=== PATIENT | female | born 1950 | race Caucasian/White ===

== ENCOUNTER 2021-03-29 11:31 | Outpatient (REF) | payer MEDICARE, MEDICAID, SELFPAY ==
--- NOTE | ~2021-03-29 | US_ITS ---
EXAMINATION: US THYROID CLINICAL INFORMATION: Nontoxic single thyroid nodule COMPARISON: None TECHNIQUE: Linear transducer chakraobrty-scale and color Doppler examination with attention to the region of the thyroid. FINDINGS: SIZE: Measurements of the thyroid lobes and nodules are given in sagittal, anteroposterior and transverse dimensions respectively. Right Thyroid Lobe: 4.5 x 1.4 x 1.3 cm, volume 4.5 mL. Parenchyma: The gland echotexture is homogeneous. Thyroid vascularity is normal. Left Thyroid Lobe: 3.8 x 1.2 x 1.3 cm, volume 3.1 mL. Parenchyma: The gland echotexture is homogeneous. Thyroid vascularity is normal. Isthmus: 0.3 cm in maximum AP dimension. Estimated total number of nodules greater than or equal to 1 cm: None. Rn Neonatal nodules are described as follows: 1. Location Left lower pole. Size: 0.3 x 0.2 x 0.2 cm, volume 0.006 mL. Nodule characteristics: Composition: Solid/almost completely solid (2). Echogenicity: Hypoechoic (2). Shape: Not taller than wide (0). Margins: Ill-defined (0). Echogenic Foci: None (0). ACR TI-RADS total points: 4 ACR TI-RADS category: 4 NODES: A small left neck lymph node present measuring 1.5 x 0.5 x 1.0 cm. US/US thyroid IMPRESSION: There is a single tiny left thyroid nodule present which is category 4 and needs no further follow-up. ACR TI-RADS RECOMMENDATION REFERENCE: Ultrasound-guided fine-needle aspiration, followup ultrasound, no further follow up. * TR1 (0 point) and TR 2 (2 points): No FNA or follow up * TR3 (3 points): FNA if more than or equal to 2.5 cm in maximum dimension, followup ultrasound in 1, 3 and 5 years if 1.5 to 2.4 cm in maximum dimension. * TR4 (4-6 points): FNA if more than or equal to 1.5 cm in maximum dimension, followup ultrasound in 1, 2, 3 and 5 years if 1 to 1.4 cm in maximum dimension. * TR5 (more than or equal to 7 points): FNA if more than or equal to 1 cm in maximum dimension, followup ultrasound every year for 5 years if 0.5 to 0.9 cm in maximum dimension. * TR3, TR4 or TR5 nodules that are below the size threshold for follow up receive no follow up.
== END 2021-03-29 11:32 | disposition home or self-care (01) ==
LOC: HO.US 11:31
PROVIDERS: PCP Internal Medicine; Visit Provider Internal Medicine
DX: E04.1 Nontoxic single thyroid nodule (principal)
CPT/HCPCS: 76536

== ENCOUNTER 2021-05-30 09:39 | Outpatient (REF) | payer MEDICARE, MEDICAID, SELFPAY ==
--- NOTE | ~2021-05-30 | MM_ITS ---
EXAMINATION: BONE DENSITOMETRY CLINICAL INDICATION: Menopause. COMPARISON: None (current study represents initial baseline exam). TECHNIQUE: Using a Stars Express DXA System (software version: 13.1) manufactured by [employer], dual-energy x-ray absorptiometry was performed of the lumbar spine and left hip. The images are of good technical quality. Summary results are attached. FINDINGS: AP SPINE L1-L2 (excluding L3 and L4): The data of L1-L4 has been changed to exclude the L3 and L4 vertebral bodies because degenerative changes at these levels may cause overestimation of the lumbar spine density. BMD 1.209 g/cm2, Z-score 1.5, T-score 0.4, normal. LEFT FEMUR, NECK: BMD 1.136 g/cm2, Z-score 2.2, T-score 0.7, normal. LEFT FEMUR, TOTAL: BMD 1.154 g/cm2, Z-score 2.4, T-score 1.2, normal. IDENTIFIED RISK FACTORS: Early menopause, low calcium intake, secondary osteoporosis. HISTORY OF FRACTURE: None listed. MEDICATIONS: Vitamin D. MM/XR DEXA axial skeleton IMPRESSION: 1. DIAGNOSIS: Normal bone density based on the lowest T-score value of 0.4 in the lumbar spine applying World Health Organization criteria. 2. 10-YEAR FRACTURE RISK PREDICTION, FRAX: According to the guidelines, FRAX calculation should only be performed on patients in the osteopenia bone density category. Therefore, FRAX was not performed on this patient. 3. Treatment Recommendations: NOF guidelines recommend consideration for treatment in postmenopausal women and men age 50 and older presenting with the following: -A hip or vertebral (clinical or morphometric) fracture. -T-score less than or equal to -2.5 at the femoral neck or spine after appropriate evaluation to exclude secondary causes. -Low bone mass at the hip or spine and a 10-year fracture probability by FRAX of greater than or equal to 3% for hip fracture or greater than or equal to 20% for major osteoporotic fracture based on the [place] adapted WHO algorithm. 4. Other Recommendations: All treatment decisions require clinical judgment and consideration of individual patient factors, including patient preferences, comorbidities, previous drug use, risk factors not captured in the FRAX model (e.g. frailty, falls, vitamin D deficiency, increased bone turnover, interval significant decline in bone density) and possible under or overestimation of fracture risk by FRAX. FUTURE SCAN RECOMMENDATION: People with diagnosed cases of osteoporosis or at high risk for fracture should have regular bone mineral density tests. For patients eligible for Medicare, routine testing is allowed once every 2 years. The testing frequency can be increased to one year for patients who have rapidly progressing disease, those who are receiving or discontinuing medical therapy to restore bone mass, or have additional risk factors.
== END 2021-05-30 09:40 | disposition home or self-care (01) ==
LOC: HO.MAMMO 09:39
PROVIDERS: PCP Internal Medicine; Visit Provider Internal Medicine
DX: Z13.820 Encounter for screening for osteoporosis (principal); Z78.0 Asymptomatic menopausal state
CPT/HCPCS: 77080

== ENCOUNTER 2021-06-08 12:43 | Outpatient (REF) | payer MEDICARE, MEDICAID, SELFPAY ==
--- NOTE | ~2021-06-08 | US_ITS ---
EXAMINATION: US VENOUS ULTRASOUND WITH DOPPLER LOWER EXTREMITY, LEFT CLINICAL INFORMATION: Left leg pain and swelling. COMPARISON: None TECHNIQUE: Ultrasound of the deep veins is performed from the hip to the calf with compression sonography and color and pulse Doppler assessment. Spectral analysis with color-flow imaging is performed. FINDINGS: There is normal venous compression and respiratory variation and augmented flow. The visualized common femoral vein, superficial femoral vein, profunda femoral vein, popliteal vein, and the trifurcation region shows no evidence of deep venous thrombosis. There is no significant popliteal fossa cyst. If the patient's symptoms persist, followup ultrasound in 5 days 7 days might be of value to exclude proximal propagation from a non-visualized calf vein. US/US venous duplex LE LT IMPRESSION: No DVT demonstrated in the left lower extremity.
== END 2021-06-08 12:44 | disposition home or self-care (01) ==
LOC: HO.HMGCX 12:43
PROVIDERS: Visit Provider Internal Medicine
DX: R60.0 Localized edema (principal); M79.89 Other specified soft tissue disorders
CPT/HCPCS: 93971

== ENCOUNTER 2021-09-13 08:58 | Outpatient (REF) | payer MEDICARE, MEDICAID, SELFPAY ==
--- NOTE | 2021-09-13 | EMG_ITS ---
Right median and ulnar motor and sensory studies were performed. Right radial sensory studies were performed and paraspinal muscles were tested with a needle. IMPRESSION: 1. Edhk-ax-lqyirfla right median neuropathy across carpal tunnel. 2. Mild right ulnar neuropathy across cubital tunnel. MD GINA Powell/SANTYL / [id number]
== END 2021-09-13 08:59 | disposition home or self-care (01) ==
LOC: HO.NEURO 08:58
PROVIDERS: PCP Internal Medicine; Visit Provider Internal Medicine
DX: G56.01 Carpal tunnel syndrome, right upper limb (principal)
CPT/HCPCS: 95886; 95909

== ENCOUNTER 2023-01-17 09:48 | Outpatient (REF) | payer MEDICARE, MEDICAID, SELFPAY ==
[2023-01-17 14:48] LABS: Iron 42 mcg/dL (30-160); Percent Iron Saturation 14 % (15-50); Total Iron Binding Capacity 307 mcg/dL (228-428); Unsaturated Iron Binding 265 ug/dL
[2023-01-17 15:22] LABS: Folate 12.9 ng/mL (> or = 4.0); Vitamin B12 423 pg/mL (200-900)
== END 2023-01-17 09:49 | disposition home or self-care (01) ==
LOC: HO.CHCLDS 09:48
PROVIDERS: Visit Provider Internal Medicine
DX: E11.42 Type 2 diabetes mellitus with diabetic polyneuropathy (principal)
CPT/HCPCS: 36415; 82607; 82746; 83540

== ENCOUNTER 2024-02-17 09:49 | Outpatient (REF) | payer MEDICARE, MEDICAID, SELFPAY ==
[2024-02-17 15:32] LABS: Estimated Average Glucose 301 mg/dL; Hemoglobin A1C 390.3554 umol/L; Hemoglobin A1c % 12.1 % (<6.0); Total Hemoglobin (HGBA1C) 3602.0559 umol/L
[2024-02-17 15:34] LABS: Alkaline Phosphatase 103 U/L (39-117); Anion Gap 11 (12-20); Aspartate Amino Transferase 35 U/L (5-31); Bilirubin Total 0.4 mg/dL (0.0-1.0); Blood Urea Nitrogen 22 mg/dL (9-16); Calcium 10.2 mg/dL (8.4-10.2); Carbon Dioxide 26 mmol/L (22-29); Chloride 107 mmol/L (96-108); Cholesterol 138 mg/dL (<200); Estimated Glomerular Filt Rate 49; Glucose Random 194 mg/dL (60-115); HDL Cholesterol 37 mg/dL (>40); LDL Cholesterol Calculated 84 mg/dL (<100); Potassium 4.2 mmol/L (3.3-5.1); Sodium 140 mmol/L (135-145); Total Protein 7.3 g/dL (6.5-8.0); Triglycerides 87 mg/dL (<150)
[2024-02-17 15:51] LABS: TSH reflex Free T4 2.75 uIU/mL (0.32-4.0)
[2024-02-17 16:21] LABS: Alanine Aminotransferase 29 U/L (0-31)
== END 2024-02-17 09:50 | disposition home or self-care (01) ==
LOC: HO.CHCLDS 09:49
PROVIDERS: Visit Provider Internal Medicine
DX: E11.51 Type 2 diabetes mellitus with diabetic peripheral angiopathy without gangrene (principal); Z79.4 Long term (current) use of insulin
CPT/HCPCS: 36415; 80053; 80061; 83036; 84443

== ENCOUNTER 2024-03-16 15:58 | Outpatient (REF) | payer MEDICARE, MEDICAID, SELFPAY ==
--- OUTSIDE RECORDS SUMMARY | 2024-03-16 16:34 | XMS_ITS | Encounter Summary ---
Author Organization [facility] Address [address] [place] [address] Care Team Providers Care Environmental Change Analyst Name Role Phone Dominique Swift MD Primary Care Provider Uli Moreno MD Primary Care Provider Un available Ramon Marcos MD Primary Care Prov ider Unavailable Alia Gagnon MD Unavailable [phone] [place] Unavailable Reason for Visit * Reason Onset Date Comments REFERRAL 05/17/2015 BE- DR DIETZ Encounter Details Date Type Department Care Team Description 05/17/2015 Telephone Chiropractic - [address] [id number] Raul Dietz D.C. REFERRAL (CHIRO- DR DIETZ) Social History Tobacco Use Types Packs/Day Years Used Date Smoking Tobacco: Never Smokeless Tobacco: Never Alcohol Use Standard Drinks/Week Comments No 0 (1 standard drink = 0.6 oz pur e alcohol) Sex Assigned at Date Recorded Not on file Job Start Date Occupation Industry Not on file Not on file Not on file documented as of this encounter Miscellaneous Notes * Telephone Encounter - Sandra Lazo - 05/17/2015 4:35 PM EDT NO RESPONSE TO LETTER SENT REGARDING REFERRAL TO CHIROPRACTIC. FYI TO REFERRING PROVIDER. documented in this encounter Plan of Treatment Not on file documented as of this encounter Visit Diagnoses Not on filedocumented in this encounter Care Teams Environmental Change Analyst Relationship Specialty Start Date End Date Dominique Swift MD PCP - General Internal Medicine 03/17/15 07/12/15 Uli Rueda MD PCP - General Internal Medicine 07/13/15 Ramon Marcos MD PCP - General Internal Medicine 06/16/20 Alia Gagnon MD Specialist Cardiology 07/06/20 Ridge Oakley PA Specialist Cardiology 07/06/20 documented as of this encounter
--- OUTSIDE RECORDS SUMMARY | 2024-03-16 16:34 | XMS_ITS | Encounter Summary ---
Author Organization [employer] [facility] Address [address] [facility] [address] [place] [address] Care Team Providers Care Chaser Helper Name Role Phone Steffany Augustin MD Primary Care Provider [phone] Reason for Visit * Reason Comments Med Refill Encounter Details Date Type Department Care Team ([facility] st Contact Info) Description 03/11/[address] [facility] MED & PEDS [address] [place], [place] [phone] Aidee Arrieta MD [address] [place], [place] [phone] Social History Tobacco Use Types Packs/Day Years Used Date Smoking Tobacco: Never Smokeless Tobacco: Never Depression Answer Date Recorded Patient Health Questionnaire-9 Score 2 05/17/2022 Housing Stability Answer Date Recorded What is your housing situation today? Not on shameka e 05/19/[address] you li ve. Do you have problems with any of the following? None of the above 05/19/2023 Food Insecurity Answer Date Recorded Within the past 12 months, y ou worried that your food would run out before you got money to buy more: Never True 12/10/2022 Within the past 12 months,th e food you bought just didn't last and you didn't have enough money to get more: Never True Transportation Answer Date Recorded In the past 12 months, has l ack of transportation kept you from medical appts, meetings, work or from getting things needed for daily living? No 12/10/2022 Utilities Answer Date Recorded In the past 12 months, has t he electric, gas, oil or water company threatened to shut off services in your home? No 12/10/2022 Depression Answer Date Recorded Patient Health Questionnaire-2 Score 2 05/17/2022 Comments Unknown Sex and Gender Information Value Date Recorded Sex Assigned at Female 12/17/2021 10:36 AM EDT Legal Sex Female 10:36 AM EDT Gender Identity Female 12/17/2021 10:36 AM EDT Sexual Orientation Straight 12/17/2021 10 :36 AM EDT documented as of this encounter Plan of Treatment Not on file documented as of this encounter Visit Diagnoses Not on filedocumented in this encounter Additional Health Concerns Assessment Noted Time PHQ-9 Depression Total Score: 2 05/18/19 23 9:10 AM EDT documented as of this encounter Care Teams Chaser Helper Relationship Specialty Start Date End Date Steffany Augustin MD [address] [place] [id number] PCP - General Internal Medicine 12/03/23 documented as of this encounter
--- OUTSIDE RECORDS SUMMARY | 2024-03-16 16:34 | XMS_ITS | Encounter Summary ---
Author Organization [employer] Address [address] [facility] [address] [place] [address] Care Team Providers Care Dermatology Nurse Name Role Phone Ramon Marcos MD Primary Care Prov ider Steffany Augustin MD Primary Care Provider [phone] Encounter Details Date Type Department Care Team (Late st Contact Info) Description 01/07/2023 Abstract [facility] MEDICINE [address] [place] [address] Niki Orozco Social History Tobacco Use Types Packs/Day Years Used Date Smoking Tobacco: Never Smokeless Tobacco: Never Depression Answer Date Recorded Patient Health Questionnaire-9 Score 2 05/17/2022 Housing Stability Answer Date Recorded What is your housing situation today? I have tomás martínez 12/10/[address] you li ve. Do you have problems with any of the following? None of the above 12/10/2022 Food Insecurity Answer Date Recorded Within the [...] on file documented as of this encounter Procedures Procedure Name Priority Date/Time Associated Diagnosis Comments COLONOSCOPY Routine 12/09/2017 documented in this encounter Results * Hm Colonoscopy (12/09/2017) Colonoscopy Normal Normal Narrative Niki Orozco - 12/09/2017 Repeat in 5 years us Historical Provider HEALTH MAINTENANCE Final Result documented in this encounter Visit Diagnoses Not on filedocumented in this encounter Additional Health Concerns Assessment Noted Time PHQ-9 Depression Total Score: 2 05/18/19 23 9:10 AM EDT documented as of this encounter Care Teams Dermatology Nurse Relationship Specialty Start Date End Date LugoRamon Hawley MD [address] [place] [address] PCP - General Internal Medicine 12/22/18 12/02/23 Steffany Augustin MD [address] [place] [address] PCP - General Internal Medicine 12/03/23 documented as of this encounter
--- OUTSIDE RECORDS SUMMARY | 2024-03-16 16:34 | XMS_ITS | Encounter Summary ---
Author Organization [facility] Address [address] [place] [address] Care Team Providers Care Parts Manager Name Role Phone Uli Rueda MD Primary Care Provider Un available Ramon Marcos MD Primary Care Prov ider Unavailable Alia Gagnon MD Unavailable [phone] [place] Unavailable Encounter Details Date Type Department Care Team Description 06/18/2016 Orders Only Adult Medicine [address] [address] Uli Rueda MD Social History Tobacco Use Types Packs/Day Years Used Date Smoking Tobacco: Never Smokeless Tobacco: Never Alcohol Use Standard Drinks/Week Comments No 0 (1 standard drink = 0.6 oz pur e alcohol) Sex Assigned at Date Recorded Not on file Job Start Date Occupation Industry Not on file Not on file Not on file documented as of this encounter Plan of Treatment Not on file documented as of this encounter Visit Diagnoses Not on filedocumented in this encounter Care Teams Parts Manager Relationship Specialty Start Date End Date Uli Rueda MD PCP - General Internal Medicine 07/13/15 Ramon Marcos MD PCP - General Internal Medicine 06/16/20 Alia Gagnon MD Specialist Cardiology 07/06/20 Ridge Oakley PA Specialist Cardiology 07/06/20 documented as of this encounter
--- OUTSIDE RECORDS SUMMARY | 2024-03-16 16:34 | XMS_ITS | Encounter Summary ---
Author Organization [employer] Address [address] [facility] [address] [place] [address] Care Team Providers Care Bulk Delivery Driver Name Role Phone Ramon Marcos MD Primary Care Prov ider Steffany Augustin MD Primary Care Provider [phone] Reason for Visit * Reason Onset Date Comments pre-op 01/28/2023 Encounter Details Date Type Department Care Team ([facility] st Contact Info) Description 01/28/2023 Telephone [facility] MED & PEDS [address] [place], [place] [phone] Ramon Marcos MD [address] [place] [address] pre-op Social History Tobacco Use Types Packs/Day Years Used Date Smoking Tobacco: Never Smokeless Tobacco: Never Depression Answer Date Recorded Patient Health Questionnaire-9 Score 2 05/17/2022 Housing Stability Answer Date Recorded What is your housing situation today? I have tomás tanya 12/10/[address] you li [...] AM EDT documented as of this encounter Miscellaneous Notes * Telephone Encounter - Andria Quigley RN - 01/29/2023 11:28 AM EST Returned call to Geoff regarding message below. Pt is having L eye cataract surgery on 02/18/[address] Montoya. Pt will be under MAC anesthesia and no labs or EKG needed. Pt scheduled 02/07/23, Geoff mcwilliams pt. Prior notes requested to be faxed to office. * Telephone Encounter - Swati Jasso - 01/28/2023 1:38 PM EST Date of Surgery: 02/18/23 Surgical procedure being done: cataract surgery of the left eye Type of anesthesia: MAC Lab needed: no EKG: no Surgeon's name: Dr. Salinas Montoya Facility name: [facility], [address] [place] [address] Dr Davison [address] Surgeon's office number: [phone] ext [facility] Surgeon's office fax number: [phone] Contact name (person you spoke with): geoff documented in this encounter Plan of Treatment Not on file documented as of this encounter Visit Diagnoses Not on filedocumented in this encounter Additional Health Concerns Assessment Noted Time PHQ-9 Depression Total Score: 2 05/18/19 23 9:10 AM EDT documented as of this encounter Care Teams Bulk Delivery Driver Relationship Specialty Start Date End Date Ramon Marcos MD [address] [place] [address] PCP - General Internal Medicine 12/22/18 12/02/23 Steffany Augustin MD [address] [place] [address] PCP - General Internal Medicine 12/03/23 documented as of this encounter
--- OUTSIDE RECORDS SUMMARY | 2024-03-16 16:34 | XMS_ITS | Encounter Summary ---
Author Organization [facility] Address [address] [place] [address] Care Team Providers Care Order Entry Administrator Name Role Phone Jose A, Pedro Luis VALADEZ Primary Care Provider Dominique Mathis MD Primary Care Provider Uli Moreno MD Primary Care Provider Un available Steffany Augustin MD Primary Care Pr ovider Unavailable Ramon Marcos MD Primary Care Prov ider Unavailable Alia Gagnon MD Unavailable [phone] [place] Unavailable Reason for Visit * Reason Onset Date Comments Provider Call Back 02/04/2014 [facility] Encounter Details Date Type Department Care Team Description 02/04/2014 Telephone Adult Medicine [address] [phone] Name, MD Pedro Luis Provider Call Back ([facility]) Social History Tobacco Use Types Packs/Day Years [...] encounter Miscellaneous Notes * Telephone Encounter - Theresa Ramsay - 02/07/2014 2:22 PM EST Patients daughter calling back on status of message. She also wants Dr Naranjo to know [facility] for irregular [facility]. Pt is still in the hospital. * Telephone Encounter - Katelyn Gusman - 02/04/2014 3:25 PM EST Caller requesting call back from provider: Name Is the caller the patient? NO If caller is not the patient, what is the callers name? Daphney Hyde Callers relationship to patient? daughter If person calling is not the patient themselves, is there a verbal release in FYI or permanent comments for this person: YES Reason for call back: asking for more electrical continuity tester hours thru [facility]. Patient needs knee replacement and isrequiring more help from her electrical continuity tester. appt scheduled for consult with [facility] 02-25-14. Caller offered to speak with the nurse for assistance: YES Response: Patient offered to speak with nurse for assistance and patient agreed. Message forwarded to nurse. documented in this encounter Plan of Treatment Not on file documented as of this encounter Visit Diagnoses Not on filedocumented in this encounter Care Teams Order Entry Administrator Relationship Specialty Start Date End Date Name, MD Pedro Luis PCP - General Internal Medicine 05/08/12 02/05/14 Dominique Swift MD PCP - General Internal Medicine 03/17/15 07/12/15 Uli Rueda MD PCP - General Internal Medicine 07/13/15 Steffany Augustin MD PCP - General 02/06/14 03/16/15 Ramon Marcos MD PCP - General Internal Medicine 06/16/20 Alia Gagnon MD Specialist Cardiology 07/06/20 Ridge Oakley PA Specialist Cardiology 07/06/20 documented as of this encounter
--- OUTSIDE RECORDS SUMMARY | 2024-03-16 16:34 | XMS_ITS | Encounter Summary ---
Author Organization [facility] Address [address] [place] [address] Care Team Providers Care Cafe Manager Name Role Phone Uli Rueda MD Primary Care Provider Un available Ramon Marcos MD Primary Care Prov ider Unavailable Alia Gagnon MD Unavailable [phone] [place] Unavailable Encounter Details Date Type Department Care Team Description 01/21/2019 Release of Information Medical Records [address] [place] [id number] Abstract, Provider Social History Tobacco Use Types Packs/Day Years [...] on filedocumented in this encounter Care Teams Cafe Manager Relationship Specialty Start Date End Date Uli Rueda MD PCP - General Internal Medicine 07/13/15 Ramon Marcos MD PCP - General Internal Medicine 06/16/20 Alia Gagnon MD Specialist Cardiology 07/06/20 Ridge Oakley PA Specialist Cardiology 07/06/20 documented as of this encounter
--- OUTSIDE RECORDS SUMMARY | 2024-03-16 16:34 | XMS_ITS | Encounter Summary ---
Author Organization [facility] Address [address] [place] [address] Care Team Providers Care Automotive Service Writer Name Role Phone Ramon Marcos MD Primary Care Prov ider Unavailable Alia Gagnon MD Unavailable [phone] [place] Unavailable Encounter Details Date Type Department Care Team Description 11/20/2020 SCAN Medical Records [address] [place] [id number] Abstract, Provider Social History Tobacco Use Types [...] Procedure Name Priority Date/Time Associated Diagnosis Comments OUTSIDE LAB Routine 11/20/2020 documented in this encounter Results * OUTSIDE LAB (11/20/2020) Provider Default LAB documented in this encounter Visit Diagnoses Not on filedocumented in this encounter Care Teams Automotive Service Writer Relationship Specialty Start Date End Date Ramon Marcos MD PCP - General Internal Medicine 06/16/20 Alia Gagnon MD Specialist Cardiology 07/06/20 Ridge Oakley PA Specialist Cardiology 07/06/20 documented as of this encounter
--- OUTSIDE RECORDS SUMMARY | 2024-03-16 16:34 | XMS_ITS | Encounter Summary ---
Author Organization [facility] Address [address] [place] [address] Care Team Providers Care Orthopedic Brace Maker Name Role Phone Uli Rueda MD Primary Care Provider Un available Ramon Marcos MD Primary Care Prov ider Unavailable Alia Gagnon MD Unavailable [phone] [place] Unavailable Reason for Visit * Reason Onset Date Comments REFERRAL 07/17/2018 Encounter Details Date Type Department Care Team Description 07/17/2018 Telephone Rheumatology - [address] [address] Raul Portillo MD REFERRAL Social History Tobacco Use Types Packs/Day Years [...] encounter Miscellaneous Notes * Telephone Encounter - Mani Blackburn - 07/17/2018 9:39 AM EDT Patient was referred Rheumatology re: Reason for referral: rheumatoid arthritis Dr Portillo is not accepting new patients at this time. Referring patient outside.----FYI documented in this encounter Plan of Treatment Not on file documented as of this encounter Visit Diagnoses Not on filedocumented in this encounter Care Teams Orthopedic Brace Maker Relationship Specialty Start Date End Date Uli Rueda MD PCP - General Internal Medicine 07/13/15 Ramon Marcos MD PCP - General Internal Medicine 06/16/20 Alia Gagnon MD Specialist Cardiology 07/06/20 Ridge Oakley PA Specialist Cardiology 07/06/20 documented as of this encounter
--- OUTSIDE RECORDS SUMMARY | 2024-03-16 16:34 | XMS_ITS | Encounter Summary ---
Author Organization [facility] Address [address] [place] [address] Care Team Providers Care Last Puller Name Role Phone Uli Rueda MD Primary Care Provider Un available Ramon Marcos MD Primary Care Prov ider Unavailable Alia Gagnon MD Unavailable [phone] [place] Unavailable Reason for Visit * Reason Onset Date Comments Anticoagulation 11/19/2017 Encounter Details Date Type Department Care Team Description 11/19/2017 Telephone Gastroenterology - [address] [address] Elie Thibodeaux MD Anticoagulation Social History Tobacco Use Types Packs/Day Years [...] encounter Miscellaneous Notes * Telephone Encounter - Bailee Isaacs - 11/19/2017 8:12 AM EDT Patient is scheduled for a Colonoscopy at [facility] on 12/09/17. Patient is on Xarelto. Per Dr Thibodeaux, Pt has uncomplicated A. Fib; No reason for Lovenox bridge. Patient should stop Xarelto 3 days before colonoscopy. Please see phone encounter from 10/23/17 documented in this encounter Plan of Treatment Not on file documented as of this encounter Visit Diagnoses Not on filedocumented in this encounter Care Teams Last Puller Relationship Specialty Start Date End Date Uli Rueda MD PCP - General Internal Medicine 07/13/15 Ramon Marcos MD PCP - General Internal Medicine 06/16/20 Alia Gagnon MD Specialist Cardiology 07/06/20 [place] PA Specialist Cardiology 07/06/20 documented as of this encounter
--- OUTSIDE RECORDS SUMMARY | 2024-03-16 16:34 | XMS_ITS | Encounter Summary ---
Author Organization [facility] Address [address] [place] [address] Care Team Providers Care Geospatial Analyst Name Role Phone Unavailable Primary Care Provider Unavailabl e Reason for Visit * Reason Onset Date Comments Hypertension 02/16/2024 Abnormal ECG 02/16/2024 Encounter Details Date Type Department Care Team (Late st Contact Info) Description 02/16/2024 Telephone [facility] - [address] [place] [id number] Alia Gagnon MD [address] [place] [address] Hypertension; Abnormal ECG Social History Tobacco Use Types Packs/Day Years Used Date Smoking Tobacco: Never Smokeless Tobacco: Never Alcohol Use Standard Drinks/Week Comments No 0 (1 standard drink = 0.6 oz pur e alcohol) Sex and Gender Information Value Date Recorded Sex Assigned at Not on file Gender Identity Not on file Sexual Orientation Not on file documented as of this encounter Progress Notes * Evelyn Jenkins RN - 02/16/2024 11:41 AM EST Spoke with dtr, reviewed SHAN recommendations ACCESS has called pt dtr with an appt * Deanne Brice NP - 02/16/2024 11:37 AM EST Reviewed her EKG which appeared to be atrial fibrillation when she does have a history of. Her EKG was almost a month ago. Will defer further management to primary care team of Dr. Malin and Azam to decide appropriate follow-up. * Mari Forbes - 02/16/2024 11:32 AM EST Appointment booked. Attempted to add PCP to car team and PCP did not show up. * Evelyn Jenkins RN - 02/16/2024 10:32 AM EST [facility] 2022 SG ACCESS : Can you update pt new PCP please ? Pt has new PCP Dr Steffany Augustin [facility]. Pt also needs follow up appt. [facility] 2022 SH pt DX: AFIB, DM HTN, HLD Thank you SH : Pt dtr Aretha asking for appt due to pt abnormal EKG on 01/22/24. Asking for EKG to be reviewed prior to appointment, EKG scanned into EPIC. Dtr stated pt was due for colonoscopy and they cancelled procedure based on EKG results. Aretha states pt BP has been high but does not have a BP LOG, I asked her to start one. Unable to check BP today as her machine does not have batteries. PCP ordered lab work for pt and she is getting it done tomorrow Med list updated with dtr. * Mari Forbes - 02/16/2024 9:42 AM EST Patient daughter Aretha inman, She states her blood pressure is out of control. She states patienthad a colonoscopy scheduled that she was unable to do due to her EKG not looking good. She was advised to reach out office. documented in this encounter Plan of Treatment Upcoming Encounters Date Type Department Care Team (Late st Contact Info) Description 06/02/2024 8:50 AM EDT Office Visit [facility] [address] [facility] [address] [place] [address] Alia Gagnon MD [address] [place] [address] documented as of this encounter Visit Diagnoses Not on filedocumented in this encounter Historical Medications * This list may reflect changes made after this encounter. Medication Sig Dispensed Refills Start Date End Date anastrozole (ARIMIDEX) 1 mg Take 1 tablet (1 mg total) by mouth 1 (one) time each day Swallow whole with a drink of water. atorvastatin (LIPITOR) 80 mg tablet Take 1 tablet (80 mg total) by mouth at bedtime. empagliflozin (Jardiance) 25 mg tablet Take 1 tablet (25 mg total) by mouth 1 (one) time each day in the morning. dilTIAZem CD (CARDIZEM CD) 300 mg 24 hr capsule Take 1 capsule (300 mg total) by mouth 1 (one) time each day. losartan (COZAAR) 100 mg tablet Take 1 tablet (100 mg total) by mouth 1 (one) time each day. rivaroxaban (XARELTO) 20 mg tablet Take 1 tablet (20 mg total) by mouth 1 (one) time each day with dinner. Take with food. added in this encounter
--- OUTSIDE RECORDS SUMMARY | 2024-03-16 16:34 | XMS_ITS | Encounter Summary ---
Author Organization [employer] Address [address] [facility] 7t [place] [address] Care Team Providers Care Sap Bw Developer Name Role Phone Steffany Augustin MD Primary Care Provider [phone] Encounter Details Date Type Department Care Team (Late st Contact Info) Description 03/02/2024 Orders Only [facility] MEDICINE [address] [place] [address] Provider, MD Darian Social History Tobacco Use Types Packs/Day Years [...] Procedure Name Priority Date/Time Associated Diagnosis Comments MAMMOGRAPHY Routine 02/24/2024 9:36 AM EST documented in this encounter Results * Hm Mammography (02/24/2024 9:36 AM EST) Anatomical Region Laterality Modality Other us Historical Provider HEALTH MAINTENANCE Final Result documented in this encounter Visit Diagnoses Not on filedocumented in this encounter Additional Health Concerns Assessment Noted Time PHQ-9 Depression Total Score: 2 05/18/19 23 9:10 AM EDT documented as of this encounter Care Teams Sap Bw Developer Relationship Specialty Start Date End Date Steffany Augustin MD [address] [place] [address] PCP - General Internal Medicine 12/03/23 documented as of this encounter
--- OUTSIDE RECORDS SUMMARY | 2024-03-16 16:34 | XMS_ITS | Encounter Summary ---
Author Organization [facility] Address [address] [place] [address] Care Team Providers Care Pressure Tank Operator Name Role Phone Uli Rueda MD Primary Care Provider Un available Ramon Marcos MD Primary Care Prov ider Unavailable Alia Gagnon MD Unavailable [phone] [place] Unavailable Encounter Details Date Type Department Care Team Description 02/07/2016 Threader Report Medical Records [address] [place] [address] Maldonado Resendez Social History Tobacco Use Types Packs/Day Years [...] on filedocumented in this encounter Care Teams Pressure Tank Operator Relationship Specialty Start Date End Date Uli Rueda MD PCP - General Internal Medicine 07/13/15 Ramon Marcos MD PCP - General Internal Medicine 06/16/20 Alia Gagnon MD Specialist Cardiology 07/06/20 [place] Oakley PA Specialist Cardiology 07/06/20 documented as of this encounter
--- OUTSIDE RECORDS SUMMARY | 2024-03-16 16:34 | XMS_ITS | Encounter Summary ---
Author Organization [employer] Address [address] [place] [address] Care Team Providers Care Logistics Technician Name Role Phone Steffany Augustin MD Primary Care Provider [phone] Reason for Referral * Consultation (Routine) - Authorized Specialty Diagnoses / Procedures Referred By Bean bragg Referred To Contact Pharmacy Diagnoses Type 2 diabetes mellitus with diabetic peripheral angiopathy without gangrene, with long-term current use of insulin (CMS/HCC) Steffany Augustin MD [address] [place] [address] Phone: tel: fax: Referral ID Status Reason Start Date Expiration Date Visits Requested Visits Authorized [id number] Authorized Consult and Treat 03/16/2024 03/16/2025 6 6 Encounter Details Date Type Department Care Team ([facility] st Contact Info) Description 03/16/2024 3:15 PM EST Office Visit [facility] [address] [place] [address] Steffany Augustin MD [address] [place] [phone] Iron deficiency anemia secondary to inadequate dietary iron intake (Primary Dx); Type 2 diabetes mellitus with diabetic peripheral angiopathy without gangrene, with long-term current use of insulin (CMS/HCC); Acute pain of left knee Social History Tobacco Use Types Packs/Day Years Used Date Smoking Tobacco: Never Smokeless Tobacco: Never Depression Answer Date Recorded Patient Health Questionnaire-9 Score 0 03/16/2024 Patient Health Questionnaire-9 Score 0 03/16/2024 Last PHQ-9: Questionnaire Data Not on file 0 03/16/2024 Housing Stability Answer Date Recorded What is your housing situation today? I have tomás martínez 03/16/[address] you li ve. Do you have problems with any of the following? None of the above 03/16/2024 Food Insecurity Answer Date Recorded Within the [...] Answer Date Recorded Patient Health Questionnaire-2 Score 0 03/16/2024 Internet Access Answer Date Recorded Internet Access Q1 Yes 03/16/2024 Internet Access Q2 Not on file 03/16/2024 Comments Unknown Sex and Gender Information Value Date Recorded Sex Assigned at Female 12/17/2021 10:36 AM EDT Legal Sex Female 10:36 AM EDT Gender Identity Female 12/17/2021 10:36 AM EDT Sexual Orientation Straight 12/17/2021 10 :36 AM EDT documented as of this encounter Last Filed Vital Signs Vital Sign Reading Time Taken Comments Blood Pressure 126/84 03/16/2024 3:25 PM EST Pulse 60 03/16/2024 3:25 PM EST Temperature 36.4 ??C (97.6 ??F) 03/16/2024 3:25 PM ES T Respiratory Rate 20 03/16/2024 3:25 PM EST Oxygen Saturation 98% 03/16/2024 3:25 PM EST Inhaled Oxygen Concentration - - Weight 89.3 kg (196 lb 12.8 oz) 03/16/2024 3:25 PM EST Height 161 cm (5' 3.39 ) 03/16/2024 3:25 PM EST Body Mass Index 34.44 03/16/2024 3:25 PM EST documented in this encounter Plan of Treatment Scheduled Orders Name Type Priority Associated Diagnoses Orde r Schedule CBC auto differential Lab Routine Iron deficiency anemia secondary to inadequate dietary iron intake Expected: 03/16/2024 (Approximate), Expires: 03/16/2025 XR Knee 1-2 Views Left Imaging Routine Acute pain of left knee Expected: 03/16/2024, Expires: 03/16/2025 Scheduled Referrals Name Type Priority Associated Diagnoses Orde r Schedule Referral to Pharmacy CD Outpatient Referral Routine Type 2 diabetes mellitus with diabetic peripheral angiopathy without gangrene, with long-term current use of insulin ([facility]) Ordered: 03/16/2024 documented as of this encounter Procedures Procedure Name Priority Date/Time Associated Diagnosis Comments POCT GLYCATED HEMOGLOBIN, TOTAL Routine 03/16/2024 3:38 PM EST Type 2 diabetes mellitus with diabetic peripheral angiopathy without gangrene, with long-term current use of insulin ([facility]) POCT GLUCOSE Routine 03/16/2024 3:38 PM EST Type 2 diabetes mellitus with diabetic peripheral angiopathy without gangrene, with long-term current use of insulin ([facility]) documented in this encounter Results * (ABNORMAL) POCT HGB A1C (03/16/2024 3:38 PM EST) Hemoglobin A1C 11.5(A) 4.0 - 6.0 % QC Media Lot # [id number] Lot# Expiration Date [id number] Blood 03/16/2024 3:38 PM EST Steffany Augustin MD POINT OF CARE TEST ENTER/ED IT ORDERABLES Final Result * POCT Glucose (03/16/2024 3:38 PM EST) Glucose Blood, POC 165 60 - 200 mg/dL QC Media Lot # [id number] Lot# Expiration Date [id number] Blood Capillary blood specimen / Unknown 03/16/2024 3:38 PM EST Steffany Augustin MD POINT OF CARE TEST ENTER/ED IT ORDERABLES Final Result documented in this encounter Visit Diagnoses Diagnosis Iron deficiency anemia secondary to inadequate dietary iron intake- Primary Type 2 diabetes mellitus with diabetic peripheral angiopathy without gangrene, with long-term current use of insulin ([facility]) Acute pain of left knee documented in this encounter Additional Health Concerns Assessment Noted Time PHQ-9 Depression Total Score: 0 03/16/19 25 3:27 PM EST documented as of this encounter Care Teams Logistics Technician Relationship Specialty Start Date End Date Steffany Augustin MD [address] [place] [address] PCP - General Internal Medicine 12/03/23 documented as of this encounter
--- OUTSIDE RECORDS SUMMARY | 2024-03-16 16:34 | XMS_ITS | Encounter Summary ---
Author Organization [facility] Address [address] [place] [address] Care Team Providers Care Gravel Weigher Name Role Phone Name, Pedro Luis VALADEZ Primary Care Provider UnavailDominique Rangel MD Primary Care Provider Uli Moreno MD Primary Care Provider Un available Steffany Augustin MD Primary Care Pr ovider Unavailable Ramon Marcos MD Primary Care Prov ider Unavailable Alia Gagnon MD Unavailable [phone] [place] Unavailable Encounter Details Date Type Department Care Team Description 06/16/2012 Release of Information Medical Records [address] [place] [id number] Abstract, Provider Social History Tobacco Use Types [...] on filedocumented in this encounter Care Teams Gravel Weigher Relationship Specialty Start Date End Date Name, [...]
--- OUTSIDE RECORDS SUMMARY | 2024-03-16 16:34 | XMS_ITS | Encounter Summary ---
Author Organization [facility] Address [address] [place] [address] Care Team Providers Care Display Artist Name Role Phone Uli Rueda MD Primary Care Provider Un available Ramon Marcos MD Primary Care Prov ider Unavailable Alia Gagnon MD Unavailable [phone] [place] Unavailable Encounter Details Date Type Department Care Team Description 03/06/2016 [facility] Medical Records [address] [place] [address] Social History Tobacco Use Types Packs/Day Years [...] on filedocumented in this encounter Care Teams Display Artist Relationship Specialty Start Date End Date Uli Rueda MD PCP - General Internal Medicine 07/13/15 Ramon Marcos MD PCP - General Internal Medicine 06/16/20 Alia Gagnon MD Specialist Cardiology 07/06/20 [place] PA Specialist Cardiology 07/06/20 documented as of this encounter
--- OUTSIDE RECORDS SUMMARY | 2024-03-16 16:34 | XMS_ITS | Encounter Summary ---
Author Organization [facility] Address [address] [place] [address] Care Team Providers Care Layboy Operator Name Role Phone Uli Rueda MD Primary Care Provider Un available Ramon Marcos MD Primary Care Prov ider Unavailable Alia Gagnon MD Unavailable [phone] [place] Unavailable Encounter Details Date Type Department Care Team Description 04/09/2019 SCAN Medical Records [address] [place] [address] Abstract, Provider Social History Tobacco Use Types [...] Name Priority Date/Time Associated Diagnosis Comments OUTSIDE VASCULAR STUDY Routine 04/09/2019 documented in this encounter Results * OUTSIDE VASCULAR STUDY (04/09/2019) Provider Default CARDIOLOGY documented in this encounter Visit Diagnoses Not on filedocumented in this encounter Care Teams Layboy Operator Relationship Specialty Start Date End Date Uli Rueda MD PCP - General Internal Medicine 07/13/15 Ramon Marcos MD PCP - General Internal Medicine 06/16/20 Alia Gagnon MD Specialist Cardiology 07/06/20 [place] PA Specialist Cardiology 07/06/20 documented as of this encounter
--- OUTSIDE RECORDS SUMMARY | 2024-03-16 16:34 | XMS_ITS | Encounter Summary ---
Author Organization [facility] Address [address] [place] [address] Care Team Providers Care Beater Room Supervisor Name Role Phone Uli Rueda MD Primary Care Provider Un available Ramon Marcos MD Primary Care Prov ider Unavailable Alia Gagnon MD Unavailable [phone] [place] Unavailable Encounter Details Date Type Department Care Team Description 02/02/2018 Web Methods Developer Report Medical Records [address] [place] [id number] Rodrigo Berry DO Social History Tobacco Use Types Packs/Day Years [...] on filedocumented in this encounter Care Teams Beater Room Supervisor Relationship Specialty Start Date End Date Uli Rueda MD PCP - General Internal Medicine 07/13/15 Ramon Marcos MD PCP - General Internal Medicine 06/16/20 Alia Gagnon MD Specialist Cardiology 07/06/20 [place] PA Specialist Cardiology 07/06/20 documented as of this encounter
--- OUTSIDE RECORDS SUMMARY | 2024-03-16 16:34 | XMS_ITS | Encounter Summary ---
Author Organization [employer] Address [address] [facility] 7[address] [place] [address] Care Team Providers Care School Director Name Role Phone Steffany Augustin MD Primary Care Provider [phone] Encounter Details Date Type Department Care Team (Late st Contact Info) Description 01/08/2024 Orders Only [facility] [address] [place] [address] Provider, MD Darian Social History Tobacco Use [...] as of this encounter Miscellaneous Notes * Result Encounter Note - Steffany Augustin MD - 01/08/2024 2:05 PM EST Please update the EHR. Recent eye exam documented in this encounter Plan of Treatment Not on file documented as of this encounter Procedures Procedure Name Priority Date/Time Associated Diagnosis Comments DIABETES EYE EXAM Routine 10/29/2023 2:05 PM EDT documented in this encounter Results * Diabetes Eye Exam (10/29/2023 2:05 PM EDT) us Historical Provider HEALTH MAINTENANCE Final Result documented in this encounter Visit Diagnoses Not on filedocumented in this encounter Additional Health Concerns Assessment Noted Time PHQ-9 Depression Total Score: 2 05/18/19 23 9:10 AM EDT documented as of this encounter Care Teams School Director Relationship Specialty Start Date End Date Steffany Augustin MD [address] [place] [id number] PCP - General Internal Medicine 12/03/23 documented as of this encounter
--- OUTSIDE RECORDS SUMMARY | 2024-03-16 16:34 | XMS_ITS | Encounter Summary ---
Author Organization [employer] Address [address] [facility] 7[address] [place] [address] Care Team Providers Care Emergency Medical Technician/Driver Name Role Phone Steffany Augustin MD Primary Care Provider [phone] Reason for Visit * Reason Comments Med Refill Encounter Details Date Type Department Care Team ([facility] st Contact Info) Description 03/09/2024 Refill [facility] MED[facility]INE [address] [place] [address] Ramon Marcos MD [address] [place], [place] [id number] Social History Tobacco Use Types Packs/Day Years [...] documented as of this encounter Care Teams Emergency Medical Technician/Driver Relationship Specialty Start Date End Date Steffany Augustin MD [address] [place] [address] PCP - General Internal Medicine 12/03/23 documented as of this encounter
--- OUTSIDE RECORDS SUMMARY | 2024-03-16 16:34 | XMS_ITS | Clinical Summary ---
Author Organization [employer] Address [address] [place] [address] Care Team Providers Care Engineering Vice President Name Role Phone Steffayn Augustin MD Primary Care Provider [phone] Allergies Active Allergy Reactions Criticality Noted Date Comments Lisinopril Cough 07/20/2013 Medications * This document contains information received from the source organization and may not represent a complete record from that organization. empagliflozin (Jardiance) 25 MG Take 1 tablet by mouth in the morning. 021 Active Diclofenac Sodium 1 % gel APPLY TO AFFECTED AREA TWICE A DAY FOR 7 DAYS 023 Active Aspirin Adult Low Strength 81 MG EC tabletIndications :Primary hypertension TAKE ONE TABLET EVERY MORNING 90 tablet 3 024 Active Oral Medication Containers (Pill Organizer 7-Day Large) misc 1 Units in the morning. 1 each 024 Active TRUEplus Lancets 33G miscIndications:T ype 2 diabetes mellitus without complications ([facility]) TEST BLOOD SUGAR THREE TIMES DAILY 100 each 11 024 Active FREESTYLE LITE test stripIndications: Type 2 diabetes mellitus without complications ([facility]) TEST BLOOD SUGAR THREE TIMES DAILY 100 strip 11 024 Active loratadine (Claritin) 10 MG tablet TAKE ONE TABLET DAILY AT NOON 90 tablet 3 024 Active semaglutide (Rybelsus) 7 MG tabletIndications :Type 2 diabetes mellitus with diabetic peripheral angiopathy without gangrene, with long-term current use of insulin ([facility]) TAKE ONE TABLET EVERY MORNING BEFORE BREAKFAST 90 tablet 1 024 Active losartan (Cozaar) 100 MG tabletIndications :Primary hypertension Take 1 tablet (100 mg) by mouth in the morning. 90 tablet 3 024 2024 Active atorvastatin (Lipitor) 80 MG tabletIndications :Mixed hyperlipidemia Take 1 tablet (80 mg) by mouth in the morning. 60 tablet 1 Active dilTIAZem CD (Cardizem CD) 300 MG 24 hr capsuleIndication s:Primary hypertension,Long standing persistent atrial fibrillation (CMS/HCC) Take 1 capsule (300 mg) by mouth in the morning. 90 capsule 1 Active glipiZIDE (Glucotrol) 5 MG tabletIndications :Type 2 diabetes mellitus with diabetic peripheral angiopathy without gangrene, with long-term current use of insulin (CMS/HCC) Take 1 tablet (5 mg) by mouth before breakfast and before evening meal. 60 tablet 3 Active cholecalciferol (Vitamin D-3) 25 MCG tabletIndications :Vitamin D deficiency Take 1 tablet (25 mcg) by mouth Once per day. 90 tablet 3 Active gabapentin (Neurontin) 300 MG capsuleIndication s:Diabetic polyneuropathy associated with type 2 diabetes mellitus (CMS/HCC) Take 1 capsule (300 mg) by mouth 3 times daily. 90 capsule 11 024 2024 Active Toujeo SoloStar 300 UNIT/ML injection INJECT 20 SUBCUTANEOUSLY EVERY MORNING 4.5 mL 3 Active TechLite Plus Pen [place] 32G X 4 MM misc USE ONE DAILY 100 each 3 Active dicyclomine (Bentyl) 20 MG tablet TAKE ONE TABLET in the morning, at noon, in the evening, and at bedtime BEFORE MEALS 120 tablet 1 Active pramipexole (Mirapex) 0.125 MG tablet TAKE ONE TABLET EVERY EVENING 30 tablet 1 Active Ferrous Sulfate (iron) 325 (65 Fe) MG tablet TAKE ONE TABLET EVERY MORNING WITH BREAKFAST 90 tablet 1 Active omeprazole (PriLOSEC) [address] capsule TAKE ONE CAPSULE EVERY MORNING BEFORE BREAKFAST 90 capsule 1 Active Xarelto 20 MG tablet TAKE ONE TABLET EVERY EVENING WITH FOOD 30 tablet Active Diclofenac Sodium 1 % gelIndications:[place] pain of left knee To apply to the affected area 3 times a day 100 g 025 Active omeprazole (PriLOSEC) [address] capsule TAKE ONE CAPSULE EVERY MORNING BEFORE BREAKFAST 90 capsule 1 024 2024 Discontinued Xarelto 20 MG tablet TAKE 1 TABLET EVERY EVENING WITH FOOD 30 tablet 024 2024 Discontinued Active Problems Problem Noted Date Diagnosed Date Chronic right shoulder pain 09/01/2023 Assessment & Plan (09/01/2023 8:07 AM EDT): No trauma, no dislocation, will order a chest xray to evaluate OA severity Iron deficiency anemia secon wilian to inadequate dietary iron intake 09/01/2023 Assessment & Plan (09/01/2023 8:07 AM EDT): No rectal/vaginal bleeding, will start on oral iron replacement, Other irritable bowel syndrome 03/26/2023 Assessment & Plan (03/26/2023 8:42 AM EST): Will prescribe bentyl, avoid spicy/garlic/onions, follow up as needed Preop examination 02/14/2023 Assessment & Plan (02/14/2023 1:28 PM EST): Patient was seen for pre-operative evaluation. Patient reports no symptoms of CP at rest or with exertion, dyspnea at rest or with exertion, PND, LE edema, claudication, or palpitations. Patient does have IDDM, atrial fibrillation. She is on Xarelto and ASA, given stroke, I don't see she is on anti-coag. In terms of her DM, if she is to be NPO, hold morning meds and reduce PM insulin nigh dose to 1/2 to avoid hypoglycemia. Stroke happen more then 2 months ago. Minimal bleeding risk for surgery According to the RCRI, this number of risk factors stratifies the patient to Class III, which carries a 10.1% risk of major CV complications. In this case, she will undergo low risk procedure and may proceed with intended procedure. Severe obesity (BMI 35.0-39.9) with comorbidity 02/14/2023 02/14/2023 Upper dentures 02/14/2023 Diabetic polyneuropathy asso ciated with type 2 diabetes mellitus 12/16/2022 Assessment & Plan (07/22/2023 6:41 PM EDT): Will increase gabapentin to 300mg, continue tight glucose control Assessment & Plan (12/16/2022 2:26 PM EDT): Patient describe a shooting pain, mostly at night, will start on gabapentin, side effects/risk were discussed, Restless leg 12/16/2022 Assessment & Plan (11/20/2023 2:32 PM EDT): Not improving with pramipexole, will refer to neurology for evaluation Assessment & Plan (03/26/2023 8:41 AM EST): Will start on pramiprexole, follow up in 6 week to evaluate progression Assessment & Plan (12/16/2022 2:27 PM EDT): Will order iron levels and vitamin b12 to evaluate nutritional causes Screening for colon cancer 07/30/2022 Assessment & Plan (07/30/2022 10:13 AM EDT): Will refer to GI Anxiety 07/30/2022 Assessment & Plan (09/19/2022 5:39 PM EDT): Followed by therapist, symptoms have stabilized, no change in treatment for now Assessment & Plan (08/12/2022 10:06 AM EDT): Assessment: ?? Patient with mild symptoms of anxiety which include feeling anxious, worrying about things and sometimes unable to stop worrying, becoming restless, and afraid something bad may happen. Patient also reports episodes of sadness/depressed mood which she is able to cope with the majority of the time. ?? Patient declined referral for OP therapy at this time. She utilizes coping skills and has a strong support system. She was recommended to connect with her PCP, if a referral is needed in the future. ?? At this time Demi Plata meets criteria for Visit Diagnoses: Problem List Items Addressed This Visit ? Other ?? Anxiety ?? Patient ready to address current needs Patient declined OP therapy referral at this time as symptoms manageable ?? Strengths include utilization of coping skills ?? PLAN: 1. Follow up with [facility]: Not recommended for follow-up 2. Patient goal is to reach out if OP therapy referral is needed 3. Behavioral Recommendations a. Patient was recommended to connect with her PCP, if a referral is needed in the future. Assessment & Plan (07/30/2022 10:14 AM EDT): Will refer to therapist, no suicidal/homicidal ideas, will follow up in 1 month. Type 2 diabetes mellitus wit h diabetic peripheral angiopathy without gangrene, with long-term current use of insulin 01/18/2022 Assessment & Plan (09/01/2023 8:06 AM EDT): Patient has tolerated gabapentin, no changes will be made, reinforced better glucose control, will monitor Assessment & Plan (07/22/2023 6:42 PM EDT): Not at target, she is being followed by endocrinology Eye exam done' Assessment & Plan (09/19/2022 5:38 PM EDT): Followed by endocrinology, anlin on long actin insulin, jardiance and rybelsus Eye exam done Assessment & Plan (07/30/2022 10:11 AM EDT): Not at target, will increase insulin glargine to 20 units and rybelsus to 7mg, reinforced importance of low carb/no sugar diet. Will follow up in 1 month Assessment & Plan (05/17/2022 9:38 AM EDT): Ranges from 77-189 with average in the 140's-150's will order new labs for guidance of therapy, she has been tolerating rybelsus, will consider increasing dose to 7mg after labs reviewed, will follow up in 3 months Eye exam scheduled for august Assessment & Plan (01/18/2022 10:26 AM EST): Patient on metformin, empagliflozin and lantus 10 units at night, will order new labs for guidance of therapy, she has not started rybelsus yet, new medbox due for next week Primary hypertension 01/18/2022 Assessment & Plan (11/20/2023 2:32 PM EDT): Not at target, will increase losartan to 100mg, keep low sodium diet and exercise as tolerated, bp target <130/80 follow up in 1 month Assessment & Plan (07/22/2023 6:41 PM EDT): Controlled, no changes will be made, reinforced low sodium diet. Assessment & Plan (07/30/2022 10:12 AM EDT): Controlled, but her heart rate is elevated, will increase cardizem to 300mg, told to follow up with drier helper, no reported episode of shortness of breath/chest pain Assessment & Plan (05/17/2022 9:38 AM EDT): Controlled, no changes will be made, no chest pain reported, reinforced low sodium diet and exercise as tolerated Assessment & Plan (01/18/2022 10:27 AM EST): At target, today was 121/75, no changes will be made, follow up with cardiology Gastroesophageal reflux disease without esophagi tis 01/18/2022 Mixed hyperlipidemia 01/18/2022 Assessment & Plan (07/22/2023 6:43 PM EDT): On atorvastatin 80mg, new labs ordered for guidance Assessment & Plan (07/30/2022 10:12 AM EDT): Labs ordered for guidance of therapy, will follow results Assessment & Plan (01/18/2022 10:27 AM EST): On statin therapy, no changes will be made Vitamin D deficiency 01/18/2022 Seasonal allergic rhinitis 01/18/2022 Chronic bilateral low back pain with bilateral s ciatica 01/18/2022 Assessment & Plan (05/17/2022 9:40 AM EDT): 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 Patient undergoing ortho evaluation, will order #15 tramadol for severe pain, risk were discussed. Assessment & Plan (01/18/2022 10:29 AM EST): Patient refers pain is chronic, has bilateral sciatic pain, has been worseing, no saddle anesthesia, no urine/bowel incontinence/retention, will order a lumbar MRI Spondylosis of lumbosacral r egion without myelopathy or radiculopathy 05/09/2015 02/14/2023 Atrial fibrillation 03/17/2014 02/14/2023 Overview (02/14/2023): Last Assessment & Plan: The patient auscultates is being in atrial fibrillation today with a controlled rate. Apparently with stressors at home she can feel palpitations at times. She remains anticoagulated without unusual bleeding on Xarelto. She is also on diltiazem for rate control. I am going to update her echocardiogram to be sure that her rate is not reducing her ejection fraction. She does report feeling some racing beats at times. Sleep apnea 09/01/2013 02/14/2023 Glaucoma 12/21/2008 02/14/2023 Overview (02/14/2023): Dr. Allison Resolved Problems Problem Noted Date Diagnosed Date Resolved Date Longstanding persistent atrial fibrillation 01/18/2022 02/14/2023 Encounters Date Type Department Care Team Description 03/16/2024 3:15 PM EST Office Visit [facility] [address] [place] [address] Steffany Augustin MD Iron deficiency anemia secondary to inadequate dietary iron intake (Primary Dx); Type 2 diabetes mellitus with diabetic peripheral angiopathy without gangrene, with long-term current use of insulin ([facility]); Acute pain of left knee 03/16/2024 Travel 03/11/2024 Refill [facility] [address] [place] [address] Aidee Arrieta MD 03/09/2024 Refill [facility] [address] [place] [address] Ramon Marcos MD 03/02/2024 Orders Only [facility] [address] [place] [address] ProviderDarian MD 02/11/2024 Refill [facility] [address] [place] [address] Ramon Marcos MD 01/29/2024 Refill [facility] [address] [place] [address] Steffany Augustin MD 01/09/2024 Refill [facility] [address] [place] [address] Ramon Marcos MD 01/08/2024 Orders Only [facility] [address] [place] [address] ProviderDarian MD 01/02/2024 Orders Only [facility] [address] [place] [address] Steffany Augustin MD 01/01/2024 Refill [facility] [address] [place] [address] Ramon Marcos MD 12/18/2023 Refill [facility] [address] [place] [address] Ramon Marcos MD 12/15/2023 Refill [facility] [address] [place] [address] Ramon Marcos MD from Last 3 Months Immunizations Name Administration Dates Next Due Influenza High-dose Quadriva lent Preservative Free 10/26/2021,01/31/2021,12/08/2019 Influenza injectable quadriv alent IIV4 with preservative 12/22/2018 Influenza injectable quadriv alent preservative free 02/14/2023 Influenza, High Dose Seasona l, Preservative Free 12/10/2023 Influenza, IIV3, injectable 12/11/2015, 5,11/06/2012 Pneumococcal Conjugate PCV 13 12/11/2015 Pneumococcal Polysaccharide PPSV23 07/16/2018 Tdap 03/31/2013 Zoster, Recombinant 04/15/2019,01/28/2019 Family History Medical History Relation Name Comments Diabetes Father Hypertension Father No Known Problems Mother Cancer Sister Relation Name Status Comments Father Mother Sister Social History Tobacco Use Types Packs/Day Years Used Date Smoking Tobacco: Never Smokeless Tobacco: Never Tobacco Cessation:Counseling Given: Not Answered Depression Answer Date Recorded Patient Health Questionnaire-9 [...] Orientation Straight 12/17/2021 10 :36 AM EDT Last Filed Vital Signs Vital Sign Reading [...] Mass Index 34.44 03/16/2024 3:25 PM EST Plan of Treatment Health Maintenance Due Date Last Done Comments CT Colonography 1948 FIT DNA/Cologuard 1948 FIT 1948 FOBT 1950 Sigmoidoscopy 1950 Diabetes: Urine Protein Screening 04/23/2022 04/23/2021, 05/05/2020 Colonoscopy 12/09/2022 12/09/2017 Colorectal Cancer Screening 12/09/2022 DTaP/Tdap/Td Vaccines (2 - Td or Tdap) 03/31/2023 03/31/2013 RSV Patients and Patients Aged 60 years or older (1 - 1-dose 75+ series) 06/22/2023 Diabetes: Hemoglobin A1C 06/14/202403/16/2 025, 02/17/2024, 12/10/2023, Additional history exists Diabetes: Foot Exam 07/21/2024 07/22/2023, 07/22/2023, 07/22/2023, Additional history exists Tobacco Screening 07/21/2024 07/22/2023 COVID-19 Vaccine ( season) 2024 02/15/2021, 05/15/2020 Postponed from 10/19/2023 (Patient Refused) Lipid Panel 02/16/2025 02/17/2024, 07/18, 04/23/2021, Additional history exists Mammogram 02/23/2025 02/24/2024, 07/18, 02/14/2023, Additional history exists Alcohol/Substance Use Screening 03/16/2025 03/16/2024 Depression Screening 03/16/2025 03/16/2024, 03/16/19 25 SDOH Screening 03/16/2025 03/16/2024 Eye Exam 10/28/2025 10/29/2023 Pneumococcal Vaccine: 65+ Years Completed 07/16/2018, 12/11/2015 Zoster Vaccines Completed 04/15/2019, 01/28/2019 Hepatitis C Screening Completed 07/30/2022, 022 Influenza Vaccine Completed 12/10/2023, , 10/26/2021, Additional history exists HIB Vaccines Aged Out No longer eligi ble based on patient's age to complete this topic HPV Vaccines Aged Out No longer eligi ble based on patient's age to complete this topic Hepatitis A Vaccines Aged Out No long er eligible based on patient's age to complete this topic Hepatitis B Vaccines Aged Out No long er eligible based on patient's age to complete this topic IPV Vaccines Aged Out No longer eligi ble based on patient's age to complete this topic Meningococcal Vaccine Aged Out No kan mohan eligible based on patient's age to complete this topic RSV under 20 months Aged Out No longe r eligible based on patient's age to complete this topic Rotavirus Vaccines Aged Out No longer eligible based on patient's age to complete this topic Procedures Procedure Name Priority Date/Time Associated Diagnosis Comments POCT GLYCATED HEMOGLOBIN, TOTAL Routine 03/16/2024 3:38 PM EST Type 2 diabetes mellitus with diabetic peripheral angiopathy without gangrene, with long-term current use of insulin ([facility]) POCT GLUCOSE Routine 03/16/2024 3:38 PM EST Type 2 diabetes mellitus with diabetic peripheral angiopathy without gangrene, with long-term current use of insulin ([facility]) HM MAMMOGRAPHY Routine 02/24/2024 9:36 AM EST HEMOGLOBIN A1C Routine 02/17/2024 9:50 AM EST Type 2 diabetes mellitus with diabetic peripheral angiopathy without gangrene, with long-term current use of insulin (CMS/HCC) TSH W/REFLEX TO FT4 Routine 02/17/2024 9 :50 AM EST Type 2 diabetes mellitus with diabetic peripheral angiopathy without gangrene, with long-term current use of insulin (CMS/HCC) LIPID PANEL, STANDARD Routine 02/17/2024 9:50 AM EST Type 2 diabetes mellitus with diabetic peripheral angiopathy without gangrene, with long-term current use of insulin (CMS/HCC) COMPREHENSIVE METABOLIC PANEL Routine 02/17/2024 9:50 AM EST Type 2 diabetes mellitus with diabetic peripheral angiopathy without gangrene, with long-term current use of insulin (CMS/HCC) DIABETES EYE EXAM Routine 10/29/2023 2:05 PM EDT HEPATITIS C AB W/REFL TO HCV RNA, QN, PCR Routine 07/30/2022 9:48 AM EDT Type 2 diabetes mellitus with diabetic peripheral angiopathy without gangrene, with long-term current use of insulin (CMS/HCC) ALBUMIN, RANDOM URINE W/CREATININE Routine 04/23/2021 8:43 AM EST COLONOSCOPY Routine 12/09/2017 from Last 3 Months or Most Recently Relevant to Health Maintenance Results * (ABNORMAL) POCT HGB A1C (03/16/2024 3:38 PM EST) Hemoglobin A1C 11.5(A) 4.0 - 6.0 % QC Media Lot # [id number] Lot# Expiration Date [id number] Blood 03/16/2024 3:38 PM EST us Steffany Augustin MD POINT OF CARE TEST ENTER/ED IT ORDERABLES Final Result * POCT Glucose (03/16/2024 3:38 PM EST) Glucose Blood, POC 165 60 - 200 mg/dL QC Media Lot # [id number] Lot# Expiration Date 48 Blood Capillary blood specimen / Unknown 03/16/2024 3:38 PM EST us Steffany Augustin MD POINT OF CARE TEST ENTER/ED IT ORDERABLES Final Result * Hm Mammography (02/24/2024 9:36 AM EST) Anatomical Region Laterality Modality Other us Historical Provider HEALTH MAINTENANCE Final Result * TSH W/Reflex to FT4 (02/17/2024 9:50 AM EST) TSH reflex Free T4 2.75 0.32 - 4.0 uIU/mL [facility] Blood Venous blood specimen / Unknown 02/17/2024 9:50 AM EST 02/17/2024 2:57 PM EST us Ramon Aguillon MD LAB BLOOD ORDERABL ES Final Result Performing Organization Address City/State/[facility] Co de Phone Number [facility] [address] [place] [phone] * (ABNORMAL) Hemoglobin A1c (02/17/2024 9:50 AM EST) Hemoglobin A1c 12.1(H) <6.0 % [facility] Comment:Hemoglobin A1C Refer ence Range Adults: 4.8 - 6.0 % Non diabetic: < 6.0 % Goal: < 7.0 %Additional Action Suggested: > 8.0 %Note: Hemoglobin A1c results are invalid for patients with abnormal amounts of HbF. Blood transfusions may impact the HbA1c concentration in the patient sample. Estimated Average Glucose 301 mg/dL [facility] Comment:eAG = Estimated ave rage glucose which is %A1C expressed asaverage glucose, using the formula of the Q8U-BauhweaYauxtin Glucose study (ADAG), Diabetes Care, Vol.31,#8,Sep. 2007 Blood Venous blood specimen / Unknown 02/17/2024 9:50 AM EST 02/17/2024 2:57 PM EST Ramon Aguillon MD LAB BLOOD ORDERABL ES Final Result Performing Organization Address [facility] Co de Phone Number [facility] [address] [place] [phone] * (ABNORMAL) Lipid Panel, Standard (02/17/2024 9:50 AM EST) Triglycerides 87 <150 mg/dL [facility] Comment:Desirable Triglyceri de: less than 150 mg/dLBorderline High Triglyceride 150-199 mg/dLHigh Triglyceride: 200-499 mg/dLVery High Triglyceride: greater than or equal to 5OO mg/dL Cholesterol 138 <200 mg/dL [facility] Comment:Desirable Cholestero l: less than 200 mg/dLBorderline High Cholesterol: 200-239 mg/dLHigh Cholesterol: greater than 239 mg/dL LDL Cholesterol Calculated 84 <100 mg/dL [facility] Comment:Desirable LDL: less than 100 mg/dLNear Optimal/Above Optimal LDL: 110- 129 mg/dLBorderline High LDL: 130-159 mg/dLHigh LDL: 160-189 mg/dLVery High LDL: greater than or equal to 190 mg/dL HDL Cholesterol 37(L) >40 mg/dL [facility] Comment:Desirable HDL: great er than 40 mg/dL Note: This HDL assay may give artificially low results in patients with liver disease. Blood Venous blood specimen / Unknown 02/17/2024 9:50 AM EST 02/17/2024 2:57 PM EST Ramon Aguillon MD LAB BLOOD ORDERABL ES Final Result Performing Organization Address [facility] Co de Phone Number [facility] [address] [place] [phone] * (ABNORMAL) Comprehensive Metabolic Panel (02/17/2024 9:50 AM EST) Sodium 140 135 - 145 mmol/L [facility] Potassium 4.2 3.3 - 5.1 mmol/L [facility] Chloride 107 96 - 108 mmol/L [facility] Carbon Dioxide 26 22 - 29 mmol/L [facility] Anion Gap 11(L) 12 - 20 [facility] Urea Nitrogen (BUN) 22(H) 9 - 16 mg/dL [facility] Creatinine, Serum 1.08 0.5 - 1.4 mg/dL [facility] Estimated Glomerular Filt Rate 49 [facility] Comment:Chronic Kidney Disea se: Estimated GFR < 60 mL/min/1.50s2Hbxbnq Kidney Disease: Estimated GFR < 15 mL/min/1.73m2 Glucose 194(H) 60 - 115 mg/dL [facility] Calcium 10.2 8.4 - 10.2 mg/dL [facility] Bilirubin, Total 0.4 0.0 - 1.0 mg/dL [facility] Aspartate Amino Transferase 35(H) 5 - 31 U/L [facility] Alanine Aminotransferase 29 0 - 31 U/L [facility] Total Protein 7.3 6.5 - 8.0 g/dL [facility] Albumin Level 4.0 3.5 - 5.0 g/dL [facility] Alkaline Phosphatase 103 39 - 117 U/L [facility] Blood Venous blood specimen / Unknown 02/17/2024 9:50 AM EST 02/17/2024 2:57 PM EST us Ramon Aguillon MD LAB BLOOD ORDERABL ES Final Result [facility] [address] [place] [phone] * Diabetes Eye Exam (10/29/2023 2:05 PM EDT) Darian Provider HEALTH MAINTENANCE Final Result * Hepatitis C Antibody with Reflex to HCV, RNA, Quantitative, Real-Time PCR (07/30/2022 9:48 AM EDT) Hepatitis C Antibody NON-REACT TITI NON-REACT TITI [employer] Index 0.17 <1.00 [employer] Comment: HCV antibody was non-reactive. There is no laboratory evidence of HCV infection. In most cases, no further action is required. However, if recent HCV exposure is suspected, a test for HCV RNA (test code 08557) is suggested. For additional information please refer to http://education.[employer]/faq/LZR20u7 (This link is being provided for informational/ educational purposes only.) Blood Venous blood specimen / Unknown 07/30/2022 9:48 AM EDT 07/30/2022 9:48 AM EDT Narrative [facility] [place] - 07/31/2022 5:32 AM EDT FASTING:YES FASTING: YES Ramon Aguillon MD LAB BLOOD ORDERABL ES Final Result [facility] [address], [place] [phone] [employer] [address] [place] [address] * ALBUMIN, RANDOM URINE W/CREATININE (04/23/2021 8:43 AM EST) Pathologist [facility] Microalbumin Urine 1.5 See Note: mg/dL [facility] Comment: Reference Range: ?? Reference Range Not established Microalb/Creat Ratio 13 <30 mcg/mg creat [facility] Comment: ?? The ADA defines abnormalities in albumin excretion as follows: ?? Albuminuria Category ?Result (mcg/mg creatinine) ?? Normal to Mildly increased ?? <30 Moderately increased ? 30-299 ?? Severely increased ? > OR = 300 ?? The ADA recommends that at least two of three specimens collected within a 3-6 month period be abnormal before considering a patient to be within a diagnostic category. Creatinine, Urine 116 20 - 275 mg/dL [facility] 04/23/2021 8:43 AM EST Ramon Aguillon MD LAB URINE ORDERABL ES Final Result [facility] [address] * Colonoscopy (12/09/2017) Colonoscopy Normal Normal Narrative Niki Orozco - 12/09/2017 Repeat in 5 years Historical Provider HEALTH MAINTENANCE Final Result from Last 3 Months or Most Recently Relevant to Health Maintenance Insurance [facility] Care Teams Engineering Vice President Relationship Specialty Start Date End Date Steffany Augustin MD [address] [place] [id number] PCP - General Internal Medicine 12/03/23
--- OUTSIDE RECORDS SUMMARY | 2024-03-16 16:34 | XMS_ITS | Encounter Summary ---
Author Organization [facility] Address [address] [place] [address] Care Team Providers Care Thread Dresser Name Role Phone Uli Rueda MD Primary Care Provider Un available Ramon Marcos MD Primary Care Prov ider Unavailable Alia Gagnon MD Unavailable [phone] [place] Unavailable Reason for Visit * Reason Comments E-prescribe Rx Request Encounter Details Date Type Department Care Team Description 11/28/2017 Refill Adult Medicine [address] [address] Uli Rueda MD E-prescribe Rx Request Social History Tobacco Use Types Packs/Day Years [...] encounter Miscellaneous Notes * Telephone Encounter - Alexandra Moya M.A. - 12/02/2017 8:09 AM EDT Rx sent 11/20 with refills * Telephone Encounter - Monica Jomar - 11/28/2017 2:44 PM EDT Patient would like script to be: E-PRESCRIBED/FAXED TO PHARMACY WHEN WAS THE PATIENT'S LAST APPOINTMENT IN ADULT MEDICINE? 10/31/17 WHEN WAS THE LAST TIME THE PATIENT SAW THEIR PCP? 09/02/17 Does patient have an upcoming appointment? Yes 03/11/18 (THE MEDICATION REQUESTED IS ON THE MED LIST ABOVE) All of the medications requested were on the CURRENT MEDS list Did you check the Pharmacy information above?: YES Patient wants: 30 -day supply Is this a mail order prescription request ? NO If the refill is from a FAXED refill request what is the RX # listed on the fax? N/A Patients current insurance carrier is: Payor: [place] / Plan: [place] / Product Type: MEDICARE [id number] documented in this encounter Plan of Treatment Not on file documented as of this encounter Visit Diagnoses Not on filedocumented in this encounter Care Teams Thread Dresser Relationship Specialty Start Date End Date Uli Rueda MD PCP - General Internal Medicine 07/13/15 Ramon Marcos MD PCP - General Internal Medicine 06/16/20 Alia Gagnon MD Specialist Cardiology 07/06/20 Ridge Oakley PA Specialist Cardiology 07/06/20 documented as of this encounter
--- OUTSIDE RECORDS SUMMARY | 2024-03-16 16:34 | XMS_ITS | Encounter Summary ---
Author Organization [facility] Address [address] [place] [address] Care Team Providers Care Supervisor Last Model Department Name Role Phone Uli Rueda MD Primary Care Provider Un available Ramon Marcos MD Primary Care Prov ider Unavailable Alia Gagnon MD Unavailable [phone] [place] Unavailable Encounter Details Date Type Department Care Team Description 12/22/2019 [facility] Medical Records [address] [place] [address] Param Tucker MD Social History Tobacco Use Types Packs/Day [...] Associated Diagnosis Comments OUTSIDE VASCULAR STUDY Routine 12/22/2019 documented in this encounter Results * OUTSIDE VASCULAR STUDY (12/22/2019) Provider Default CARDIOLOGY documented in this encounter Visit Diagnoses Not on filedocumented in this encounter Care Teams Supervisor Last Model Department Relationship Specialty Start Date End Date Uli Rueda MD PCP - General Internal Medicine 07/13/15 Ramon Marcos MD PCP - General Internal Medicine 06/16/20 Alia Gagnon MD Specialist Cardiology 07/06/20 Ridge Oakley PA Specialist Cardiology 07/06/20 documented as of this encounter
--- OUTSIDE RECORDS SUMMARY | 2024-03-16 16:34 | XMS_ITS | Encounter Summary ---
Author Organization [employer] Address [address] [facility] [address], [place] [address] Care Team Providers Care Geological E Logger Name Role Phone Ramon Marcos MD Primary Care Prov ider Steffany Augustin MD Primary Care Provider [phone] Reason for Visit * Reason Onset Date Comments Pa form 02/28/2022 Encounter Details Date Type Department Care Team ([facility] st Contact Info) Description 02/28/2022 Telephone [facility] MED & PEDS [address] [place], [place] [phone] Ramon Marcos MD [address] [place] [address] Pa form Social History Tobacco Use Types Packs/Day Years Used Date Smoking Tobacco: Never Smokeless Tobacco: Never Comments Unknown Sex and Gender Information Value Date Recorded Sex Assigned at Female 12/17/2021 10:36 AM EDT Legal Sex Female 10:36 AM EDT Gender Identity Female 12/17/2021 10:36 AM EDT Sexual Orientation Straight 12/17/2021 10 :36 AM EDT documented as of this encounter Miscellaneous Notes * Telephone Encounter - Lauren Bautista LPN - 03/07/2022 9:14 AM EST Please read message below and advise regarding PA if agreed please provide DX * Telephone Encounter - Nelly Sergey - 02/28/2022 2:49 PM EST Tc from pt stated need a Pa form to be done for Lidocaine patches. PCP DR. Lugo documented in this encounter Plan of Treatment Not on file documented as of this encounter Visit Diagnoses Not on filedocumented in this encounter Care Teams Geological E Logger Relationship Specialty Start Date End Date Ramon Marcos MD [address] [place] [address] PCP - General Internal Medicine 12/22/18 12/02/23 Steffany Augustin MD [address] [place] [address] PCP - General Internal Medicine 12/03/23 documented as of this encounter
--- OUTSIDE RECORDS SUMMARY | 2024-03-16 16:34 | XMS_ITS | Encounter Summary ---
Author Organization [facility] Address [address] [place] [address] Care Team Providers Care Juice Weigher Name Role Phone Uli Rueda MD Primary Care Provider Un available Ramon Marcos MD Primary Care Prov ider Unavailable Alia Gagnon MD Unavailable [phone] [place] Unavailable Encounter Details Date Type Department Care Team Description 04/24/2020 Hospital Medical Records [address] [place] [phone] Social History Tobacco Use Types Packs/Day Years [...] Date/Time Associated Diagnosis Comments OUTSIDE LAB Routine 04/26/2020 OUTSIDE EKG Routine 04/25/2020 OUTSIDE PLAIN FILM Routine 04/25/2020 documented in this encounter Results * OUTSIDE LAB (04/26/2020) Provider Abstract LAB * OUTSIDE PLAIN FILM (04/25/2020) Provider Abstract RADIOLOGY * OUTSIDE EKG (04/25/2020) Provider Abstract CARDIOLOGY documented in this encounter Visit Diagnoses Not on filedocumented in this encounter Care Teams Juice Weigher Relationship Specialty Start Date End Date Uli Rueda MD PCP - General Internal Medicine 07/13/15 Ramon Marcos MD PCP - General Internal Medicine 06/16/20 Alia Gagnon MD Specialist Cardiology 07/06/20 Ridge Oakley PA Specialist Cardiology 07/06/20 documented as of this encounter
--- OUTSIDE RECORDS SUMMARY | 2024-03-16 16:34 | XMS_ITS | Encounter Summary ---
Author Organization [employer] Address [address] [facility] [address] [place] [address] Care Team Providers Care Frame Welder Cargo Utility Trailers Name Role Phone Ramon Marcos MD Primary Care Prov ider Steffany Augustin MD Primary Care Provider [phone] Encounter Details Date Type Department Care Team (Late st Contact Info) Description 02/28/2022 Orders Only [facility] MED & PEDS [address] [place], [place] [phone] Yeimi Madrid LPN Social History Tobacco Use Types Packs/Day Years [...] on filedocumented in this encounter Care Teams Frame Welder Cargo Utility Trailers Relationship Specialty Start Date End Date Ramon Marcos MD [address] [place] [address] PCP - General Internal Medicine 12/22/18 12/02/23 Steffany Augustin MD [address] [place] [address] PCP - General Internal Medicine 12/03/23 documented as of this encounter
--- OUTSIDE RECORDS SUMMARY | 2024-03-16 16:34 | XMS_ITS | Encounter Summary ---
Author Organization [employer] Address [address] [facility] [address] [place] [address] Care Team Providers Care Wind Turbine Technician Name Role Phone Ramon Marcos MD Primary Care Prov ider Steffany Augustin MD Primary Care Provider [phone] Reason for Visit * Reason Onset Date Comments Pre-op 02/07/2023 Encounter Details Date Type Department Care Team ([facility] st Contact Info) Description 02/07/2023 Telephone [facility] MED & PEDS [address] [place], [place] [phone] Ramon Marcos MD [address] [place], [place] [phone] Pre-op Social History Tobacco Use Types Packs/Day Years [...] Telephone Encounter - Andria Quigley RN - 02/11/2023 12:42 PM EST What is needed for preop is listed in t/c encounter from 01/29/23 * Telephone Encounter - Jory Welsh RN - 02/11/2023 12:27 PM EST TC placed to patient regarding message below to reschedule pre-op for L cataract surgery on 02/18/23.Reached patient's daughter. Rescheduled appointment for 02/15/24 @ 10:45am with Dr. Phillips. Daughter has no paperwork for pre-op and doesn't know what is required. Will reach out to Dr. Montoya's office in [place] to confirm details for pre-op. TC placed to [phone] Montoya's office. Extension 3 and then choice 1. No answer. LM with Dr. Montoya's surgical team to call us back at [facility] about a patient's pre-op appointment for cataract surgery. Routing back to [facility] nurses to try again. Tc from pt requesting to r/s Pre op appt for 02/07/2023 @ 2:00 pm .. Please contact pt @ [phone] * Telephone Encounter - Vahe Vasquez - 02/07/2023 12:22 PM EST Tc from pt requesting to r/s Pre op appt for 02/07/2023 @ 2:00 pm .. Please contact pt @ [phone] documented in this encounter Plan of Treatment Not on file documented as of this encounter Visit Diagnoses Not on filedocumented in this encounter Additional Health Concerns Assessment Noted Time PHQ-9 Depression Total Score: 2 05/18/19 23 9:10 AM EDT documented as of this encounter Care Teams Wind Turbine Technician Relationship Specialty Start Date End Date Ramon Marcos MD [address] [place] [address] PCP - General Internal Medicine 12/22/18 12/02/23 Steffany Augustin MD [address] [place] [address] PCP - General Internal Medicine 12/03/23 documented as of this encounter
--- OUTSIDE RECORDS SUMMARY | 2024-03-16 16:34 | XMS_ITS | Encounter Summary ---
Author Organization [facility] Address [address] [place] [address] Care Team Providers Care Farm Helper Name Role Phone Ramon Marcos MD Primary Care Prov ider Unavailable Alia Gagnon MD Unavailable [phone] Ridge [place] Unavailable Encounter Details Date Type Department Care Team Description 06/19/2020 [facility] Medical Records [address] [place] [address] Social History Tobacco Use Types Packs/Day Years [...] on filedocumented in this encounter Care Teams Farm Helper Relationship Specialty Start Date End Date Ramon Marcos MD PCP - General Internal Medicine 06/16/20 Alia Gagnon MD Specialist Cardiology 07/06/20 Ridge Oakley PA Specialist Cardiology 07/06/20 documented as of this encounter
--- OUTSIDE RECORDS SUMMARY | 2024-03-16 16:34 | XMS_ITS | Encounter Summary ---
Author Organization [facility] Address [address] [place] [address] Care Team Providers Care Business Resiliency Manager Name Role Phone Uli Rueda MD Primary Care Provider Un available Ramon Marcos MD Primary Care Prov ider Unavailable Alia Gagnon MD Unavailable [phone] [place] Unavailable Encounter Details Date Type Department Care Team Description 03/29/2019 [facility] Medical Records [address] [place] [address] Nora Alford MD Social History Tobacco Use Types Packs/Day [...] on filedocumented in this encounter Care Teams Business Resiliency Manager Relationship Specialty Start Date End Date Uli Rueda MD PCP - General Internal Medicine 07/13/15 Ramon Marcos MD PCP - General Internal Medicine 06/16/20 Alia Gagnon MD Specialist Cardiology 07/06/20 Ridge Oakley PA Specialist Cardiology 07/06/20 documented as of this encounter
--- OUTSIDE RECORDS SUMMARY | 2024-03-16 16:34 | XMS_ITS | Encounter Summary ---
Author Organization [facility] Address [address] [place] [address] Care Team Providers Care Surface To Air Weapons Officer Name Role Phone Name, Pedro Luis VALADEZ Primary Care Provider UnavailDominique Rangel MD Primary Care Provider Uli Moreno MD Primary Care Provider Un available Steffany Augustin MD Primary Care Pr ovider Unavailable Ramon Marcos MD Primary Care Prov ider Unavailable Alia Gagnon MD Unavailable [phone] [place] Unavailable Encounter Details Date Type Department Care Team Description 06/17/2012 [facility] Medical Records [address] [place] [address] Abstract, Provider Social History Tobacco Use Types [...] on filedocumented in this encounter Care Teams Surface To Air Weapons Officer Relationship Specialty Start Date End Date Name, [...]
--- OUTSIDE RECORDS SUMMARY | 2024-03-16 16:34 | XMS_ITS | Encounter Summary ---
Author Organization [facility] Address [address] [place] [address] Care Team Providers Care Drywall Hanger Framer Name Role Phone Uli Rueda MD Primary Care Provider Un available Ramon Marcos MD Primary Care Prov ider Unavailable Alia Gagnon MD Unavailable [phone] Ridge O[place]key Unavailable Encounter Details Date Type Department Care Team Description 03/28/2019 [facility] Medical Records [address] [place] [address] Social History Tobacco Use Types Packs/Day Years [...] on filedocumented in this encounter Care Teams Drywall Hanger Framer Relationship Specialty Start Date End Date Uli Rueda MD PCP - General Internal Medicine 07/13/15 Ramon Marcos MD PCP - General Internal Medicine 06/16/20 Alia Gagnon MD Specialist Cardiology 07/06/20 Ridge Oakley PA Specialist Cardiology 07/06/20 documented as of this encounter
--- OUTSIDE RECORDS SUMMARY | 2024-03-16 16:34 | XMS_ITS | Clinical Summary ---
Author Organization [facility] it Address [address] [place] [address] Care Team Providers Care Director Construction Services Name Role Phone Unavailable Primary Care Provider Unavailabl e Allergies Active Allergy Reactions Criticality Noted Date Comments Ibuprofen GI intolerance 11/07/2014 Lisinopril Cough 07/20/2013 Medications Medication Sig Dispensed Refills Start Date End Date Status rivaroxaban (XARELTO) 20 mg tablet Take 1 tablet (20 mg total) by mouth 1 (one) time each day with dinner. Take with food. Active losartan (COZAAR) 100 mg tablet Take 1 tablet (100 mg total) by mouth 1 (one) time each day. Active dilTIAZem CD (CARDIZEM CD) 300 mg 24 hr capsule Take 1 capsule (300 mg total) by mouth 1 (one) time each day. Active empagliflozin (Jardiance) 25 mg tablet Take 1 tablet (25 mg total) by mouth 1 (one) time each day in the morning. Active atorvastatin (LIPITOR) 80 mg tablet Take 1 tablet (80 mg total) by mouth at bedtime. Active anastrozole (ARIMIDEX) 1 mg Take 1 tablet (1 mg total) by mouth 1 (one) time each day Swallow whole with a drink of water. Active FREESTYLE LANCETS MISC Use once a day Active blood sugar diagnostic (FreeStyle Lite Strips) test strip Use to test blood sugar 2 times daily Active acetaminophen (TYLENOL) 500 mg tablet Take 1 Tab by mouth 2 times daily. Active albuterol HFA (Ventolin HFA) 90 mcg/actuation inhaler INHALE 2 PUFFS INTO THE LUNGS EVERY 6 HOURS NEEDED FOR COUGH OR WHEEZING. Active amoxicillin (AMOXIL) 500 mg capsule Take 500 mg by mouth as needed. Prior to dental Active aspirin 81 mg EC tablet Take 81 mg by mouth daily. Active calcium carbonate-vit D3-min 600 mg-10 mcg (400 unit) tablet Take 1 Tab by mouth 2 times daily. Active cholecalciferol (VITAMIN D-3) 25 mcg (1,000 unit) tablet Take 25 mcg by mouth daily. Active cyclobenzaprine (FLEXERIL) 5 mg tablet Take 5 mg by mouth 3 times daily as needed. Active insulin glargine (Lantus Solostar U-100 Insulin) 100 unit/mL (3 mL) injection pen INJECT 15 UNITS SUBCUTANEOUS INJECTION DAILY AT BEDTIME Active loratadine (CLARITIN) 10 mg tablet Take 1 Tab by mouth daily. Active metFORMIN (GLUCOPHAGE) 500 mg tablet Take 1 Tab by mouth 2 times daily (with meals). Active nitroglycerin (NITROSTAT) 0.[address] 1 tablet under the tongue every 5 minutes as needed for Chest pain (If you need to take a 3rd tablet, call 911.). Active omeprazole (PriLOSEC) [address] capsule Take 20 mg by mouth daily. Active Active Problems Problem Noted Date Diagnosed Date Spondylosis of lumbosacral r egion without myelopathy or radiculopathy 05/09/2015 Atrial fibrillation 03/17/2014 Overview (02/17/2024): Last Assessment & Plan: The patient auscultates [...] racing beats at times. 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 She is on atorvastatin 80. I have suggested that I cannot continue prescribing this safely for her unless we can follow her lipids and outcomes. Fortunately her liver enzymes were normal and just checked in July. They agreed to go to the lab this week. Recommend lifestyle modifications. Glaucoma 12/21/2008 Overview (02/17/2024): Dr. Allison Hypertension 12/21/2008 Overview (02/17/2024): Last Assessment & Plan: Blood pressure appears exceptionally well controlled. Despite 100/70 she is not complaining of unusual dizziness. She reportedly follows a low-sodium diet. Chronic low back pain prohibits regular exercise but she is urged to try to walk even if it is only minutes at a time. Would suggest home monitoring as well. Continue drug therapies. Encounters Date Type Department Care Team Description 02/16/2024 Telephone [facility] - [address] [place] [address] Alia Gagnon MD Hypertension; Abnormal ECG from Last 3 Months Immunizations Name Administration Dates Next Due Influenza trivalent, with pr eservative (Fluzone; Afluria) 6mo and older 12/11/2015,10/30/2014,11/06/2012 Pneumococcal conjugate 13 va lent (Prevnar 13, PCV13) 2mo and older 12/11/2015 Pneumococcal polysaccharide 23 valent (Pneumovax 23) 2yo and older 07/16/2018 Tdap Tetanus diptheria acell ular pertussis (Boostrix; Adacel) 7yo and older 03/31/2013 Surgical History Surgery Date Site/Laterality Comments TUBAL LIGATION PROCEDURE: HISTORICAL TUBAL LIGATION; COMMENT: Probably; unclear WRIST SURGERY PROCEDURE: HISTORICAL WRIST SURGERY; COMMENT: ? ganglion on left TOTAL KNEE ARTHROPLASTY 07/23/2016 Right PROCEDURE: HISTORICAL TOTAL KNEE REPLACE COLONOSCOPY W/ BIOPSIES 12/09/[address] [facility] PROCEDURE: WI COLONOSCOPY W/BIOPSY SINGLE/MULTIPLE; COMMENT: 4 small adenomas, hemorrhoids and tics; repeat in 3 years Medical History Medical History Date Comments Hypertension 12/21/2008 DX:Hypertension Hyperlipidemia 12/21/2008 DX:Hyperlipidemi a Glaucoma 12/21/2008 DX:Glaucoma; COM MENT: Dr. Allison Vitamin B12 deficiency 08/11/2009 DX:Vitami n B12 deficiency DM type 2 causing neurologic al disease, not at goal ([facility]/HCC) 12/21/2008 DX:DM type 2 causing ne urological disease, not at goal ([facility]) Depression 12/21/2008 DX:Depression Neuropathy 12/15/2012 DX:Neuropathy; C OMMENT: Taken from note of Dr. Skinner on 09/11/2012 Atrial fibrillation (CMS/HCC) 03/17/2014 DX :Atrial fibrillation (HCC) Family history of cardiovasc ular disease DX:Family history of cardiov ascular disease Family History Medical History Relation Name Comments Arthritis Daughter Arthritis Father Arthritis Son Relation Name Status Comments Brother Alive prostate cancer Daughter Father (Age 78) pneumonia, cva Mother (Age 83) Sister 1 (Age 50's) cancer ? type Sister 2 (Age 40) dm, htn Son Social History Tobacco Use Types Packs/Day Years Used Date Smoking Tobacco: Never Smokeless Tobacco: Never Alcohol Use Standard Drinks/Week Comments No 0 (1 standard drink = 0.6 oz pur e alcohol) Sex and Gender Information Value Date Recorded Sex Assigned at Not on file Gender Identity Not on file Sexual Orientation Not on file Obstetrics History Last Filed Vital Signs Vital Sign Reading Time Taken Comments Blood Pressure 130/82 02/07/2023 11:58 AM EST R Arm Pulse 107 10/04/2022 9:47 AM EDT Temperature - - Respiratory Rate - - Oxygen Saturation - - Inhaled Oxygen Concentration - - Weight 88 kg (194 lb) 02/07/2023 11:58 AM EST Height 157.5 cm (5' 2 ) 02/07/2023 11:58 AM EST Body Mass Index 35.48 02/07/2023 11:58 AM EST Plan of Treatment Upcoming Encounters Date Type Department Care Team (Late st Contact Info) Description 06/02/2024 8:50 AM EDT Office Visit [facility] [address] [facility] [address] [place] [address] Alia Gagnon MD [address] [place] [address] Health Maintenance Due Date Last Done Comments COVID-19 Vaccine (#1) 1955 Diabetes: Annual Foot Exam 1958 Diabetes: Annual Retina Eye Exam 1958 Diabetes: Annual GFR (Glomerular Filtration Rate) 07/17/2019 07/16/2018 Colorectal Cancer Screening: Colonoscopy 01/26/2022 Falls Risk Assessment 01/26/2022 Osteoporosis Screening (Bone Density Screening) 01/26/2022 Social Influencers of Health Screening 01/26/2022 Hypertension/CHF/CAD Annual BMP Blood Test 01/27/2022 07/16/2018 Diabetes: Annual Urine Albumin-Creatinine Ratio (uACR) 02/01/2022 07/16/2018 DTaP,Tdap,and Td Vaccines (2 - Td or Tdap) 03/31/2023 03/31/2013 Depression Screening 05/18/2023 05/17/2022 RSV Immunization Patients 60+ Years Old (1 - 1-dose 75+ series) 06/22/2023 Diabetes: Blood Sugar Control Test (HGBA1C) 06/09/2024 12/10/2023, 10/27/2018 Cholesterol Screening (Lipid Panel) 07/31/2027 07/30/2022, 07/16/2018 Pneumococcal Vaccine: 65+ Years Completed 07/16/2018, 12/11/2015 Zoster Vaccines Completed 04/15/2019, 01/28/2019 Hepatitis C Screening Completed 07/30/2022, 014 Influenza Vaccine Completed 12/10/2023, , 10/26/2021, Additional [...] on patient's age to complete this topic MMR Vaccines Aged Out No longer eligi ble based on patient's age to complete this topic Meningococcal ACWY Vaccine Aged Out N o longer eligible based on patient's age to complete this topic RSV Immunization Patients Under 20 months Aged Out No longer eligible based on patient's age to complete this topic Varicella Vaccines Aged Out No longer eligible based on patient's age to complete this topic Procedures Procedure Name Priority Date/Time Associated Diagnosis Comments HEMOGLOBIN A1C Routine 10/27/2018 HM URINE ALBUMIN CREATININE RATIO Routine 07/16/2018 ANNUAL BMP BLOOD TEST Routine 07/16/2018 LIPID PANEL Routine 07/16/2018 HEPATITIS C SCREENING Routine 03/23/2013 from Last 3 Months or Most Recently Relevant to Health Maintenance Results * (ABNORMAL) Hemoglobin A1c (10/27/2018) [facility] Hemoglobin A1C 8.5(A) 6.5 % Blood Venous blood specimen / Unknown Historical Provider LAB BLOOD ORDERAB LES * Urine Albumin Creatinine Ratio (07/16/2018) [facility] Urine Albumin Creatinine Ratio abstracted Historical Provider MD WATSON MAINSEKOU E * Annual BMP Blood Test (07/16/2018) [facility] Annual BMP Blood Test abstracted Historical Provider MD WATSON MAINSEKOU E * (ABNORMAL) Lipid panel (07/16/2018) [facility] LDL/HDL Ratio 4 0 - 4 Triglycerides 122 0 - 150 mg/dL Cholesterol 176 0 - 200 mg/dL HDL 44 40 mg/dL LDL Cholesterol 108(A) 0 - 100 mg/dL Blood Venous blood specimen / Unknown Historical Provider LAB BLOOD ORDERAB LES * Hepatitis C Screening (03/23/2013) [facility] Hepatitis C Screening abstracted Historical Provider MD WATSON MAINSEKOU E from Last 3 Months or Most Recently Relevant to Health Maintenance Advance Directives Documents on File Type Date Recorded Patient Matcher Expl anation Health Care Decision (hx) 02/15/2014 AD REDDY DIRECTIVE Health Care Decision (hx) 02/15/2014 AD REDDY DIRECTIVE Health Care Decision (hx) 02/15/2014 AD REDDY DIRECTIVE Health Care Decision (hx) 02/15/2014 AD REDDY DIRECTIVE Health Care Decision (hx) 02/15/2014 AD REDDY DIRECTIVE Health Care Decision (hx) 02/15/2014 AD REDDY DIRECTIVE Health Care Decision (hx) 02/15/2014 AD REDDY DIRECTIVE Health Care Decision (hx) 02/15/2014 AD REDDY DIRECTIVE Health Care Decision (hx) 02/06/2014 AD REDDY DIRECTIVE Health Care Decision (hx) 02/06/2014 AD REDDY DIRECTIVE Health Care Decision (hx) 02/06/2014 AD REDDY DIRECTIVE Health Care Decision (hx) 02/06/2014 AD REDDY DIRECTIVE Health Care Decision (hx) 02/06/2014 AD REDDY DIRECTIVE Health Care Decision (hx) 02/06/2014 AD REDDY DIRECTIVE Health Care Decision (hx) 02/06/2014 AD REDDY DIRECTIVE Health Care Decision (hx) 02/06/2014 AD REDDY DIRECTIVE
--- OUTSIDE RECORDS SUMMARY | 2024-03-16 16:34 | XMS_ITS | Encounter Summary ---
Author Organization [employer] Address [address] [facility] [address] [place] [address] Care Team Providers Care Bi Analyst Name Role Phone Steffany Augustin MD Primary Care Provider [phone] Encounter Details Date Type Department Care Team (Latest Contact Info) Description 03/16/2024 Travel Social History Tobacco Use Types Packs/Day Years Used Date Smoking Tobacco: Never Smokeless Tobacco: Never Depression Answer Date Recorded Patient Health Questionnaire-9 Score 0 03/16/2024 Patient Health Questionnaire-9 Score 0 03/16/2024 Last PHQ-9: Questionnaire Data Not on file 0 03/16/2024 Housing Stability Answer Date Recorded What is your housing situation today? I have tomásmanas martínez 03/16/[address] you [...] documented as of this encounter Care Teams Bi Analyst Relationship Specialty Start Date End Date Steffany Augustin MD [address] [place] [address] PCP - General Internal Medicine 12/03/23 documented as of this encounter
--- OUTSIDE RECORDS SUMMARY | 2024-03-16 16:34 | XMS_ITS | Encounter Summary ---
Author Organization [facility] Address [address] [place] [address] Care Team Providers Care Leasing Specialist Name Role Phone Uli Rueda MD Primary Care Provider Un available Ramon Marcos MD Primary Care Prov ider Unavailable Alia Gagnon MD Unavailable [phone] [place] Unavailable Encounter Details Date Type Department Care Team Description 02/18/2018 Flooring Machine Feeder Report Medical Records [address] [place] [address] Niki Montejo Social History Tobacco Use Types Packs/Day Years [...] on filedocumented in this encounter Care Teams Leasing Specialist Relationship Specialty Start Date End Date Uli Rueda MD PCP - General Internal Medicine 07/13/15 Ramon Marcos MD PCP - General Internal Medicine 06/16/20 Alia Gagnon MD Specialist Cardiology 07/06/20 [place] PA Specialist Cardiology 07/06/20 documented as of this encounter
--- OUTSIDE RECORDS SUMMARY | 2024-03-16 16:34 | XMS_ITS | Encounter Summary ---
Author Organization [facility] Address [address] [place] [address] Care Team Providers Care Bench Repair Technician Name Role Phone Dominique Swift MD Primary Care Provider Uli Moreno MD Primary Care Provider Un available Steffany Augustin MD Primary Care Pr ovider Unavailable Ramon Marcos MD Primary Care Prov ider Unavailable Alia Gagnon MD Unavailable [phone] [place] Unavailable Encounter Details Date Type Department Care Team Description 03/02/2014 [place] [facility] [address] [id number] Name, MD Pedro Luis Social History Tobacco Use Types Packs/Day Years [...] on filedocumented in this encounter Care Teams Bench Repair Technician Relationship Specialty Start Date End Date Dominique [...]
--- OUTSIDE RECORDS SUMMARY | 2024-03-16 16:34 | XMS_ITS | Encounter Summary ---
Author Organization [facility] Address [address] [place] [address] Care Team Providers Care Sales Planning Coordinator Name Role Phone Uli Rueda MD Primary Care Provider Un available Ramon Marcos MD Primary Care Prov ider Unavailable Alia Gagnon MD Unavailable [phone] [place] Unavailable Encounter Details Date Type Department Care Team Description 11/03/2018 Travel Agency Manager Report Medical Records [address] [place] [address] Quinn Lam MD Social History Tobacco Use Types Packs/Day [...] on filedocumented in this encounter Care Teams Sales Planning Coordinator Relationship Specialty Start Date End Date Uli Rueda MD PCP - General Internal Medicine 07/13/15 Ramon Marcos MD PCP - General Internal Medicine 06/16/20 Alia Gagnon MD Specialist Cardiology 07/06/20 [place] PA Specialist Cardiology 07/06/20 documented as of this encounter
--- OUTSIDE RECORDS SUMMARY | 2024-03-16 16:34 | XMS_ITS | Encounter Summary ---
Author Organization [employer] Address [address] [address] Care Team Providers Care Motor Coach Driver Name Role Phone Ramon Marcos MD Primary Care Prov ider Steffany Augustin MD Primary Care Provider [phone] Reason for Visit * Reason Comments Med Refill Encounter Details Date Type Department Care Team ([facility] st Contact Info) Description 11/17/2022 Refill [facility] [address] [place] [address] Ramon Marcos MD [address] [place] [address] Social History Tobacco Use Types Packs/Day Years Used Date Smoking Tobacco: Never Smokeless Tobacco: Never Depression Answer Date Recorded Patient Health Questionnaire-9 Score 2 05/17/2022 Depression Answer Date Recorded Patient Health Questionnaire-2 [...] documented as of this encounter Care Teams Motor Coach Driver Relationship Specialty Start Date End Date Ramon Marcos MD [address] [place] [address] PCP - General Internal Medicine 12/22/18 12/02/23 Steffany Augustin MD [address] [place] [address] PCP - General Internal Medicine 12/03/23 documented as of this encounter
--- OUTSIDE RECORDS SUMMARY | 2024-03-16 16:34 | XMS_ITS | Encounter Summary ---
Author Organization [facility] Address [address] [place] [address] Care Team Providers Care Big Data Platform Architect Name Role Phone Uli Rueda MD Primary Care Provider Un available Ramon Marcos MD Primary Care Prov ider Unavailable Alia Gagnon MD Unavailable [phone] [place] Unavailable Encounter Details Date Type Department Care Team Description 01/21/2018 [facility] Medical Records [address] [place] [address] Abstract, Provider Social History Tobacco Use Types [...] on filedocumented in this encounter Care Teams Big Data Platform Architect Relationship Specialty Start Date End Date Uli Rueda MD PCP - General Internal Medicine 07/13/15 Ramon Marcos MD PCP - General Internal Medicine 06/16/20 Alia Gagnon MD Specialist Cardiology 07/06/20 [place] PA Specialist Cardiology 07/06/20 documented as of this encounter
--- OUTSIDE RECORDS SUMMARY | 2024-03-16 16:34 | XMS_ITS | Encounter Summary ---
Author Organization [employer] Address [address] [facility] [address] [place] [address] Care Team Providers Care Implementation Coordinator Name Role Phone Ramon Marcos MD Primary Care Prov ider Steffany Augustin MD Primary Care Provider [phone] Encounter Details Date Type Department Care Team (Late st Contact Info) Description 02/22/2022 Orders Only [facility] MEDICINE [address] [place], [place] [phone] Ramon Marcos MD [address] [place] [address] Chronic bilateral low back pain with bilateral sciatica (Primary Dx) Social History Tobacco Use Types Packs/Day Years [...] documented as of this encounter Visit Diagnoses Diagnosis Chronic bilateral low back pain with bilateral sciatica- Primary documented in this encounter Care Teams Implementation Coordinator Relationship Specialty Start Date End Date Ramon Marcos MD [address] [place] [address] PCP - General Internal Medicine 12/22/18 12/02/23 Steffany Augustin MD [address] [place] [address] PCP - General Internal Medicine 12/03/23 documented as of this encounter
--- OUTSIDE RECORDS SUMMARY | 2024-03-16 16:35 | XMS_ITS | Clinical Summary ---
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 30 Tab 11 07/15/2017 Active acetaminophen (TYLENOL) 500 MG tablet Take 1 Tab by mouth 2 times daily. 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 60 Cap 0 09/04/2018 Active loratadine (CLARITIN) 10 MG tablet Take 1 Tab by mouth daily. 30 Tab 3 10/27/2018 Active Calcium Carbonate-Vitamin D3 600-400 MG-UNIT Tab Take 1 Tab by mouth 2 times daily. 60 Tab 5 10/27/2018 Active metformin (GLUCOPHAGE) 500 MG tablet Take 1 Tab by mouth 2 times daily (with meals). 60 Tab 2 10/27/2018 Active VENTOLIN HFA 108 (90 Base) MCG/ACT Aero Soln INHALE 2 PUFFS INTO THE LUNGS EVERY 6 HOURS NEEDED FOR COUGH OR WHEEZING. 1 Inhaler 0 11/24/2018 Active omeprazole (PRILOSEC) 20 MG capsule Take 20 mg by mouth daily. 0 05/23/2020 Active losartan (COZAAR) 50 MG tablet Take 50 mg by mouth daily. 0 05/23/2020 Active amoxicillin (AMOXIL) 500 MG capsule Take 500 mg by mouth as needed. Prior to dental 0 03/13/2020 Active Insulin Glargine (Lantus SoloStar) 100 UNIT/ML Solution Pen-injector INJECT 15 UNITS SUBCUTANEOUS INJECTION DAILY AT BEDTIME 0 04/26/2020 Active cyclobenzaprine (FLEXERIL) 5 MG tablet Take 5 mg by mouth 3 times daily as needed. 0 05/04/2020 Active diltiazem (CARDIZEM CD) 180 MG 24 hr capsule Take 180 mg by mouth daily. 0 05/23/2020 Active Jardiance 25 MG Tab Take 25 mg by mouth daily. 0 05/04/2020 Active Cholecalciferol (Vitamin D3) 25 MCG Tab Take 25 mcg by mouth daily. 0 05/23/2020 Active atorvastatin (LIPITOR) 80 MG tablet Take 80 mg by mouth daily. 0 05/23/2020 Active Aspirin Low Dose 81 MG EC tablet Take 81 mg by mouth daily. 0 05/04/2020 Active nitroGLYCERIN (NITROSTAT) 0.4 MG SL tabletIndications:C hest pain, unspecified type Place 1 tablet under the tongue every 5 minutes as needed for Chest pain (If you need to take a 3rd tablet, call 911.). 30 tablet 0 12/22/2020 Active Active Problems Patient Care Coordination No te Formatting of this note is d ifferent from the original. Checking Your Blood Sugars Please check your blood sugars every day. Please check your sugars at the following times of day: before breakfast and before bedtime Your Blood Sugar Goals Pre Meal: 90-130 2 hours after meals: 110-160 Bedtime: 110-150 Use the Results ?? Bring your glucometer to every appointment ?? Write your fingerstick blood sugars down on a log sheet or record book. Bring them to your appointment ?? Look for patterns in the numbers. The results help you and your provider make decisions about your diabetes treatment plan. Your Results and your Goals Your Result / Date of Completion Your Goal / How Often to Assess Component Value Date HGBA1C 9.9 09/20/2015 Less than 7% --- 2-4 times per year BP Readings from Last 1 Encounters: 12/11/15 118/68 Less than 140/90 --- once per year Component Value Date MALBCR 37.5 09/20/2015 Less than 30 --- once per year Component Value Date LDL 152 09/20/2015 Less than 100 --- once per year Wt Readings from Last 1 Encounters: 12/11/15 201 lb 1.6 oz (91.218 kg) Your goal weight by next visit: 195lb --- reassess 2-4 times a year Health Maintenance Due Topic Date Due ? ? Depression Screen 1960 ? ? Diabetes: Annual Care Plan 1966 ? ? Adult Immunization: Zostavax For Patients Over 60 2008 ? ? Pneumococcal Vaccine (#1 of 2 - Dose 1 = PCV13, Dose 2 = PPSV23) 2013 ? ? Diabetes: Annual Foot Exam 12/17/2013 ? ? Mammogram 06/29/2015 ? ? Bone Density Screening 09/04/2015 ? ? Influenza (#1 of 1) 10/19/2015 Your Action Plan Start/adjust diabetic medications as directed. Check blood glucose as directed and write down all results. Review blood pressure medications Check feet for sores every day Continue to work on weight loss with a goal of losing 2-4 pounds per month Contact me if you experience any barriers to care such as inability to purchase your medication, difficulty getting to your appointments or difficulty understanding your care plan Please get your pneumonia shot Please get your yearly flu shot When to Call your Healthcare Provider If your blood sugar falls below 70 and you do not know why or you become unconscious If you are sick and unable to take liquids because or nausea or vomiting If you have a fever over 101 If your blood sugar is 300 or higher on greater than 3 separate occasions during the same week If you are just unsure what to do Educational Resources [place] [employer] (www.diabetes.org) Centers for Disease Control and Prevention (www.cdc.gov/diabetes) This care plan was created in collaboration with Demi Plata on 12/11/2015 Problem Noted Date 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 Sleep apnea 09/01/2013 Allergic rhinitis 03/31/2013 OA (osteoarthritis) of knee 03/31/2013 Neuropathy 12/15/2012 Overview: Taken from note of Dr. Skinner on 09/11/2012 Hypertension 12/21/2008 Last Assessment & Plan: Blood pressure appears exceptionally well controlled. Despite 100/70 she is not complaining of unusual dizziness. She reportedly follows a low-sodium diet. Chronic low back pain prohibits regular exercise but she is urged to try to walk even if it is only minutes at a time. Would suggest home monitoring as well. Continue drug therapies. Hyperlipidemia 12/21/2008 Last Assessment & Plan: The patient has [...] the lab this week. Recommend lifestyle modifications. 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 Allison Resolved Problems Problem Noted Date Resolved Date Vitamin B12 deficiency 08/11/2009 8 Immunizations Name Administration Dates Next Due Influenza (> 6 Months) 12/11/2015,10/30/2014, Pneumoccoccal(Adult) Polysaccharide PPSV23 07/16 Pneumococcal Conjugate PCV-13 12/11/2015 Tdap 03/31/2013 Family History Medical History Relation Name Comments [...] file Not on file Not on file Last Filed Vital Signs Vital Sign Reading Time Taken Comments Blood Pressure 130/82 02/07/2023 11:58 AM EST Pulse 107 10/04/2022 9:47 AM EDT Temperature 36.8 ??C (98.2 ??F) 10/27/2018 8:54 AM ED T Respiratory Rate 14 07/16/2018 9:36 AM EDT Oxygen Saturation 97% 10/04/2022 9:47 AM EDT Inhaled Oxygen Concentration - - Weight 88 kg (194 lb) 02/07/2023 11:58 AM EST Height 157.5 cm (5' 2 ) 02/07/2023 11:58 AM EST Body Mass Index 35.48 02/07/2023 11:58 AM EST Plan of Treatment Health Maintenance Due Date Last Done Comments Covid-19 Vaccine (#1) 1950 DEPRESSION SCREEN 1960 SHINGLES VACCINE (1 of 2) 1998 DIABETES: ANNUAL EYE EXAM 03/20/20172016 (External Completion), 11/29/2015 (External Completion), 05/27/2013, Additional history exists FALL RISK ASSESSMENT 09/24/2017 09/24/2016, 09/20/19 16 BONE DENSITY SCREENING 09/03/2018 09/03/2013 DIABETES: BLOOD SUGAR CONTRO L TEST (HGBA1C) 01/26/2019 10/27/2018, 07/16/2018, 07/26/2017, Additional history exists DIABETES/HEART DISEASE: PARDEEP AL CHOLESTEROL (LDL) 07/17/2019 07/16/2018, 09/24/2016, 09/20/2015, Additional history exists DIABETES: ANNUAL FOOT EXAM 07/17/201907/16, 06/03/2017 (Completed), 06/03/2017, Additional history exists DIABETES: ANNUAL URINE PROTE IN TEST (MICROALBUMIN) 07/17/2019 07/16/2018, 09/24/2016, 09/20/2015, Additional history exists MAMMOGRAM 09/12/2019 09/11/2018, 0607/2017, 06/28/2014, Additional history exists COLON CANCER SCREENING 12/09/2020 8, 09/16/2012 (External Completion) DTAP/TDAP/TD (2 - Td or Tdap) 03/31/2023 03/31/2013 INFLUENZA (#1) 2023 12/11/2015, 10/18, 11/06/2012 BMI CHECK/ADVISE 02/18/2024 10/27/2018, , 07/15/2017, Additional history exists DEPRESSION SCREENING/FOLLOWUP 02/18/2024 12/21/2008 HEPATITIS C SCREENING Completed 03/23/2013 PNEUMOCOCCAL VACCINE Completed 07/16/2018, 12/11/19 16 Insurance Payer Benefit Plan / Group Subscriber ID Effective Dates Phone Address Type [facility] FFS PT/WHP/$0/6/ F/HMO [id number] 2008-Pre sent [facility] [address] [address] [place] [address] MEDICAID [id number] [place] CH/PT/MEDICA RE/$0 [id number] 2015-Pre sent [address] [place] [address] MEDICARE [id number] [facility] $0 [id number] V/REF REQ. [id number] 2015-Pre sent [facility] ATTN CLAIMS [address] [place] [address] MEDICAID [id number] [place] [facility] [place] [id number] 2023-Pr esent [address] [place] [address] MEDICARE [id number] [facility] [id number] 2022-Pre sent [facility] ATTN CLAIMS [address] [place] [address] MEDICAID [id number] ICE Care Teams Camp Cook Relationship Specialty Start Date End Date Ramon Marcos MD PCP - General Internal Medicine 06/16/20 Alia Gagnon MD Specialist Cardiology 07/06/20 [place] PA Specialist Cardiology 07/06/20
[2024-03-16 17:58] LABS: Eosinophils Percent Auto 1.3 % (0-4); Hemoglobin 13.2 g/dl (12.0-16.0); Mean Corpuscular Volume 83.5 fL (80.0-98.0); PLT CLUMP 1; Red Cell Distribution Width 13.2 % (11.0-16.0); SCAN SMEAR FLAG 1
[2024-03-16 17:59] LABS: Basophils Percent Auto 0.5 % (0-2); Eosinophils Absolute Auto 0.1 X10*3/uL (0.0-0.4); Hematocrit 40.6 % (37.0-47.0); Imm Gran Abs Auto 0.03 X10*3/uL (0.00-0.03); Imm Gran Pct Auto 0.4 % (0.0-0.4); Lymphocytes Absolute Auto 2.4 X10*3/uL (1.2-4.9); Lymphocytes Percent Auto 30.8 % (20-40); Mean Corpuscular HGB Conc 32.5 g/dl (31.0-35.0); Mean Corpuscular Hemoglobin 27.2 pg (27.0-33.0); Mean Platelet Volume 10.5 fL (9.4-12.3); Monocytes Absolute Auto 0.5 X10*3/uL (0.1-1.2); Neutrophils Absolute Auto 4.7 x10*3/uL (2.0-8.3); Red Blood Count 4.86 X10*6/uL (4.20-5.50)
[2024-03-16 18:10] LABS: MANUAL DIFF FLAG NO; Platelet Count 224 X10*3/uL (160-400); White Blood Count 7.6 X10*3/uL (4.8-10.8)
== END 2024-03-16 15:59 | disposition home or self-care (01) ==
LOC: HO.CHCLDS 15:58
PROVIDERS: Visit Provider Internal Medicine
DX: D50.8 Other iron deficiency anemias (principal)
CPT/HCPCS: 36415; 85025

== ENCOUNTER 2024-04-29 15:32 | Outpatient (REF) | payer OTHER, SELFPAY ==
[2024-04-29 18:06] LABS: C Reactive Protein 1.65 mg/dL (< or = 0.50)
[2024-04-29 18:51] LABS: Erythrocyte Sedimentation Rate 19 MM/HR (0-20)
--- OUTSIDE RECORDS SUMMARY | 2024-04-29 19:06 | XMS_ITS | Encounter Summary ---
Author Organization [employer] Address [address] [facility] 7t [place] [address] Care Team Providers Care Meeting Facilitator Name Role Phone Ramon Marcos MD Primary Care Prov ider Steffany Augustin MD Primary Care Provider Demi Menendez PharmD Unavailable [phone] Encounter Details Date Type Department Care Team (Late Contact Info) Description 02/22/2022 Orders Only [facility] MEDICINE [address] [place] [address] Ramon Marcos MD [address] [place], [place] [phone] Chronic bilateral low back pain with bilateral [...] as of this encounter Plan of Treatment Upcoming Encounters Date Type Department Care Team (Late st Contact Info) Description 05/12/2024 9:30 AM EDT Medication Management [facility] MED & PEDS [address] [place], [place] [phone] Demi Menendez, PharmD [address] [place] [address] 06/22/2024 11:30 AM EDT Office Visit [facility] MED & PEDS [address] [place] [address] Steffany Augustin MD [address] [place] [address] documented as of this encounter Visit Diagnoses Diagnosis Chronic bilateral low back pain with bilateral sciatica- Primary documented in this encounter Care Teams Meeting Facilitator Relationship Specialty Start Date End Date Ramon Marcos MD [address] [place] [address] PCP - General Internal Medicine 12/22/18 12/02/23 Steffany Augustin MD [address] [place] [address] PCP - General Internal Medicine 12/03/23 Demi Menendez, Padma [address] [place] [address] Pharmacist Internal Medicine 04/16/24 documented as of this encounter
--- OUTSIDE RECORDS SUMMARY | 2024-04-29 19:06 | XMS_ITS | Encounter Summary ---
Author Organization [employer] Address [address] [facility] 7t [place] [address] Care Team Providers Care Email Manager Name Role Phone Steffany Augustin MD Primary Care Provider [phone] Reason for Visit * Reason Comments Med Refill Encounter Details Date Type Department Care Team ([facility] st Contact Info) Description 04/14/2024 Refill [facility] CH[facility] MED & PEDS [address] [place], [place] [phone] Steffany Augustin MD [address] [place], [place] [phone] Social History Tobacco Use Types Packs/Day Years [...] Description 05/12/2024 9:30 AM EDT Medication Management [facility] MED & PEDS [address] [place] [address] Demi Menendez, PharmD [address] [place] [address] 06/22/2024 11:30 AM EDT Office Visit [facility] MED & PEDS [address] [place] [address] Steffany Augustin MD [address] [place] [address] documented as of this encounter Visit Diagnoses Not on filedocumented in this encounter Additional Health Concerns Assessment Noted Time PHQ-9 Depression Total Score: 0 03/16/19 25 3:27 PM EST documented as of this encounter Care Teams Email Manager Relationship Specialty Start Date End Date Steffany Augustin MD [address] [place] [address] PCP - General Internal Medicine 12/03/23 documented as of this encounter
--- OUTSIDE RECORDS SUMMARY | 2024-04-29 19:06 | XMS_ITS | Encounter Summary ---
Author Organization [employer] Address [address] [facility] 7t [place] [address] Care Team Providers Care Linseed Oil Boiler Name Role Phone Steffany Augustin MD Primary Care Provider [phone] Demi Menendez PharmD Unavailable [phone] Reason for Visit * Reason Onset Date Comments Prior Authorization 04/19/2024 Encounter Details Date Type Department Care Team (Late st Contact Info) Description 04/19/2024 Telephone [facility] MED & PEDS [address] [place], [place] [phone] Demi Menendez, PharmD [address] [place] [address] Prior Authorization Social History Tobacco Use Types Packs/Day Years [...] encounter Miscellaneous Notes * Telephone Encounter - Demi Menendez PharmD - 04/19/2024 11:39 AM EST PA for CGM in process by [facility] Pharmacist documented in this encounter Plan of Treatment Upcoming Encounters Date Type Department Care Team (Late st Contact Info) Description 05/12/2024 9:30 AM EDT Medication Management [facility] MED & PEDS [address] [place] [address] Demi Menendez PharmD [address] [place] [address] 06/22/2024 11:30 AM EDT Office Visit [facility] MED & PEDS [address] [place] [address] Steffany Augustin MD [address] [place] [address] documented as of this encounter Visit Diagnoses Not on filedocumented in this encounter Additional Health Concerns Assessment Noted Time PHQ-9 Depression Total Score: 0 03/16/19 25 3:27 PM EST documented as of this encounter Care Teams Linseed Oil Boiler Relationship Specialty Start Date End Date Steffany Augustin MD [address] [place] [address] PCP - General Internal Medicine 12/03/23 Demi Menendez PharmD [address] [place] [address] Pharmacist Internal Medicine 04/16/24 documented as of this encounter
--- OUTSIDE RECORDS SUMMARY | 2024-04-29 19:06 | XMS_ITS | Encounter Summary ---
Author Organization [employer] [facility] Address [address] [place] [address] 7t [place] [address] Care Team Providers Care Underwriting Director Name Role Phone Ramon Marcos MD Primary Care Prov ider Steffany uAgustin MD Primary Care Provider Demi Menendez PharmD Unavailable [phone] Encounter Details Date Type Department Care Team (Late st Contact Info) Description 02/28/2022 Orders Only [facility] MED & PEDS [address] [place] [address] Yeimi Madrid LPN Social History Tobacco Use [...] Description 05/12/2024 9:30 AM EDT Medication Management [facility] MED & PEDS [address] [place] [address] Demi Menendez, PharmD [address] [place], [place] [phone] 06/22/2024 11:30 AM EDT Office Visit [facility] MED & PEDS [address] [place] [address] Steffany Augustin MD [address] [place], [place] [phone] documented as of this encounter Visit Diagnoses Not on filedocumented in this encounter Care Teams Underwriting Director Relationship Specialty Start Date End Date Ramon Marcos MD [address] [place] [address] PCP - General Internal Medicine 12/22/18 12/02/23 Steffany Augustin MD [address] [place] [address] PCP - General Internal Medicine 12/03/23 Demi Menendez PharmD [address] [place] [address] Pharmacist Internal Medicine 04/16/24 documented as of this encounter
--- OUTSIDE RECORDS SUMMARY | 2024-04-29 19:06 | XMS_ITS | Encounter Summary ---
Author Organization [employer] Address [address] [facility] 7t [place] [address] Care Team Providers Care Manager Balance Name Role Phone Ramon Marcos MD Primary Care Prov ider Steffany Augustin MD Primary Care Provider [phone] Demi Menendez PharmD Unavailable [phone] Reason for Visit * Reason Onset Date Comments pre-op 01/28/2023 Encounter Details Date Type Department Care Team ([facility] st Contact Info) Description 01/28/2023 Telephone [facility] MED & PEDS [address] [place], [place] [phone] Ramon Marcos MD [address] [place], [place] [phone] pre-op Social History Tobacco Use Types Packs/Day [...] Montoya Facility name: [facility], [address] [place] [address] Dr Davison [address] Surgeon's office number: [phone] ext [phone] Surgeon's office fax number: [phone] Contact name (person you spoke with): geoff documented in this encounter Plan of Treatment Upcoming Encounters Date Type Department Care Team (Late st Contact Info) Description 05/12/2024 9:30 AM EDT Medication Management [facility] MED & PEDS [address] [place], [place] [phone] Demi Menendez PharmD [address] [place] [address] 06/22/2024 11:30 AM EDT Office Visit [facility] CHC MED & PEDS [address] [place] [address] Steffany Augustin MD [address] [place] [address] documented as of this encounter Visit Diagnoses Not on filedocumented in this encounter Additional Health Concerns Assessment Noted Time PHQ-9 Depression Total Score: 2 05/18/19 23 9:10 AM EDT documented as of this encounter Care Teams Manager Balance Relationship Specialty Start Date End Date Ramon Marcos MD [address] [place] [address] PCP - General Internal Medicine 12/22/18 12/02/23 Steffany Augustin MD [address] [place] [address] PCP - General Internal Medicine 12/03/23 Demi Menendez PharmD [address] [place] [address] Pharmacist Internal Medicine 04/16/24 documented as of this encounter
--- OUTSIDE RECORDS SUMMARY | 2024-04-29 19:06 | XMS_ITS | Encounter Summary ---
Author Organization [employer] Address [address] [facility] 7t [place] [address] Care Team Providers Care Progress Clerk Name Role Phone Ramon Marcos MD Primary Care Prov ider Steffany Augustin MD Primary Care Provider [phone] Demi Menendez PharmD Unavailable [phone] Reason for Visit * Reason Comments Med Refill Encounter Details Date Type Department Care Team (Late st Contact Info) Description 11/17/2022 Refill [facility] CH[facility] MED & PEDS [address] [place], [place] [phone] Ramon Marcos MD [address] [place], [place] [phone] Social History Tobacco Use Types Packs/Day Years [...] Description 05/12/2024 9:30 AM EDT Medication Management [facility] CH[facility] MED & PEDS [address] [place], [place] [phone] Demi Menendez, PharmD [address] [place], [place] [phone] 06/22/2024 11:30 AM EDT Office Visit [facility] CH[facility] MED & PEDS [address] [place] [address] Steffany Augustin MD [address] [place] [address] documented as of this encounter Visit Diagnoses Not on filedocumented in this encounter Additional Health Concerns Assessment Noted Time PHQ-9 Depression Total Score: 2 05/18/19 23 9:10 AM EDT documented as of this encounter Care Teams Progress Clerk Relationship Specialty Start Date End Date Ramon Marcos MD [address] [place] [address] PCP - General Internal Medicine 12/22/18 12/02/23 Steffany Augustin MD [address] [place] [address] PCP - General Internal Medicine 12/03/23 Demi Menendez PharmD [address] [place] [address] Pharmacist Internal Medicine 04/16/24 documented as of this encounter
--- OUTSIDE RECORDS SUMMARY | 2024-04-29 19:06 | XMS_ITS | Encounter Summary ---
Author Organization [employer] Address [address] [facility] 7t [place] [address] Care Team Providers Care Data Systems Analyst Name Role Phone Ramon Marcos MD Primary Care Prov ider Steffany Augustin MD Primary Care Provider [phone] Demi Menendez PharmD Unavailable [phone] Reason for Visit * Reason Onset Date Comments Pa form 02/28/2022 Encounter Details Date Type Department Care Team ([facility] st Contact Info) Description 02/28/2022 Telephone [facility] CHC MED & PEDS [address] [place], [place] [phone] Ramon Marcos MD [address] [place], [place] [phone] Pa form Social History Tobacco Use Types [...] provide DX * Telephone Encounter - Nelly Rincon - 02/28/2022 2:49 PM EST Tc from pt stated need a Pa form to be done for Lidocaine patches. PCP DR. Lugo documented in this encounter Plan of Treatment Upcoming Encounters Date Type Department Care Team (Late st Contact Info) Description 05/12/2024 9:30 AM EDT Medication Management [facility] MED & PEDS [address] [place] [address] Demi Menendez PharmD [address] [place] [address] 06/22/2024 11:30 AM EDT Office Visit [facility] MED & PEDS [address] [place] [address] Steffany Augustin MD [address] [place] [address] documented as of this encounter Visit Diagnoses Not on filedocumented in this encounter Care Teams Data Systems Analyst Relationship Specialty Start Date End Date Ramon Marcos MD [address] [place] [address] PCP - General Internal Medicine 12/22/18 12/02/23 Steffany Augustin MD [address] [place] [address] PCP - General Internal Medicine 12/03/23 Demi Menendez PharmD [address] [place] [address] Pharmacist Internal Medicine 04/16/24 documented as of this encounter
--- OUTSIDE RECORDS SUMMARY | 2024-04-29 19:06 | XMS_ITS | Encounter Summary ---
Author Organization [employer] Address [address] [facility] 7t [place] [address] Care Team Providers Care Accountant Controller Name Role Phone Steffany Augustin MD Primary Care Provider [phone] Demi Menendez PharmD Unavailable [phone] Encounter Details Date Type Department Care Team (Late st Contact Info) Description 01/08/2024 Orders Only [facility] CHC MED & PEDS [address] [place] [address] Provider, MD Darian Social History Tobacco Use [...] Description 05/12/2024 9:30 AM EDT Medication Management [facility] MED & PEDS [address] [place] [address] Demi Menendez, PharmD [address] [place], [place] [phone] 06/22/2024 11:30 AM EDT Office Visit [facility] MED & PEDS [address] [place] [address] Steffany Augustin MD [address] [place] [address] documented as of this encounter Procedures Procedure [...] documented as of this encounter Care Teams Accountant Controller Relationship Specialty Start Date End Date Steffany Augustin MD [address] [place] [address] PCP - General Internal Medicine 12/03/23 Demi Menendez, Padma [address] [place] [address] Pharmacist Internal Medicine 04/16/24 documented as of this encounter
--- OUTSIDE RECORDS SUMMARY | 2024-04-29 19:06 | XMS_ITS | Clinical Summary ---
Author Organization [facility] it Address [address] [place] [address] Care Team Providers Care Help Desk Administrator Name Role Phone Unavailable Primary Care Provider Unavailabl e Allergies Active Allergy Reactions Criticality Noted Date Comments Ibuprofen GI intolerance 11/07/2014 Lisinopril Cough 07/20/2013 Medications rivaroxaban (XARELTO) 20 mg tablet Take 1 [...] FREESTYLE LANCETS MISC Use once a day Ac tive blood sugar diagnostic (FreeStyle Lite Strips) test [...] Type Department Care Team Description 02/16/2024 Telephone [facility] - [address] [place] [address] Alia Gagnon MD Hypertension; Abnormal [...] TOTAL KNEE REPLACE COLONOSCOPY W/ BIOPSIES 12/09/17 [facility] PROCEDURE: AL COLONOSCOPY W/BIOPSY SINGLE/MULTIPLE; COMMENT: 4 small adenomas, hemorrhoids and tics; repeat in 3 years Medical History Medical History Date Comments Hypertension 12/21/2008 DX:Hypertension Hyperlipidemia 12/21/2008 DX:Hyperlipidemi a Glaucoma 12/21/2008 DX:Glaucoma; COM MENT: Dr. 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 12/21/2008 DX:DM type 2 causing ne urological disease, not at goal (HCC) Depression 12/21/2008 DX:Depression Neuropathy 12/15/2012 DX:Neuropathy; C [...] drink = 0.6 oz pur e alcohol) Comments Unknown Sex and Gender Information Value Date Recorded Sex Assigned at Not on file Legal Sex Female 2:14 AM EST Gender Identity Not on file Sexual Orientation [...] Description 06/02/2024 8:50 AM EDT Office Visit [facility] [address] [facility] [address] [place] [id number] Alia Gagnon MD [address] [place] [address] Health Maintenance Due Date Last Done Comments [...] (Lipid Panel) 07/31/2027 07/30/2022, 07/16/2018 Pneumococcal Vaccine: 50+ Years Completed 07/16/2018, 12/11/2015 Zoster Vaccines Completed [...] patient's age to complete this topic Meningococcal B Vacine Aged Out No lo nger eligible based on patient's age to complete this topic RSV Immunization Patients Under 20 months Aged Out No longer eligible based on patient's age to complete this topic Varicella Vaccines Aged Out No longer eligible based on patient's age to complete this topic Procedures Procedure Name Priority Date/Time Associated Diagnosis Comments HEMOGLOBIN A1C Routine 10/27/2018 URINE ALBUMIN CREATININE RATIO Routine 07/16/2018 ANNUAL BMP BLOOD TEST Routine 07/16/2018 LIPID PANEL Routine 07/16/2018 HEPATITIS C SCREENING Routine 03/23/2013 from Last 3 Months or Most Recently Relevant to Health Maintenance Results * (ABNORMAL) Hemoglobin A1c (10/27/2018) Pathologist [facility] Hemoglobin A1C 8.5(A) <=6.5 % Blood Venous blood specimen / Unknown Result [facility] Provider LAB BLOOD ORDERABLES Viola l Result * Urine Albumin Creatinine Ratio (07/16/2018) Pathologist [facility] Urine Albumin Creatinine Ratio abstracted Result [facility] Provider HEALTH MAINTENANCE Final Result * Annual BMP Blood Test (07/16/2018) Pathologist [facility] Annual BMP Blood Test abstracted Result [facility] Provider HEALTH MAINTENANCE Final Result * (ABNORMAL) Lipid panel (07/16/2018) [facility] LDL/HDL Ratio 4 0 - 4 Triglycerides 122 0 - 150 mg/dL Cholesterol 176 0 - 200 mg/dL HDL 44 >=40 mg/dL LDL Cholesterol 108(A) 0 - 100 mg/dL Blood Venous blood specimen / Unknown Result [facility] Provider LAB BLOOD ORDERABLES Viola l Result * Hepatitis C Screening (03/23/2013) Pathologist [facility] Hepatitis C Screening abstracted Result [facility] Provider HEALTH MAINTENANCE Final Result from Last 3 Months or Most Recently Relevant to Health Maintenance Insurance [facility] Member Subscriber Plan / Payer (Ef fective 2024-Present) Name:Demi Plata Relation to Subscriber:Self Name:Demi Plata Payer ID:[id number] Group ID:[id number] Type:Not on file Address: [address] [facility] [place] [id number] Advance Directives Documents on File Type Date Recorded Patient Billing Collections Specialist Expl anation Health Care Decision (hx) 02/15/2014 [...]
--- OUTSIDE RECORDS SUMMARY | 2024-04-29 19:06 | XMS_ITS | Encounter Summary ---
Author Organization [employer] Address [address] [place] [address] Care Team Providers Care Quill Buncher And Sorter Name Role Phone Steffany Augustin MD Primary Care Provider [phone] Demi Menendez PharmD Unavailable [phone] Encounter Details Date Type Department Care Team (Latest Contact Info) Description 04/29/2024 Travel Social History Tobacco Use Types Packs/Day [...] Description 05/12/2024 9:30 AM EDT Medication Management [facility] [address] [place] [address] Demi Menendez PharmD [address] [place] [address] 06/22/2024 11:30 AM EDT Office Visit [facility] [address] [place] [address] Steffany Augustin MD [address] [place] [address] documented as of this encounter Visit Diagnoses Not on filedocumented in this encounter Additional Health Concerns Assessment Noted Time PHQ-9 Depression Total Score: 0 03/16/19 25 3:27 PM EST documented as of this encounter Care Teams Quill Buncher And Sorter Relationship Specialty Start Date End Date Steffany Augustin MD [address] [place] [address] PCP - General Internal Medicine 12/03/23 Demi Menendez, PharmD [address] [place] [address] Pharmacist Internal Medicine 04/16/24 documented as of this encounter
--- OUTSIDE RECORDS SUMMARY | 2024-04-29 19:06 | XMS_ITS | Encounter Summary ---
Author Organization [employer] Address [address] [facility] [address] [place] [address] Care Team Providers Care Replenishment Merchandising Associate Name Role Phone Steffany Augustin MD Primary Care Provider [phone] Demi Menendez PharmD Unavailable [phone] Reason for Visit * Reason Comments Med Refill Encounter Details Date Type Department Care Team ([facility] st Contact Info) Description 04/23/2024 Refill [facility] [address] [place], [place] [phone] Ramon Marcos MD [address] [place] [address] Primary hypertension Social History Tobacco Use Types Packs/Day Years [...] 05/12/2024 9:30 AM EDT Medication Management [facility] [address] [place] [address] Demi Menendez PharmD [address] [place] [address] 06/22/2024 11:30 AM EDT Office Visit [facility] [address] [place] [address] Steffany Augustin MD [address] [place] [address] documented as of this encounter Visit Diagnoses Diagnosis Primary hypertension Unspecified essential hypertension documented in this encounter Additional Health Concerns Assessment Noted Time PHQ-9 Depression Total Score: 0 03/16/19 25 3:27 PM EST documented as of this encounter Care Teams Replenishment Merchandising Associate Relationship Specialty Start Date End Date Steffany Augustin MD [address] [place] [address] PCP - General Internal Medicine 12/03/23 Demi Menendez PharmD [address] [place] [address] Pharmacist Internal Medicine 04/16/24 documented as of this encounter
--- OUTSIDE RECORDS SUMMARY | 2024-04-29 19:06 | XMS_ITS | Encounter Summary ---
Author Organization [employer] Address [address] [place] [address] Care Team Providers Care Provider Relations Advocate Name Role Phone Ramon Marcos MD Primary Care Prov ider Steffany Augustin MD Primary Care Provider [phone] Demi Menendez PharmD Unavailable [phone] Encounter Details Date Type Department Care Team (Late st Contact Info) Description 01/07/2023 Abstract [facility] [address] [place] [address] Niki Orozco Social History Tobacco Use Types [...] Description 05/12/2024 9:30 AM EDT Medication Management [facility] [address] [place], [place] [phone] Demi Menendez, PharmD [address] [place], [place] [phone] 06/22/2024 11:30 AM EDT Office Visit [facility] [address] [place], [place] [phone] Steffany Augustin MD [address] [place], [place] [phone] documented as of this encounter Procedures Procedure Name Priority Date/Time Associated Diagnosis Comments COLONOSCOPY Routine 12/09/2017 documented in this encounter Results * Colonoscopy (12/09/2017) Colonoscopy Normal Normal Narrative Niki Orozco - 12/09/2017 Repeat in 5 years Historical Provider HEALTH MAINTENANCE Final Result documented in this encounter Visit Diagnoses Not on filedocumented in this encounter Additional Health Concerns Assessment Noted Time PHQ-9 Depression Total Score: 2 05/18/19 23 9:10 AM EDT documented as of this encounter Care Teams Provider Relations Advocate Relationship Specialty Start Date End Date Ramon Marcos MD [address] [place] [address] PCP - General Internal Medicine 12/22/18 12/02/23 Steffany Augustin MD [address] [place] [address] PCP - General Internal Medicine 12/03/23 Demi Menendez, Padma [address] [facility] [place] [address] Pharmacist Internal Medicine 04/16/24 documented as of this encounter
--- OUTSIDE RECORDS SUMMARY | 2024-04-29 19:06 | XMS_ITS | Clinical Summary ---
Author Organization [employer] Address [address] [place] [address] Care Team Providers Care [employer]icon[employer] Lab Technician Name Role Phone Steffany Augustin MD Primary Care Provider [phone] Demi Menendez PharmD Unavailable [phone] Allergies Active Allergy Reactions Criticality Noted Date Comments Ibuprofen GI intolerance 11/07/2014 Lisinopril Cough 07/20/2013 Medications * This document contains information received from the source organization and may not represent a complete record from that organization. TRUEplus Lancets 33G miscIndications: Type 2 diabetes mellitus without complications (CMS/HCC) TEST BLOOD SUGAR THREE TIMES DAILY 100 each 11 Active FREESTYLE LITE test stripIndications :Type 2 diabetes mellitus without complications (CMS/HCC) TEST BLOOD SUGAR THREE TIMES DAILY 100 strip 11 024 Active loratadine (Claritin) 10 MG tablet TAKE ONE TABLET DAILY AT NOON 90 tablet 3 Active losartan (Cozaar) 100 MG tabletIndication s:Primary hypertension Take 1 tablet (100 mg) by mouth in the morning. 90 tablet 3 024 2024 Active atorvastatin (Lipitor) 80 MG tabletIndication s:Mixed hyperlipidemia Take 1 tablet (80 mg) by mouth in the morning. 60 tablet 1 024 Active dilTIAZem CD (Cardizem CD) 300 MG 24 hr capsuleIndicatio ns:Primary hypertension,Sukhwinder gstanding persistent atrial fibrillation (CMS/HCC) Take 1 capsule (300 mg) by mouth in the morning. 90 capsule 1 024 Active glipiZIDE (Glucotrol) 5 MG tabletIndication s:Type 2 diabetes mellitus with diabetic peripheral angiopathy without gangrene, with long-term current use of insulin ([facility]/HCC) Take 1 tablet (5 mg) by mouth before breakfast and before evening meal. 60 tablet 3 Active gabapentin (Neurontin) 300 MG capsuleIndicatio ns:Diabetic polyneuropathy associated with type 2 diabetes mellitus (CMS/HCC) Take 1 capsule (300 mg) by mouth 3 times daily. 90 capsule 11 024 2024 Active Toujeo SoloStar 300 UNIT/ML injection INJECT 20 SUBCUTANEOUSLY EVERY MORNING 4.5 mL 3 Active TechLite Plus Pen [place] 32G X 4 MM misc USE ONE DAILY 100 each 3 Active Diclofenac Sodium 1 % gelIndications:A cute pain of left knee To apply to the affected area 3 times a day 100 g Active anastrozole (Arimidex) 1 MG chemo tablet Take 1 mg by mouth Once per day. Active dicyclomine (Bentyl) 20 MG tablet TAKE ONE TABLET in the morning, at noon, in the evening, and at bedtime BEFORE MEALS 120 tablet 1 Active Xarelto 20 MG tablet TAKE ONE TABLET EVERY EVENING WITH FOOD 30 tablet Active Continuous Glucose Sensor (FreeStyle Ryne 3 Plus Sensor) miscIndications: Type 2 diabetes mellitus with diabetic peripheral angiopathy without gangrene, with long-term current use of insulin ([facility]) 1 each every 15 days. 2 each Active glucose blood (FreeStyle Precision Gareth Test) test stripIndications :Type 2 diabetes mellitus with diabetic peripheral angiopathy without gangrene, with long-term current use of insulin ([facility]) Test blood sugar up to 3 times daily as directed 100 each 11 Active ferrous sulfate (Fe Tabs) 325 (65 Fe) MG EC tabletIndication s:Iron deficiency anemia secondary to inadequate dietary iron intake Take 1 tablet (325 mg) by mouth every other day. Do not crush, chew, or split. 15 tablet 11 025 2025 Active Aspirin Adult Low Strength 81 MG EC tabletIndication s:Primary hypertension TAKE ONE TABLET EVERY MORNING 90 tablet 3 025 Active lidocaine-priloc la (Emla) 2.5-2.5 % creamIndications :Neck pain Apply topically 1 (one) time for 1 dose. 30 g 1 025 2024 Active empagliflozin (Jardiance) 25 MG Take 1 tablet by mouth in the morning. 021 2024 Discontinued(M ed list cleanup (will not trigger notification to Pharmacy)) Diclofenac Sodium 1 % gel APPLY TO AFFECTED AREA TWICE A DAY FOR 7 DAYS 023 2024 Discontinued(M ed list cleanup (will not trigger notification to Pharmacy)) Aspirin Adult Low Strength 81 MG EC tabletIndication s:Primary hypertension TAKE ONE TABLET EVERY MORNING 90 tablet 3 024 2024 Discontinued Oral Medication Containers (Pill Organizer 7-Day Large) misc 1 Units in the morning. 1 each 024 2024 Discontinued(M ed list cleanup (will not trigger notification to Pharmacy)) semaglutide (Rybelsus) 7 MG tabletIndication s:Type 2 diabetes mellitus with diabetic peripheral angiopathy without gangrene, with long-term current use of insulin ([facility]) TAKE ONE TABLET EVERY MORNING BEFORE BREAKFAST 90 tablet 1 024 2024 Discontinued(M ed list cleanup (will not trigger notification to Pharmacy)) cholecalciferol (Vitamin D-3) 25 MCG tabletIndication s:Vitamin D deficiency Take 1 tablet (25 mcg) by mouth Once per day. 90 tablet 3 024 2024 Discontinued(A lternate therapy) dicyclomine (Bentyl) 20 MG tablet TAKE ONE TABLET in the morning, at noon, in the evening, and at bedtime BEFORE MEALS 120 tablet 1 024 2024 Discontinued pramipexole (Mirapex) 0.125 MG tablet TAKE ONE TABLET EVERY EVENING 30 tablet 1 024 2024 Discontinued Ferrous Sulfate (iron) 325 (65 Fe) MG tablet TAKE ONE TABLET EVERY MORNING WITH BREAKFAST 90 tablet 1 024 2024 Discontinued(D ose adjustment) omeprazole (PriLOSEC) [address] capsule TAKE ONE CAPSULE EVERY MORNING BEFORE BREAKFAST 90 capsule 1 025 2024 Discontinued(O ther) Xarelto 20 MG tablet TAKE ONE TABLET EVERY EVENING WITH FOOD 30 tablet 025 2024 Discontinued Calcium + Vitamin D3 600-10 MG-MCG tablet TAKE ONE TABLET IN THE MORNING AND EVENING 2024 Discontinued(T herapy completed) metFORMIN (Glucophage) 1000 MG tablet Take 1 tablet by mouth. 024 2024 Discontinued(S kristan effects) pramipexole (Mirapex) 0.125 MG tablet TAKE ONE TABLET EVERY EVENING 30 tablet 1 025 2024 Discontinued(O ther) Continuous Glucose Glue Drier Operator (SociallStyle Ryne 3 [place]) deviceIndication s:Type 2 diabetes mellitus with diabetic peripheral angiopathy without gangrene, with long-term current use of insulin ([facility]) 1 each 1 (one) time for 1 dose. 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 PLAN: 1. Follow up with [facility]: Not recommended for follow-up 2. Patient goal [...] (09/19/2022 5:38 PM EDT): Followed by endocrinology, patietn on long actin insulin, jardiance and rybelsus [...] to 300mg, told to follow up with clinical research specialist, no reported episode of shortness of breath/chest [...] Will order script for shower chair and filler picker stick, due to her back pain has [...] Encounters Date Type Department Care Team Description 04/29/2024 2:30 PM EDT Office Visit [facility] [address] [place] [address] Steffany Augustin MD Neck pain (Primary Dx); Acute pain of left knee; Type 2 diabetes mellitus with diabetic peripheral angiopathy without gangrene, with long-term current use of insulin ([facility]); Shoulder blade pain; Bloating 04/29/2024 Travel 04/23/2024 Refill [facility] [address] [place] [address] Ramon Marcos MD Primary hypertension 04/19/2024 Telephone [facility] [address] [place] [address] Demi Menendez, PharmD Prior Authorization 04/16/2024 Orders Only [facility] [address] [place] [phone] Steffany Augustin MD Iron deficiency anemia secondary to inadequate dietary iron intake (Primary Dx) 04/16/2024 Travel 04/14/2024 Refill [facility] [address] [place] [address] Steffany Augustin MD 04/05/2024 Refill [facility] [address] [place] [address] Steffany uAgustin MD 04/01/2024 Telephone [facility] [address] [place] [phone] Steffany Augustin MD Appointment Request 03/16/2024 3:15 PM EST Office Visit [facility] [address] [place] [address] Steffany Augustin MD Iron deficiency anemia secondary to inadequate dietary iron intake (Primary Dx); Type 2 diabetes mellitus with diabetic peripheral angiopathy without gangrene, with long-term current use of insulin ([facility]); Acute pain of left knee 03/16/2024 Travel 03/11/2024 Refill [facility] [address] [place] [address] iAdee Arrieta MD 03/09/2024 Refill [facility] [address] [place] [address] Ramon Marcos MD 03/02/2024 Orders Only [facility] [address] [place] [address] ProviderDarian MD 02/11/2024 Refill [facility] [address] [place] [address] Ramon Marcos MD from Last 3 Months [...] Sign Reading Time Taken Comments Blood Pressure 113/70 04/29/2024 2:36 PM EDT Pulse 76 04/29/2024 2:36 PM EDT Temperature 36.8 ??C (98.2 ??F) 04/29/2024 2:36 PM ED T Respiratory Rate 20 04/29/2024 2:36 PM EDT Oxygen Saturation 97% 04/29/2024 2:36 PM EDT Inhaled Oxygen Concentration - - Weight 87.5 kg (193 lb) 04/29/2024 2:36 PM EDT Height 161 cm (5' 3.39 ) 04/29/2024 2:36 PM EDT Body Mass Index 33.77 04/29/2024 2:36 PM EDT Plan of Treatment Upcoming Encounters Date Type Department Care Team (Late st Contact Info) Description 05/12/2024 9:30 AM EDT Medication Management [facility] [address] [place] [address] Demi Menendez, PharmD [address] [place] [address] 06/22/2024 11:30 AM EDT Office Visit [facility] [address] [place] [address] Steffany Augustin MD [address] [place] [address] Health Maintenance Due Date Last Done Comments CT Colonography 1948 FIT DNA/Cologuard 1948 FIT 1948 FOBT 1950 Sigmoidoscopy 1948 Diabetes: Urine Protein Screening 04/23/2022 04/23/2021, 05/05/2020 Colonoscopy 12/09/2022 12/09/2017 Colorectal Cancer Screening 12/09/2022 DTaP/Tdap/Td Vaccines (2 - Td or Tdap) 03/31/2023 03/31/2013 RSV Patients and Patients Aged 60 years or older (1 - 1-dose 75+ series) 06/22/2023 Diabetes: Hemoglobin A1C 06/14/202403/16/ 025, 02/17/2024, 12/10/2023, Additional history exists Diabetes: [...] 03/16/2024 Eye Exam 10/28/2025 10/29/2023 Pneumococcal Vaccine: 50+ Years Completed 07/16/2018, 12/11/2015 [...] this topic Meningococcal Vaccine Aged Out No sukhwinder mohan eligible based on patient's age to complete this topic RSV under 20 months Aged Out No longe r eligible based on patient's age to complete this topic Rotavirus Vaccines Aged Out No longer eligible based on patient's age to complete this topic Procedures Procedure Name Priority Date/Time Associated Diagnosis Comments RHEUMATOID FACTOR Routine 04/29/2024 3:3 4 PM EDT Neck pain Shoulder blade pain C-REACTIVE PROTEIN Routine 04/29/2024 3: 34 PM EDT Neck pain Shoulder blade pain SED RATE BY MODIFIED WESTERGREN Routine 04/29/2024 3:34 PM EDT Neck pain Shoulder blade pain POCT GLUCOSE Routine 04/16/2024 11:51 AM EST Type 2 diabetes mellitus with diabetic peripheral angiopathy without gangrene, with long-term current use of insulin ([facility]) CBC WITH AUTO DIFFERENTIAL Routine 03/16/2024 4:03 PM EST Iron deficiency anemia secondary to inadequate dietary iron intake POCT GLYCATED HEMOGLOBIN, TOTAL Routine 03/16/2024 3:38 PM EST Type 2 diabetes mellitus with diabetic peripheral angiopathy without gangrene, with long-term current use of insulin (CMS/HCC) POCT GLUCOSE Routine 03/16/2024 3:38 PM EST Type 2 diabetes mellitus with diabetic peripheral angiopathy without gangrene, with long-term current use of insulin (CMS/HCC) MAMMOGRAPHY Routine 02/24/2024 9:36 AM EST HEMOGLOBIN [...] Recently Relevant to Health Maintenance Results * Sed Rate by Modified Westergren (04/29/2024 3:34 PM EDT) Erythrocyte Sedimentation Rate 19 0 - 20 MM/HR [facility] Comment:Patients with polycy themia and many hemoglobin abnormalitiesmay have depressed sed rates whereas patients with anemiamay have elevated sed rates. Blood Venous blood specimen / Unknown 04/29/2024 3:34 PM EDT 04/29/2024 5:37 PM EDT us Steffany Augustin MD LAB BLOOD ORDERABLES Final Result Performing Organization Address [facility]/ZIP Co de Phone Number [facility] [address] [place] [phone] * (ABNORMAL) Rheumatoid Factor (04/29/2024 3:34 PM EDT) Rheumatoid Factor 195.0(H) <15.0 IU/mL [facility] Blood Venous blood specimen / Unknown 04/29/2024 3:34 PM EDT 04/29/2024 5:37 PM EDT us Steffany Augustin MD LAB BLOOD ORDERABLES Final Result Performing Organization Address [facility] Co de Phone Number [facility] [address] [place] [phone] * (ABNORMAL) C-reactive Protein (04/29/2024 3:34 PM EDT) C Reactive Protein 1.65(H) < or = 0.50 mg/dL [facility] Blood Venous blood specimen / Unknown 04/29/2024 3:34 PM EDT 04/29/2024 5:37 PM EDT us Steffany Augustin MD LAB BLOOD ORDERABLES Final Result Performing Organization Address [facility]/ZIP Co de Phone Number [facility] [address] [place] [phone] * (ABNORMAL) POCT glucose manually resulted (04/16/2024 11:51 AM EST) Only the most recent of2 resultswithin the time period is included. [facility] Glucose Blood, POC 222(A) 60 - 200 mg/dL QC Media Lot # [id number] Lot# Expiration Date Blood Capillary blood specimen / Unknown 04/16/2024 11:51 AM EST Steffany Augustin MD POINT OF CARE TEST ENTER/ED IT ORDERABLES Final Result * CBC auto differential (03/16/2024 4:03 PM EST) [facility] White Blood Count 7.6 4.8 - 10.8 X10*3/uL [facility] Red Blood Count 4.86 4.20 - 5.50 X10*6/uL [facility] Hemoglobin 13.2 12.0 - 16.0 g/dl [facility] Hematocrit 40.6 37.0 - 47.0 % [facility] Mean Corpuscular Volume 83.5 80.0 - 98.0 fL [facility] Mean Corpuscular Hemoglobin 27.2 27.0 - 33.0 pg [facility] Mean Corpuscular HGB Conc 32.5 31.0 - 35.0 g/dl [facility] Red Cell Distribution Width 13.2 11.0 - 16.0 % [facility] Platelet Count 224 160 - 400 X10*3/uL [facility] Mean Platelet Volume 10.5 9.4 - 12.3 fL [facility] Neutrophils Percent Auto 61.0 45 - 73 % [facility] Imm Gran Pct Auto 0.4 0.0 - 0.4 % [facility] Lymphocytes Percent Auto 30.8 20 - 40 % [facility] Monocytes Percent Auto 6.0 2 - 11 % [facility] Eosinophils Percent Auto 1.3 0 - 4 % [facility] Basophils Percent Auto 0.5 0 - 2 % [facility] NRBC Pct Auto 0.0 0.0 - 0.2 /100WBC [facility] Neutrophils Absolute Auto 4.7 2.0 - 8.3 x10*3/uL [facility] Imm Gran Abs Auto 0.03 0.00 - 0.03 X10*3/uL [facility] Lymphocytes Absolute Auto 2.4 1.2 - 4.9 X10*3/uL [facility] Monocytes Absolute Auto 0.5 0.1 - 1.2 X10*3/uL [facility] Eosinophils Absolute Auto 0.1 0.0 - 0.4 X10*3/uL [facility] Basophils Absolute Auto 0.0 0.0 - 0.2 X10*3/uL [facility] NRBC Abs Auto 0.000 0.0 - 0.012 X10*3/uL [facility] Blood Venous blood specimen / Unknown 03/16/2024 4:03 PM EST 03/16/2024 5:46 PM EST us Steffany Augustin MD LAB BLOOD ORDERABLES Edited Result - Final [facility] [address] [place] [phone] * (ABNORMAL) POCT HGB A1C (03/16/2024 3:38 PM EST) Hemoglobin A1C 11.5(A) 4.0 - 6.0 % QC Media Lot # [id number] Lot# Expiration Date [id number] Blood 03/16/2024 3:38 PM EST us Steffany Augustin MD POINT OF CARE TEST ENTER/ED IT ORDERABLES Final Result * Hm Mammography (02/24/2024 9:36 AM EST) Anatomical Region Laterality Modality Other us Historical Provider HEALTH MAINTENANCE Final Result * TSH W/Reflex to FT4 (02/17/2024 9:50 AM EST) TSH reflex Free T4 2.75 0.32 - 4.0 uIU/mL [facility] Blood Venous blood specimen / Unknown 02/17/2024 9:50 AM EST 02/17/2024 2:57 PM EST Ramon Aguillon MD LAB BLOOD ORDERABL ES Final Result Performing Organization Address [facility] Co de Phone Number [facility] [address] [place] [phone] * (ABNORMAL) Hemoglobin A1c (02/17/2024 9:50 AM EST) Hemoglobin A1c 12.1(H) <6.0 % [facility] Comment:Hemoglobin A1C Refer ence Range Adults: 4.8 - 6.0 % Non diabetic: < 6.0 % Goal: < 7.0 %Additional Action Suggested: > 8.0 %Note: Hemoglobin A1c results are invalid for patients with abnormal amounts of HbF. Blood transfusions may impact the HbA1c concentration in the patient sample. Estimated Average Glucose 301 mg/dL [facility] Comment:eAG = Estimated ave rage glucose which is %A1C expressed asaverage glucose, using the formula of the G0B-RferwpbAmythix Glucose study (ADAG), Diabetes Care, Vol.31,#8,Sep. 2007 Blood Venous blood specimen / Unknown 02/17/2024 9:50 AM EST 02/17/2024 2:57 PM EST us Ramon Aguillon MD LAB BLOOD ORDERABL ES Final Result Performing Organization Address [facility]/ZIP Co de Phone Number [facility] [address] [place] [address] [phone] * (ABNORMAL) Lipid Panel, Standard (02/17/2024 9:50 AM EST) Triglycerides 87 <150 mg/dL [facility] Comment:Desirable Triglyceri de: less than 150 mg/dLBorderline High Triglyceride 150-199 mg/dLHigh Triglyceride: 200-499 mg/dLVery High Triglyceride: greater than or equal to 5OO mg/dL Cholesterol 138 <200 mg/dL [facility] Comment:Desirable Cholestero l: less than 200 mg/dLBorderline High Cholesterol: 200-239 mg/dLHigh Cholesterol: greater than 239 mg/dL LDL Cholesterol Calculated 84 <100 mg/dL [facility] Comment:Desirable LDL: less than 100 mg/dLNear Optimal/Above Optimal LDL: 110- 129 mg/dLBorderline High LDL: 130-159 mg/dLHigh LDL: 160-189 mg/dLVery High LDL: greater than or equal to 190 mg/dL HDL Cholesterol 37(L) >40 mg/dL [facility] Comment:Desirable HDL: great er than 40 mg/dL Note: This HDL assay may give artificially low results in patients with liver disease. Blood Venous blood specimen / Unknown 02/17/2024 9:50 AM EST 02/17/2024 2:57 PM EST us Ramon Aguillon MD LAB BLOOD ORDERABL ES Final Result [facility] [address] [place] [address] [phone] * (ABNORMAL) Comprehensive Metabolic Panel (02/17/2024 9:50 AM EST) Sodium 140 135 - 145 mmol/L [facility] Potassium 4.2 3.3 - 5.1 mmol/L [facility] Chloride 107 96 - 108 mmol/L [facility] Carbon Dioxide 26 22 - 29 mmol/L [facility] Anion Gap 11(L) 12 - 20 [facility] Urea Nitrogen (BUN) 22(H) 9 - 16 mg/dL [facility] Creatinine, Serum 1.08 0.5 - 1.4 mg/dL [facility] Estimated Glomerular Filt Rate 49 [facility] Comment:Chronic Kidney Disea se: Estimated GFR < 60 mL/min/[id number] Kidney Disease: Estimated GFR < 15 mL/min/1.73m2 Glucose 194(H) 60 - 115 mg/dL [facility] Calcium 10.2 8.4 - 10.2 mg/dL [facility] Bilirubin, Total 0.4 0.0 - 1.0 mg/dL [facility] Aspartate Amino Transferase 35(H) 5 - 31 U/L [facility] Alanine Aminotransferase 29 0 - 31 U/L [facility] Total Protein 7.3 6.5 - 8.0 g/dL [facility] Albumin Level 4.0 3.5 - 5.0 g/dL [facility] Alkaline Phosphatase 103 39 - 117 U/L [facility] Blood Venous blood specimen / Unknown 02/17/2024 9:50 AM EST 02/17/2024 2:57 PM EST Ramon Aguillon MD LAB BLOOD ORDERABL ES Final Result [facility] [address] [place] [phone] * Diabetes Eye Exam (10/29/2023 2:05 PM EDT) Darian Provider HEALTH MAINTENANCE Final Result * Hepatitis C Antibody with Reflex to HCV, RNA, Quantitative, Real-Time PCR (07/30/2022 9:48 AM EDT) Hepatitis C Antibody NON-REACT TITI NON-REACT TITI [facility] [employer] [place] [facility] Index 0.17 <1.00 [facility] [employer] [place] [facility] Comment: HCV antibody was non-reactive. There is no laboratory evidence of HCV infection. In most cases, no further action is required. However, if recent HCV exposure is suspected, a test for HCV RNA (test code 07323) is suggested. For additional information please refer to http://education.Verafin/faq/MTC90v2 (This link is being provided for informational/ educational purposes only.) Blood Venous blood specimen / Unknown 07/30/2022 9:48 AM EDT 07/30/2022 9:48 AM EDT Narrative [facility] - 07/31/2022 5:32 AM EDT FASTING:YES FASTING: YES Ramon Aguillon MD LAB BLOOD ORDERABL ES Final Result Performing Organization Address [facility] Co de Phone Number [facility] [address] [facility], [facility], [place] [address] [facility] [employer] [facility] [address] [place] [phone] * ALBUMIN, RANDOM URINE W/CREATININE (04/23/2021 8:43 AM EST) Microalbumin Urine 1.5 See Note: mg/dL [facility] [...] MD LAB URINE ORDERABL ES Final Result Performing Organization Address [facility] de Phone Number [facility] [address] * Hm Colonoscopy (12/09/2017) Colonoscopy Normal Normal Narrative Niki Orozco - 12/09/2017 Repeat in 5 years Darian Gan MD HEALTH MAINTENANCE Final Result from Last 3 Months or Most Recently Relevant to Health Maintenance [place] [address] [address] - [employer] Care Teams [employer] Lab Technician Relationship Specialty Start Date End Date Steffany Augustin MD [address] [place] [phone] PCP - General Internal Medicine 12/03/23 Demi Menendez, Padma [address] [place] [phone] Pharmacist Internal Medicine 04/16/24
--- OUTSIDE RECORDS SUMMARY | 2024-04-29 19:06 | XMS_ITS | Encounter Summary ---
Author Organization [employer] Address [address] [place] [address] Care Team Providers Care Slitter Helper Name Role Phone Steffany Augustin MD Primary Care Provider [phone] Demi Menendez PharmD Unavailable [phone] Encounter Details Date Type Department Care Team (Late st Contact Info) Description 03/02/2024 Orders Only [facility] MED[facility] [address] [place] [address] ProviderDarian MD Social History Tobacco Use Types Packs/Day [...] Description 05/12/2024 9:30 AM EDT Medication Management [facility] [address] [place] [address] Demi Menendez PharmD [address] [place] [address] 06/22/2024 11:30 AM EDT Office Visit [facility] [address] [place] [address] Steffany Augustin MD [address] [place] [address] documented as of this encounter Procedures Procedure Name Priority Date/Time Associated Diagnosis Comments HM MAMMOGRAPHY Routine 02/24/2024 9:36 AM EST documented in this encounter Results * Hm Mammography (02/24/2024 9:36 AM EST) Anatomical Region Laterality Modality Other Historical Provider HEALTH MAINTENANCE Final Result documented in this encounter Visit Diagnoses Not on filedocumented in this encounter Additional Health Concerns Assessment Noted Time PHQ-9 Depression Total Score: 2 05/18/19 23 9:10 AM EDT documented as of this encounter Care Teams Slitter Helper Relationship Specialty Start Date End Date Steffany Augustin MD [address] [place] [address] PCP - General Internal Medicine 12/03/23 Demi Menendez PharmD [address] [place] [address] Pharmacist Internal Medicine 04/16/24 documented as of this encounter
--- OUTSIDE RECORDS SUMMARY | 2024-04-29 19:06 | XMS_ITS | Encounter Summary ---
Author Organization [employer] Address [address] [facility] 7 [place] [address] Care Team Providers Care Plater Helper Name Role Phone Steffany Augustin MD Primary Care Provider [phone] Demi Menendez PharmD Unavailable [phone] Reason for Visit * Reason Comments Neck Pain callus of toe Bloated Encounter Details Date Type Department Care Team ([facility] st Contact Info) Description 04/29/2024 2:30 PM EDT Office Visit [facility] [address], [place] [phone] Steffany Augustin MD [address] [place] [address] Neck pain (Primary Dx); Acute pain of left knee; Type 2 diabetes mellitus with diabetic peripheral angiopathy without gangrene, with long-term current use of insulin ([facility]); Shoulder blade pain; Bloating Social History Tobacco Use Types Packs/Day Years Used Date Smoking Tobacco: Never Smokeless Tobacco: Never Depression Answer Date Recorded Patient Health Questionnaire-9 Score 0 03/16/2024 Patient Health Questionnaire-9 Score 0 03/16/2024 Last PHQ-9: Questionnaire Data Not on file 0 03/16/2024 Housing Stability Answer Date Recorded What is your housing situation today? I have tomás tanya 03/16/[address] you li [...] Mass Index 33.77 04/29/2024 2:36 PM EDT documented in this encounter Progress Notes * Steffany Augustin MD - 04/29/2024 2:30 PM EDT Subjective Patient ID: Demi Plata is a 73 y.o. female who presents for Neck Pain, callus of toe, and Bloated. Neck Pain Several years history of neck pain associated with stiffness of the trapezius muscles bilaterally. She feels that she has been getting worse in the last 2 to 3 months. Has had physical therapy in [facility] which has made her worse. Patient came with daughter who reports that she tries to have her mother do some stretching exercises. History of callus of the left third toe for several months. Patient Active Problem List Diagnosis Type 2 diabetes mellitus with diabetic peripheral angiopathy without gangrene, with long-term current use of insulin (CMS/HCC) Primary hypertension Gastroesophageal reflux disease without esophagitis Mixed hyperlipidemia Vitamin D deficiency Seasonal allergic rhinitis Chronic bilateral low back pain with bilateral sciatica Screening for colon cancer Anxiety Diabetic polyneuropathy associated with type 2 diabetes mellitus (CMS/HCC) Restless leg Preop examination Atrial fibrillation (CMS/HCC) Glaucoma Severe obesity (BMI 35.0-39.9) with comorbidity (CMS/HCC) Sleep apnea Spondylosis of lumbosacral region without myelopathy or radiculopathy Upper dentures Other irritable bowel syndrome Chronic right shoulder pain Iron deficiency anemia secondary to inadequate dietary iron intake Malignant neoplasm of upper-outer quadrant of left breast in female, estrogen receptor positive (CMS/HCC) Current Outpatient Medications on File Prior to Visit Medication Sig Dispense Refill anastrozole (Arimidex) 1 MG chemo tablet Take 1 mg by mouth Once per day. Aspirin Adult Low Strength 81 MG EC tablet TAKE ONE TABLET EVERY MORNING 90 tablet 3 atorvastatin (Lipitor) 80 MG tablet Take 1 tablet (80 mg) by mouth in the morning. 60 tablet 1 Continuous Glucose Sensor (FreeStyle Ryne 3 Plus Sensor) misc 1 each every 15 days. 2 each 11 Diclofenac Sodium 1 % gel To apply to the affected area 3 times a day 100 g 0 dicyclomine (Bentyl) 20 MG tablet TAKE ONE TABLET in the morning, at noon, in the evening, and at bedtime BEFORE MEALS 120 tablet 1 dilTIAZem CD (Cardizem CD) 300 MG 24 hr capsule Take 1 capsule (300 mg) by mouth in the morning. 90capsule 1 ferrous sulfate (Fe Tabs) 325 (65 Fe) MG EC tablet Take 1 tablet (325 mg) by mouth every other day.Do not crush, chew, or split. 15 tablet 11 FREESTYLE LITE test strip TEST BLOOD SUGAR THREE TIMES DAILY 100 strip 11 gabapentin (Neurontin) 300 MG capsule Take 1 capsule (300 mg) by mouth 3 times daily. 90 capsule 11 glipiZIDE (Glucotrol) 5 MG tablet Take 1 tablet (5 mg) by mouth before breakfast and before eveningmeal. 60 tablet 3 glucose blood (FreeStyle Precision Gareth Test) test strip Test blood sugar up to 3 times daily as directed 100 each 11 loratadine (Claritin) 10 MG tablet TAKE ONE TABLET DAILY AT NOON 90 tablet 3 losartan (Cozaar) 100 MG tablet Take 1 tablet (100 mg) by mouth in the morning. 90 tablet 3 TechLite Plus [place] 32G X 4 MM misc USE ONE DAILY 100 each 3 Toujeo SoloStar 300 UNIT/ML injection INJECT 20 SUBCUTANEOUSLY EVERY MORNING 4.5 mL 3 TRUEplus Lancets 33G misc TEST BLOOD SUGAR THREE TIMES DAILY 100 each 11 Xarelto 20 MG tablet TAKE ONE TABLET EVERY EVENING WITH FOOD 30 tablet 0 [DISCONTINUED] Aspirin Adult Low Strength 81 MG EC tablet TAKE ONE TABLET EVERY MORNING 90 tablet 3 No current facility-administered medications on file prior to visit. Allergies Allergen Reactions Ibuprofen GI intolerance Lisinopril Cough Review of Systems Constitutional: Negative for appetite change, chills and diaphoresis. Respiratory: Negative for cough, shortness of breath and stridor. Cardiovascular: Negative for leg swelling. Gastrointestinal: Negative for blood in stool and constipation. Musculoskeletal: Positive for neck pain. Skin: Callus of foot Objective BP 113/70 (BP Location: Right arm, Patient Position: Sitting, BP Cuff Size: Large adult) Pulse 76 Temp 98.2 ??F (36.8 ??C) (Oral) Resp 20 Ht 5' 3.39 (1.61 m) Wt 193 lb (87.5 kg) SpO2 97% BMI 33.77 kg/m?? Physical Exam Constitutional: General: She is not in acute distress. Appearance: Normal appearance. She is not ill-appearing, toxic-appearing or diaphoretic. Cardiovascular: Rate and Rhythm: Normal rate. Pulmonary: Effort: Pulmonary effort is normal. Skin: Comments: Callus of the left third toe Neurological: Mental Status: She is alert. Assessment/Plan Diagnoses and all orders for this visit: Neck pain Comments: As above. Orders: - lidocaine-prilocaine (Emla) 2.5-2.5 % cream; Apply topically 1 (one) time for 1 dose. - XR Cervical Spine 2-3 Views; Future - Sed Rate by Modified Westergren; Future - C-reactive Protein; Future - Rheumatoid Factor; Future - DAPHNEY Screen,IFA, with Reflex to Titer and Pattern; Future Acute pain of left knee Comments: Lidocaine prilocaine recommended Patient is not interested in taking an oral medication given her history of gastric upset Type 2 diabetes mellitus with diabetic peripheral angiopathy without gangrene, with long-term current use of insulin ([facility]) Comments: No change in medication made today. Orders: - POCT Glucose Shoulder blade pain Comments: X-ray of the neck. Patient will be contacted with results Continue with the stretching exercises. Orders: - Sed Rate by Modified Westergren; Future - C-reactive Protein; Future - Rheumatoid Factor; Future - DAPHNEY Screen,IFA, with Reflex to Titer and Pattern; Future Bloating Comments: A low FODMAP diet is recommended for now We will follow-up as scheduled to reevaluate documented in this encounter Miscellaneous Notes * Patient Education Note - Steffany Augustin MD - 04/29/2024 7:04 PM EDT Images from the original note were not included. Patient Education Table of Contents Low-FODMAP Eating Plan To view videos and all your education online visit, [email or web address] or scan this QR code with your smartphone. Access to this content will in one year. Low-FODMAP Eating Plan FODMAP stands for fermentable oligosaccharides, disaccharides, monosaccharides, and polyols. These are sugars that are hard for some people to digest. A low- FODMAP eating plan may help some people who have irritable bowel syndrome (IBS) and certain other bowel (intestinal) diseases to manage their symptoms. This meal plan can be complicated to follow. Work with a diet and pet nutrition specialist (dietitian) to make a low-FODMAP eating plan that is right for you. A dietitian can help make sure that you get enough nutrition from this diet. What are tips for following this plan? Reading food labels Check labels for hidden FODMAPs such as: ? High-fructose syrup. ? Honey. ? Agave. ? Natural fruit flavors. ? Onion or garlic powder. Choose low-FODMAP foods that contain 3?4 grams of fiber per serving. Check food labels for serving sizes. Eat only one serving at a time to make sure FODMAP levels staylow. Shopping Shop with a list of foods that are recommended on this diet and make a meal plan. Meal planning Follow a low-FODMAP eating plan for up to 6 weeks, or as told by your health care provider or dietitian. To follow the eating plan: 1. Eliminate high-FODMAP foods from your diet completely. Choose only low-FODMAP foods to eat. You will do this for 2-6 weeks. Gradually reintroduce high-FODMAP foods into your diet one at a time. Most people should wait a fewdays before introducing the next new high-FODMAP food into their meal plan. Your dietitian can recommend how quickly you may reintroduce foods. Keep a daily record of what and how much you eat and drink. Make note of any symptoms that you haveafter eating. Review your daily record with a dietitian regularly to identify which foods you can eat and which foods you should avoid. General tips Drink enough fluid each day to keep your urine pale yellow. Avoid processed foods. These often have added sugar and may be high in FODMAPs. Avoid most dairy products, whole grains, and sweeteners. Work with a dietitian to make sure you get enough fiber in your diet. Avoid high FODMAP foods at meals to manage symptoms. Recommended foods Fruits Bananas, oranges, tangerines, marli, limes, blueberries, raspberries, strawberries, grapes, cantaloupe, honeydew melon, kiwi, papaya, passion fruit, and pineapple. Limited amounts of dried cranberries, banana chips, and shredded coconut. Vegetables Eggplant, zucchini, cucumber, peppers, green beans, kiser sprouts, lettuce, arugula, kale, Jordanian chard, spinach, maryjo greens, bok katarina, summer squash, potato, and tomato. Limited amounts of corn, carrot, and sweet potato. Green parts of scallions. Grains Gluten-free grains, such as rice, oats, buckwheat, quinoa, corn, polenta, and millet. Gluten-free pasta, bread, or cereal. Rice noodles. [place] tortillas. Meats and other proteins Unseasoned beef, pork, poultry, or fish. Eggs. Palomo. Tofu (firm) and tempeh. Limited amounts of nuts and seeds, such as almonds, walnuts, brazil nuts, pecans, peanuts, nut butters, pumpkin seeds, rober seeds, and sunflower seeds. Dairy Lactose-free milk, yogurt, and kefir. Lactose-free cottage cheese and ice cream. Non-dairy milks, such as almond, coconut, hemp, and rice milk. Non-dairy yogurt. Limited amounts of goat cheese, brie,mozzarella, parmesan, moroccan, and other hard cheeses. Fats and oils Butter-free spreads. Vegetable oils, such as olive, canola, and sunflower oil. Seasoning and other foods Artificial sweeteners with names that do not end in ol, such as aspartame, saccharine, and stevia. Maple syrup, white table sugar, raw sugar, brown sugar, and molasses. Mayonnaise, soy sauce, and tamari. Fresh basil, coriander, parsley, flavio, and thyme. Beverages Water and mineral water. Sugar-sweetened soft drinks. Small amounts of orange juice or cranberry juice. Black and green tea. Most dry sandra. Coffee. The items listed above may not be a complete list of foods and beverages you can eat. Contact a dietitian for more information. Foods to avoid Fruits Fresh, dried, and juiced forms of apple, pear, watermelon, peach, plum, cherries, apricots, blackberries, boysenberries, figs, nectarines, and pavel. Avocado. Vegetables Chicory root, artichoke, asparagus, cabbage, snow peas, [place] sprouts, broccoli, sugar snap peas, mushrooms, celery, and cauliflower. Onions, garlic, leeks, and the white part of scallions. Grains Wheat, including kamut, durum, and semolina. Barley and bulgur. Couscous. Wheat- based cereals. Wheat noodles, bread, crackers, and pastries. Meats and other proteins Fried or fatty meat. Sausage. Cashews and pistachios. Soybeans, baked beans, black beans, chickpeas, kidney beans, ruma beans, navy beans, lentils, black- eyed peas, and split peas. Dairy Milk, yogurt, ice cream, and soft cheese. Cream and sour cream. Milk-based sauces. Custard. Buttermilk. Soy milk. Seasoning and other foods Any sugar-free gum or candy. Foods that contain artificial sweeteners such as sorbitol, mannitol, isomalt, or xylitol. Foods that contain honey, high-fructose corn syrup, or agave. Bouillon, vegetable stock, beef stock, and chicken stock. Garlic and onion powder. Condiments made with onion, such ashummus, chutney, pickles, relish, salad dressing, and salsa. Tomato paste. Beverages Chicory-based drinks. Coffee substitutes. Chamomile tea. Fennel tea. Sweet or fortified sandra such as port or liberty. Diet soft drinks made with isomalt, mannitol, maltitol, sorbitol, or xylitol. Apple, pear, and pavel juice. Juices with high-fructose corn syrup. The items listed above may not be a complete list of foods and beverages you should avoid. Contact a dietitian for more information. Summary FODMAP stands for fermentable oligosaccharides, disaccharides, monosaccharides, and polyols. These are sugars that are hard for some people to digest. A low-FODMAP eating plan is a short-term diet that helps to ease symptoms of certain bowel diseases. The eating plan usually lasts up to 6 weeks. After that, high-FODMAP foods are reintroduced gradually and one at a time. This can help you find out which foods may be causing symptoms. A low-FODMAP eating plan can be complicated. It is best to work with a dietitian who has experiencewith this type of plan. This information is not intended to replace advice given to you by your health care provider. Make sure you discuss any questions you have with your health care provider. Document Released: 2017-09-30 Document Updated: 2024-01-18 Document Reviewed: 2024-01-18 Elsevier Patient Education ? 2024 [employer] * Patient Education Note - Steffany Augustin MD - 04/29/2024 7:01 PM EDT Images from the original note were not included. Patient Education Table of Contents Low-FODMAP Eating Plan To view videos and all your education online visit, [email or web address] or scan this QR code with your smartphone. Access to this content will in one year. Low-FODMAP Eating Plan FODMAP stands for fermentable oligosaccharides, disaccharides, monosaccharides, and polyols. These are sugars that are hard for some people to digest. A low- FODMAP eating plan may help some people who have irritable bowel syndrome (IBS) and certain other bowel (intestinal) diseases to manage their symptoms. This meal plan can be complicated to follow. Work with a diet and pet nutrition specialist (dietitian) to make a low-FODMAP eating plan that is right for you. A dietitian can help make sure that you get enough nutrition from this diet. What are tips for following this plan? Reading food labels Check labels for hidden FODMAPs such as: ? High-fructose syrup. ? Honey. ? Agave. ? Natural fruit flavors. ? Onion or garlic powder. Choose low-FODMAP foods that contain 3?4 grams of fiber per serving. Check food labels for serving sizes. Eat only one serving at a time to make sure FODMAP levels staylow. Shopping Shop with a list of foods that are recommended on this diet and make a meal plan. Meal planning Follow a low-FODMAP eating plan for up to 6 weeks, or as told by your health care provider or dietitian. To follow the eating plan: 1. Eliminate high-FODMAP foods from your diet completely. Choose only low-FODMAP foods to eat. You will do this for 2-6 weeks. Gradually reintroduce high-FODMAP foods into your diet one at a time. Most people should wait a fewdays before introducing the next new high-FODMAP food into their meal plan. Your dietitian can recommend how quickly you may reintroduce foods. Keep a daily record of what and how much you eat and drink. Make note of any symptoms that you haveafter eating. Review your daily record with a dietitian regularly to identify which foods you can eat and which foods you should avoid. General tips Drink enough fluid each day to keep your urine pale yellow. Avoid processed foods. These often have added sugar and may be high in FODMAPs. Avoid most dairy products, whole grains, and sweeteners. Work with a dietitian to make sure you get enough fiber in your diet. Avoid high FODMAP foods at meals to manage symptoms. Recommended foods Fruits Bananas, oranges, tangerines, marli, limes, blueberries, raspberries, strawberries, grapes, cantaloupe, honeydew melon, kiwi, papaya, passion fruit, and pineapple. Limited amounts of dried cranberries, banana chips, and shredded coconut. Vegetables Eggplant, zucchini, cucumber, peppers, green beans, kiser sprouts, lettuce, arugula, kale, Jordanian chard, spinach, maryjo greens, bok katarina, summer squash, potato, and tomato. Limited amounts of corn, carrot, and sweet potato. Green parts of scallions. Grains Gluten-free grains, such as rice, oats, buckwheat, quinoa, corn, polenta, and millet. Gluten-free pasta, bread, or cereal. Rice noodles. [place] tortillas. Meats and other proteins Unseasoned beef, pork, poultry, or fish. Eggs. Palomo. Tofu (firm) and tempeh. Limited amounts of nuts and seeds, such as almonds, walnuts, brazil nuts, pecans, peanuts, nut butters, pumpkin seeds, rober seeds, and sunflower seeds. Dairy Lactose-free milk, yogurt, and kefir. Lactose-free cottage cheese and ice cream. Non-dairy milks, such as almond, coconut, hemp, and rice milk. Non-dairy yogurt. Limited amounts of goat cheese, brie,mozzarella, parmesan, moroccan, and other hard cheeses. Fats and oils Butter-free spreads. Vegetable oils, such as olive, canola, and sunflower oil. Seasoning and other foods Artificial sweeteners with names that do not end in ol, such as aspartame, saccharine, and stevia. Maple syrup, white table sugar, raw sugar, brown sugar, and molasses. Mayonnaise, soy sauce, and tamari. Fresh basil, coriander, parsley, flavio, and thyme. Beverages Water and mineral water. Sugar-sweetened soft drinks. Small amounts of orange juice or cranberry juice. Black and green tea. Most dry sandra. Coffee. The items listed above may not be a complete list of foods and beverages you can eat. Contact a dietitian for more information. Foods to avoid Fruits Fresh, dried, and juiced forms of apple, pear, watermelon, peach, plum, cherries, apricots, blackberries, boysenberries, figs, nectarines, and pavel. Avocado. Vegetables Chicory root, artichoke, asparagus, cabbage, snow peas, [place] sprouts, broccoli, sugar snap peas, mushrooms, celery, and cauliflower. Onions, garlic, leeks, and the white part of scallions. Grains Wheat, including kamut, durum, and semolina. Barley and bulgur. Couscous. Wheat- based cereals. Wheat noodles, bread, crackers, and pastries. Meats and other proteins Fried or fatty meat. Sausage. Cashews and pistachios. Soybeans, baked beans, black beans, chickpeas, kidney beans, ruma beans, navy beans, lentils, black- eyed peas, and split peas. Dairy Milk, yogurt, ice cream, and soft cheese. Cream and sour cream. Milk-based sauces. Custard. Buttermilk. Soy milk. Seasoning and other foods Any sugar-free gum or candy. Foods that contain artificial sweeteners such as sorbitol, mannitol, isomalt, or xylitol. Foods that contain honey, high-fructose corn syrup, or agave. Bouillon, vegetable stock, beef stock, and chicken stock. Garlic and onion powder. Condiments made with onion, such ashummus, chutney, pickles, relish, salad dressing, and salsa. Tomato paste. Beverages Chicory-based drinks. Coffee substitutes. Chamomile tea. Fennel tea. Sweet or fortified sandra such as port or liberty. Diet soft drinks made with isomalt, mannitol, maltitol, sorbitol, or xylitol. Apple, pear, and pavel juice. Juices with high-fructose corn syrup. The items listed above may not be a complete list of foods and beverages you should avoid. Contact a dietitian for more information. Summary FODMAP stands for fermentable oligosaccharides, disaccharides, monosaccharides, and polyols. These are sugars that are hard for some people to digest. A low-FODMAP eating plan is a short-term diet that helps to ease symptoms of certain bowel diseases. The eating plan usually lasts up to 6 weeks. After that, high-FODMAP foods are reintroduced gradually and one at a time. This can help you find out which foods may be causing symptoms. A low-FODMAP eating plan can be complicated. It is best to work with a dietitian who has experiencewith this type of plan. This information is not intended to replace advice given to you by your health care provider. Make sure you discuss any questions you have with your health care provider. Document Released: 2017-09-30 Document Updated: 2024-01-18 Document Reviewed: 2024-01-18 [employer] Patient Education ? 2024 [employer] documented in this encounter Plan of Treatment Upcoming Encounters Date Type Department Care Team ([facility] st Contact Info) Description 05/12/2024 9:30 AM EDT Medication Management [facility] [address] [place] [address] Demi Menendez, JesseD [address] [place] [address] 06/22/2024 11:30 AM EDT Office Visit [facility] [address] [place] [address] Steffany Augustin MD [address] [place] [address] Scheduled Orders Name Type Priority Associated Diagnoses Orde r Schedule POCT Glucose Point of Care Testing Routine Type 2 diabetes mellitus with diabetic peripheral angiopathy without gangrene, with long-term current use of insulin ([facility]) Ordered: 04/29/2024 XR Cervical Spine 2-3 Views Imaging Routine Neck pain Expected: 04/29/2024, Expires: 04/29/2025 DAPHNEY Screen,IFA, with Reflex to Titer and Pattern Lab Routine Neck pain Shoulder blade pain Expected: 04/29/2024 (Approximate), Expires: 04/29/2025 documented as of this encounter Procedures Procedure Name Priority Date/Time Associated Diagnosis Comments SED RATE BY MODIFIED WESTERGREN Routine 04/29/2024 3:34 PM EDT Neck pain Shoulder blade pain RHEUMATOID FACTOR Routine 04/29/2024 3:3 4 PM EDT Neck pain Shoulder blade pain C-REACTIVE PROTEIN Routine 04/29/2024 3: 34 PM EDT Neck pain Shoulder blade pain documented in this encounter Results * (ABNORMAL) Rheumatoid Factor (04/29/2024 3:34 PM EDT) Rheumatoid Factor 195.0(H) <15.0 IU/mL [facility] Blood Venous blood specimen / Unknown 04/29/2024 3:34 PM EDT 04/29/2024 5:37 PM EDT us Steffany Augustin MD LAB BLOOD ORDERABLES Final Result [facility] [address] [place] [address] [phone] * (ABNORMAL) C-reactive Protein (04/29/2024 3:34 PM EDT) C Reactive Protein 1.65(H) < or = 0.50 mg/dL [facility] Blood Venous blood specimen / Unknown 04/29/2024 3:34 PM EDT 04/29/2024 5:37 PM EDT us Steffany Augustin MD LAB BLOOD ORDERABLES Final Result Performing Organization Address [facility]/ZIP Co de Phone Number [facility] [address] [place] [address] [phone] * Sed Rate by Modified Westergren (04/29/2024 3:34 PM EDT) Erythrocyte Sedimentation Rate 19 0 - 20 MM/HR [facility] Comment:Patients with polycy themia and many hemoglobin abnormalitiesmay have depressed sed rates whereas patients with anemiamay have elevated sed rates. Blood Venous blood specimen / Unknown 04/29/2024 3:34 PM EDT 04/29/2024 5:37 PM EDT Steffany Augustin MD LAB BLOOD ORDERABLES Final Result Performing Organization Address [facility] Co de Phone Number [facility] [address] [place] [address] [phone] documented in this encounter Visit Diagnoses Diagnosis Neck pain- Primary Cervicalgia Acute pain of left knee Type 2 diabetes mellitus with diabetic peripheral angiopathy without gangrene, with long-term current use of insulin ([facility]) Shoulder blade pain Pain in joint, shoulder region Bloating Flatulence, eructation, and gas pain documented in this encounter Additional Health Concerns Assessment Noted Time PHQ-9 Depression Total Score: 0 03/16/19 25 3:27 PM EST documented as of this encounter Care Teams Plater Helper Relationship Specialty Start Date End Date Steffany Augustin MD [address] [place] [address] PCP - General Internal Medicine 12/03/23 Demi Menendez PharmD [address] [place] [address] Pharmacist Internal Medicine 04/16/24 documented as of this encounter
--- OUTSIDE RECORDS SUMMARY | 2024-04-29 19:06 | XMS_ITS | Encounter Summary ---
Author Organization [employer] Address [address] [facility] 7t [place] [address] Care Team Providers Care Rehabilitation Liaison Name Role Phone Ramon Marcos MD Primary Care Prov ider Steffany Augustin MD Primary Care Provider [phone] Demi Menendez PharmD Unavailable [phone] Reason for Visit * Reason Onset Date Comments Pre-op 02/07/2023 Encounter Details Date Type Department Care Team ([facility] st Contact Info) Description 02/07/2023 Telephone [facility] MED & PEDS [address] [place], [place] [phone] Ramon Marcos MD [address] [place], [place] [phone] Pre-op Social History Tobacco Use Types Packs/Day [...] reach out to Dr. Montoya's office in [place] to confirm details for pre-op. TC placed to [phone] Montoya's office. Extension 3 and then choice 1. No answer. LM with Dr. Montoya's surgical team to call us back at [facility] about a patient's pre-op appointment for cataract surgery. Routing back to [facility] nurses to try again. Tc from pt requesting to r/s Pre op appt for 02/07/2023 @ 2:00 pm .. Please contact pt @ [phone] * Telephone Encounter - Vahe Vasquez - 02/07/2023 12:22 PM EST Tc from pt requesting to r/s Pre op appt for 02/07/2023 @ 2:00 pm .. Please contact pt @ [phone] documented in this encounter Plan of Treatment Upcoming Encounters Date Type Department Care Team (Late st Contact Info) Description 05/12/2024 9:30 AM EDT Medication Management [facility] MED & PEDS [address] [place] [address] Demi Menendez PharmD [address] [place] [address] 06/22/2024 11:30 AM EDT Office Visit [facility] MED & PEDS [address] [place] [address] Steffany Augustin MD [address] [place] [address] documented as of this encounter Visit Diagnoses Not on filedocumented in this encounter Additional Health Concerns Assessment Noted Time PHQ-9 Depression Total Score: 2 05/18/19 23 9:10 AM EDT documented as of this encounter Care Teams Rehabilitation Liaison Relationship Specialty Start Date End Date Ramon Marcos MD [address] [place] [address] PCP - General Internal Medicine 12/22/18 12/02/23 Steffany Augustin MD [address] [place] [address] PCP - General Internal Medicine 12/03/23 Demi Menendez PharmD [address] [place] [address] Pharmacist Internal Medicine 04/16/24 documented as of this encounter
--- OUTSIDE RECORDS SUMMARY | 2024-04-29 19:06 | XMS_ITS | Encounter Summary ---
Author Organization [employer] Address 75 [facility] 7t [place] [address] Care Team Providers Care Parking Station Attendant Name Role Phone Steffany Augustin MD Primary Care Provider [phone] Reason for Visit * Reason Comments Med Refill Encounter Details Date Type Department Care Team ([facility] st Contact Info) Description 04/05/2024 Refill [facility] MED & PEDS [address] [place], [place] [phone] Steffany Augustin MD [address] [place], [place] [phone] Social History Tobacco Use Types Packs/Day Years [...] 9:30 AM EDT Medication Management [facility] MED & PEDS [address] [place] [address] Demi Menendez, PharmD [address] [place] [address] 06/22/2024 11:30 AM EDT Office Visit [facility] MED & PEDS [address] [place] [address] Steffany Augustin MD [address] [place] [address] documented as of this encounter Visit Diagnoses Not on filedocumented in this encounter Additional Health Concerns Assessment Noted Time PHQ-9 Depression Total Score: 0 03/16/19 25 3:27 PM EST documented as of this encounter Care Teams Parking Station Attendant Relationship Specialty Start Date End Date Steffany Augustin MD [address] [place] [address] PCP - General Internal Medicine 12/03/23 documented as of this encounter
--- OUTSIDE RECORDS SUMMARY | 2024-04-29 19:06 | XMS_ITS | Encounter Summary ---
Author Organization [employer] Address [address] [facility] 7t [place] [address] Care Team Providers Care Stave Cutter Name Role Phone Steffany Augustin MD Primary Care Provider [phone] Reason for Visit * Reason Onset Date Comments Appointment Request 04/01/2024 Encounter Details Date Type Department Care Team (Late st Contact Info) Description 04/01/2024 Telephone [facility] MEDICINE [address] [place] [address] Steffany Augustin MD [address] [place] [address] Appointment Request Social History Tobacco Use Types Packs/Day [...] Telephone Encounter - Demi Menendez PharmD - 04/01/2024 11:55 AM EST Spoke with Rosa, re-scheduled CDTM for 04/16 * Telephone Encounter - Gal Joshi - 04/01/2024 8:02 AM EST Tc from pt daughter requesting to r/s Apt from 04/01/24 Contact Pt daughter at [phone] documented in this encounter Plan of Treatment Upcoming Encounters Date Type Department Care Team ([facility] st Contact Info) Description 05/12/2024 9:30 AM EDT Medication Management [facility] MED & PEDS [address] [place] [address] Demi Menendez, Padma [address] [place] [address] 06/22/2024 11:30 AM EDT Office Visit [facility] MED & PEDS [address] [place] [address] Steffany Augustin MD [address] [place] [address] documented as of this encounter Visit Diagnoses Not on filedocumented in this encounter Additional Health Concerns Assessment Noted Time PHQ-9 Depression Total Score: 0 03/16/19 25 3:27 PM EST documented as of this encounter Care Teams Stave Cutter Relationship Specialty Start Date End Date Steffany Augustin MD [address] [place] [address] PCP - General Internal Medicine 12/03/23 documented as of this encounter
--- OUTSIDE RECORDS SUMMARY | 2024-04-29 19:07 | XMS_ITS | Encounter Summary ---
Author Organization [employer] Address [address] [facility] 7t [place] [address] Care Team Providers Care Parimutuel Cashier Name Role Phone Steffany Augustin MD Primary Care Provider [phone] Demi Menendez PharmD Unavailable [phone] Encounter Details Date Type Department Care Team (Late st Contact Info) Description 04/16/2024 Orders Only [facility] MEDICINE [address] [place] [address] Steffany Augustin MD [address] [place], [place] [phone] Iron deficiency anemia secondary to inadequate dietary iron intake (Primary Dx) Social History Tobacco Use Types [...] Description 05/12/2024 9:30 AM EDT Medication Management [facility] MED & PEDS [address] [place] [address] Demi Menendez PharmD [address] [place] [address] 06/22/2024 11:30 AM EDT Office Visit [facility] MED & PEDS [address] [place] [address] Steffany Augustin MD [address] [place] [address] documented as of this encounter Visit Diagnoses Diagnosis Iron deficiency anemia secondary to inadequate dietary iron intake- Primary documented in this encounter Additional Health Concerns Assessment Noted Time PHQ-9 Depression Total Score: 0 03/16/19 25 3:27 PM EST documented as of this encounter Care Teams Parimutuel Cashier Relationship Specialty Start Date End Date Steffany Augustin MD [address] [place] [address] PCP - General Internal Medicine 12/03/23 Demi Menendez PharmD [address] [place] [address] Pharmacist Internal Medicine 2/28/25 documented as of this encounter
--- OUTSIDE RECORDS SUMMARY | 2024-04-29 19:07 | XMS_ITS | Encounter Summary ---
Author Organization [employer] Address [address] [facility] [address] [place] [address] Care Team Providers Care Orthotic/Prosthetic Practitioner Name Role Phone Steffany Augustin MD Primary Care Provider [phone] Demi Menendez PharmD Unavailable [phone] Encounter Details Date Type Department Care Team (Latest Contact Info) Description 04/16/2024 Travel Social History Tobacco Use Types Packs/Day [...] 9:30 AM EDT Medication Management [facility] MED & PEDS [address] [place] [address] Demi Menendez PharmD [address] [place] [address] 06/22/2024 11:30 AM EDT Office Visit [facility] MED & PEDS [address] [place] [address] Steffany Augustin MD [address] [place] [address] documented as of this encounter Visit Diagnoses Not on filedocumented in this encounter Additional Health Concerns Assessment Noted Time PHQ-9 Depression Total Score: 0 03/16/19 25 3:27 PM EST documented as of this encounter Care Teams Orthotic/Prosthetic Practitioner Relationship Specialty Start Date End Date Steffany Augustin MD [address] [place] [address] PCP - General Internal Medicine 12/03/23 Demi Menendez, PharmD [address] [place] [address] Pharmacist Internal Medicine 04/16/24 documented as of this encounter
[2024-05-05 09:38] LABS: Anti Nuclear Antibody Screen NEGATIVE (NEGATIVE)
== END 2024-04-29 15:33 | disposition home or self-care (01) ==
LOC: HO.CHCLDS 15:32
PROVIDERS: Visit Provider Internal Medicine
DX: M54.2 Cervicalgia (principal); M89.8X1 Other specified disorders of bone, shoulder
CPT/HCPCS: 36415; 85652; 86038; 86140; 86431

== ENCOUNTER 2024-06-09 09:43 | Outpatient (REF) | payer OTHER, SELFPAY ==
--- OUTSIDE RECORDS SUMMARY | 2024-06-09 10:58 | XMS_ITS | Clinical Summary ---
Author Organization [address] [place] [address] Address [address] [place] [address] Phone Care Team Providers Care Librarian Special Library Name Role Phone Steffany Augustin MD Primary Care Provider [phone] Allergies Active Allergy Reactions Criticality Noted Date [...] mouth 1 (one) time each day. Active atorvastatin (LIPITOR) 80 mg tablet Take [...] HOURS NEEDED FOR COUGH OR WHEEZING. Active aspirin 81 mg EC tablet Take 81 mg by mouth daily. Active calcium carbonate-vit D3-min 600 mg-10 mcg (400 unit) tablet Take 1 Tab by mouth 2 times daily. Active cholecalcifero l (VITAMIN D-3) 25 mcg (1,000 unit) tablet Take 25 mcg by mouth daily. Active cyclobenzaprin e (FLEXERIL) 5 mg tablet Take 5 mg by mouth 3 times daily as needed. Active insulin glargine (Lantus Solostar U-100 Insulin) 100 unit/mL (3 mL) injection pen INJECT 15 UNITS SUBCUTANEOUS INJECTION DAILY AT BEDTIME Active metFORMIN (GLUCOPHAGE) 500 mg tablet Take 1 Tab by mouth 2 times daily (with meals). Active nitroglycerin (NITROSTAT) 0.[address] 1 tablet under the tongue every 5 minutes as needed for Chest pain (If you need to take a 3rd tablet, call 911.). Active spironolactone (ALDACTONE) 25 mg tablet Take 1 tablet (25 mg total) by mouth 1 (one) time each day. 30 each 1 06/05/19 25 026 Active empagliflozin (Jardiance) 25 mg tablet Take 1 tablet (25 mg total) by mouth 1 (one) time each day in the morning. 025 Discontinued amoxicillin (AMOXIL) 500 mg capsule Take 500 mg by mouth as needed. Prior to dental 025 Discontinued loratadine (CLARITIN) 10 mg tablet Take 1 Tab by mouth daily. 025 Discontinued omeprazole (PriLOSEC) [address] capsule Take 20 mg by mouth daily. 025 Discontinued Active Problems Problem Noted Date Diagnosed Date Spondylosis of lumbosacral r egion without myelopathy or radiculopathy 05/09/2015 Atrial fibrillation (CMS/HCC V24, CMS/HCC V28) 0 03/17/2014 Overview (02/17/2024): Last Assessment & Plan: [...] report feeling some racing beats at times. Assessment & Plan (06/04/2024 9:27 AM EDT): Denies any abnormal bleeding on the Xarelto. Is rate controlled on the diltiazem. Does have occasional palpitations however this has been chronic has not gotten worse. Would like to update echocardiogram. Should remain anticoagulated due to elevated chads 2 VASc score for gender, age, hypertension, diabetes. 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 Recommend lifestyle modifications. Assessment & Plan (06/04/2024 9:27 AM EDT): Patient is currently utilizing high dose of atorvastatin. Would like to check lipid panel. Glaucoma 12/21/2008 Overview (02/17/2024): Dr. Allison Hypertension [...] home monitoring as well. Continue drug therapies. Assessment & Plan (06/04/2024 9:27 AM EDT): I will be adding in spironolactone 25 mg p.o. daily. Would like patient to check blood pressure measurements at home. Orders: Basic metabolic panel; Future Encounters Date Type Department Care Team Description 06/04/2024 8:40 AM EDT Office Visit [facility] [address] [place] [address] Azam Enriquez NP Atrial fibrillation, unspecified type ([facility] V24, CMS/[facility] V28) (Primary Dx); Hypertension, unspecified type; Hyperlipidemia, unspecified hyperlipidemia type; Lower extremity edema from Last 3 Months Immunizations Name Administration [...] TOTAL KNEE REPLACE COLONOSCOPY W/ BIOPSIES 12/09/17 Padmini PROCEDURE: AL COLONOSCOPY W/BIOPSY SINGLE/MULTIPLE; COMMENT: 4 small adenomas, hemorrhoids and tics; repeat in 3 years Medical History Medical History Date Comments Hypertension 12/21/2008 DX:Hypertension Hyperlipidemia 12/21/2008 DX:Hyperlipidemi a Glaucoma 12/21/2008 DX:Glaucoma; COM MENT: Dr. 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 Skinner on 09/11/2012 Atrial fibrillation ([facility]/HCC V24, CMS/HCC V28) 03/17/2014 DX:Atrial fibrillation (HCC) Family history of cardiovasc ular [...] Sign Reading Time Taken Comments Blood Pressure 160/80 06/04/2024 8:47 AM EDT Pulse 85 06/04/2024 8:47 AM EDT Temperature - - Respiratory Rate - - Oxygen Saturation 98% 06/04/2024 8:47 AM EDT Inhaled Oxygen Concentration - - Weight 89.4 kg (197 lb) 06/04/2024 8:47 AM EDT Height 157.5 cm (5' 2 ) 06/04/2024 8:47 AM EDT Body Mass Index 36.03 06/04/2024 8:47 AM EDT Plan of Treatment Upcoming Encounters Date Type Department Care Team (Late st Contact Info) Description 08/30/2024 8:00 AM EDT Ancillary Procedure [facility] [address] [place] [address] Health Maintenance Due Date Last Done Comments Diabetes: Annual Foot Exam 1960 Diabetes: Annual [...] - Td or Tdap) 03/31/2023 03/31/2013 RSV Immunization Adult Patients (1 - 1-dose 75+ series) 06/22/2023 COVID-19 Vaccine (3 - season) 2023 02/15/2021, 05/15/2020 Diabetes: Blood Sugar Control Test (HGBA1C) 09/13/2024 03/16/2024, 12/10/2023, 10/27/2018 Depression Screening 03/16/2025 03/16/2024 Cholesterol Screening (Lipid Panel) 02/16/2029 02/17/2024, 07/30/2022, 07/16/2018 Pneumococcal Vaccine: 50+ Years Completed [...] age to complete this topic Meningococcal B Vaccine Aged Out No l onger eligible based on patient's age to complete this topic RSV Immunization Patients Under 20 months Aged Out No longer eligible based on patient's age to complete this topic Varicella Vaccines Aged Out No longer eligible based on patient's age to complete this topic Procedures Procedure Name Priority Date/Time Associated Diagnosis Comments ECG 12-LEAD Routine 06/04/2024 9:05 AM EDT Atrial fibrillation, unspecified type ([facility] V24, [facility] V28) HEMOGLOBIN A1C Routine 10/27/2018 URINE ALBUMIN CREATININE RATIO Routine 07/16/2018 ANNUAL BMP BLOOD TEST Routine 07/16/2018 LIPID PANEL Routine 07/16/2018 HEPATITIS C SCREENING Routine 03/23/2013 from Last 3 Months or Most Recently Relevant to Health Maintenance Results * ECG 12 lead (06/04/2024 9:05 AM EDT) 06/04/2024 9:01 AM EDT Result [facility] Azam Enriquez NP ECG ORDERABLES Final Result GEMUSE * (ABNORMAL) Hemoglobin A1c (10/27/2018) Pathologist [facility] Hemoglobin A1C 8.5(A) <=6.5 % Blood Venous blood specimen / Unknown Result [facility] Historical Provider LAB BLOOD ORDERABLES Viola l Result * Urine Albumin Creatinine Ratio (07/16/2018) Pathologist [facility] Urine Albumin Creatinine Ratio abstracted Historical Provider HEALTH MAINTENANCE Final Result * Annual BMP Blood Test (07/16/2018) Pathologist [facility] Annual BMP Blood Test abstracted Historical Provider HEALTH MAINTENANCE Final Result * (ABNORMAL) Lipid panel (07/16/2018) Pathologist [facility] LDL/HDL Ratio 4 0 - 4 Triglycerides 122 0 - 150 mg/dL Cholesterol 176 0 - 200 mg/dL HDL 44 >=40 mg/dL LDL Cholesterol 108(A) 0 - 100 mg/dL Blood Venous blood specimen / Unknown us Historical Provider LAB BLOOD ORDERABLES Viola l Result * Hepatitis C Screening (03/23/2013) Hepatitis C Screening abstracted Historical Provider HEALTH MAINTENANCE Final Result from Last 3 Months or Most Recently Relevant to Health Maintenance Insurance [facility] Member Subscriber Plan / Payer (Ef fective 2024-Present) Name:Demi Plata Relation to Subscriber:Self Name:Demi Plata Payer ID:[id number] Group ID:[id number] Type:Not on file Address: [place] [address] [place] [phone] Advance Directives Documents on File Type Date Recorded Patient Board Hammer Operator Expl anation Health Care Decision (hx) 02/15/2014 [...] Care Decision (hx) 02/06/2014 AD REDDY DIRECTIVE Care Teams Librarian Special Library Relationship Specialty Start Date End Date Steffany Augustin MD [address] [place] [address] PCP - General Internal Medicine 06/02/24
--- OUTSIDE RECORDS SUMMARY | 2024-06-09 10:58 | XMS_ITS | Encounter Summary ---
Author Organization [employer] Address [address] [place] [address] [address] [place] [address] Care Team Providers Care Roller Presser Operator Name Role Phone Ramon Marcos MD Primary Care Prov ider Steffany Augustin MD Primary Care Provider [phone] Demi Menendez PharmD Unavailable [phone] Reason for Visit * Reason Comments Med Refill Encounter Details Date Type Department Care Team (Late Contact Info) Description 11/17/2022 Refill [facility] PEDS [address] [place], [place] [phone] Ramon Marcos MD [address] [place], [place] [phone] Social History Tobacco Use Types Packs/Day Years [...] Care Team (Late st Contact Info) Description 06/22/2024 11:30 AM EDT Office Visit [facility]S [address] [place], [place] [phone] Steffany Augustin MD [address] [place], [place] [phone] 07/19/2024 9:00 AM EDT Medication Management [facility] [address] [place] [address] Demi Menendez PharmD [address] [place] [address] documented as of this encounter Visit Diagnoses Not on filedocumented in this encounter Additional Health Concerns Assessment Noted Time PHQ-9 Depression Total Score: 2 05/18/19 23 9:10 AM EDT documented as of this encounter Care Teams Roller Presser Operator Relationship Specialty Start Date End Date Ramon Marcos MD [address] [place] [address] PCP - General Internal Medicine 12/22/18 12/02/23 Steffany Augustin MD [address] [place] [address] PCP - General Internal Medicine 12/03/23 Demi Menendez PharmD [address] [place] [address] Pharmacist Internal Medicine 04/16/24 documented as of this encounter
--- OUTSIDE RECORDS SUMMARY | 2024-06-09 10:58 | XMS_ITS | Clinical Summary ---
Author Organization [employer] Address 75 [facility] 7t [place] [address] Care Team Providers Care Service Establishment Attendant Name Role Phone Steffany Augustin MD Primary Care Provider [phone] Demi Menendez PharmD Unavailable [phone] Allergies Active Allergy Reactions Criticality Noted Date [...] the morning. 90 capsule 1 024 Active gabapentin (Neurontin) 300 MG capsuleIndicatio ns:Diabetic polyneuropathy associated with type 2 diabetes mellitus (CMS/HCC) Take 1 capsule (300 mg) by mouth 3 times daily. 90 capsule 11 024 2024 Active Toaissatou SoloStar 300 UNIT/ML injection INJECT 20 SUBCUTANEOUSLY EVERY MORNING 4.5 mL 3 Active TechLite Plus Pen [place] 32G X 4 MM misc USE ONE DAILY 100 each 3 Active anastrozole (Arimidex) 1 MG chemo tablet Take 1 mg by mouth Once per day. Active dicyclomine (Bentyl) 20 MG tablet TAKE ONE TABLET in the morning, at noon, in the evening, and at bedtime BEFORE MEALS 120 tablet 1 Active Continuous Glucose Sensor (FreeStyle Ryne 3 Plus Sensor) miscIndications: Type 2 diabetes mellitus with diabetic peripheral angiopathy without gangrene, with long-term current use of insulin ([facility]) 1 each every 15 days. 2 each Active glucose blood (FreeStyle Precision Gareth Test) test stripIndications :Type 2 diabetes mellitus with diabetic peripheral angiopathy without gangrene, with long-term current use of insulin ([facility]) Test blood sugar up to 3 times daily as directed 100 each 11 Active ferrous sulfate (Fe Tabs) 325 (65 Fe) MG EC tabletIndication s:Iron deficiency anemia secondary to inadequate dietary iron intake Take 1 tablet (325 mg) by mouth every other day. Do not crush, chew, or split. 15 tablet 11 2025 Active Aspirin Adult Low Strength 81 MG EC tabletIndication s:Primary hypertension TAKE ONE TABLET EVERY MORNING 90 tablet 3 Active Diclofenac Sodium (GoodSense Arthritis Pain) 1 % gelIndications:A cute pain of left knee APPLY 2 GRAM'S TO AFFECTED AREA(s) THREE TIMES DAILY NEEDED 100 g Active Xarelto 20 MG tablet TAKE ONE TABLET EVERY EVENING WITH FOOD 30 tablet Active spironolactone (Aldactone) 25 MG tablet Take 25 mg by mouth Once per day. 2025 Active Calcium Carb-Cholecalcif becka 500-10 MG-MCG chewable tablet CHEW ONE TABLET IN THE MORNING AND EVENING 025 Active Tirzepatide (Mounjaro) 5 MG/0.5ML solution auto-injector Inject 5 mg under the skin 1 (one) time per week. 2 mL 2 025 Active glipiZIDE (Glucotrol) 5 MG tabletIndication s:Type 2 diabetes mellitus with diabetic peripheral angiopathy without gangrene, with long-term current use of insulin ([facility]) Take 1 tablet (5 mg) by mouth before breakfast and before evening meal. 60 tablet 3 024 2024 Discontinued(M ed list cleanup (will not trigger notification to Pharmacy)) Diclofenac Sodium 1 % gelIndications:A cute pain of left knee To apply to the affected area 3 times a day 100 g 025 2024 Discontinued Xarelto 20 MG tablet TAKE ONE TABLET EVERY EVENING WITH FOOD 30 tablet 025 2024 Discontinued Tirzepatide (Mounjaro) 2.5 MG/0.5ML solution auto-injector Inject 2.5 mg under the skin 1 (one) time per week. 2 mL 025 2024 Discontinued(D ose adjustment) Active Problems Problem Noted Date Diagnosed Date [...] skills ?? PLAN: 1. Follow up with [facility]: Not recommended for follow-up 2. 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, due to her back pain has [...] Encounters Date Type Department Care Team Description 06/09/2024 Travel 06/08/2024 Refill [facility] [address] [place] [address] Steffany Augustin MD Mixed hyperlipidemia; Type 2 diabetes mellitus with diabetic peripheral angiopathy without gangrene, with long-term current use of insulin (CMS/HCC) 05/13/2024 Refill [facility] [address] [place] [address] Steffany Augustin MD Acute pain of left knee 05/12/2024 Travel 04/30/2024 Telephone [facility] [address] [place], [place] [phone] Steffany Augustin MD Results 04/30/2024 Population Health Risk Score [facility] ([facility]) Department [address] [place] [phone] Provider, Population Health Generic 04/29/2024 2:30 PM EDT Office Visit [facility] [address] [place] [address] Steffany Augustin MD Neck pain (Primary Dx); Acute pain of left knee; Type 2 diabetes mellitus with diabetic peripheral angiopathy without gangrene, with long-term current use of insulin (CMS/HCC); Shoulder blade pain; Bloating 04/29/2024 Travel 04/23/2024 Refill [facility] [address] [place] [address] Ramon Marcos MD Primary hypertension 04/19/2024 Telephone [facility] [address] [place] [address] Demi Menendez, JesseD Prior Authorization 04/16/2024 Orders Only [facility] [address] [place] [phone] Steffany Augustin MD Iron deficiency anemia secondary to inadequate dietary iron intake (Primary Dx); Chronic pain of multiple joints 04/16/2024 Travel 04/14/2024 Refill [facility] [address] [place] [address] Steffany Augustin MD 04/05/2024 Refill [facility] [address] [place] [address] Steffany Augustin MD 04/01/2024 Telephone [facility] [address] [place] [phone] Steffany Augustin MD Appointment Request 03/16/2024 3:15 PM EST Office Visit [facility] [address] [place] [address] Steffany Augustin MD Iron deficiency anemia secondary to inadequate dietary iron intake (Primary Dx); Type 2 diabetes mellitus with diabetic peripheral angiopathy without gangrene, with long-term current use of insulin ([facility]); Acute pain of left knee 03/16/2024 Travel 03/11/2024 Refill [facility] [address] [place] [address] Aidee Arrieta MD from Last 3 Months Immunizations Name [...] Description 06/22/2024 11:30 AM EDT Office Visit [facility] [address] [place] [address] Steffany Augustin MD [address] [place] [address] 07/19/2024 9:00 AM EDT Medication Management [facility] [address] [place] [address] Demi Menendez, PharmD [address] [place] [address] Health Maintenance Due Date Last Done Comments CT Colonography 1948 FIT DNA/Cologuard 1948 FIT 1948 FOBT 1948 Sigmoidoscopy 1948 Diabetes: Urine Protein Screening 04/23/2022 04/23/2021, 05/05/2020 Colonoscopy 12/09/2022 12/09/2017 Colorectal Cancer Screening 12/09/2022 DTaP/Tdap/Td Vaccines (2 - Td or Tdap) 03/31/2023 03/31/2013 RSV Patients and Patients Aged 60 years or older (1 - 1-dose 75+ series) 06/22/2023 Diabetes: Foot Exam 07/21/2024 07/22/2023, 07/22/2023, 07/22/2023, Additional history exists Tobacco Screening 07/21/2024 07/22/2023 Diabetes: Hemoglobin A1C 09/08/2024 025, 03/16/2024, 02/17/2024, Additional history exists COVID-19 Vaccine ( season) 2024 02/15/2021, 05/15/2020 [...] Diagnosis Comments POCT GLYCATED HEMOGLOBIN, TOTAL Routine 06/09/2024 9:20 AM EDT Type 2 diabetes mellitus with diabetic peripheral angiopathy without gangrene, with long-term current use of insulin ([facility]) XR CERVICAL SPINE 2-3 VIEWS Routine 05/12/2024 Neck pain ARABELLA SCREEN, IFA, W/REFL TITER AND PATTERN Routine 04/29/2024 3:34 PM EDT Neck pain [...] with long-term current use of insulin (CMS/HCC) CBC WITH AUTO DIFFERENTIAL Routine 03/16/2024 4:03 [...] (CMS/HCC) MAMMOGRAPHY Routine 02/24/2024 9:36 AM EST LIPID PANEL, STANDARD Routine 02/17/2024 9:50 AM EST Type 2 diabetes mellitus with diabetic peripheral angiopathy without gangrene, with long-term current use of insulin (CMS/HCC) DIABETES EYE EXAM Routine 10/29/2023 2:05 PM EDT HEPATITIS C AB W/REFL TO HCV RNA, QN, PCR Routine 07/30/2022 9:48 AM EDT Type 2 diabetes mellitus with diabetic peripheral angiopathy without gangrene, with long-term current use of insulin ([facility]) ALBUMIN, RANDOM URINE W/CREATININE Routine 04/23/2021 8:43 AM EST HM COLONOSCOPY Routine 12/09/2017 from Last 3 Months or Most Recently Relevant to Health Maintenance Results * (ABNORMAL) POCT A1C (06/09/2024 9:20 AM EDT) Only the most recent of2 resultswithin the time period is included. Hemoglobin A1C 9.8(A) 4.0 - 6.0 % QC Media Lot # [id number] Lot# Expiration Date Blood 06/09/2024 9:20 AM EDT us Steffany Augustin MD POINT OF CARE TEST ENTER/ED IT ORDERABLES Final Result * XR Cervical Spine 2-3 Views (05/12/2024) Anatomical Region Laterality Modality Spine, C-spine Radiographic Daniela ging us Steffany Augustin MD IMG XR PROCEDURES Final Res ult * Sed Rate by Modified Mohini (04/29/2024 3:34 PM EDT) Erythrocyte Sedimentation Rate 19 0 - 20 MM/HR [facility] Comment:Patients with polycy themia and many hemoglobin abnormalitiesmay have depressed sed rates whereas patients with anemiamay have elevated sed rates. Blood Venous blood specimen / Unknown 04/29/2024 3:34 PM EDT 04/29/2024 5:37 PM EDT us Steffany Augustin MD LAB BLOOD ORDERABLES Final Result [facility] [address] [place] [phone] * (ABNORMAL) Rheumatoid Factor (04/29/2024 3:34 PM EDT) Rheumatoid Factor 195.0(H) <15.0 IU/mL [facility] Blood Venous blood specimen / Unknown 04/29/2024 3:34 PM EDT 04/29/2024 5:37 PM EDT Steffany Augustin MD LAB BLOOD ORDERABLES Final Result Performing Organization Address [facility]/ZIP Co de Phone Number [facility] [address] [place] [phone] * (ABNORMAL) C-reactive Protein (04/29/2024 3:34 PM EDT) Pathologist [facility] C Reactive Protein 1.65(H) < or = 0.50 mg/dL [facility] Blood Venous blood specimen / Unknown 04/29/2024 3:34 PM EDT 04/29/2024 5:37 PM EDT us Steffany Augustin MD LAB BLOOD ORDERABLES Final Result Performing Organization Address [facility] Co de Phone Number [facility] [address] [place] [phone] * ARABELLA Screen,IFA, with Reflex to Titer and Pattern (04/29/2024 3:34 PM EDT) Pathologist [facility] Anti Nuclear Antibody Screen NEGATIVE NEGATIVE [facility] Comment:ARABELLA IFA is a first l ine screen for detecting thepresence of up to approximately 150 autoantibodies invarious autoimmune diseases. A negative ARABELLA IFA resultsuggests an ARABELLA-associated autoimmune disease is notpresent at this time, but is not definitive. If thereis high clinical suspicion for Sjogren's syndrome,testing for anti-SS-A/Ro antibody should be considered.Anti-Bethany-1 antibody should be considered for clinicallysuspected inflammatory myopathies.AC-0: NegativeInternational Consensus on ARABELLA Patterns(https://doi.org/10.1515/gqkv-1942-2156)For additional information, please refer tohttp://education.[employer].com/faq/RND106(This link is being provided for informational/educational purposes only.)THIS TEST WAS PERFORMED AT:[employer] [place] [phone] OLIVEIRA MD ARABELLA Titer TNP [facility] ARABELLA Pattern [facility] ARABELLA TITER 2 (REF LAB) [facility] ARABELLA Pattern 2 [facility] ARABELLA TITER 3 [facility] ARABELLA PATTERN 3 [facility] Blood Venous blood specimen / Unknown 04/29/2024 3:34 PM EDT 04/29/2024 5:37 PM EDT Steffany Augustin MD LAB BLOOD ORDERABLES Final Result [facility] [address] [place] [phone] * (ABNORMAL) POCT glucose manually resulted (04/16/2024 11:51 AM EST) Only the most recent of2 resultswithin the time period is included. Glucose Blood, POC 222(A) 60 - 200 mg/dL QC Media Lot # [id number] Lot# Expiration Date Blood Capillary blood specimen / Unknown 04/16/2024 11:51 AM EST us Steffany Augustin MD POINT OF CARE TEST ENTER/ED IT ORDERABLES Final Result * CBC auto differential (03/16/2024 4:03 PM EST) White Blood Count 7.6 4.8 - 10.8 X10*3/uL [facility] Red Blood Count 4.86 4.20 - 5.50 X10*6/uL [facility] Hemoglobin 13.2 12.0 - 16.0 g/dl [facility] Hematocrit 40.6 37.0 - 47.0 % [facility] Mean Corpuscular Volume 83.5 80.0 - 98.0 fL [facility] Mean Corpuscular Hemoglobin 27.2 27.0 - 33.0 pg [facility] Mean Corpuscular HGB Conc 32.5 31.0 - 35.0 g/dl [facility] Red Cell Distribution Width 13.2 11.0 - 16.0 % [facility] Platelet Count 224 160 - 400 X10*3/uL [facility] Mean Platelet Volume 10.5 9.4 - 12.3 fL [facility] Neutrophils Percent Auto 61.0 45 - 73 % [facility] Imm Gran Pct Auto 0.4 0.0 - 0.4 % [facility] Lymphocytes Percent Auto 30.8 20 - 40 % [facility] Monocytes Percent Auto 6.0 2 - 11 % [facility] Eosinophils Percent Auto 1.3 0 - 4 % [facility] Basophils Percent Auto 0.5 0 - 2 % [facility] NRBC Pct Auto 0.0 0.0 - 0.2 /100WBC [facility] Neutrophils Absolute Auto 4.7 2.0 - 8.3 x10*3/uL [facility] Imm Gran Abs Auto 0.03 0.00 - 0.03 X10*3/uL [facility] Lymphocytes Absolute Auto 2.4 1.2 - 4.9 X10*3/uL [facility] Monocytes Absolute Auto 0.5 0.1 - 1.2 X10*3/uL [facility] Eosinophils Absolute Auto 0.1 0.0 - 0.4 X10*3/uL [facility] Basophils Absolute Auto 0.0 0.0 - 0.2 X10*3/uL [facility] NRBC Abs Auto 0.000 0.0 - 0.012 X10*3/uL [facility] Blood Venous blood specimen / Unknown 03/16/2024 4:03 PM EST 03/16/2024 5:46 PM EST Steffany Augustin MD LAB BLOOD ORDERABLES Edited Result - Final [facility] [address] [place] [phone] [phone] * Mammography (02/24/2024 9:36 AM EST) Anatomical Region Laterality Modality Other Historical Provider HEALTH MAINTENANCE Final Result * (ABNORMAL) Lipid Panel, Standard (02/17/2024 9:50 AM EST) Triglycerides 87 <150 mg/dL [facility] Comment:Desirable Triglyceri de: less than 150 mg/dLBorderline High Triglyceride 150-199 mg/dLHigh Triglyceride: 200-499 mg/dLVery High Triglyceride: greater than or equal to 5OO mg/dL Cholesterol 138 <200 mg/dL [facility] Comment:Desirable Cholestero l: less than 200 mg/dLBorderline High Cholesterol: 200-239 mg/dLHigh Cholesterol: greater than 239 mg/dL LDL Cholesterol Calculated 84 <100 mg/dL [facility] Comment:Desirable LDL: less than 100 mg/dLNear Optimal/Above Optimal LDL: 110- 129 mg/dLBorderline High LDL: 130-159 mg/dLHigh LDL: 160-189 mg/dLVery High LDL: greater than or equal to 190 mg/dL HDL Cholesterol 37(L) >40 mg/dL [facility] Comment:Desirable HDL: great er than 40 mg/dL Note: This HDL assay may give artificially low results in patients with liver disease. Blood Venous blood specimen / Unknown 02/17/2024 9:50 AM EST 02/17/2024 2:57 PM EST Ramon Aguillon MD LAB BLOOD ORDERABL ES Final Result Performing Organization Address City/[facility]/ZIP Co de Phone Number [facility] [address] [place] [phone] * Diabetes Eye Exam (10/29/2023 2:05 PM EDT) Historical Provider HEALTH MAINTENANCE Final Result * Hepatitis C Antibody with Reflex to HCV, RNA, Quantitative, Real-Time PCR (07/30/2022 9:48 AM EDT) Pathologist [facility] Hepatitis C Antibody NON-REACT TITI NON-REACT TITI [place] [employer] Index 0.17 <1.00 [place] [employer] Comment: HCV antibody was non-reactive. There is no laboratory evidence of HCV infection. In most cases, no further action is required. However, if recent HCV exposure is suspected, a test for HCV RNA (test code 17015) is suggested. For additional information please refer to http://education.[employer]/faq/WMN20o8 (This link is being provided for informational/ educational purposes only.) Blood Venous blood specimen / Unknown 07/30/2022 9:48 AM EDT 07/30/2022 9:48 AM EDT Narrative [facility] - 07/31/2022 5:32 AM EDT FASTING:YES FASTING: YES Ramon Aguillon MD LAB BLOOD ORDERABL ES Final Result [facility] [address], [place] [address] [place] [employer] [address] [place] [phone] * ALBUMIN, RANDOM URINE W/CREATININE (04/23/2021 8:43 AM EST) [facility] Microalbumin Urine 1.5 See Note: mg/dL [facility] Comment: Reference Range: ?? Reference [...] Creatinine, Urine 116 20 - 275 mg/dL [facility] 04/23/2021 8:43 AM EST Ramon Aguillon MD LAB URINE ORDERABL ES Final Result [facility] [address] * Colonoscopy (12/09/2017) Colonoscopy Normal Normal Narrative Niki Orozco - 12/09/2017 Repeat in 5 years Historical Provider HEALTH MAINTENANCE Final Result from Last 3 Months or Most Recently Relevant to Health Maintenance Insurance [facility] LONGTERM OPTIONS (O D-SNP) [facility] STANDARD Care Teams Service Establishment Attendant Relationship Specialty Start Date End Date Steffany Augustin MD [address] [place] [phone] PCP - General Internal Medicine 12/03/23 Demi Menendez, PharmD [address] [place] [phone] Pharmacist Internal Medicine 04/16/24
--- OUTSIDE RECORDS SUMMARY | 2024-06-09 10:58 | XMS_ITS | Encounter Summary ---
Author Organization [employer] Address 75 [facility] 7t [place] [address] Care Team Providers Care Dry End Tester Name Role Phone Ramon Marcos MD Primary Care Prov ider Steffany Augustin MD Primary Care Provider [phone] Demi Menendez PharmD Unavailable [phone] Reason for Visit * Reason Onset Date Comments pre-op 01/28/2023 Encounter Details Date Type Department Care Team ([facility] st Contact Info) Description 01/28/2023 Telephone [facility] [address] [place], [place] [phone] Ramon Marcos MD [address] [place], [place] [phone] pre-op Social History Tobacco Use Types Packs/Day [...] Montoya Facility name: [facility], [address] [place] [address] Dr Davison [address] Surgeon's office number: [phone] Surgeon's office fax number: [phone] Contact name (person you spoke with): geoff documented in this encounter Plan of Treatment Upcoming Encounters Date Type Department Care Team ([facility] st Contact Info) Description 06/22/2024 11:30 AM EDT Office Visit [facility] [address] [place], [place] [phone] Steffany Augustin MD [address] [place], [place] [phone] 07/19/2024 9:00 AM EDT Medication Management [facility] [address] [place] [address] Demi Menendez PharmD [address] [place] [address] documented as of this encounter Visit Diagnoses Not on filedocumented in this encounter Additional Health Concerns Assessment Noted Time PHQ-9 Depression Total Score: 2 05/18/19 23 9:10 AM EDT documented as of this encounter Care Teams Dry End Tester Relationship Specialty Start Date End Date Ramon Marcos MD [address] [place] [address] PCP - General Internal Medicine 12/22/18 12/02/23 Steffany Augustin MD [address] [place] [address] PCP - General Internal Medicine 12/03/23 Demi Menendez PharmD [address] [place] [address] Pharmacist Internal Medicine 04/16/24 documented as of this encounter
--- OUTSIDE RECORDS SUMMARY | 2024-06-09 10:58 | XMS_ITS | Encounter Summary ---
Author Organization [employer] Address [address] [facility] [address] [place] [address] Care Team Providers Care Metal Trimmer Name Role Phone Ramon Marcos MD Primary Care Prov ider Steffany Augustin MD Primary Care Provider [phone]- [phone] Demi Menendez PharmD Unavailable [phone] Encounter Details Date Type Department Care Team (Late st Contact Info) Description 01/07/2023 Abstract [facility] [address] [place] [address] Niki Orozco Social History Tobacco Use Types [...] Description 06/22/2024 11:30 AM EDT Office Visit [facility] [address] [place], [place] [phone] Steffany Augustin MD [address] [place], [place] [phone] 07/19/2024 9:00 AM EDT Medication Management [facility] [address] [place], [place] [phone] Demi Menendez, PharmD [address] [place], [place] [phone] documented as of this encounter Procedures Procedure [...] documented as of this encounter Care Teams Metal Trimmer Relationship Specialty Start Date End Date Ramon Marcos MD [address] [place] [address] PCP - General Internal Medicine 12/22/18 12/02/23 Steffany Augustin MD [address] [place] [address] PCP - General Internal Medicine 12/03/23 Demi Menendez, Padma 230 [facility] [place] [address] Pharmacist Internal Medicine 04/16/24 documented as of this encounter
--- OUTSIDE RECORDS SUMMARY | 2024-06-09 10:58 | XMS_ITS | Encounter Summary ---
Author Organization [employer] Address [address] [facility] 7t [place] [address] Care Team Providers Care Purchase Price Analyst Name Role Phone Ramon Marcos MD Primary Care Prov ider Steffany Augustin MD Primary Care Provider [phone] Demi Menendez PharmD Unavailable [phone] Encounter Details Date Type Department Care Team (Late st Contact Info) Description 02/28/2022 Orders Only [facility] [address] [place] [address] Yeimi Madrid LPN Social History Tobacco Use [...] 11:30 AM EDT Office Visit [facility] [address] [place] [address] Steffany Augustin MD [address] [place] [address] 07/19/2024 9:00 AM EDT Medication Management [facility] [address] [place] [address] Demi Menendez, PharmD [address] [place] [address] documented as of this encounter Visit Diagnoses Not on filedocumented in this encounter Care Teams Purchase Price Analyst Relationship Specialty Start Date End Date Ramon Marcos MD [address] [place] [address] PCP - General Internal Medicine 12/22/18 12/02/23 Steffany Augustin MD [address] [place] [address] PCP - General Internal Medicine 12/03/23 Demi Menendez PharmD [address] [place] [phone] Pharmacist Internal Medicine 04/16/24 documented as of this encounter
--- OUTSIDE RECORDS SUMMARY | 2024-06-09 10:58 | XMS_ITS | Encounter Summary ---
Author Organization [employer] Address [address] [facility] 7[address] [place] [address] Care Team Providers Care Scratcher Tender Name Role Phone Ramon Marcos MD Primary Care Prov ider Steffany Augustin MD Primary Care Provider [phone] Demi Menendez PharmD Unavailable [phone] Reason for Visit * Reason Onset Date Comments Pa form 02/28/2022 Encounter Details Date Type Department Care Team ([facility] st Contact Info) Description 02/28/2022 Telephone [facility] [address] [place], [place] [phone] Ramon Marcos MD [address] [place], [place] [phone] Pa form Social History Tobacco Use Types [...] Description 06/22/2024 11:30 AM EDT Office Visit [facility] MED [facility] PEDS 505 [place] [address] Steffany Augustin MD 505 [place] [address] 07/19/2024 9:00 AM EDT Medication Management [facility] MED & PEDS [address] [place] [address] Demi Menendez PharmDarrin [address] [place] [address] documented as of this encounter Visit Diagnoses Not on filedocumented in this encounter Care Teams Scratcher Tender Relationship Specialty Start Date End Date Ramon Marcos MD [address] [place] [address] PCP - General Internal Medicine 12/22/18 12/02/23 Steffany Augustin MD [address] [place] [address] PCP - General Internal Medicine 12/03/23 Demi Menendez PharmD [address] [place] [address] Pharmacist Internal Medicine 04/16/24 documented as of this encounter
--- OUTSIDE RECORDS SUMMARY | 2024-06-09 10:58 | XMS_ITS | Encounter Summary ---
Author Organization [employer] Address [address] [facility] 7t [place] [address] Care Team Providers Care Forex Trader Name Role Phone Ramon Marcos MD Primary Care Prov ider Steffany Augustin MD Primary Care Provider [phone] Demi Menendez PharmD Unavailable [phone] Reason for Visit * Reason Onset Date Comments Pre-op 02/07/2023 Encounter Details Date Type Department Care Team ([facility] st Contact Info) Description 02/07/2023 Telephone [facility] MED [facility] PEDS 505 [place], [place] [phone] Ramon Marcos MD 505 [place], [place] [phone] Pre-op Social History Tobacco Use Types Packs/Day [...] reach out to Dr. Montoya's office in [place] to confirm details for pre-op. TC placed to [phone] Montoya's office. Extension 3 and then choice 1. No answer. LM with Dr. Montoya's surgical team to call us back at [facility] about a patient's pre-op appointment for cataract surgery. Routing back to [facility] nurses to try again. Tc from pt requesting to r/s Pre op appt for 02/07/2023 @ 2:00 pm .. Please contact pt @ [phone] * Telephone Encounter - Vahe Vasquez - 02/07/2023 12:22 PM EST Tc from pt requesting to r/s Pre op appt for 02/07/2023 @ 2:00 pm .. Please contact pt @ [phone] documented in this encounter Plan of Treatment Upcoming Encounters Date Type Department Care Team (Late st Contact Info) Description 06/22/2024 11:30 AM EDT Office Visit [facility] & PEDS 505 [place] [address] Steffany Augustin MD [address] [place] [address] 07/19/2024 9:00 AM EDT Medication Management [facility] PED[facility] 505 [place] [address] Demi Menendez PharmD 230 [place] [address] documented as of this encounter Visit Diagnoses Not on filedocumented in this encounter Additional Health Concerns Assessment Noted Time PHQ-9 Depression Total Score: 2 05/18/19 23 9:10 AM EDT documented as of this encounter Care Teams Forex Trader Relationship Specialty Start Date End Date Ramon Marcos MD [address] [place] [address] PCP - General Internal Medicine 12/22/18 12/02/23 Steffany Augustin MD [address] [place] [address] PCP - General Internal Medicine 12/03/23 Demi Menendez PharmD 230 [place] [address] Pharmacist Internal Medicine 04/16/24 documented as of this encounter
--- OUTSIDE RECORDS SUMMARY | 2024-06-09 10:58 | XMS_ITS | Encounter Summary ---
Author Organization [employer] Address [address] [facility] 7t [place] [address] Care Team Providers Care Control Systems Developer Name Role Phone Steffany Augustin MD Primary Care Provider [phone] Demi Menendez PharmD Unavailable [phone] Encounter Details Date Type Department Care Team (Late st Contact Info) Description 01/08/2024 Orders Only [facility]EDS [address] [place] [address] Provider, MD Darian Social History Tobacco Use [...] 06/22/2024 11:30 AM EDT Office Visit [facility] MED & PEDS 505 [place] [address] Steffany Augustin MD 505 [place] [address] 07/19/2024 9:00 AM EDT Medication Management [facility] [address] [place] [address] Demi Menendez, PharmD 230 [place], [place] [phone] documented as of this encounter Procedures Procedure [...] documented as of this encounter Care Teams Control Systems Developer Relationship Specialty Start Date End Date Steffany Augustin MD 505 [place] [address] PCP - General Internal Medicine 12/03/23 Demi Menendez, Padma [address] [place] [address] Pharmacist Internal Medicine 04/16/24 documented as of this encounter
--- OUTSIDE RECORDS SUMMARY | 2024-06-09 10:58 | XMS_ITS | Encounter Summary ---
Author Organization [employer] Address [address] [place] [address] 7t [place] [address] Care Team Providers Care Carriage Feeder Name Role Phone Ramon Marcos MD Primary Care Prov ider Steffany Augustin MD Primary Care Provider Demi Menendez PharmD Unavailable [phone] Encounter Details Date Type Department Care Team (Late Contact Info) Description 02/22/2022 Orders Only [facility] MEDICINE [address] [place], [place] [phone] Ramon Marcos MD 505 [place], [place] [phone] Chronic bilateral low back pain with bilateral [...] Encounters Date Type Department Care Team (Late Contact Info) Description 06/22/2024 11:30 AM EDT Office Visit [facility] MED & PEDS 505 [place], [place] [phone] Steffany Augustin MD 505 [place] [address] 07/19/2024 9:00 AM EDT Medication Management [facility] MED & PEDS 505 [place] [address] Demi Menendez PharmD 230 [place] [address] documented as of this encounter Visit Diagnoses Diagnosis Chronic bilateral low back pain with bilateral sciatica- Primary documented in this encounter Care Teams Carriage Feeder Relationship Specialty Start Date End Date Ramon Marcos MD 505 [place] [address] PCP - General Internal Medicine 12/22/18 12/02/23 Steffany Augustin MD [address] [place] [address] PCP - General Internal Medicine 12/03/23 Demi Menendez PharmD [address] [place] [address] Pharmacist Internal Medicine 04/16/24 documented as of this encounter
--- OUTSIDE RECORDS SUMMARY | 2024-06-09 10:59 | XMS_ITS | Encounter Summary ---
Author Organization [facility] Address [address] [place] [address] Care Team Providers Care Welding Tester Name Role Phone Steffany Augustin MD Primary Care Provider [phone] Reason for Referral * Imaging (Routine) - Pending Review Specialty Diagnoses / Procedures Referred By Bean bragg Referred To Contact Cardiology Diagnoses Atrial fibrillation, unspecified type (CMS/HCC V24, CMS/HCC V28) Procedures Transthoracic echocardiogram (TTE) complete with PRN contrast, bubble, strain, and 3D order panel MA TTE W 2D IMAGE COMPLETE W DOPPLER ECHO & COLOR FLOW DOPPLER ECHO MA ZULAY 2D COMPLETE W/CONTRAST OR W & WO CONTRAST WITH DOPPLER Azam Enriquez NP [address] [place] [address] Phone: tel: fax: [facility] Referral ID Status Reason Start Date Expiration Date V isits Requested Visits Authorized [id number] Pending Review 06/04/2024 06/04/2025 1 1 Reason for Visit * Reason Comments Follow-up Encounter Details Date Type Department Care Team (Late st Contact Info) Description 06/04/2024 8:40 AM EDT Office Visit [facility] [address] [facility] [address] [place] [id number] Azam Enriquez NP [address] [place], [place] [phone] Atrial fibrillation, unspecified type (CMS/HCC V24, CMS/HCC V28) (Primary Dx); Hypertension, unspecified type; Hyperlipidemia, unspecified hyperlipidemia type; Lower extremity edema Social History Tobacco Use Types Packs/Day Years [...] on file documented as of this encounter Last Filed [...] Mass Index 36.03 06/04/2024 8:47 AM EDT documented in this encounter Ordered Prescriptions Prescription Sig Dispense Quantity Refills Last Filled Start Date End Date spironolactone (ALDACTONE) 25 mg tablet Take 1 tablet (25 mg total) by mouth 1 (one) time each day. 30 each 1 06/04/2024 06/04/2025 documented in this encounter Progress Notes * Azam Enriquez NP - 06/04/2024 8:40 AM EDTAssociated Problem(s): Atrial fibrillation (CMS/HCC V24, CMS/HCC V28) Denies any abnormal bleeding on the Xarelto. [...] bubble, strain, and 3D order panel; Future * Azam Enriquez NP - 06/04/2024 8:40 AM EDTAssociated Problem(s): Hypertension I will be adding in spironolactone 25 mg p.o. daily. Would like patient to check blood pressure measurements at home. Orders: Basic metabolic panel; Future * Azam Enriquez NP - 06/04/2024 8:40 AM EDTAssociated Problem(s): Hyperlipidemia Patient is currently utilizing high dose of atorvastatin. Would like to check lipid panel. documented in this encounter Plan of Treatment Upcoming Encounters Date Type Department Care Team (Late st Contact Info) Description 08/30/2024 8:00 AM EDT Ancillary Procedure [facility] - [place] [place] [address] [place] [address] Scheduled Orders Name Type Priority Associated Diagnoses Order Schedule Transthoracic echocardiogram (TTE) complete with PRN contrast, bubble, strain, and 3D order panel Echocardiography Routine Atrial fibrillation, unspecified type (CMS/HCC V24, CMS/HCC V28) 1 Occurrences starting 06/04/2024 until 06/04/2025 Basic metabolic panel Lab Routine Hypertension, unspecified type 1 Occurrences starting 06/04/2024 until 06/04/2025 documented as of this encounter Procedures Procedure Name Priority Date/Time Associated Diagnosis Comments ECG 12-LEAD Routine 06/04/2024 9:05 AM EDT Atrial fibrillation, unspecified type (CMS/HCC V24, CMS/HCC V28) documented in this encounter Results * ECG 12 lead (06/04/2024 9:05 AM EDT) 06/04/2024 9:01 AM EDT Azam Enriquez UI UX WEB DEVELOPER ECG ORDERABLES Final Result GEMUSE documented in this encounter Visit Diagnoses Diagnosis Atrial fibrillation, unspecified type (CMS/[facility] V24, CMS/[facility] V28)- Primary Hypertension, unspecified type Hyperlipidemia, unspecified hyperlipidemia type Lower extremity edema Edema documented in this encounter Discontinued Medications Medication Sig Discontinue Reason Start Date End Da te amoxicillin (AMOXIL) 500 mg capsule Take 500 mg by mouth as needed. Prior to dental 06/04/2024 empagliflozin (Jardiance) 25 mg tablet Take 1 tablet (25 mg total) by mouth 1 (one) time each day in the morning. 06/04/2024 loratadine (CLARITIN) 10 mg tablet Take 1 Tab by mouth daily. 06/04/2024 omeprazole (PriLOSEC) [address] capsule Take 20 mg by mouth daily. 06/04/2024 documented as of this encounter Care Teams Welding Tester Relationship Specialty Start Date End Date Steffany Augustin MD [address] [place] [address] PCP - General Internal Medicine 06/02/24 documented as of this encounter
--- OUTSIDE RECORDS SUMMARY | 2024-06-09 10:59 | XMS_ITS | Encounter Summary ---
Author Organization [employer] Address [address] [facility] 7 [place] [address] Care Team Providers Care Classroom Assistant Name Role Phone Steffany Augustin MD Primary Care Provider [phone] Demi Menendez PharmD Unavailable [phone] Reason for Visit * Reason Comments Med Refill Encounter Details Date Type Department Care Team ([facility] st Contact Info) Description 06/08/[address] [facility] MED & PEDS [address] [place], [place] [phone] Steffany Augustin MD 505 [place] [address] Mixed hyperlipidemia; Type 2 diabetes mellitus with diabetic peripheral angiopathy without gangrene, with long-term current use of insulin ([facility]) Social History Tobacco Use Types Packs/Day Years [...] Description 06/22/2024 11:30 AM EDT Office Visit [facility] MED & PEDS [address] [place] [address] Steffany Augustin MD 505 [place] [address] 07/19/2024 9:00 AM EDT Medication Management [facility] MED & PEDS 505 [place] [address] Demi Menendez, PharmD [address] [place], [place] [phone] documented as of this encounter Visit Diagnoses Diagnosis Mixed hyperlipidemia Type 2 diabetes mellitus with diabetic peripheral angiopathy without gangrene, with long-term current use of insulin ([facility]) documented in this encounter Additional Health Concerns Assessment Noted Time PHQ-9 Depression Total Score: 0 03/16/19 25 3:27 PM EST documented as of this encounter Care Teams Classroom Assistant Relationship Specialty Start Date End Date Steffany Augustin MD 505 [place] [address] PCP - General Internal Medicine 12/03/23 Demi Menendez, Padma [address] [place] [address] Pharmacist Internal Medicine 04/16/24 documented as of this encounter
--- OUTSIDE RECORDS SUMMARY | 2024-06-09 10:59 | XMS_ITS | Encounter Summary ---
Author Organization [employer] Address [address] [facility] [address] 7t [place] [address] Care Team Providers Care Nursing Program Chair Name Role Phone Steffany Augustin MD Primary Care Provider [phone] Demi Menendez PharmD Unavailable [phone] Encounter Details Date Type Department Care Team (Latest Contact Info) Description 06/09/2024 Travel Social History Tobacco Use Types Packs/Day [...] Description 06/22/2024 11:30 AM EDT Office Visit [facility] MED & PEDS 505 [place] [address] Steffany Augustin MD 505 [place] [address] 07/19/2024 9:00 AM EDT Medication Management [facility] MED & PEDS 505 [place] [address] Demi Menendez, PharmD [address] [place] [address] documented as of this encounter Visit Diagnoses Not on filedocumented in this encounter Additional Health Concerns Assessment Noted Time PHQ-9 Depression Total Score: 0 03/16/19 25 3:27 PM EST documented as of this encounter Care Teams Nursing Program Chair Relationship Specialty Start Date End Date Steffany Augustin MD 505 [place] [address] PCP - General Internal Medicine 12/03/23 Demi Menendez, PharmD [address] [place] [address] Pharmacist Internal Medicine 04/16/24 documented as of this encounter
--- OUTSIDE RECORDS SUMMARY | 2024-06-09 10:59 | XMS_ITS | Encounter Summary ---
Author Organization [employer] Address [address] [address] Care Team Providers Care Development Mgr Name Role Phone Steffany Augustin MD Primary Care Provider [phone] Demi Menendez PharmD Unavailable [phone] Reason for Referral * Consultation (Routine) - Pending Review Specialty Diagnoses / Procedures Referred By Bean bragg Referred To Contact Rheumatology Diagnoses Chronic pain of multiple joints Steffany Augustin MD 505 [place] [address] Phone: tel: fax: [facility] [address] [place] [address] Phone: tel: fax: Referral ID Status Reason Start Date Expiration Date Visits Requested Visits Authorized [id number] Pending Review Specialty Services Required 04/30/2024 04/30/2025 1 1 Encounter Details Date Type Department Care Team (Late st Contact Info) Description 04/16/2024 Orders Only [facility] MEDICINE [address] [place] [address] Steffany Augustin MD 505 [place] [address] Iron deficiency anemia secondary to inadequate dietary iron intake (Primary Dx); Chronic pain of multiple joints Social History Tobacco Use Types Packs/Day Years [...] 06/22/2024 11:30 AM EDT Office Visit [facility] MED & PEDS 505 [place] [address] Steffany Augustin MD 505 [place] [address] 07/19/2024 9:00 AM EDT Medication Management [facility] MED & PEDS [address] [place] [address] Demi Menendez, PharmD 230 [place] [address] Scheduled Referrals Name Type Priority Associated Diagnoses Order Schedule Referral to Rheumatology Outpatient Referral Routine Chronic pain of multiple joints Expected: 04/30/2024 (Approximate), Expires: 04/30/2025 documented as of this encounter Visit Diagnoses Diagnosis Iron deficiency anemia secondary to inadequate dietary iron intake- Primary Chronic pain of multiple joints documented in this encounter Additional Health Concerns Assessment Noted Time PHQ-9 Depression Total Score: 0 03/16/19 25 3:27 PM EST documented as of this encounter Care Teams Development Mgr Relationship Specialty Start Date End Date Steffany Augustin MD [address] [place] [address] PCP - General Internal Medicine 12/03/23 Demi Menendez PharmD [address] [place] [address] Pharmacist Internal Medicine 04/16/24 documented as of this encounter
--- OUTSIDE RECORDS SUMMARY | 2024-06-09 10:59 | XMS_ITS | Encounter Summary ---
Author Organization [employer] Address [address] [facility] 7t [place] [address] Care Team Providers Care Sewing Machine Mechanic Name Role Phone Steffany Augustin MD Primary Care Provider [phone] Demi Menendez PharmD Unavailable Encounter Details Date Type Department Care Team (Late st Contact Info) Description 03/02/2024 Orders Only [facility] MEDICINE [address] [place] [address] ProviderDarian MD Social History Tobacco Use Types [...] 11:30 AM EDT Office Visit [facility] MED & PEDS [address] [place] [address] Steffany Augustin MD 505 [place] [address] 07/19/2024 9:00 AM EDT Medication Management [facility] MED & PEDS [address] [place] [address] Demi Menendez PharmD [address] [place] [address] documented as of this encounter Procedures Procedure [...] documented as of this encounter Care Teams Sewing Machine Mechanic Relationship Specialty Start Date End Date Steffany Augustin MD 505 [place] [address] PCP - General Internal Medicine 12/03/23 Demi Menendez PharmD [address] [place] [address] Pharmacist Internal Medicine 04/16/24 documented as of this encounter
[2024-06-09 14:23] LABS: Anion Gap 12 (12-20); Blood Urea Nitrogen 25 mg/dL (9-16); Calcium 10.3 mg/dL (8.4-10.2); Carbon Dioxide 24 mmol/L (22-29); Chloride 108 mmol/L (96-108); Estimated Glomerular Filt Rate 42; Glucose Random 156 mg/dL (60-115); Potassium 4.4 mmol/L (3.3-5.1); Sodium 140 mmol/L (135-145)
== END 2024-06-09 09:44 | disposition home or self-care (01) ==
LOC: HO.CHCLDS 09:43
PROVIDERS: Visit Provider Internal Medicine
DX: I10 Essential (primary) hypertension (principal)
CPT/HCPCS: 36415; 80048

== ENCOUNTER 2024-06-16 08:59 | Outpatient (REF) | payer OTHER, SELFPAY ==
--- OUTSIDE RECORDS SUMMARY | 2024-06-16 09:25 | XMS_ITS | Encounter Summary ---
Author Organization [facility] Address [address] [place] [address] Care Team Providers Care Pantograph Machine Operator Name Role Phone Uli Rueda MD Primary Care Provider Un available Ramon Marcos MD Primary Care Prov ider Unavailable Alia Gagnon MD Unavailable [phone] [place] Unavailable Encounter Details Date Type Department Care Team Description 04/24/2020 [facility] Medical Records [address] [place] [address] Social History Tobacco Use Types Packs/Day Years [...] on filedocumented in this encounter Care Teams Pantograph Machine Operator Relationship Specialty Start Date End Date Uli Rueda MD PCP - General Internal Medicine 07/13/15 Ramon Marcos MD PCP - General Internal Medicine 06/16/20 Alia Gagnon MD Specialist Cardiology 07/06/20 Ridge Oakley PA Specialist Cardiology 07/06/20 documented as of this encounter
--- OUTSIDE RECORDS SUMMARY | 2024-06-16 09:25 | XMS_ITS | Encounter Summary ---
Author Organization [employer] Address 75 [facility] 7t [place] [address] Care Team Providers Care Seo Specialist Name Role Phone Ramon Marcos MD Primary Care Prov ider Steffany Augustin MD Primary Care Provider [phone] Demi Menendez PharmD Unavailable [phone] Encounter Details Date Type Department Care Team (Late Contact Info) Description 02/22/2022 Orders Only [facility] MEDICINE 230 [place], [place] [phone] Ramon Marcos MD 505 [place], [place] [phone] Chronic bilateral low back pain with bilateral [...] Description 06/22/2024 11:30 AM EDT Office Visit [facility] MED & PEDS 505 [place], [place] [phone] Steffany Augustin MD 505 [place] [address] 07/19/2024 9:00 AM EDT Medication Management [facility] MED & PEDS [address] [place] [address] Demi Menendez PharmD 230 [place] [address] documented as of this encounter Visit Diagnoses Diagnosis Chronic bilateral low back pain with bilateral sciatica- Primary documented in this encounter Care Teams Seo Specialist Relationship Specialty Start Date End Date Ramon Marcos MD [address] [place] [address] PCP - General Internal Medicine 12/22/18 12/02/23 Steffany Augustin MD [address] [place] [address] PCP - General Internal Medicine 12/03/23 Demi Menendez PharmD 230 [place] [address] Pharmacist Internal Medicine 04/16/24 documented as of this encounter
--- OUTSIDE RECORDS SUMMARY | 2024-06-16 09:25 | XMS_ITS | Encounter Summary ---
Author Organization [facility] Address [address] [place] [address] Care Team Providers Care Mining Support Worker Name Role Phone Uli Rueda MD Primary Care Provider Un available Ramon Marcos MD Primary Care Prov ider Unavailable Alia Gagnon MD Unavailable [phone] [place] Unavailable Encounter Details Date Type Department Care Team Description 03/28/2019 [facility] Medical Records [address] [place] [address] Social History Tobacco Use Types Packs/Day Years [...] on filedocumented in this encounter Care Teams Mining Support Worker Relationship Specialty Start Date End Date Uli Rueda MD PCP - General Internal Medicine 07/13/15 Ramon Marcos MD PCP - General Internal Medicine 06/16/20 Alia Gagnon MD Specialist Cardiology 07/06/20 Ridge Oakley PA Specialist Cardiology 07/06/20 documented as of this encounter
--- OUTSIDE RECORDS SUMMARY | 2024-06-16 09:25 | XMS_ITS | Encounter Summary ---
Author Organization [employer] Address [address] [place] [address] 7t [place] [address] Care Team Providers Care Bow Maker Custom Name Role Phone Ramon Marcos MD Primary Care Prov ider Steffany Augustin MD Primary Care Provider [phone] Demi Menendez PharmD Unavailable [phone] Reason for Visit * Reason Comments Med Refill Encounter Details Date Type Department Care Team (Late Contact Info) Description 11/17/2022 Refill [facility] MED & PEDS [address] [place], [place] [phone] Ramon Marcos MD [address] [place], [place] [phone] Social History Tobacco Use Types Packs/Day Years [...] Description 06/22/2024 11:30 AM EDT Office Visit [facility] MED & PEDS [address] [place], [place] [phone] Steffany Augustin MD [address] [place], [place] [phone] 07/19/2024 9:00 AM EDT Medication Management [facility] MED & PEDS [address] [place] [address] Demi Menendez PharmD [address] [place] [address] documented as of this encounter Visit Diagnoses Not on filedocumented in this encounter Additional Health Concerns Assessment Noted Time PHQ-9 Depression Total Score: 2 05/18/19 23 9:10 AM EDT documented as of this encounter Care Teams Bow Maker Custom Relationship Specialty Start Date End Date Ramon Marcos MD [address] [place] [address] PCP - General Internal Medicine 12/22/18 12/02/23 Setffany Augustin MD [address] [place] [address] PCP - General Internal Medicine 12/03/23 Demi Menendez PharmD [address] [place] [address] Pharmacist Internal Medicine 04/16/24 documented as of this encounter
--- OUTSIDE RECORDS SUMMARY | 2024-06-16 09:25 | XMS_ITS | Encounter Summary ---
Author Organization [facility] Address [address] [place] [address] Care Team Providers Care Health Records Technology Teacher Name Role Phone Uli Rueda MD Primary Care Provider Un available Ramon Marcos MD Primary Care Prov ider Unavailable Alia Gagnon MD Unavailable [phone] Ridge Oakley Unavailable Encounter Details Date Type Department Care Team Description 03/23/2019 Harvester Operator Report Medical Records [address] [place] [id number] [place] [address] [place] [address] Social History Tobacco Use Types Packs/Day Years [...] on filedocumented in this encounter Care Teams Health Records Technology Teacher Relationship Specialty Start Date End Date Uli Rueda MD PCP - General Internal Medicine 07/13/15 Ramon Marcos MD PCP - General Internal Medicine 06/16/20 Alia Gagnon MD Specialist Cardiology 07/06/20 Ridge Oakley PA Specialist Cardiology 07/06/20 documented as of this encounter
--- OUTSIDE RECORDS SUMMARY | 2024-06-16 09:25 | XMS_ITS | Encounter Summary ---
Author Organization [facility] Address [address] [place] [address] Care Team Providers Care Correctional Case Records Supervisor Name Role Phone Uli Rueda MD Primary Care Provider Un available Ramon Marcos MD Primary Care Prov ider Unavailable Alia Gagnon MD Unavailable [phone] Ridge Oakley Unavailable Encounter Details Date Type Department Care Team Description 03/29/2019 [facility] Medical Records [address] [place] [address] Nora Alford MD Social History Tobacco Use [...] on filedocumented in this encounter Care Teams Correctional Case Records Supervisor Relationship Specialty Start Date End Date Uli Rueda MD PCP - General Internal Medicine 07/13/15 Ramon Marcos MD PCP - General Internal Medicine 06/16/20 Alia Gagnon MD Specialist Cardiology 07/06/20 Ridge Oakley PA Specialist Cardiology 07/06/20 documented as of this encounter
--- OUTSIDE RECORDS SUMMARY | 2024-06-16 09:25 | XMS_ITS | Encounter Summary ---
Author Organization [facility] Address [address] [place] [address] Care Team Providers Care Mophead Trimmer And Wrapper Name Role Phone Uli Rueda MD Primary Care Provider Un available Ramon Marcos MD Primary Care Prov ider Unavailable Alia Gagnon MD Unavailable [phone] Ridge Oakley Unavailable Encounter Details Date Type Department Care Team Description 03/29/2019 SCAN Medical Records [address] [place] [id number] Ti Szymanski MD Social History Tobacco Use Types Packs/Day [...] Name Priority Date/Time Associated Diagnosis Comments OUTSIDE NUCLEAR STRESS TEST Routine 03/29/2019 documented in this encounter Results * OUTSIDE NUCLEAR STRESS TEST (03/29/2019) Provider Default CARDIOLOGY documented in this encounter Visit Diagnoses Not on filedocumented in this encounter Care Teams Mophead Trimmer And Wrapper Relationship Specialty Start Date End Date Uli Rueda MD PCP - General Internal Medicine 07/13/15 Ramon Marcos MD PCP - General Internal Medicine 06/16/20 Alia Gagnon MD Specialist Cardiology 07/06/20 Ridge Oakley PA Specialist Cardiology 07/06/20 documented as of this encounter
--- OUTSIDE RECORDS SUMMARY | 2024-06-16 09:25 | XMS_ITS | Encounter Summary ---
Author Organization [employer] Address [address] [facility] 7t [place] [address] Care Team Providers Care Psychologist Industrial Organizational Name Role Phone Steffany Augustin MD Primary Care Provider [phone] Demi Menendez PharmD Unavailable [phone] Encounter Details Date Type Department Care Team (Late st Contact Info) Description 01/08/2024 Orders Only [facility]S [address] [place] [address] Provider, MD Darian Social History Tobacco Use [...] 11:30 AM EDT Office Visit [facility] MED & PEDS [address] [place] [address] Steffany Augustin MD [address] [place] [address] 07/19/2024 9:00 AM EDT Medication Management [facility] [address] [place] [address] Demi Menendez, PharmD [address] [place], [place] [phone] documented as of this encounter Procedures Procedure [...] documented as of this encounter Care Teams Psychologist Industrial Organizational Relationship Specialty Start Date End Date Steffany Augustin MD [address] [place] [address] PCP - General Internal Medicine 12/03/23 Demi Menendez, Padma [address] [place] [address] Pharmacist Internal Medicine 04/16/24 documented as of this encounter
--- OUTSIDE RECORDS SUMMARY | 2024-06-16 09:25 | XMS_ITS | Encounter Summary ---
Author Organization [employer] Address [address] [facility] 7t [place] [address] Care Team Providers Care Lead Pl Sql Developer Name Role Phone Ramon Marcos MD Primary Care Prov ider Steffany Augustin MD Primary Care Provider [phone] Demi Menendez PharmD Unavailable [phone] Encounter Details Date Type Department Care Team (Late st Contact Info) Description 02/28/2022 Orders Only [facility] MED & PEDS [address] [place] [address] Yeimi Madrid LPN Social History Tobacco Use [...] 11:30 AM EDT Office Visit [facility] MED & PEDS [address] [place] [address] Steffany Augustin MD [address] [place] [address] 07/19/2024 9:00 AM EDT Medication Management [facility] MED & PEDS [address] [place] [address] Demi Menendez, PharmD [address] [place] [address] documented as of this encounter Visit Diagnoses Not on filedocumented in this encounter Care Teams Lead Pl Sql Developer Relationship Specialty Start Date End Date Ramon Marcos MD [address] [place] [address] PCP - General Internal Medicine 12/22/18 12/02/23 Steffany Augsutin MD [address] [place] [address] PCP - General Internal Medicine 12/03/23 Demi Menendez PharmD [address] [place] [phone] Pharmacist Internal Medicine 04/16/24 documented as of this encounter
--- OUTSIDE RECORDS SUMMARY | 2024-06-16 09:25 | XMS_ITS | Encounter Summary ---
Author Organization [employer] Address [address] [facility] 7t [place] [address] Care Team Providers Care Senior Naval Parachutist Name Role Phone Ramon Marcos MD Primary Care Prov ider Steffany Augustin MD Primary Care Provider [phone] Demi Menendez PharmD Unavailable [phone] Reason for Visit * Reason Onset Date Comments Pa form 02/28/2022 Encounter Details Date Type Department Care Team ([facility] st Contact Info) Description 02/28/[address] [facility] MED & PEDS [address] [place], [place] [phone] Ramon Marcos MD [address] [place], [place] [phone] Pa form Social History Tobacco Use Types [...] Description 06/22/2024 11:30 AM EDT Office Visit [facility] MED & PEDS [address] [place] [address] Steffany Augustin MD [address] [place] [address] 07/19/2024 9:00 AM EDT Medication Management [facility] MED & PED[facility] [address] [place] [address] Demi Menendez PharmDarrin [address] [place] [address] documented as of this encounter Visit Diagnoses Not on filedocumented in this encounter Care Teams Senior Naval Parachutist Relationship Specialty Start Date End Date Ramon Marcos MD [address] [place] [address] PCP - General Internal Medicine 12/22/18 12/02/23 Steffany Augustin MD [address] [place] [address] PCP - General Internal Medicine 12/03/23 Demi Menendez PharmD [address] [place] [address] Pharmacist Internal Medicine 04/16/24 documented as of this encounter
--- OUTSIDE RECORDS SUMMARY | 2024-06-16 09:25 | XMS_ITS | Clinical Summary ---
Author Organization [employer] Address [address] [facility] 7t [place] [address] Care Team Providers Care Sawmill Manager Name Role Phone Steffany Augustin MD Primary Care Provider [phone] Demi Menendez PharmD Unavailable [phone] Allergies Active Allergy Reactions Criticality Noted Date [...] morning. 90 tablet 3 024 2024 Active dilTIAZem CD (Cardizem CD) 300 MG 24 hr capsuleIndicatio ns:Primary hypertension,Sukhwinder gstanding persistent atrial fibrillation (CMS/HCC) Take 1 capsule (300 mg) by mouth in the morning. 90 capsule 1 Active gabapentin (Neurontin) 300 MG capsuleIndicatio ns:Diabetic polyneuropathy associated with type 2 diabetes mellitus (CMS/HCC) Take 1 capsule (300 mg) by mouth 3 times daily. 90 capsule 11 024 2024 Active Toujeo SoloStar 300 UNIT/ML injection INJECT 20 SUBCUTANEOUSLY EVERY MORNING 4.5 mL 3 Active TechLite Plus Pen [place] 32G X 4 MM misc USE ONE DAILY 100 each 3 Active anastrozole (Arimidex) 1 MG chemo tablet Take 1 mg by mouth Once per day. Active Continuous Glucose Sensor (FreeStyle Ryne 3 Plus Sensor) miscIndications: Type 2 diabetes mellitus with diabetic peripheral angiopathy without gangrene, with long-term current use of insulin ([facility]) 1 each every 15 days. 2 each 11 Active glucose blood (FreeStyle Precision Gareth Test) test stripIndications :Type 2 diabetes mellitus with diabetic peripheral angiopathy without gangrene, with long-term current use of insulin ([facility]) Test blood sugar up to 3 times [...] THREE TIMES DAILY NEEDED 100 g Active atorvastatin (Lipitor) 80 MG tabletIndication s:Mixed hyperlipidemia TAKE ONE TABLET EVERY MORNING 60 tablet 1 Active dicyclomine (Bentyl) 20 MG tablet TAKE ONE TABLET in the morning, at noon, in the evening, and at bedtime BEFORE MEALS 120 tablet 1 Active spironolactone (Aldactone) 25 MG tablet Take 25 mg by mouth Once per day. 025 2025 Active Calcium Carb-Cholecalcif bekca 500-10 MG-MCG chewable tablet CHEW ONE TABLET IN THE MORNING AND EVENING Active Tirzepatide (Mounjaro) 5 MG/0.5ML solution auto-injector Inject 5 mg under the skin 1 (one) time per week. 2 mL 2 Active rivaroxaban (Xarelto) 20 MG tablet Take 1 tablet (20 mg) by mouth with evening meal. Take with food. 30 tablet Active atorvastatin (Lipitor) 80 MG tabletIndication s:Mixed hyperlipidemia Take 1 tablet (80 mg) by mouth in the morning. 60 tablet 1 024 2024 Discontinued dicyclomine (Bentyl) 20 MG tablet TAKE ONE TABLET in the morning, at noon, in the evening, and at bedtime BEFORE MEALS 120 tablet 1 025 2024 Discontinued Xarelto 20 MG tablet TAKE ONE TABLET EVERY EVENING WITH FOOD 30 tablet 025 2024 Discontinued(R eorder (will not trigger notification to Pharmacy)) Tirzepatide (Mounjaro) 2.5 MG/0.5ML solution auto-injector Inject 2.5 mg under the skin 1 (one) time per week. 2 mL 025 2024 Discontinued(D ose adjustment) glipiZIDE (Glucotrol) 5 MG tabletIndication s:Type 2 diabetes mellitus with diabetic peripheral angiopathy without gangrene, with long-term current use of insulin ([facility]) TAKE ONE TABLET BEFORE BREAKFAST AND BEFORE SUPPER 60 tablet 3 025 2024 Discontinued(M ed list cleanup (will not trigger notification to Pharmacy)) Active Problems Problem Noted Date Diagnosed Date Malignant neoplasm of upper- outer quadrant of left breast in female, estrogen receptor positive 03/31/2024 Chronic right shoulder pain 09/01/2023 Assessment & Plan (09/01/2023 8:07 AM EDT): No trauma, no dislocation, will order a chest xray to evaluate OA severity Iron deficiency anemia secon wilain to inadequate dietary iron intake 09/01/2023 Assessment [...] skills ?? PLAN: 1. Follow up with [facility]: Not recommended for follow-up 2. Patient goal [...] (09/19/2022 5:38 PM EDT): Followed by endocrinology, lashandamileguy on long actin insulin, jardiance and rybelsus [...] to 300mg, told to follow up with stab setter and driller, no reported episode of shortness of breath/chest [...] Will order script for shower chair and molded goods spot picker stick, due to her back pain [...] Encounters Date Type Department Care Team Description 06/15/[address] [facility] MED & PEDS [address] [place] [address] Steffany Augustin MD Results 06/15/[address] [facility] [address] [place], [place] Ravi Walker [phone] Kang MD 06/14/[address] [facility] [address] [place], [place] Ravi Walker [phone] Kang MD Hypercalcemia (Primary Dx) 06/11/[address] [facility] & P[facility]S 505 [facility] [place] Ravi Schroeder [phone] Curran MD 06/09/[address] [facility] 505 [facility] [place] Ravi Walker [phone] Kang MD 06/09/2024 Travel 06/08/[address] [facility] P[facility] [address] [place] [address] Steffany Augustin MD Mixed hyperlipidemia; Type 2 diabetes mellitus with diabetic peripheral angiopathy without gangrene, with long-term current use of insulin ([facility]/H[facility]) 05/13/[address] [facility] MED & PEDS [address] [place] [address] Steffany Augustin MD Acute pain of left knee 05/12/2024 Travel 04/30/[address] [facility] [address] [place] [phone] Steffany Augustin MD Results 04/30/2024 Population Health Risk Score [facility] () Department [address] [place] [phone] Provider, Population Health Generic 04/29/2024 2:30 PM EDT Office Visit [facility] P[facility] [address] [place] [address] Steffany Augustin MD Neck pain (Primary Dx); Acute pain of left knee; Type 2 diabetes mellitus with diabetic peripheral angiopathy without gangrene, with long-term current use of insulin ([facility]); Shoulder blade pain; Bloating 04/29/2024 Travel 04/23/[address] [facility] P[facility] [address] [place] [address] Ramon Marcos MD Primary hypertension 04/19/[address] [facility] [address] [place] [address] Demi Menendez, PharmD Prior Authorization 04/16/2024 Orders Only [facility] [address] [place] [address] Steffany Augustin MD Iron deficiency anemia secondary to inadequate dietary iron intake (Primary Dx); Chronic pain of multiple joints 04/16/2024 Travel 04/14/[address] [facility] P[facility] [address] [place] [address] Steffany Augustin MD 04/05/[address] [facility] [address] [place] [address] Steffany Augustin MD 04/01/[address] [facility] [address] [place] [phone] Steffany Augustin MD Appointment Request from Last 3 Months Immunizations Name Administration [...] AM EDT Office Visit [facility] [address] [place] [address] Steffany Augustin MD [address] [place] [address] 07/19/2024 9:00 AM EDT Medication Management [facility] [address] [place] [address] Demi Menendez, PharmD [address] [place] [address] Health Maintenance Due Date Last Done Comments [...] Procedure Name Priority Date/Time Associated Diagnosis Comments BASIC METABOLIC PANEL Routine 06/09/2024 9:44 AM EDT POCT GLYCATED HEMOGLOBIN, TOTAL Routine 06/09/2024 9:20 AM EDT Type 2 diabetes mellitus with diabetic peripheral angiopathy without gangrene, with long-term current use of insulin (CMS/HCC) XR CERVICAL SPINE 2-3 VIEWS Routine 05/12/2024 [...] gangrene, with long-term current use of insulin ([facility]) ALBUMIN, RANDOM URINE W/CREATININE Routine 04/23/2021 8:43 AM EST HM COLONOSCOPY Routine 12/09/2017 from Last 3 Months or Most Recently Relevant to Health Maintenance Results * (ABNORMAL) Basic Metabolic Panel (06/09/2024 9:44 AM EDT) Sodium 140 135 - 145 mmol/L [facility] Potassium 4.4 3.3 - 5.1 mmol/L [facility] Chloride 108 96 - 108 mmol/L [facility] Carbon Dioxide 24 22 - 29 mmol/L [facility] Anion Gap 12 12 - 20 [facility] Urea Nitrogen (BUN) 25(H) 9 - 16 mg/dL [facility] Creatinine, Serum 1.25 0.5 - 1.4 mg/dL [facility] Estimated Glomerular Filt Rate 42 [facility] Comment:Chronic Kidney Disea se: Estimated GFR < 60 mL/min/1.97n8Qbrajn Kidney Disease: Estimated GFR < 15 mL/min/1.73m2 Glucose 156(H) 60 - 115 mg/dL [facility] Calcium 10.3(H) 8.4 - 10.2 mg/dL [facility] 06/09/2024 9:44 AM EDT 06/09/2024 2:06 PM EDT us Steffany Augustin MD LAB BLOOD ORDERABLES Final Result [facility] [address] [place] [address] [phone] * (ABNORMAL) POCT A1C (06/09/2024 9:20 AM EDT) Hemoglobin A1C 9.8(A) 4.0 - 6.0 % QC Media Lot # [id number] Lot# Expiration Date ,733 Blood 06/09/2024 9:20 AM EDT Steffany Augustin MD POINT OF CARE TEST ENTER/ED IT ORDERABLES Final Result * XR Cervical Spine 2-3 Views (05/12/2024) Anatomical Region Laterality Modality Spine, C-spine Radiographic Daniela ging us Steffany Augustin MD IMG XR PROCEDURES Final Res ult * Sed Rate by Modified Mohini (04/29/2024 3:34 PM EDT) Pathologist [facility] Erythrocyte Sedimentation Rate 19 0 - 20 MM/HR [facility] Comment:Patients with polycy themia and many hemoglobin abnormalitiesmay have depressed sed rates whereas patients with anemiamay have elevated sed rates. Blood Venous blood specimen / Unknown 04/29/2024 3:34 PM EDT 04/29/2024 5:37 PM EDT Steffany Augustin MD LAB BLOOD ORDERABLES Final Result [facility] [address] [place] [phone] * (ABNORMAL) Rheumatoid Factor (04/29/2024 3:34 PM EDT) Pathologist [facility] Rheumatoid Factor 195.0(H) <15.0 IU/mL [facility] Blood Venous blood specimen / Unknown 04/29/2024 3:34 PM EDT 04/29/2024 5:37 PM EDT Steffany Augustin MD LAB BLOOD ORDERABLES Final Result Performing Organization Address [facility]/ZIP Co de Phone Number [facility] [address] [place] [phone] * (ABNORMAL) C-reactive Protein (04/29/2024 3:34 PM EDT) C Reactive Protein 1.65(H) < or = 0.50 mg/dL [facility] Blood Venous blood specimen / Unknown 04/29/2024 3:34 PM EDT 04/29/2024 5:37 PM EDT Steffany Augustin MD LAB BLOOD ORDERABLES Final Result [facility] [address] [place] [address] [phone] * ARABELLA Screen,IFA, with Reflex to Titer and Pattern (04/29/2024 3:34 PM EDT) Pathologist [facility] Anti Nuclear Antibody Screen NEGATIVE NEGATIVE [facility] Comment:ARABELLA IFA is a first [...] clinicallysuspected inflammatory myopathies.AC-0: NegativeInternational Consensus on ARABELLA Patterns(https://doi.org/10.1515/jnxu-9341-9445)For additional information, please refer tohttp://education.TrendPo/faq/MKT526(This link is being provided for informational/educational purposes only.)THIS TEST WAS PERFORMED AT:[facility] [place] [phone] OLIVEIRA MD ARABELLA Titer TNP [facility] ARABELLA Pattern TNP [facility] ARABELLA TITER 2 (REF LAB) TNP [facility] AR[facility]ELLA Pattern 2 [facility] T[facility] 3 [facility] PATTERN 3 [facility] Blood Venous blood specimen / Unknown 04/29/2024 3:34 PM EDT 04/29/2024 5:37 PM EDT us Steffany Augustin MD LAB BLOOD ORDERABLES Final Result [facility] [address] [place] [phone] [phone] * (ABNORMAL) POCT glucose manually resulted (04/16/2024 11:51 AM EST) Glucose Blood, POC 222(A) 60 - 200 [...] 9:50 AM EST) Triglycerides 87 <150 mg/dL [facility] Comment:Desirable Triglyceri de: less than 150 mg/dLBorderline High Triglyceride 150-199 mg/dLHigh Triglyceride: 200-499 mg/dLVery High Triglyceride: greater than or equal to 5OO mg/dL Cholesterol 138 <200 mg/dL [facility] Comment:Desirable Cholestero l: less than 200 mg/dLBorderline High Cholesterol: 200-239 mg/dLHigh Cholesterol: greater than 239 mg/dL LDL Cholesterol Calculated 84 <100 mg/dL [facility] Comment:Desirable LDL: less than 100 mg/dLNear Optimal/Above Optimal LDL: 110- 129 mg/dLBorderline High LDL: 130-159 mg/dLHigh LDL: 160-189 mg/dLVery High LDL: greater than or equal to 190 mg/dL HDL Cholesterol 37(L) >40 mg/dL [facility] Comment:Desirable HDL: great er than 40 mg/dL Note: This HDL assay may give artificially low results in patients with liver disease. Blood Venous blood specimen / Unknown 02/17/2024 9:50 AM EST 02/17/2024 2:57 PM EST Ramon Aguillon MD LAB BLOOD ORDERABL ES Final Result Performing Organization Address City/[facility]/ZIP Co de Phone Number [facility] [address] [place] [phone] * Diabetes Eye Exam (10/29/2023 2:05 PM EDT) Darian Provider HEALTH MAINTENANCE Final Result * Hepatitis C Antibody with Reflex to HCV, RNA, Quantitative, Real-Time PCR (07/30/2022 9:48 AM EDT) Hepatitis C Antibody NON-REACT TITI NON-REACT TITI [facility] Index 0.17 <1.00 [facility] Comment: HCV antibody was non-reactive. There is no laboratory evidence of HCV infection. In most cases, no further action is required. However, if recent HCV exposure is suspected, a test for HCV RNA (test code 24149) is suggested. For additional information please refer to http://education.[employer]/faq/JHE23q9 (This link is being provided for informational/ educational purposes only.) Blood Venous blood specimen / Unknown 07/30/2022 9:48 AM EDT 07/30/2022 9:48 AM EDT Narrative [facility] - 07/31/2022 5:32 AM EDT FASTING:YES FASTING: YES Ramon Aguillon MD LAB BLOOD ORDERABL ES Final Result Performing Organization Address City/[facility]/ZIP Co de Phone Number [facility] [address], [place] [address] [email or web address] [facility] [address] [place] [phone] * ALBUMIN, RANDOM URINE W/CREATININE (04/23/2021 8:43 [...] Creatinine, Urine 116 20 - 275 mg/dL [facility] 04/23/2021 8:43 AM EST Ramon Aguillon MD LAB URINE ORDERABL ES Final Result [facility] [address] * Colonoscopy (12/09/2017) Colonoscopy Normal Normal Narrative Niki Orozco - 12/09/2017 Repeat in 5 years Darian Provider HEALTH MAINTENANCE Final Result from Last 3 Months or Most Recently Relevant to Health Maintenance Insurance [facility] (HMO D-SNP) [facility] STANDARD [facility] OPTIONS (HMO D-SNP) Care Teams Sawmill Manager Relationship Specialty Start Date End Date Steffany Augustin MD [address] [place] [phone] PCP - General Internal Medicine 12/03/23 Demi Menendez PharmD [address] [place] [phone] Pharmacist Internal Medicine 04/16/24
--- OUTSIDE RECORDS SUMMARY | 2024-06-16 09:25 | XMS_ITS | Encounter Summary ---
Author Organization [facility] Address [address] [place] [address] Care Team Providers Care Talent Rep Name Role Phone Jose A, Pedro Luis VALADEZ Primary Care Provider Dominique Mathis MD Primary Care Provider Uli Moreno MD Primary Care Provider Un available Steffany Augustin MD Primary Care Pr ovider Unavailable Ramon Marcos MD Primary Care Prov ider Unavailable Alia Gagnon MD Unavailable [phone] [place] Unavailable Reason for Visit * Reason Onset Date Comments Provider Call Back 02/04/2014 [facility] Encounter Details Date Type Department Care Team Description 02/04/2014 Telephone Adult Medicine [address] [id number] Name, MD Pedro Luis Provider Call Back [...] to know that [facility] for irregular heartbeat. Pt is [...] Reason for call back: asking for more account collector hours thru [facility]. Patient needs knee replacement and isrequiring more help from her account collector. appt scheduled for consult with [facility] 02-25-14. Caller offered to speak with the nurse for assistance: YES Response: Patient offered to speak with nurse for assistance and patient agreed. Message forwarded to nurse. documented in this encounter Plan of Treatment Not on file documented as of this encounter Visit Diagnoses Not on filedocumented in this encounter Care Teams Talent Rep Relationship Specialty Start Date End Date Name, [...]
--- OUTSIDE RECORDS SUMMARY | 2024-06-16 09:25 | XMS_ITS | Encounter Summary ---
Author Organization [employer] Address [address] [place] [address] Care Team Providers Care Children'S Librarian Name Role Phone Ramon Marcos MD Primary Care Prov ider Steffany Augustin MD Primary Care Provider [phone] Demi Menendez PharmD Unavailable [phone] Encounter Details Date Type Department Care Team (Late st Contact Info) Description 01/07/[address] [facility] [address] [place] [address] Niki Orozco Social History Tobacco Use Types [...] Description 06/22/2024 11:30 AM EDT Office Visit [facility] & [facility]S [address] [place], [place] [phone] Steffany Augustin MD [address] [place], [place] [phone] 07/19/2024 9:00 AM EDT Medication Management [facility] [address] [place], [place] [phone] Demi Menendez, PharmD [address] [place], [place] [phone] documented as of this encounter Procedures Procedure [...] documented as of this encounter Care Teams Children'S Librarian Relationship Specialty Start Date End Date Ramon Marcos MD [address] [place] [address] PCP - General Internal Medicine 12/22/18 12/02/23 Steffany Augustin MD [address] [place] [address] PCP - General Internal Medicine 12/03/23 Demi Menendez, Padma [address] [place] [address] Pharmacist Internal Medicine 04/16/24 documented as of this encounter
--- OUTSIDE RECORDS SUMMARY | 2024-06-16 09:26 | XMS_ITS | Encounter Summary ---
Author Organization [facility] Address [address] [place] [address] Care Team Providers Care Paper Conservator Name Role Phone Name, Pedro Luis VALADEZ Primary Care Provider UnavailDominique Rangel MD Primary Care Provider Uli Moreno MD Primary Care Provider Un available Steffany Augustin MD Primary Care Pr ovider Unavailable Ramon Marcos MD Primary Care Prov ider Unavailable Alia Gagnon MD Unavailable [phone] [place] Unavailable Encounter Details Date Type Department Care Team Description 11/16/2012 Cookie Padder Report Medical Records [address] [place] [address] Adam Kunz MD Social History Tobacco Use Types Packs/Day [...] on filedocumented in this encounter Care Teams Paper Conservator Relationship Specialty Start Date End Date Name, [...]
--- OUTSIDE RECORDS SUMMARY | 2024-06-16 09:26 | XMS_ITS | Encounter Summary ---
Author Organization [facility] Address [address] [place] [address] Care Team Providers Care District Recruiter Name Role Phone Uli Rueda MD Primary Care Provider Un available Ramon Marcos MD Primary Care Prov ider Unavailable Alia Gagnon MD Unavailable [phone] [place] Unavailable Encounter Details Date Type Department Care Team Description 09/16/2018 Leacher Report Medical Records [address] [place] [address] Ridge Oakley PA [address] [place], [place] [phone] Social History Tobacco Use Types Packs/Day Years [...] on filedocumented in this encounter Care Teams District Recruiter Relationship Specialty Start Date End Date Uli Rueda MD PCP - General Internal Medicine 07/13/15 Ramon Marcos MD PCP - General Internal Medicine 06/16/20 Alia Gagnon MD Specialist Cardiology 07/06/20 [place] PA Specialist Cardiology 07/06/20 documented as of this encounter
--- OUTSIDE RECORDS SUMMARY | 2024-06-16 09:26 | XMS_ITS | Encounter Summary ---
Author Organization [employer] Address [address] [address] Care Team Providers Care Director Hr Communications Name Role Phone Steffany Augustin MD Primary Care Provider [phone] Demi Menendez PharmD Unavailable [phone] Reason for Referral * Consultation (Routine) - Pending Review Specialty Diagnoses / Procedures Referred By Bean bragg Referred To Contact Rheumatology Diagnoses Chronic pain of multiple joints Steffany Augustin MD [address] [place] [address] Phone: tel: fax: [facility] [address] [place] [address] Phone: tel: fax: Referral ID Status Reason Start Date Expiration Date Visits Requested Visits Authorized [id number] Pending Review Specialty Services Required 04/30/2024 04/30/2025 1 1 Encounter Details Date Type Department Care Team (Late st Contact Info) Description 04/16/2024 Orders Only [facility] MED[facility]INE [address] [place] [address] Steffany Augustin MD [address] [place] [address] Iron deficiency anemia secondary to inadequate dietary [...] Description 06/22/2024 11:30 AM EDT Office Visit [facility] MED [facility] [address] [place] [address] Steffany Augustin MD [address] [place] [address] 07/19/2024 9:00 AM EDT Medication Management [facility] [address] [place] [address] Demi Menendez, PharmD [address] [place] [address] Scheduled Referrals Name Type Priority Associated Diagnoses [...] documented as of this encounter Care Teams Director Hr Communications Relationship Specialty Start Date End Date Steffany Augustin MD [address] [place] [address] PCP - General Internal Medicine 12/03/23 Demi Menendez PharmD [address] [place] [address] Pharmacist Internal Medicine 04/16/24 documented as of this encounter
--- OUTSIDE RECORDS SUMMARY | 2024-06-16 09:26 | XMS_ITS | Encounter Summary ---
Author Organization [facility] Address [address] [place] [address] Care Team Providers Care Pre Sales Technical Consultant Name Role Phone Dominique Swift MD Primary Care Provider Uli Moreno MD Primary Care Provider Un available Steffany Augustin MD Primary Care Pr ovider Unavailable Ramon Marcos MD Primary Care Prov ider Unavailable Alia Gagnon MD Unavailable [phone] [place] Unavailable Encounter Details Date Type Department Care Team Description 03/02/2014 [facility] [address] [phone] Name, MD Pedro Luis Social History Tobacco [...] on filedocumented in this encounter Care Teams Pre Sales Technical Consultant Relationship Specialty Start Date End Date Dominique [...]
--- OUTSIDE RECORDS SUMMARY | 2024-06-16 09:26 | XMS_ITS | Encounter Summary ---
Author Organization [facility] Address [address] [place] [address] Care Team Providers Care Scales Inspector Name Role Phone Ramon Marcos MD Primary Care Prov ider Unavailable Alia Gagnon MD Unavailable [phone] [place]de Oak[place] Unavailable Encounter Details Date Type Department Care Team Description 09/12/2021 Telephonic Rn Report Medical Records [address] [place] [address] Clay Harris MD Social History Tobacco Use Types Packs/Day [...] on filedocumented in this encounter Care Teams Scales Inspector Relationship Specialty Start Date End Date Ramon Marcos MD PCP - General Internal Medicine 06/16/20 Alia Gagnon MD Specialist Cardiology 07/06/20 [place] PA Specialist Cardiology 07/06/20 documented as of this encounter
--- OUTSIDE RECORDS SUMMARY | 2024-06-16 09:26 | XMS_ITS | Encounter Summary ---
Author Organization [facility] Address [address] [place] [address] Care Team Providers Care General Practitioner Name Role Phone Uli Rueda MD Primary Care Provider Un available Ramon Marcos MD Primary Care Prov ider Unavailable Alia Gagnon MD Unavailable [phone] [place] Unavailable Encounter Details Date Type Department Care Team Description 05/03/2016 SCAN Medical Records [address] [place] [address] Camden Pizano MD Social History Tobacco Use Types Packs/Day [...] Name Priority Date/Time Associated Diagnosis Comments OUTSIDE ECHO Routine 05/03/2016 documented in this encounter Results * OUTSIDE ECHO (05/03/2016) Provider Default CARDIOLOGY documented in this encounter Visit Diagnoses Not on filedocumented in this encounter Care Teams General Practitioner Relationship Specialty Start Date End Date Uli Rueda MD PCP - General Internal Medicine 07/13/15 Ramon Marcos MD PCP - General Internal Medicine 06/16/20 Alia Gagnon MD Specialist Cardiology 07/06/20 Ridge [place] PA Specialist Cardiology 07/06/20 documented as of this encounter
--- OUTSIDE RECORDS SUMMARY | 2024-06-16 09:26 | XMS_ITS | Encounter Summary ---
Author Organization [facility] Address [address] [facility] 7 [place] [address] Care Team Providers Care Machine Plug Shaper Name Role Phone Steffany Augustin MD Primary Care Provider [phone] Demi Menendez PharmD Unavailable [phone] Reason for Visit * Reason Comments Med Refill Encounter Details Date Type Department Care Team ([facility] st Contact Info) Description 06/11/[address] [facility] & PEDS [address] [place], [place] [phone] Steffany Augustin MD [address] [place] [address] Social History Tobacco Use Types Packs/Day Years [...] Description 06/22/2024 11:30 AM EDT Office Visit [facility] MED & PEDS [address] [place] [address] Steffany Augustin MD [address] [place] [address] 07/19/2024 9:00 AM EDT Medication Management [facility] MED & PEDS [address] [place] [address] Demi Menendez PharmD [address] [place] [address] documented as of this encounter Visit Diagnoses Not on filedocumented in this encounter Additional Health Concerns Assessment Noted Time PHQ-9 Depression Total Score: 0 03/16/19 25 3:27 PM EST documented as of this encounter Care Teams Machine Plug Shaper Relationship Specialty Start Date End Date Steffany Augustin MD [address] [place] [address] PCP - General Internal Medicine 12/03/23 Demi Menendez PharmD [address] [place], [place] [phone] Pharmacist Internal Medicine 04/16/24 documented as of this encounter
--- OUTSIDE RECORDS SUMMARY | 2024-06-16 09:26 | XMS_ITS | Clinical Summary ---
Author Organization [facility] Address [address] [place] [address] Care Team Providers Care Customer Account Representative Name Role Phone Ramon Marcos MD Primary Care Prov ider Unavailable Alia Gagnon MD Unavailable [phone] [place] Unavailable Allergies Active Allergy Reactions Severity Noted Date Comments Ibuprofen Gastritis 11/07/2014 Lisinopril Cough 07/20/2013 Medications Medication Sig Dispensed Refills Start Date End Date Status [facility] MISCIndications:DM type 2 causing neurological disease, not [...] just unsure what to do Educational Resources [place] [employer] (www.diabetes.org) Centers for Disease Control [...] 09/20/2015, Additional history exists MAMMOGRAM 09/12/2019 09/11/2018, 06/07/2017, 06/28/2014, Additional history exists COLON CANCER SCREENING 12/09/2020 8, 09/16/2012 (External Completion) DTAP/TDAP/TD (2 - Td or Tdap) 03/31/2023 03/31/2013 BMI CHECK/ADVISE 02/18/2024 10/27/2018, , 07/15/2017, Additional history exists DEPRESSION SCREENING/FOLLOWUP 02/18/2024 12/21/2008 INFLUENZA (Season Ended) 2024 016, 10/30/2014, 11/06/2012 HEPATITIS C SCREENING Completed 03/23/2013 PNEUMOCOCCAL VACCINE Completed 07/16/2018, 12/11/19 16 Care Teams Customer Account Representative Relationship Specialty Start Date End Date Ramon Marcos MD PCP - General Internal Medicine 06/16/20 Alia Gagnon MD Specialist Cardiology 07/06/20 Ridge [place] PA Specialist Cardiology 07/06/20
--- OUTSIDE RECORDS SUMMARY | 2024-06-16 09:26 | XMS_ITS | Encounter Summary ---
Author Organization [facility] Address [address] [place] [address] Care Team Providers Care Prn Physical Therapist Name Role Phone Uli Rueda MD Primary Care Provider Un available Ramon Marcos MD Primary Care Prov ider Unavailable Alia Gagnon MD Unavailable [phone] [place] Unavailable Encounter Details Date Type Department Care Team Description 05/07/2016 Business Doc Medical Records [address] [place] [address] Abstract, Provider Social History Tobacco Use Types [...] on filedocumented in this encounter Care Teams Prn Physical Therapist Relationship Specialty Start Date End Date Uli Rueda MD PCP - General Internal Medicine 07/13/15 Ramon Marcos MD PCP - General Internal Medicine 06/16/20 Alia Gagnon MD Specialist Cardiology 07/06/20 [place] PA Specialist Cardiology 07/06/20 documented as of this encounter
--- OUTSIDE RECORDS SUMMARY | 2024-06-16 09:26 | XMS_ITS | Encounter Summary ---
Author Organization [facility] Address [address] [place] [address] Care Team Providers Care Color Matcher Name Role Phone Name, Pedro Luis VALADEZ Primary Care Provider UnavailDominique Rangel MD Primary Care Provider Uli Moreno MD Primary Care Provider Un available Steffany Augustin MD Primary Care Pr ovider Unavailable Ramon Marcos MD Primary Care Prov ider Unavailable Alia Gagnon MD Unavailable [phone] [place] Unavailable Encounter Details Date Type Department Care Team Description 11/24/2012 Release of Information Medical Records [address] [place] [address] Abstract, Provider Social History Tobacco Use Types [...] on filedocumented in this encounter Care Teams Color Matcher Relationship Specialty Start Date End Date Name, [...]
--- OUTSIDE RECORDS SUMMARY | 2024-06-16 09:26 | XMS_ITS | Encounter Summary ---
Author Organization [facility] Address [address] [place] [address] Care Team Providers Care Flat Ironer Name Role Phone Uli Rueda MD Primary Care Provider Un available Ramon Marcos MD Primary Care Prov ider Unavailable Alia Gagnon MD Unavailable [phone] [place] Unavailable Reason for Visit * Reason Comments E-prescribe Rx Request Encounter Details Date Type Department Care Team Description 11/28/2017 Refill Adult Medicine [address] [address] Uli Rueda MD E-prescribe Rx Request Social [...] N/A Patients current insurance carrier is: Payor: MEDICARE-[employer] / [place] / Product Type: MEDICARE [id number] documented in this encounter Plan of Treatment Not on file documented as of this encounter Visit Diagnoses Not on filedocumented in this encounter Care Teams Flat Ironer Relationship Specialty Start Date End Date Uli Rueda MD PCP - General Internal Medicine 07/13/15 Ramon Marcos MD PCP - General Internal Medicine 06/16/20 Alia Gagnon MD Specialist Cardiology 07/06/20 [place] PA Specialist Cardiology 07/06/20 documented as of this encounter
--- OUTSIDE RECORDS SUMMARY | 2024-06-16 09:26 | XMS_ITS | Encounter Summary ---
Author Organization [facility] Address [address] [place] [address] Care Team Providers Care Typer Name Role Phone Uli Rueda MD Primary Care Provider Un available Ramon Marcos MD Primary Care Prov ider Unavailable Alia Gagnon MD Unavailable [phone] [place] Unavailable Encounter Details Date Type Department Care Team Description 06/18/2016 Orders Only Adult Medicine [address] [address] Uli Rueda MD Social History Tobacco Use [...] on filedocumented in this encounter Care Teams Typer Relationship Specialty Start Date End Date Uli Rueda MD PCP - General Internal Medicine 07/13/15 Ramon Marcos MD PCP - General Internal Medicine 06/16/20 Alia Gagnon MD Specialist Cardiology 07/06/20 [place] PA Specialist Cardiology 07/06/20 documented as of this encounter
--- OUTSIDE RECORDS SUMMARY | 2024-06-16 09:26 | XMS_ITS | Encounter Summary ---
Author Organization [facility] Address [address] [place] [address] Care Team Providers Care Children'S Entertainer Name Role Phone Ramon Marcos MD Primary Care Prov ider Unavailable Alia Gagnon MD Unavailable [phone] [place] Unavailable Encounter Details Date Type Department Care Team Description 01/29/2021 Hospital Medical Records [address] [place] [address] Social History Tobacco Use Types Packs/Day Years Used Date Smoking Tobacco: Never Smokeless Tobacco: Never Alcohol Use Standard Drinks/Week Comments No 0 (1 standard drink = 0.6 oz pur e alcohol) Sex Assigned at Date Recorded Not on file Job Start Date Occupation Industry Not on file Not on file Not on file COVID-19 Exposure Response Date Recorded In the last month, have you been in contact with someone who was confirmed or suspected to have Coronavirus / COVID-19? No / Unsure 01/10/2021 12:00 PM EST documented as of this encounter Plan of Treatment Not on file documented as of this encounter Procedures Procedure Name Priority Date/Time Associated Diagnosis Comments OUTSIDE EKG Routine 02/01/2021 OUTSIDE LAB Routine 01/31/2021 documented in this encounter Results * OUTSIDE EKG (02/01/2021) Provider Abstract CARDIOLOGY * OUTSIDE LAB (01/31/2021) Provider Abstract LAB documented in this encounter Visit Diagnoses Not on filedocumented in this encounter Care Teams Children'S Entertainer Relationship Specialty Start Date End Date Ramon Marcos MD PCP - General Internal Medicine 06/16/20 Alia Gagnon MD Specialist Cardiology 07/06/20 [place] PA Specialist Cardiology 07/06/20 documented as of this encounter
--- OUTSIDE RECORDS SUMMARY | 2024-06-16 09:26 | XMS_ITS | Encounter Summary ---
Author Organization [facility] Address [address] [place] [address] Care Team Providers Care Command And Control Name Role Phone Uli Rueda MD Primary Care Provider Un available Ramon Marcos MD Primary Care Prov ider Unavailable Alia Gagnon MD Unavailable [phone] [place] Unavailable Encounter Details Date Type Department Care Team Description 03/06/2018 Structural Engineering Project Manager Report Medical Records [address] [place] [address] Rodrigo Berry DO Social History Tobacco Use [...] on filedocumented in this encounter Care Teams Command And Control Relationship Specialty Start Date End Date Uli Rueda MD PCP - General Internal Medicine 07/13/15 Ramon Marcos MD PCP - General Internal Medicine 06/16/20 Alia Gagnon MD Specialist Cardiology 07/06/20 [place] PA Specialist Cardiology 07/06/20 documented as of this encounter
--- OUTSIDE RECORDS SUMMARY | 2024-06-16 09:26 | XMS_ITS | Encounter Summary ---
Author Organization [employer] Address [address] [facility] 7t [place] [address] Care Team Providers Care Gypsum Calciner Name Role Phone Steffany Augustin MD Primary Care Provider [phone] Demi Menendez PharmD Unavailable [phone] Encounter Details Date Type Department Care Team (Late st Contact Info) Description 03/02/2024 Orders Only [facility] MEDICINE [address] [place] [address] ProviderDarian MD Social History Tobacco Use Types [...] Description 06/22/2024 11:30 AM EDT Office Visit [facility] MED & PEDS [address] [place] [address] Steffany Augustin MD [address] [place] [address] 07/19/2024 9:00 AM EDT Medication Management [facility] MED & PEDS [address] [place] [address] Demi Menendez PharmD [address] [place] [address] documented as of this encounter Procedures Procedure [...] documented as of this encounter Care Teams Gypsum Calciner Relationship Specialty Start Date End Date Steffany Augustin MD [address] [place] [address] PCP - General Internal Medicine 12/03/23 Demi Menendez PharmD [address] [place] [address] Pharmacist Internal Medicine 04/16/24 documented as of this encounter
--- OUTSIDE RECORDS SUMMARY | 2024-06-16 09:26 | XMS_ITS | Encounter Summary ---
Author Organization [facility] Address [address] [place] [address] Care Team Providers Care Supervisor Hard Candy Name Role Phone Uli Rueda MD Primary Care Provider Un available Ramon Marcos MD Primary Care Prov ider Unavailable Alia Gagnon MD Unavailable [phone] [place] Unavailable Encounter Details Date Type Department Care Team Description 03/06/2016 [facility] Medical Records [address] [place] [address] Social History Tobacco Use Types Packs/Day Years [...] filedocumented in this encounter Care Teams Supervisor Hard Candy Relationship Specialty Start Date End Date Uli Rueda MD PCP - General Internal Medicine 07/13/15 Ramon Marcos MD PCP - General Internal Medicine 06/16/20 Alia Gagnon MD Specialist Cardiology 07/06/20 Ridge Oakley PA Specialist Cardiology 07/06/20 documented as of this encounter
--- OUTSIDE RECORDS SUMMARY | 2024-06-16 09:26 | XMS_ITS | Encounter Summary ---
Author Organization [facility] Address [address] [place] [address] Care Team Providers Care Handbag Stitcher Name Role Phone Uli Rueda MD Primary Care Provider Un available Ramon Marcos MD Primary Care Prov ider Unavailable Alia Gagnon MD Unavailable [phone] [place] Unavailable Reason for Visit * Reason Onset Date Comments refill request 09/11/2016 Encounter Details Date Type Department Care Team Description 09/11/2016 Refill Adult Medicine [address] [address] Uli Rueda MD refill request Social History Tobacco Use Types Packs/Day Years [...] encounter Miscellaneous Notes * Telephone Encounter - Blanquita De La Cruz M.A. - 09/11/2016 3:38 PM EDT Message left for pt to return my call Blanquita (POD) [phone] Flexeril refused, Pt has not gotten this since 07/12/14. Will not fill, pt can discuss at next visit with pcp on 09/24/16 * Telephone Encounter - Anna Brand - 09/11/2016 3:30 PM EDT Patient would like script to be: E-PRESCRIBED/FAXED TO PHARMACY WHEN WAS THE PATIENT'S LAST APPOINTMENT IN ADULT MEDICINE? 06/10/16 WHEN WAS THE LAST TIME THE PATIENT SAW THEIR PCP? Same as above Does patient have an upcoming appointment? Yes 09/24/16 (THE MEDICATION REQUESTED IS ON THE MED LIST ABOVE) All of the medications requested were on the CURRENT MEDS list Did you check the Pharmacy information above?: YES Patient wants: 30 -day supply Is this a mail order prescription request ? NO Patients current insurance carrier is: [place] / [place] / Product Type: MEDICARE [id number] documented in this encounter Plan of Treatment Not on file documented as of this encounter Visit Diagnoses Not on filedocumented in this encounter Care Teams Handbag Stitcher Relationship Specialty Start Date End Date Uli Rueda MD PCP - General Internal Medicine 07/13/15 Ramon Marcos MD PCP - General Internal Medicine 06/16/20 Alia Gagnon MD Specialist Cardiology 07/06/20 Ridge Oakley PA Specialist Cardiology 07/06/20 documented as of this encounter
--- OUTSIDE RECORDS SUMMARY | 2024-06-16 09:26 | XMS_ITS | Encounter Summary ---
Author Organization [facility] Address [address] [place] [address] Care Team Providers Care Blow Down Helper Name Role Phone Name, Pedro Luis VALADEZ Primary Care Provider UnavailDominique Rangel MD Primary Care Provider Uli Moreno MD Primary Care Provider Un available Steffany Augustin MD Primary Care Pr ovider Unavailable Ramon Marcos MD Primary Care Prov ider Unavailable Alia Gagnon MD Unavailable Ridge Oakley Unavailable Encounter Details Date Type Department Care Team Description 06/16/2012 Release of Information Medical Records [address] [place] [address] Abstract, Provider Social History Tobacco Use Types [...] on filedocumented in this encounter Care Teams Blow Down Helper Relationship Specialty Start Date End Date Name, [...]
--- OUTSIDE RECORDS SUMMARY | 2024-06-16 09:26 | XMS_ITS | Encounter Summary ---
Author Organization [facility] Address [address] [place] [address] Care Team Providers Care Marine Electronics Technician Name Role Phone Ramon Marcos MD Primary Care Prov ider Unavailable Alia Gagnon MD Unavailable [phone] Ridge [place] Unavailable Encounter Details Date Type Department Care Team Description 11/28/2020 Platen Drier Operator Report Medical Records [address] [place] [address] Ramon Marcos MD Social History Tobacco Use Types Packs/Day [...] on filedocumented in this encounter Care Teams Marine Electronics Technician Relationship Specialty Start Date End Date Ramon Marcos MD PCP - General Internal Medicine 06/16/20 Alia Gagnon MD Specialist Cardiology 07/06/20 Ridge Oakley PA Specialist Cardiology 07/06/20 documented as of this encounter
--- OUTSIDE RECORDS SUMMARY | 2024-06-16 09:26 | XMS_ITS | Encounter Summary ---
Author Organization [facility] Address [address] [place] [address] Care Team Providers Care Quickbooks Bookkeeper Name Role Phone Uli Rueda MD Primary Care Provider Un available Ramon Marcos MD Primary Care Prov ider Unavailable Alia Gagnon MD Unavailable [phone] [place] Unavailable Reason for Visit * Reason Onset Date Comments Hot Head Machine Operator Feedback 10/13/2015 orthopedics Encounter Details Date Type Department Care Team Description 10/13/[address] [facility] [address] [place] [address] [phone] Ryann Castellanos PA-C [address] [place] [address] [phone] Hot Head Machine Operator Feedback (orthopedics) Social History Tobacco Use Types Packs/Day Years [...] encounter Miscellaneous Notes * Telephone Encounter - Tete Hein - 10/13/2015 4:40 PM EDT FYI to Ryann Manjarrez, You had referred patient to orthopedics due to pain in both knees. Patient was referred to [facility]. [facility] has tried to contact patient 3 times, patient has not returned any calls. Thank you, Tete Referrals Coordinator [facility] Referrals Department documented in this encounter Plan of Treatment Not on file documented as of this encounter Visit Diagnoses Not on filedocumented in this encounter Care Teams Quickbooks Bookkeeper Relationship Specialty Start Date End Date Uli Rueda MD PCP - General Internal Medicine 07/13/15 Ramon Marcos MD PCP - General Internal Medicine 06/16/20 Alia Gagnon MD Specialist Cardiology 07/06/20 Ridge Oakley PA Specialist Cardiology 07/06/20 documented as of this encounter
--- OUTSIDE RECORDS SUMMARY | 2024-06-16 09:26 | XMS_ITS | Encounter Summary ---
Author Organization [facility] Address [address] [place] [address] Care Team Providers Care Shale Miner Name Role Phone Uli Rueda MD Primary Care Provider Un available Ramon Marcos MD Primary Care Prov ider Unavailable Alia Gagnon MD Unavailable [phone] [place] Unavailable Encounter Details Date Type Department Care Team Description 02/07/2016 Journeyman Sheet Metal Worker Report Medical Records [address] [place] [address] Maldonado Resendez Social History Tobacco Use Types [...] on filedocumented in this encounter Care Teams Shale Miner Relationship Specialty Start Date End Date Uli Rueda MD PCP - General Internal Medicine 07/13/15 Ramon Marcos MD PCP - General Internal Medicine 06/16/20 Alia Gagnon MD Specialist Cardiology 07/06/20 Ridge Oakley PA Specialist Cardiology 07/06/20 documented as of this encounter
--- OUTSIDE RECORDS SUMMARY | 2024-06-16 09:26 | XMS_ITS | Encounter Summary ---
Author Organization [employer] Address [address] [facility] 7 [place] [address] Care Team Providers Care Welfare Centre Manager Name Role Phone Steffany Augustin MD Primary Care Provider [phone] Demi Menendez PharmD Unavailable [phone] Encounter Details Date Type Department Care Team (Late st Contact Info) Description 06/15/2024 Refill [facility] & PEDS [address] [place], [place] [phone] Steffany Augustin MD [address] [place], [place] [phone] Social History Tobacco Use Types Packs/Day Years [...] [facility] - [facility] [address] [place] [address] Steffany Augustin MD [address] [place] [address] 07/19/2024 9:00 AM EDT Medication Management [facility] [address] [place] [address] Demi Menendez PharmD [address] [place] [address] documented as of this encounter Visit Diagnoses Not on filedocumented in this encounter Additional Health Concerns Assessment Noted Time PHQ-9 Depression Total Score: 0 03/16/19 25 3:27 PM EST documented as of this encounter Care Teams Welfare Centre Manager Relationship Specialty Start Date End Date Steffany Augustin MD [address] [place] [address] PCP - General Internal Medicine 12/03/23 Demi Menendez PharmD [address] [place] [address] Pharmacist Internal Medicine 04/16/24 documented as of this encounter
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
--- OUTSIDE RECORDS SUMMARY | 2024-06-16 09:26 | XMS_ITS | Encounter Summary ---
Author Organization [employer] Address [address] [facility] 7t [place] [address] Care Team Providers Care Anesthesiologist Attending Name Role Phone Ramon Marcos MD Primary Care Prov ider Setffany Augustin MD Primary Care Provider [phone] Demi Menendez PharmD Unavailable [phone] Reason for Visit * Reason Onset Date Comments Pre-op 02/07/2023 Encounter Details Date Type Department Care Team ([facility] st Contact Info) Description 02/07/2023 Telephone [facility] MED & PEDS [address] [place], [place] [phone] Ramon Marcos MD [address] [place], [place] [phone] Pre-op Social History Tobacco Use Types Packs/Day [...] reach out to Dr. Montoya's office in [place] to confirm details for pre-op. TC placed to [phone] Montoya's office. Extension 3 and then choice 1. No answer. LM with Dr. Montoya's surgical team to call us back at [facility] about a patient's pre-op appointment for cataract surgery. Routing back to [facility] nurses to try again. Tc from pt requesting to r/s Pre op appt for 02/07/2023 @ 2:00 pm .. Please contact pt @ [phone] * Telephone Encounter - Vahe Vasquez - 02/07/2023 12:22 PM EST Tc from pt requesting to r/s Pre op appt for 02/07/2023 @ 2:00 pm .. Please contact pt @ [phone] documented in this encounter Plan of Treatment Upcoming Encounters Date Type Department Care Team (Late st Contact Info) Description 06/22/2024 11:30 AM EDT Office Visit [facility] MED & PEDS [address] [place] [address] Steffany Augustin MD [address] [place] [address] 07/19/2024 9:00 AM EDT Medication Management [facility] MED & PEDS [address] [place] [address] Demi Menendez PharmD [address] [place] [address] documented as of this encounter Visit Diagnoses Not on filedocumented in this encounter Additional Health Concerns Assessment Noted Time PHQ-9 Depression Total Score: 2 05/18/19 23 9:10 AM EDT documented as of this encounter Care Teams Anesthesiologist Attending Relationship Specialty Start Date End Date Ramon Marcos MD [address] [place] [address] PCP - General Internal Medicine 12/22/18 12/02/23 Steffany Augustin MD [address] [place] [address] PCP - General Internal Medicine 12/03/23 Demi Menendez PharmD [address] [place] [address] Pharmacist Internal Medicine 04/16/24 documented as of this encounter
--- OUTSIDE RECORDS SUMMARY | 2024-06-16 09:26 | XMS_ITS | Clinical Summary ---
Author Organization [address] [place] [address] Address [address] [place] [address] Phone Care Team Providers Care Drafter Mechanical Name Role Phone Steffany Augustin MD Primary Care Provider [phone] Allergies Active Allergy Reactions Criticality Noted Date [...] causing neurologic al disease, not at goal (CMS/[facility] V24, CMS/[facility] V28) 12/21/2008 Depression 12/21/2008 Hyperlipidemia 12/21/2008 Overview [...] Description 06/04/2024 8:40 AM EDT Office Visit [facility] [address] [place] [address] Azam Enriquez NP Atrial fibrillation, unspecified type (CMS/[facility] V24, CMS/[facility] V28) (Primary Dx); Hypertension, unspecified type; Hyperlipidemia, [...] REPLACE COLONOSCOPY W/ BIOPSIES 12/09/17 Padmini PROCEDURE: LA COLONOSCOPY W/BIOPSY SINGLE/MULTIPLE; COMMENT: 4 small adenomas, hemorrhoids and tics; repeat in 3 years Medical History Medical History Date Comments Hypertension 12/21/2008 DX:Hypertension Hyperlipidemia 12/21/2008 DX:Hyperlipidemi a Glaucoma 12/21/2008 DX:Glaucoma; COM MENT: Dr. 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 V24, CMS/[facility] V28) 12/21/2008 DX:DM type 2 causing neurolo gical disease, not at goal ([facility]) Depression 12/21/2008 DX:Depression Neuropathy 12/15/2012 DX:Neuropathy; C OMMENT: Taken from note of Dr. Skinner on 09/11/2012 Atrial fibrillation ([facility]/HCC V24, CMS/HCC V28) 03/17/2014 DX:Atrial fibrillation (HCC) [...] Care Team (Late st Contact Info) Description 07/06/2024 9:10 AM EDT Office Visit [facility] [address] [place] [phone] Azam Enriquez NP [address] [place] [address] 08/30/2024 8:00 AM EDT Ancillary Procedure [facility] [address] [place] [phone] Health Maintenance Due Date Last Done Comments [...] 9:05 AM EDT Atrial fibrillation, unspecified type ([facility] V24, [facility] V28) HEMOGLOBIN A1C Routine 10/27/2018 URINE ALBUMIN CREATININE RATIO Routine 07/16/2018 ANNUAL BMP BLOOD TEST Routine 07/16/2018 LIPID PANEL Routine 07/16/2018 HEPATITIS C SCREENING Routine 03/23/2013 from Last 3 Months or Most Recently Relevant to Health Maintenance Results * ECG 12 lead (06/04/2024 9:05 AM EDT) 06/04/2024 9:01 AM EDT Result [facility] Azam Enriquez NP ECG ORDERABLES Final Result GEMUSE * (ABNORMAL) Hemoglobin A1c (10/27/2018) Hemoglobin A1C 8.5(A) <=6.5 % Blood Venous blood specimen / Unknown Result [facility] Historical Provider LAB BLOOD ORDERABLES Viola l Result * Urine Albumin Creatinine Ratio (07/16/2018) Pathologist [facility] Urine Albumin Creatinine Ratio abstracted Result [facility] Historical Provider HEALTH MAINTENANCE Final Result * Annual BMP Blood Test (07/16/2018) Pathologist [facility] Annual BMP Blood Test abstracted Result [facility] Historical Provider HEALTH MAINTENANCE Final Result * (ABNORMAL) Lipid panel (07/16/2018) LDL/HDL Ratio 4 0 - 4 Triglycerides 122 0 - 150 mg/dL Cholesterol 176 0 - 200 mg/dL HDL 44 >=40 mg/dL LDL Cholesterol 108(A) 0 - 100 mg/dL Blood Venous blood specimen / Unknown Historical Provider LAB BLOOD ORDERABLES Viola l Result * Hepatitis C Screening (03/23/2013) Hepatitis C Screening abstracted Historical Provider HEALTH MAINTENANCE Final Result from Last 3 Months or Most Recently Relevant to Health Maintenance Insurance [facility] Member Subscriber Plan / Payer (Ef fective 2024-Present) Name:Demi Plata Relation to Subscriber:Self Name:Demi Plata Payer ID:[id number] Group ID:[id number] Type:Not on file Address: [facility] [address] [id number] Advance Directives Documents on File Type Date Recorded Patient Maintenance Repairer Expl anation Health Care Decision (hx) 02/15/2014 [...] (hx) 02/06/2014 AD REDDY DIRECTIVE Care Teams Drafter Mechanical Relationship Specialty Start Date End Date Steffany Augustin MD [address] [place] [address] PCP - General Internal Medicine 06/02/24
--- OUTSIDE RECORDS SUMMARY | 2024-06-16 09:26 | XMS_ITS | Encounter Summary ---
Author Organization [facility] Address [address] [place] [address] Care Team Providers Care Architect Intern Name Role Phone Dominique Swift MD Primary Care Provider Uli Moreno MD Primary Care Provider Un available Ramon Marcos MD Primary Care Prov ider Unavailable Alia Gagnon MD Unavailable [phone] [place] Unavailable Reason for Visit * Reason Onset Date Comments REFERRAL 05/17/2015 BE- DR DIETZ Encounter Details Date Type Department Care Team Description 05/17/2015 Telephone Chiropractic - [address] [phone] Raul Dietz D.C. REFERRAL ([facility]) Social History Tobacco Use Types Packs/Day [...] on filedocumented in this encounter Care Teams Architect Intern Relationship Specialty Start Date End Date Dominique Swift MD PCP - General Internal Medicine 03/17/15 07/12/15 Uli Rueda MD PCP - General Internal Medicine 07/13/15 Ramon Marcos MD PCP - General Internal Medicine 06/16/20 Alia Gagnon MD Specialist Cardiology 07/06/20 Ridge Oakley PA Specialist Cardiology 07/06/20 documented as of this encounter
--- OUTSIDE RECORDS SUMMARY | 2024-06-16 09:26 | XMS_ITS | Encounter Summary ---
Author Organization [facility] Address [address] [place] [address] Care Team Providers Care Campus Recruiting Coordinator Name Role Phone Uli Rueda MD Primary Care Provider Un available Ramon Marcos MD Primary Care Prov ider Unavailable Alia Gagnon MD Unavailable [place] Unavailable Reason for Visit * Reason Onset Date Comments REFERRAL 10/23/2017 Encounter Details Date Type Department Care Team Description 10/23/2017 Telephone Gastroenterology - [address] [address] Elie Thibodeaux MD REFERRAL Social History Tobacco Use Types [...] encounter Miscellaneous Notes * Telephone Encounter - Elie Thibodeaux MD - 10/23/2017 1:29 PM EDT Could have it here. * Telephone Encounter - Bailee Isaacs - 10/23/2017 1:21 PM EDT Patient has been referred for a screening colonoscopy. Please review if patient Should be scheduled here or at the hospital? documented in this encounter Plan of Treatment Not on file documented as of this encounter Visit Diagnoses Not on filedocumented in this encounter Care Teams Campus Recruiting Coordinator Relationship Specialty Start Date End Date Uli Rueda MD PCP - General Internal Medicine 07/13/15 Ramon Marcos MD PCP - General Internal Medicine 06/16/20 Alia Gagnon MD Specialist Cardiology 07/06/20 Ridge Oakley PA Specialist Cardiology 07/06/20 documented as of this encounter
--- OUTSIDE RECORDS SUMMARY | 2024-06-16 09:26 | XMS_ITS | Encounter Summary ---
Author Organization [facility] Address [address] [place] [address] Care Team Providers Care Turret Lathe Machinist Name Role Phone Uli Rueda MD Primary Care Provider Un available Ramon Marcos MD Primary Care Prov ider Unavailable Alia Gagnon MD Unavailable [phone] Ridge Oak[place] Unavailable Encounter Details Date Type Department Care Team Description 05/27/2017 Store Stock Associate Report Medical Records [address] [place] [address] Rehab., [place] Social History Tobacco Use Types Packs/Day Years [...] on filedocumented in this encounter Care Teams Turret Lathe Machinist Relationship Specialty Start Date End Date Uli Rueda MD PCP - General Internal Medicine 07/13/15 Ramon Marcos MD PCP - General Internal Medicine 06/16/20 Alia Gagnon MD Specialist Cardiology 07/06/20 Ridge Oakley PA Specialist Cardiology 07/06/20 documented as of this encounter
--- OUTSIDE RECORDS SUMMARY | 2024-06-16 09:26 | XMS_ITS | Encounter Summary ---
Author Organization [facility] Address [address] [place] [address] Care Team Providers Care Oracle Manufacturing Consultant Name Role Phone Uli Rueda MD Primary Care Provider Un available Ramon Marcos MD Primary Care Prov ider Unavailable Alia Gagnon MD Unavailable [phone] Ridge [place] Unavailable Encounter Details Date Type Department Care Team Description 12/13/2015 Business Doc Medical Records [address] [place] [address] Abstract, Provider Social History Tobacco Use Types [...] on filedocumented in this encounter Care Teams Oracle Manufacturing Consultant Relationship Specialty Start Date End Date Uli Rueda MD PCP - General Internal Medicine 07/13/15 Ramon Marcos MD PCP - General Internal Medicine 06/16/20 Alia Gagnon MD Specialist Cardiology 07/06/20 Ridge Oakley PA Specialist Cardiology 07/06/20 documented as of this encounter
--- OUTSIDE RECORDS SUMMARY | 2024-06-16 09:26 | XMS_ITS | Encounter Summary ---
Author Organization [employer] Address [address] [facility] 7 [place] [address] Care Team Providers Care Electro Mechanical Designer Name Role Phone Steffany Augustin MD Primary Care Provider [phone] Demi Menendez PharmD Unavailable [phone] Encounter Details Date Type Department Care Team (Late st Contact Info) Description 06/14/2024 Orders Only [facility] MED & PEDS [address] [place], [place] [phone] Steffany Augustin MD [address] [place], [place] [phone] Hypercalcemia (Primary Dx) Social History Tobacco Use Types [...] AM EDT Office Visit [facility] PEDS [address] [place] [address] Steffany Augustin MD [address] [place] [address] 07/19/2024 9:00 AM EDT Medication Management [facility] PEDS [address] [place] [address] Demi Menendez, PharmD [address] [place] [address] Scheduled Orders Name Type Priority Associated Diagnoses Orde r Schedule Protein, Total and Protein??Electrophoresis Lab Routine Hypercalcemia Expected: 06/16/2024 (Approximate), Expires: 06/14/2025 Protein Electrophoresis, 24-Hour Urine (UPEP) Lab Routine Hypercalcemia Expected: 06/16/2024 (Approximate), Expires: 06/14/2025 [place]/Lambda Light Chains, Free with Ratio Lab Routine Hypercalcemia Expected: 06/16/2024 (Approximate), Expires: 06/14/2025 PTH, Intact Without Calcium Lab Routine Hypercalcemia Expected: 06/16/2024 (Approximate), Expires: 06/14/2025 Basic Metabolic Panel Lab Routine Hypercalcemia Expected: 06/16/2024 (Approximate), Expires: 06/16/2025 documented as of this encounter Visit Diagnoses Diagnosis Hypercalcemia- Primary documented in this encounter Additional Health Concerns Assessment Noted Time PHQ-9 Depression Total Score: 0 03/16/19 25 3:27 PM EST documented as of this encounter Care Teams Electro Mechanical Designer Relationship Specialty Start Date End Date Steffany Augustin MD [address] [place] [address] PCP - General Internal Medicine 12/03/23 Demi Menendez PharmD [address] [place] [address] Pharmacist Internal Medicine 04/16/24 documented as of this encounter
--- OUTSIDE RECORDS SUMMARY | 2024-06-16 09:26 | XMS_ITS | Encounter Summary ---
Author Organization [employer] Address [address] [facility] 7 [place] [address] Care Team Providers Care Armoured Corps Officer Name Role Phone Steffany Augustin MD Primary Care Provider [phone] Demi Menendez PharmD Unavailable [phone] Reason for Visit * Reason Onset Date Comments Results 06/15/2024 Encounter Details Date Type Department Care Team ([facility] Contact Info) Description 06/15/2024 Telephone [facility] MED [facility] PEDS [address] [place], [place] [phone] Steffany Aguustin MD [address] [place] [address] Results Social History Tobacco Use Types Packs/Day Years [...] encounter Miscellaneous Notes * Telephone Encounter - Judy Ritter RN - 06/15/2024 11:09 AM EDT TC to pt. Daughter picked up phone. HIPAA consent verified. Advised on labs and recommendations to stay hydrated. Pt daughter verbalized understanding and agreement with plan. documented in this encounter Plan of Treatment Upcoming Encounters Date Type Department Care Team (Late st Contact Info) Description 06/22/2024 11:30 AM EDT Office Visit [facility] MED & PEDS [address] [place] [address] Steffany Augustin MD [address] [place] [address] 07/19/2024 9:00 AM EDT Medication Management [facility] MED & PEDS [address] [place] [address] Demi Menendez, PharmD [address] [place] [address] documented as of this encounter Visit Diagnoses Not on filedocumented in this encounter Additional Health Concerns Assessment Noted Time PHQ-9 Depression Total Score: 0 03/16/19 25 3:27 PM EST documented as of this encounter Care Teams Armoured Corps Officer Relationship Specialty Start Date End Date Steffany Augustin MD [address] [place] [address] PCP - General Internal Medicine 12/03/23 Demi Menendez, Padma [address] [place] [address] Pharmacist Internal Medicine 04/16/24 documented as of this encounter
--- OUTSIDE RECORDS SUMMARY | 2024-06-16 09:26 | XMS_ITS | Encounter Summary ---
Author Organization [employer] Address [address] [facility] 7t [place] [address] Care Team Providers Care Electrical Technology Instructor Name Role Phone Ramon Marcos MD Primary Care Prov ider Steffany Augustin MD Primary Care Provider [phone] Demi Menendez PharmD Unavailable [phone] Reason for Visit * Reason Onset Date Comments pre-op 01/28/2023 Encounter Details Date Type Department Care Team ([facility] st Contact Info) Description 01/28/2023 Telephone [facility] [address] [place], [place] [phone] Ramon Marcos MD [address] [place], [place] [phone] pre-op Social History Tobacco Use Types Packs/Day [...] Montoya Facility name: [facility], [address] [place] [address] Dr Davison [facility] Surgeon's office number: [phone] ext [phone] Surgeon's office fax number: [phone] Contact name (person you spoke with): geoff documented in this encounter Plan of Treatment Upcoming Encounters Date Type Department Care Team ([facility] st Contact Info) Description 06/22/2024 11:30 AM EDT Office Visit [facility] [address] [place], [place] [phone] Steffany Augustin MD [address] [place], [place] [phone] 07/19/2024 9:00 AM EDT Medication Management [facility] [address] [place] [address] Demi Menendez PharmD [address] [place] [address] documented as of this encounter Visit Diagnoses Not on filedocumented in this encounter Additional Health Concerns Assessment Noted Time PHQ-9 Depression Total Score: 2 05/18/19 23 9:10 AM EDT documented as of this encounter Care Teams Electrical Technology Instructor Relationship Specialty Start Date End Date Ramon Marcos MD [address] [place] [address] PCP - General Internal Medicine 12/22/18 12/02/23 Steffany Augustin MD [address] [place] [address] PCP - General Internal Medicine 12/03/23 Demi Menednez PharmD [address] [place] [address] Pharmacist Internal Medicine 04/16/24 documented as of this encounter
[2024-06-16 14:43] LABS: Anion Gap 10 (12-20); Blood Urea Nitrogen 20 mg/dL (9-16); Calcium 10.3 mg/dL (8.4-10.2); Carbon Dioxide 25 mmol/L (22-29); Chloride 108 mmol/L (96-108); Estimated Glomerular Filt Rate 51; Glucose Random 141 mg/dL (60-115); Potassium 4.1 mmol/L (3.3-5.1); Sodium 139 mmol/L (135-145)
[2024-06-16 14:54] LABS: Parathyroid Hormone Intact 41.3 pg/mL (8.7-77.1)
[2024-06-18 17:19] LABS: Prot Elec - Albumin 3.7 g/dL (3.8-4.8); Prot Elec - Alpha1 0.3 g/dL (0.2-0.3); Prot Elec - Alpha2 0.8 g/dL (0.5-0.9); Prot Elec - Beta 1 0.4 g/dL (0.4-0.6); Prot Elec - Beta 2 0.4 g/dL (0.2-0.5); Prot Elec - Total Protein 6.6 g/dL (6.1-8.1)
[2024-06-22 16:33] LABS: Kappa, Serum 291 mg/dL (176-443); Kappa/Lambda Ratio, Serum 2.17 (1.29-2.55); Lambda, Serum 134 mg/dL (91-240)
== END 2024-06-16 09:00 | disposition home or self-care (01) ==
LOC: HO.CHCLDS 08:59
PROVIDERS: Visit Provider Internal Medicine
DX: E83.52 Hypercalcemia (principal)
CPT/HCPCS: 36415; 80048; 83883; 83970; 84165

== ENCOUNTER 2024-07-13 11:40 | Outpatient (REF) | payer OTHER, SELFPAY ==
--- OUTSIDE RECORDS SUMMARY | 2024-07-13 12:18 | XMS_ITS | Encounter Summary ---
Author Organization [employer] Address 75 [facility] 7t [place] [address] Care Team Providers Care Nail Specialist Name Role Phone Ramon Marcos MD Primary Care Prov ider Steffany Augustin MD Primary Care Provider [phone] Demi Menendez PharmD Unavailable [phone] Encounter Details Date Type Department Care Team (Late st Contact Info) Description 02/22/2022 Orders Only [facility] [address] [place] [address] Ramon Marcos MD [address] [place], [place] [phone] Chronic bilateral low back pain with bilateral [...] Care Team (Late st Contact Info) Description 07/19/2024 9:00 AM EDT Medication Management [facility] [address] [place], [place] [phone] Demi Menendez, PharmD [address] [place] [address] 09/21/2024 9:30 AM EDT Office Visit [facility] [address] [place] [address] Steffany Augustin MD [address] [place] [address] documented as of this encounter Visit Diagnoses Diagnosis Chronic bilateral low back pain with bilateral sciatica- Primary documented in this encounter Care Teams Nail Specialist Relationship Specialty Start Date End Date Ramon Marcos MD [address] [place] [address] PCP - General Internal Medicine 12/22/18 12/02/23 Steffany Augustin MD [address] [place] [address] PCP - General Internal Medicine 12/03/23 Demi Menendez, Padma [address] [place] [address] Pharmacist Internal Medicine 04/16/24 documented as of this encounter
[2024-07-13 13:11] LABS: Vitamin B12 422 pg/mL (200-900)
== END 2024-07-13 11:41 | disposition home or self-care (01) ==
LOC: HO.LAB 11:40
PROVIDERS: PCP Internal Medicine; Visit Provider Psychiatry & Neurology Neurology
DX: G30.9 Alzheimer's disease, unspecified (principal)
CPT/HCPCS: 36415; 82607

== ENCOUNTER 2024-09-02 15:18 | Outpatient (REF) | payer OTHER, SELFPAY ==
--- OUTSIDE RECORDS SUMMARY | 2024-09-02 15:59 | XMS_ITS | Encounter Summary ---
Author Organization [employer] Address 75 [facility] 7t [place] [address] Care Team Providers Care Seismograph Operator Name Role Phone Ramon Marcos MD Primary Care Prov ider Steffany Augustin MD Primary Care Provider [phone] Demi Menendez PharmD Unavailable [phone] Encounter Details Date Type Department Care Team (Late st Contact Info) Description 02/22/2022 Orders Only [facility] [address] [place] [address] Ramon Marcos MD [address] [place], [place] [phone] Chronic bilateral low back pain with bilateral [...] Care Team (Late st Contact Info) Description 09/10/2024 1:00 PM EDT Telemedicine [facility] MED [facility] [address] [place], [place] [phone] Demi Menendez, PharmD [address] [place] [address] 09/21/2024 9:30 AM EDT Office Visit [facility] [address] [place] [address] Steffany Augustin MD [address] [place] [address] documented as of this encounter Visit Diagnoses Diagnosis Chronic bilateral low back pain with bilateral sciatica- Primary documented in this encounter Care Teams Seismograph Operator Relationship Specialty Start Date End Date Ramon Marcos MD [address] [place] [address] PCP - General Internal Medicine 12/22/18 12/02/23 Steffany Augustin MD [address] [place] [address] PCP - General Internal Medicine 12/03/23 Demi Menendez, JesseD [address] [place] [address] Pharmacist Internal Medicine 04/16/24 documented as of this encounter
--- OUTSIDE RECORDS SUMMARY | 2024-09-02 15:59 | XMS_ITS | Clinical Summary ---
Author Organization [address] [place] [address] Address [address] [place] [address] Phone Care Team Providers Care Digital Marketing Coordinator Name Role Phone Steffany Augustin MD Primary Care Provider [phone] Allergies Active Allergy Reactions Criticality Noted Date [...] 911.). Active spironolactone (ALDACTONE) 25 mg tablet TAKE ONE TABLET EVERY MORNING 30 tablet 6 5 Active Active Problems Problem Noted Date Diagnosed [...] causing neurologic al disease, not at goal (CMS/[facility] V24, CMS/[facility] V28) 12/21/2008 Depression 12/21/2008 Hyperlipidemia 12/21/2008 [...] Description 06/04/2024 8:40 AM EDT Office Visit [facility] [address] [place] [address] Azam Enriquez NP Atrial fibrillation, unspecified type (CMS/[facility] V24, CMS/[facility] V28) (Primary Dx); Hypertension, unspecified type; [...] TOTAL KNEE REPLACE COLONOSCOPY W/ BIOPSIES 12/09/17 [facility] PROCEDURE: HI COLONOSCOPY W/BIOPSY SINGLE/MULTIPLE; COMMENT: 4 small adenomas, hemorrhoids and tics; repeat in 3 years Medical History Medical History Date Comments Hypertension 12/21/2008 DX:Hypertension Hyperlipidemia 12/21/2008 DX:Hyperlipidemi a Glaucoma 12/21/2008 DX:Glaucoma; COM MENT: Dr. 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 Skinner on 09/11/2012 Atrial fibrillation ([facility] V24, [facility] V28) 03/17/2014 DX:Atrial fibrillation ([facility]) Family history of cardiovasc ular disease DX:Family [...] Care Team (Late st Contact Info) Description 09/29/2024 8:30 AM EDT Consult Orthopedic Surgery - [place] [address] [address] Jd Alegre, DPM [address] [address] Health Maintenance Due Date Last Done Comments Diabetes: Annual Foot Exam 1960 Diabetes: Annual Retina Eye Exam 1960 Falls Risk Assessment 01/26/2022 Osteoporosis Screening (Bone Density Screening) 01/26/2022 Social Influencers of Health Screening 01/26/2022 Diabetes: Annual Urine Albumin-Creatinine Ratio (uACR) 02/01/2022 07/16/2018 DTaP,Tdap,and Td Vaccines (2 - Td or Tdap) 03/31/2023 03/31/2013 RSV Immunization Adult Patients (1 - 1-dose 75+ series) 06/22/2023 COVID-19 Vaccine (3 - season) 2023 02/15/2021, 05/15/2020 Depression Screening 02/18/2024 Influenza Vaccine (#1) 2024 4, 02/14/2023, 10/26/2021, Additional history exists Diabetes: Blood Sugar Control Test (HGBA1C) 12/09/2024 06/09/2024, 03/16/2024, 12/10/2023, Additional history exists Diabetes: Annual GFR (Glomerular Filtration Rate) 06/16/2025 06/16/2024, 06/09/2024, 07/16/2018 Hypertension/CHF/CAD Annual BMP Blood Test 06/16/2025 06/16/2024, 06/09/2024, 07/16/2018 Cholesterol Screening (Lipid Panel) 02/16/2029 02/17/2024, 07/30/2022, 07/16/2018 Pneumococcal Vaccine: 50+ Years Completed 07/16/2018, 12/11/2015 Zoster Vaccines Completed 04/15/2019, 01/28/2019 Hepatitis C Screening Completed 07/30/2022, 014 HIB Vaccines Aged Out No longer eligi [...] fibrillation, unspecified type (CMS/HCC V24, CMS/HCC V28) HEMOGLOBIN A1C Routine 10/27/2018 HM URINE ALBUMIN CREATININE RATIO Routine 07/16/2018 ANNUAL BMP BLOOD TEST Routine 07/16/2018 LIPID PANEL Routine 07/16/2018 HEPATITIS C SCREENING Routine 03/23/2013 from Last 3 Months or Most Recently Relevant to Health Maintenance Results * ECG 12 lead (06/04/2024 9:05 AM EDT) [facility] Ventricular Rate ECG 89 BPM GEMUSE Atrial Rate 91 BPM GEMUSE QRS Duration 88 ms GEMUSE Q-T Interval 352 ms GEMUSE QTc 428 ms GEMUSE R [place] 36 degrees GEMUSE T [place] 74 degrees GEMUSE ECG Interpretation Atrial fibrillation Abnormal ECG When compared with ECG of 22-JAN-2019 05:31, Atrial fibrillation has replaced Sinus rhythm Confirmed by RICO BURRELL ([id number]) on 07/01/2024 9:32:16 AM GEMUSE 06/04/2024 9:01 AM EDT 07/01/2024 9:32 AM EDT Result [facility] Azam Enriquez NP ECG ORDERABLES Edited Result - Final GEMUSE * (ABNORMAL) Hemoglobin A1c (10/27/2018) [facility] Hemoglobin A1C 8.5(A) <=6.5 % Blood Venous blood specimen / Unknown Result [facility] Historical Provider LAB BLOOD ORDERABLES Viola l Result * Urine Albumin Creatinine Ratio (07/16/2018) Pathologist [facility] Urine Albumin Creatinine Ratio abstracted Result [facility] Historical Provider HEALTH MAINTENANCE Final Result * Annual BMP Blood Test (07/16/2018) Pathologist [facility] Annual BMP Blood Test abstracted Historical [...] Most Recently Relevant to Health Maintenance Insurance [facility] Member Subscriber Plan / Payer (Ef fective 2024-Present) Name:Demi Plata Relation to Subscriber:Self Name:Demi Plata Payer ID:[id number] Group ID:[id number] Type:Not on file Address: [place] [address] [place] [phone] Advance Directives Documents on File Type Date Recorded 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
[2024-09-02 17:54] LABS: Anion Gap 13 (12-20); Blood Urea Nitrogen 24 mg/dL (9-16); Calcium 10.1 mg/dL (8.4-10.2); Carbon Dioxide 24 mmol/L (22-29); Chloride 104 mmol/L (96-108); Estimated Glomerular Filt Rate 38; Potassium 4.4 mmol/L (3.3-5.1); Sodium 137 mmol/L (135-145)
== END 2024-09-02 15:19 | disposition home or self-care (01) ==
LOC: HO.CHCLDS 15:18
PROVIDERS: PCP Internal Medicine; Visit Provider Nurse Practitioner Primary Care
DX: I10 Essential (primary) hypertension (principal)
CPT/HCPCS: 36415; 80048

== ENCOUNTER 2025-01-07 14:20 | Outpatient (REF) | payer OTHER, SELFPAY ==
--- OUTSIDE RECORDS SUMMARY | 2024-12-14 14:45 | XMS_ITS | Encounter Summary ---
Author Organization [employer] Address [address] [facility] 7 [place] [address] Care Team Providers Care Aeronautical Engineering Teacher Name Role Phone Steffany Augustin MD Primary Care Provider [phone] Demi Menendez PharmD Unavailable [phone] Encounter Details Date Type Department Care Team (Latest Contact Info) Description 12/14/2024 3:45 PM EDT Office Visit [facility] [address], [place] [id number] Steffany Augustin MD [address] [place] [address] Gastroesophageal reflux disease without esophagitis (Primary Dx); Pain of right heel; Type 2 diabetes mellitus with diabetic peripheral angiopathy without gangrene, with long-term current use of insulin (HCC); Primary hypertension; Mixed hyperlipidemia; Dietary counseling; Exercise counseling; Class 1 obesity due to excess calories with serious comorbidity and body mass index (BMI) of 34.0 to 34.9 in adult; Acute pain of left knee; Encounter for immunization Social History Tobacco Use Types Packs/Day Years [...] Sign Reading Time Taken Comments Blood Pressure 134/78 12/14/2024 4:04 PM EDT Pulse 122 12/14/2024 4:04 PM EDT Temperature 37.1 C (98.7 F) 12/14/2024 4:04 PM EDT Respiratory Rate 20 12/14/2024 4:04 PM EDT Oxygen Saturation - - Inhaled Oxygen Concentration - - Weight 80.7 kg (178 lb) 12/14/2024 4:04 PM EDT Height 160 cm (5' 3 ) 12/14/2024 4:04 PM EDT Body Mass Index 31.53 12/14/2024 4:04 PM EDT documented in this encounter Progress Notes * Steffany Augustin MD - 12/14/2024 3:45 PM EDT SUBJECTIVE Demi Plata is a 74 y.o. female who presents for No chief complaint on file.. Demi Plata, 74-year-old female - History of right foot pain, referred to senior loss control specialist on 2024, but appointment missed - X-ray of right foot showed degenerative changes and arthritis, with irregular focal calcificationof the distal axial tendon - Ongoing right foot pain since at least June 2024 - Recent fall on concrete approximately 2 weeks ago, resulting in persistent left knee pain, present all the time - No loss of consciousness at time of fall - Memory worsening, described as so bad, with concern about gabapentin use affecting memory - Avoids ibuprofen due to stomach issues - Occasional use of gabapentin for pain - Emotional distress and crying episodes reported by caregiver Problem List[1] Allergies[2] Medications Ordered Prior to Encounter[3] Review of Systems Constitutional: Negative for activity change, appetite change, chills and diaphoresis. Eyes: Negative for photophobia, pain and redness. Respiratory: Negative for cough and choking. Musculoskeletal: Left knee pain Skin: Negative for pallor and rash. Psychiatric/Behavioral: Negative for confusion, decreased concentration and dysphoric mood. OBJECTIVE Vitals: 12/14/24 1604 BP: 134/78 BP Location: Left arm Patient Position: Sitting BP Cuff Size: Adult Pulse: (!) 122 Resp: 20 Temp: 98.7 ??F (37.1 ??C) TempSrc: Oral Weight: 178 lb (80.7 kg) Height: 5' 3 (1.6 m) Physical Exam Constitutional: General: She is not in acute distress. Appearance: Normal appearance. She is not ill-appearing, toxic-appearing or diaphoretic. Cardiovascular: Rate and Rhythm: Normal rate. Pulmonary: Effort: Pulmonary effort is normal. Abdominal: Palpations: Abdomen is soft. Musculoskeletal: Right knee: Normal. Left knee: Normal range of motion. Tenderness present. No medial joint line tenderness. Comments: Pt is able to bear weight. Neurological: Mental Status: She is alert. Assessment/Plan Assessment/Plan Diagnoses and all orders for this visit: Gastroesophageal reflux disease without esophagitis Pain of right heel Type 2 diabetes mellitus with diabetic peripheral angiopathy without gangrene, with long-term current use of insulin ([facility]) - POCT Glucose - POCT Hgb A1c - Lipid Panel, Standard; Future - Albumin, Random Urine W/Creatinine; Future Primary hypertension Mixed hyperlipidemia Dietary counseling Exercise counseling Class 1 obesity due to excess calories with serious comorbidity and body mass index (BMI) of 34.0 to 34.9 in adult Dietary Recommendations: Fruits, vegetables, whole grains, protein foods, and fat-free or low-fat dairy products are healthychoices. Eat different types of protein foods in your diet. This can include seafood, lean meats, poultry, beans, peas, lentils, nuts, seeds, soy products, and eggs. Limit foods and beverages higher in added sugars, saturated fat, and sodium. Exercise Recommendations: At least 150 minutes of moderate-intensity physical activity per week, or an equivalent combinationof moderate- and vigorous-intensity activity Acute pain of left knee - XR Knee 3 Views Left; Future - Diclofenac Sodium (GoodSense Arthritis Pain) 1 % gel; APPLY 2 GRAM'S TO AFFECTED AREA(s) THREE TIMES DAILY NEEDED Encounter for immunization - FLU VACCINE TRIVALENT HIGH DOSE [id number] (Fluzone) 65 yrs + Pain of right heel: - Degenerative changes and arthritis of the right foot confirmed by X-ray. Irregular focal calcification of the distal axial tendon noted. - Referral to senior loss control specialist (Dr. Alegre) recommended; appointment missed, advised to reschedule. Continue use of diclofenac gel for local pain control; prescription refilled. Use Tylenol for pain management. Wrap foot for support if experiencing instability. Acute pain of left knee: - Acute pain following fall on concrete. No loss of consciousness reported prior to fall. - Use Tylenol for pain control. Apply diclofenac gel locally. Wrap knee for support if needed. Monitor for worsening symptoms. Follow-up scheduled after return from travel. Type 2 diabetes mellitus with diabetic peripheral angiopathy without gangrene, with long-term current use of insulin (HCC): - Diabetes management ongoing; blood sugar not checked at home regularly. - Recommended home blood glucose monitoring 2-3 times per week. Check blood sugar today if possible; otherwise resume after travel. Continue insulin therapy. Gastroesophageal reflux disease without esophagitis: - Gastroesophageal reflux disease present; unable to take ibuprofen due to stomach issues. - Will contact gastroenterology for possible colonoscopy, as previous procedure deferred due to blood pressure concerns. Monitor for gastrointestinal symptoms. Primary hypertension: - Blood pressure well controlled at present. - Continue current antihypertensive regimen. Monitor blood pressure. Follow-up scheduled after travel. Mixed hyperlipidemia: - Cholesterol level due for check after return from travel. [1] Patient Active Problem List Diagnosis Type 2 diabetes mellitus with diabetic peripheral angiopathy without gangrene, with long-term current use of insulin (HCC) Primary hypertension Gastroesophageal reflux disease without esophagitis Mixed hyperlipidemia Vitamin D deficiency Seasonal allergic rhinitis Chronic bilateral low back pain with bilateral sciatica Screening for colon cancer Anxiety Diabetic polyneuropathy associated with type 2 diabetes mellitus (HCC) Restless leg Preop examination Atrial fibrillation (CMS/HCC) (HCC) Glaucoma Severe obesity (BMI 35.0-39.9) with comorbidity (CMS/HCC) (HCC) Sleep apnea Spondylosis of lumbosacral region without myelopathy or radiculopathy Upper dentures Other irritable bowel syndrome Chronic right shoulder pain Iron deficiency anemia secondary to inadequate dietary iron intake Malignant neoplasm of upper-outer quadrant of left breast in female, estrogen receptor positive (CMS/HCC) (HCC) [2] Allergies Allergen Reactions Ibuprofen GI intolerance Lisinopril Cough [3] Current Outpatient Medications on File Prior to Visit Medication Sig Dispense Refill anastrozole (Arimidex) 1 MG chemo tablet Take 1 mg by mouth Once per day. Aspirin Adult Low Strength 81 MG EC tablet TAKE ONE TABLET EVERY MORNING 90 tablet 3 atorvastatin (Lipitor) 80 MG tablet TAKE ONE TABLET EVERY MORNING 90 tablet 1 Calcium Carb-Cholecalciferol 500-10 MG-MCG chewable tablet CHEW ONE TABLET IN THE MORNING AND EVENING Continuous Glucose Sensor (FreeStyle Ryne 3 Plus Sensor) misc 1 each every 15 days. 2 each 11 dicyclomine (Bentyl) 20 MG tablet TAKE ONE TABLET in the morning, at noon, in the evening, and at bedtime BEFORE MEALS 120 tablet 1 dilTIAZem CD (Cardizem CD) 300 MG 24 hr capsule TAKE ONE CAPSULE EVERY MORNING 90 capsule 1 donepezil (Aricept) 5 MG tablet take 1 tablet by mouth every day at bedtime for 90 days ferrous sulfate (Fe Tabs) 325 (65 Fe) MG EC tablet Take 1 tablet (325 mg) by mouth every other day.Do not crush, chew, or split. 15 tablet 11 FREESTYLE LITE test strip TEST BLOOD SUGAR THREE TIMES DAILY 100 strip 11 gabapentin (Neurontin) 300 MG capsule TAKE ONE CAPSULE THREE TIMES DAILY IN THE MORNING, EVENING AND BEDTIME 90 capsule 11 glucose blood (FreeStyle Precision Gareth Test) test strip Test blood sugar up to 3 times daily as directed 100 each 11 insulin glargine (Toujeo SoloStar) 300 UNIT/ML injection Inject 30 units daily. Increase by 2 unitsevery 3 days if fasting blood sugar is > 150mg/dl. Maximum 44 units daily 4.5 mL 1 loratadine (Claritin) 10 MG tablet TAKE ONE TABLET DAILY AT NOON 90 tablet 3 losartan (Cozaar) 100 MG tablet Take 1 tablet (100 mg) by mouth in the morning. 90 tablet 3 Semaglutide,0.25 or 0.5MG/DOS, (Ozempic, 0.25 or 0.5 MG/DOSE,) 2 MG/3ML solution pen-injector Inject 0.25 mg under the skin 1 (one) time per week. 3 mL 1 spironolactone (Aldactone) 25 MG tablet Take 25 mg by mouth Once per day. TechLite Plus Pen Eustis 32G X 4 MM misc USE ONE DAILY 100 each 3 TRUEplus Lancets 33G misc TEST BLOOD SUGAR THREE TIMES DAILY 100 each 11 Xarelto 20 MG tablet TAKE ONE TABLET EVERY EVENING WITH FOOD 30 tablet 11 [DISCONTINUED] Diclofenac Sodium (GoodSense Arthritis Pain) 1 % gel APPLY 2 GRAM'S TO AFFECTED AREA(s) THREE TIMES DAILY NEEDED 100 g 0 [DISCONTINUED] gabapentin (Neurontin) 300 MG capsule Take 1 capsule (300 mg) by mouth 3 times daily. 90 capsule 11 [DISCONTINUED] insulin glargine (Toujeo SoloStar) 300 UNIT/ML injection Inject 30 units daily. Increase by 2 units every 3 days if fasting blood sugar is > 150mg/dl. Maximum 44 units daily 4.5 mL 1 [DISCONTINUED] Xarelto 20 MG tablet TAKE ONE TABLET EVERY EVENING WITH FOOD 30 tablet 0 No current facility-administered medications on file prior to visit. documented in this encounter Plan of Treatment Upcoming Encounters Date Type Department Care Team (Late st Contact Info) Description 01/28/2025 2:30 PM EST Medication Management [facility] [address], [place] [phone] Demi Menendez, PharmD [address] [place] [address] Scheduled Orders Name Type Priority Associated Diagnoses Orde r Schedule Lipid Panel, Standard Lab Routine Type 2 diabetes mellitus with diabetic peripheral angiopathy without gangrene, with long-term current use of insulin (HCC) Expected: 12/14/2024 (Approximate), Expires: 12/14/2025 Albumin, Random Urine W/Creatinine Lab Routine Type 2 diabetes mellitus with diabetic peripheral angiopathy without gangrene, with long-term current use of insulin (HCC) Expected: 12/14/2024 (Approximate), Expires: 12/14/2025 documented as of this encounter Goals Goal Patient Goal Type Associated Problems Recent Progress Patient-Stated? Author Help patients manage their type 2 diabetes Care Plan Help patients manage their type 2 diabetes No Javi Lyons PharmDarrin Weekly blood pressure task Care Plan Weekly blood pressure task No Javi Lyons PharmD Help patients manage their type 2 diabetes Care Plan Help patients manage their type 2 diabetes No Javi Lyons PharmD Patient has chronic kidney disease Care Plan Patient has chronic kidney disease No Javi Lyons, PharmD Help patients manage their type 2 diabetes Care Plan Help patients manage their type 2 diabetes No Javi Lyons PharmD Patient has diabetic neuropathy Care Plan Patient has diabetic neuropathy No Javi Lyons PharmD Weekly blood pressure task Care Plan Weekly blood pressure task No LyonsJavi PharmD Weekly blood pressure task Care Plan Weekly blood pressure task No LyonsJavi PharmD Patient has chronic kidney disease Care Plan Patient has chronic kidney disease No Javi Lyons PharmD Patient has chronic kidney disease Care Plan Patient has chronic kidney disease No Javi Lyons, PharmD Patient has diabetic neuropathy Care Plan Patient has diabetic neuropathy No Javi Lyons PharmD Patient has diabetic neuropathy Care Plan Patient has diabetic neuropathy No Javi Lyons PharmD Weekly blood pressure task Care Plan Weekly blood pressure task No Steffany Augustin MD Weekly blood pressure task Care Plan Weekly blood pressure task No Steffany Augustin MD Weekly blood pressure task Care Plan Weekly blood pressure task No Steffany Augustin MD Patient has chronic kidney disease Care Plan Patient has chronic kidney disease No Steffany Augustin MD Patient has chronic kidney disease Care Plan Patient has chronic kidney disease No Steffany Augustin MD Patient has chronic kidney disease Care Plan Patient has chronic kidney disease No Steffany Augustin MD Patient has diabetic neuropathy Care Plan Patient has diabetic neuropathy No Steffany Augustin MD Patient has diabetic neuropathy Care Plan Patient has diabetic neuropathy No Steffany Augustin MD Patient has diabetic neuropathy Care Plan Patient has diabetic neuropathy No Steffany Augustin MD documented as of this encounter Procedures Procedure Name Priority Date/Time Associated Diagnosis Comments XR KNEE 3 VIEWS LEFT Routine 12/31/2024 Acute pain of left knee POCT GLYCATED HEMOGLOBIN, TOTAL Routine 12/14/2024 4:10 PM EDT Type 2 diabetes mellitus with diabetic peripheral angiopathy without gangrene, with long-term current use of insulin (HCC) POCT GLUCOSE Routine 12/14/2024 4:09 PM EDT Type 2 diabetes mellitus with diabetic peripheral angiopathy without gangrene, with long-term current use of insulin (HCC) documented in this encounter Results * XR Knee 3 Views Left (12/31/2024) Anatomical Region Laterality Modality Lower Extremities, Knee Left Radiogra phic Imaging Steffany Augustin MD IMG XR PROCEDURES Final Res ult * (ABNORMAL) POCT Hgb A1c (12/14/2024 4:10 PM EDT) Hemoglobin A1C 8.7(A) 4.0 - 5.7 % QC Media Lot # [id number] Lot# Expiration Date ,027 Blood 12/14/2024 4:10 PM EDT Steffany Augustin MD POINT OF CARE TEST ENTER/ED IT ORDERABLES Edited Result - Final * POCT Glucose (12/14/2024 4:09 PM EDT) Glucose Blood, POC 141 60 - 200 mg/dL QC Media Lot # [id number] Lot# Expiration Date 08,026 Blood Capillary blood specimen / Unknown 12/14/2024 4:09 PM EDT Steffany Augustin MD POINT OF CARE TEST ENTER/ED IT ORDERABLES Final Result documented in this encounter Visit Diagnoses Diagnosis Gastroesophageal reflux disease without esophagitis- Primary Esophageal reflux Pain of right heel Type 2 diabetes mellitus with diabetic peripheral angiopathy without gangrene, with long-term current use of insulin (HCC) Primary hypertension Unspecified essential hypertension Mixed hyperlipidemia Dietary counseling Dietary surveillance and counseling Exercise counseling Class 1 obesity due to excess calories with serious comorbidity and body mass index (BMI) of 34.0 to 34.9 in adult Acute pain of left knee Encounter for immunization documented in this encounter Additional Health Concerns Active Problems Noted Date Diagnosed Date Help patients manage their type 2 diabetes 12/29 Weekly blood pressure task 12/29/2024 Help patients manage their type 2 diabetes 12/29 Patient has chronic kidney disease 12/29/2024 Help patients manage their type 2 diabetes 12/29 Patient has diabetic neuropathy 12/29/2024 Weekly blood pressure task 12/29/2024 Weekly blood pressure task 12/29/2024 Patient has chronic kidney disease 12/29/2024 Patient has chronic kidney disease 12/29/2024 Patient has diabetic neuropathy 12/29/2024 Patient has diabetic neuropathy 12/29/2024 Weekly blood pressure task 01/04/2025 Weekly blood pressure task 01/04/2025 Weekly blood pressure task 01/04/2025 Patient has chronic kidney disease 01/04/2025 Patient has chronic kidney disease 01/04/2025 Patient has chronic kidney disease 01/04/2025 Patient has diabetic neuropathy 01/04/2025 Patient has diabetic neuropathy 01/04/2025 Patient has diabetic neuropathy 01/04/2025 Assessment Noted Time PHQ-9 Depression Total Score: 0 03/16/19 25 3:27 PM EST documented as of this encounter Care Teams Aeronautical Engineering Teacher Relationship Specialty Start Date End Date Steffany Augustin MD [address] [place] [address] PCP - General Internal Medicine 12/03/23 Demi Menendez PharmD [address] [place] [address] Pharmacist Internal Medicine 04/16/24 documented as of this encounter
--- OUTSIDE RECORDS SUMMARY | 2025-01-07 13:30 | XMS_ITS | Encounter Summary ---
Author Organization [employer] [facility] Address [address] [place] [address] 7 [place] [address] Care Team Providers Care Barrel Bung Remover And Dumper Name Role Phone Steffany Augustin MD Primary Care Provider [phone] Demi Menendez PharmD Unavailable [phone] Reason for Referral * Consultation (Urgent) - Pending Review Specialty Diagnoses / Procedures Referred By Contac t Referred To Contact Gastroenterology Diagnoses Rectal bleed Steffany Augustin MD [address] [place] [address] Phone: tel: fax: Referral ID Status Reason Start Date Expiration Date Visits Requested Visits Authorized [id number] Pending Review Specialty Services Required 5 01/07/2026 1 1 * Consultation (Routine) - Pending Review Specialty Diagnoses / Procedures Referred By Contac t Referred To Contact Neurology Diagnoses Memory change Steffany Augustin MD [address] [place] [address] Phone: tel: fax: Referral ID Status Reason Start Date Expiration Date Visits Requested Visits Authorized [id number] Pending Review Specialty Services Required 5 01/07/2026 1 1 * Imaging (Routine) - Pending Review Specialty Diagnoses / Procedures Referred By Contac t Referred To Contact Radiology Diagnoses Memory change Procedures CT Head w/o Contrast Steffany Augustin MD [address] [place] [address] Phone: tel: fax: [facility] [address] [facility], [address] [place] [address] Phone: tel: fax: Referral ID Status Reason Start Date Expiration Date V isits Requested Visits Authorized [id number] Pending Review 01/07/2025 01/07/2026 1 1 Reason for Visit * Reason Comments Hospital discharge follow up Encounter Details Date Type Department Care Team (Late st Contact Info) Description 01/07/2025 1:30 PM EST Office Visit [facility] [address] [place] [address] Steffany Augustin MD [address] [place] [address] Orthostatic syncope (Primary Dx); Primary insomnia; Decreased appetite; Type 2 diabetes mellitus with diabetic peripheral angiopathy without gangrene, with long-term current use of insulin (HCC); Muscle strain of upper back; Memory change; Rectal bleed; Visit for suture removal Social History Tobacco Use Types Packs/Day Years [...] Sign Reading Time Taken Comments Blood Pressure 150/81 01/07/2025 1:18 PM EST Pulse 63 01/07/2025 1:18 PM EST Temperature 36.5 C (97.7 F) 01/07/2025 1:18 PM EST Respiratory Rate 20 01/07/2025 1:18 PM EST Oxygen Saturation 98% 01/07/2025 1:18 PM EST Inhaled Oxygen Concentration - - Weight 78.9 kg (174 lb) 01/07/2025 1:18 PM EST Height 160 cm (5' 3 ) 01/07/2025 1:18 PM EST Body Mass Index 30.82 01/07/2025 1:18 PM EST documented in this encounter Progress Notes * Steffany Augustin MD - 01/07/2025 1:30 PM ESTAssociated Order(s): Suture Removal Post-Procedure Diagnose(s): Visit for suture removal SUBJECTIVE Demi Plata is a 74 y.o. female who presents for Hospital discharge follow up . Note from Our clinical pharmacist reviewed: [facility] (12/27/2024-12/28/2024) Patient with PMH breast cancer, AFIB, CAD and diabetes (on insulin) presented to ED after falling from standing position. Patient was having chest pain, took a nitroglycerin, subsequently felt dizzy and fell down striking head. Patient reported SOB, chest pain, pain in head and neck upon presentation. Admitted for observation. Cardiology work up included flat troponins, negative CTA chest negative, CT head and neck negative, C-spine negative. Cardiology determined pain like MSK in nature and fall likely related to hypotension after nitroglycerin dose. Discharged home with plan to FU with cardiology. History obtained from Pt and her daughter Daphney - Age: 74 years - Female - Chest pain prior to December 27, 2024; took nitroglycerin - Fall on December 27, 2024, resulting in head injury with bleeding; jessica placed in scalp - Severe loss of appetite since fall; disgusted by food, not eating - Difficulty sleeping; wandering at night observed via home cameras - Decreased memory reported by family, worsening over past year since January 2024 after trip to [place]; increased misplacement of objects - Diarrhea reported for past 3 months, with increased frequency and watery stools for past 3 days; episode of dark stools noted yesterday - No falls or dizziness since last hospital discharge - Arthritis symptoms and right lower back pain reported prior to visit - Blood pressure previously elevated at [facility] appointment leading to cancellation Problem List[1] Allergies[2] Medications Ordered Prior to Encounter[3] Review of Systems Constitutional: Negative for appetite change, chills and diaphoresis. Respiratory: Negative for cough, choking and shortness of breath. Cardiovascular: Negative for leg swelling. Musculoskeletal: Positive for myalgias. Neurological: Memory problems. OBJECTIVE There were no vitals filed for this visit. Physical Exam Constitutional: General: She is not in acute distress. Appearance: Normal appearance. She is not ill-appearing, toxic-appearing or diaphoretic. Cardiovascular: Rate and Rhythm: Normal rate. Pulmonary: Effort: Pulmonary effort is normal. Abdominal: Palpations: Abdomen is soft. Skin: General: Skin is warm. Neurological: General: No focal deficit present. Mental Status: She is alert. Assessment/Plan Assessment/Plan Patient ID: Demi Plata is a 74 y.o. female. Suture Removal Date/Time: 01/07/2025 1:49 PM Performed by: Steffany Augustin MD Authorized by: Steffany Augustin MD Consent: Consent obtained: Verbal and written Consent given by: Patient and healthcare agent Risks discussed: Pain and bleeding Alternatives discussed: Referral Bois D Arc protocol: Procedure explained and questions answered to patient or proxy's satisfaction: yes Relevant documents present and verified: no Test results available: no Imaging studies available: no Required blood products, implants, devices, and special equipment available: no Site/side marked: no Immediately prior to procedure, a time out was called: yes Patient identity confirmed: Verbally with patient Location: Location: Head/neck Head/neck location: Scalp Procedure details: Number of sutures removed: 2 Number of jessica removed: 2 Post-procedure details: Post-removal: No dressing applied Procedure completion: Tolerated well, no immediate complications Comments: 2 Jessica removed. Orthostatic syncope: - Referral to cardiology discussed. Monitoring of blood pressure at home continued. Primary insomnia: - Insomnia contributing to nighttime wandering and poor sleep. - Prescribed mirtazapine 7.5 mg in the evening to address insomnia. Decreased appetite: - Encouraged increased food and fluid intake. Family educated on importance of nutrition and hydration. Type 2 diabetes mellitus with diabetic peripheral angiopathy without gangrene, with long-term current use of insulin (HCC): - Diabetes is well-controlled; blood glucose at goal. Peripheral angiopathy monitored. - Continue current diabetes medications, including insulin. No changes made. Home monitoring of blood glucose continued. Muscle strain of upper back: - Musculoskeletal pain in right lower back, likely due to muscle strain; arthritis noted. - Recommended topical diclofenac gel for pain management. Advised use of heat application. Avoid oral NSAIDs due to gastric intolerance. Memory change: - Progressive memory decline over the past year. - Referral to memory clinic initiated. Ordered CT scan of the brain. Ordered thyroid function test (TSH). Vitamin B12 previously checked and normal. Rectal bleed: - Intermittent diarrhea with episodes of dark stools; rectal bleeding noted. - Referred urgently to gastroenterology. Ordered blood tests prior to departure. Visit for suture removal: - Marlow placed after head injury on December 27, 2024; removal indicated. - Removed two jessica from scalp after obtaining consent. Monitored for bleeding post-removal. [1] Patient Active Problem List Diagnosis Type [...] 15 days. 2 each 11 Diclofenac Sodium (GoodSense Arthritis Pain) 1 % gel APPLY 2 GRAM'S TO AFFECTED AREA(s) THREE TIMESDAILY NEEDED 100 g 0 dicyclomine (Bentyl) 20 MG [...] crush, chew, or split. 15 tablet 11 gabapentin (Neurontin) 300 MG capsule TAKE [...] 0.5 MG/DOSE,) 2 MG/3ML solution pen-injector Inject 0.5 mg under the skin 1 (one) time per week. 3 mL 0 spironolactone (Aldactone) 25 MG tablet Take 25 mg by mouth Once per day. TechLite Plus Pen [place] 32G X 4 MM misc USE ONE DAILY 100 each 3 TRUEplus Lancets 33G misc TEST BLOOD SUGAR THREE TIMES DAILY 100 each 11 Xarelto 20 MG tablet TAKE ONE TABLET EVERY EVENING WITH FOOD 30 tablet 11 No current facility-administered medications on file prior to visit. documented in this encounter Plan of Treatment Upcoming Encounters Date Type Department Care Team (Late st Contact Info) Description 01/28/2025 2:30 PM EST Medication Management [facility] [address] [place] [address] Demi Menendez, PharmD [address] [place] [address] Scheduled Orders Name Type Priority Associated Diagnoses Orde r Schedule TSH W/Reflex to FT4 Lab Routine Memory change Expected: 01/07/2025 (Approximate), Expires: 01/07/2026 CT Head w/o Contrast Imaging Routine Memory change Expected: 01/07/2025, Expires: 01/07/2026 CBC auto differential Lab Routine Rectal bleed Expected: 01/07/2025 (Approximate), Expires: 01/07/2026 Basic Metabolic Panel Lab Routine Rectal bleed Expected: 01/07/2025 (Approximate), Expires: 01/07/2026 Scheduled Referrals Name Type Priority Associated Diagnoses Order Schedule Referral to Neurology Outpatient Referral Routine Memory change Expected: 01/07/2025 (Approximate), Expires: 01/07/2026 Referral to Gastroenterology Outpatient Referral Urgent Rectal bleed Expected: 01/07/2025 (Approximate), Expires: 01/07/2026 documented as of this encounter Goals Goal Patient Goal Type Associated Problems Recent Progress Patient-Stated? Author Help patients manage their type 2 diabetes Care Plan Help patients manage their type 2 diabetes No Javi Lyons PharmD Weekly blood pressure task Care Plan Weekly blood pressure task No Javi Lyons PharmD Help patients manage their type 2 diabetes Care Plan Help patients manage their type 2 diabetes No Javi Lyons, PharmD Patient has chronic kidney disease Care Plan Patient has chronic kidney disease No aJvi Lyons PharmD Help patients manage their type 2 diabetes Care Plan Help patients manage their type 2 diabetes No LyonsJavi, PharmD Patient has diabetic neuropathy Care Plan Patient has diabetic neuropathy No Javi Lyons, PharmD Weekly blood pressure task Care Plan Weekly blood pressure task No Javi Lyons PharmD Weekly blood pressure task Care Plan Weekly blood pressure task No Javi Lyons PharmD Patient has chronic kidney disease Care Plan Patient has chronic kidney disease No Javi Lyons PharmD Patient has chronic kidney disease Care Plan Patient has chronic kidney disease No Javi Lyons PharmD Patient has diabetic [...] has diabetic neuropathy No Steffany Augustin MD Weekly blood pressure task Care Plan Weekly blood pressure task No Jen Almeida [place] Weekly blood pressure task Care Plan Weekly blood pressure task No Jen Almeida [place] Weekly blood pressure task Care Plan Weekly blood pressure task No Jen Almeida [place] Patient has chronic kidney disease Care Plan Patient has chronic kidney disease No Jen Almeida [place] Patient has chronic kidney disease Care Plan Patient has chronic kidney disease No Jen Almeida [place] Patient has chronic kidney disease Care Plan Patient has chronic kidney disease No Jen Almeida [place] Patient has diabetic neuropathy Care Plan Patient has diabetic neuropathy No Jen Almeida [place] Patient has diabetic neuropathy Care Plan Patient has diabetic neuropathy No Jen Almeida [place] Patient has diabetic neuropathy Care Plan Patient has diabetic neuropathy No Jen Almeida [place] documented as of this encounter Procedures Procedure Name Priority Date/Time Associated Diagnosis Comments SUTURE REMOVAL Routine 01/07/2025 1:49 PM EST Visit for suture removal POCT GLUCOSE Routine 01/07/2025 1:39 PM EST Type 2 diabetes mellitus with diabetic peripheral angiopathy without gangrene, with long-term current use of insulin (HCC) documented in this encounter Results * Suture Removal (01/07/2025 1:49 PM EST) Narrative Steffany Augustin MD - 01/07/2025 1:49 PM EST Steffany Augustin MD 01/07/2025 1:51 PM Suture Removal Date/Time: 01/07/2025 1:49 PM Performed by: Steffany Augustin MD Authorized by: Steffany Augustin MD Consent: Consent obtained: Verbal and written Consent given by: Patient and healthcare agent Risks discussed: Pain and bleeding Alternatives discussed: Referral Bois D Arc protocol: Procedure explained and questions answered to patient or proxy's satisfaction: yes Relevant documents present and verified: no Test results available: no Imaging studies available: no Required blood products, implants, devices, and special equipment available: no Site/side marked: no Immediately prior to procedure, a time out was called: yes Patient identity confirmed: Verbally with patient Location: Location: Head/neck Head/neck location: Scalp Procedure details: Number of sutures removed: 2 Number of jessica removed: 2 Post-procedure details: Post-removal: No dressing applied Procedure completion: Tolerated well, no immediate complications Comments: 2 Jessica removed. us Steffany Augustin MD IN CLINIC/BEDSIDE ORDERABLE S Final Result * POCT Glucose (01/07/2025 1:39 PM EST) Glucose Blood, POC 123 60 - 200 mg/dL QC Media Lot # [id number] Lot# Expiration Date [id number] Comment:random Blood Capillary blood specimen / Unknown 01/07/2025 1:39 PM EST Steffany Augustin MD POINT OF CARE TEST ENTER/ED IT ORDERABLES Final Result documented in this encounter Visit Diagnoses Diagnosis Orthostatic syncope- Primary Primary insomnia Persistent disorder of initiating or maintaining sleep Decreased appetite Anorexia Type 2 diabetes mellitus with diabetic peripheral angiopathy without gangrene, with long-term current use of insulin ([facility]) Muscle strain of upper back Memory change Memory loss Rectal bleed Hemorrhage of rectum and anus Visit for suture removal documented in this encounter Additional Health Concerns [...] neuropathy 01/04/2025 Patient has diabetic neuropathy 01/04/2025 Weekly blood pressure task 01/07/2025 Weekly blood pressure task 01/07/2025 Weekly blood pressure task 01/07/2025 Patient has chronic kidney disease 01/07/2025 Patient has chronic kidney disease 01/07/2025 Patient has chronic kidney disease 01/07/2025 Patient has diabetic neuropathy 01/07/2025 Patient has diabetic neuropathy 01/07/2025 Patient has diabetic neuropathy 01/07/2025 Assessment Noted Time PHQ-9 Depression Total Score: 0 03/16/19 25 3:27 PM EST documented as of this encounter Care Teams Barrel Bung Remover And Dumper Relationship Specialty Start Date End Date Steffany Augustin MD [address] [place] [address] PCP - General Internal Medicine 12/03/23 Demi Menendez PharmD [address] [place] [address] Pharmacist Internal Medicine 04/16/24 documented as of this encounter
--- OUTSIDE RECORDS SUMMARY | 2025-01-07 14:41 | XMS_ITS | Encounter Summary ---
Author Organization [employer] Address [address] [facility] 7t [place] [address] Care Team Providers Care Drywall Application Supervisor Name Role Phone Steffany Augustin MD Primary Care Provider [phone] Demi Menendez PharmD Unavailable [phone] Encounter Details Date Type Department Care Team (Late st Contact Info) Description 07/01/2024 Orders Only [facility] [address] [place] [address] Provider, MD Darian Social History Tobacco Use [...] Description 01/28/2025 2:30 PM EST Medication Management [facility] [address] [place] [address] Demi Menendez PharmD [address] [place], [place] [phone] documented as of this encounter Procedures Procedure Name Priority Date/Time Associated Diagnosis Comments ECG 12-LEAD Routine 06/04/2024 12:59 PM EDT documented in this encounter Results * ECG 12 lead (06/04/2024 12:59 PM EDT) us Historical Provider ECG ORDERABLES Final Res ult documented in this encounter Visit Diagnoses Not on filedocumented in this encounter Additional Health Concerns Assessment Noted Time PHQ-9 Depression Total Score: 0 03/16/19 25 3:27 PM EST documented as of this encounter Care Teams Drywall Application Supervisor Relationship Specialty Start Date End Date Steffany Augustin MD [address] [place] [address] PCP - General Internal Medicine 12/03/23 Demi Menendez PharmD [address] [place] [address] Pharmacist Internal Medicine 04/16/24 documented as of this encounter
--- OUTSIDE RECORDS SUMMARY | 2025-01-07 14:41 | XMS_ITS | Encounter Summary ---
Author Organization [employer] Address [address] [facility] 7t [place] [address] Care Team Providers Care Bartender Name Role Phone Ramon Marcos MD Primary Care Prov ider Steffany Augustin MD Primary Care Provider [phone] Demi Menendez PharmD Unavailable [phone] Reason for Visit * Reason Onset Date Comments Pre-op 02/07/2023 Encounter Details Date Type Department Care Team ([facility] st Contact Info) Description 02/07/2023 Telephone [facility] [address] [place], [place] [phone] Ramon Marcos MD [address] [place], [place] [phone] Pre-op Social History Tobacco Use Types Packs/Day [...] reach out to Dr. Montoya's office in [place] to confirm details for pre-op. TC placed to [phone] Montoya's office. Extension 3 and then choice 1. No answer. LM with Dr. Montoya's surgical team to call us back at [facility] about a patient's pre-op appointment for cataract surgery. Routing back to [facility] nurses to try again. Tc from pt requesting to r/s Pre op appt for 02/07/2023 @ 2:00 pm .. Please contact pt @ [phone] * Telephone Encounter - Vahe Vasquez - 02/07/2023 12:22 PM EST Tc from pt requesting to r/s Pre op appt for 02/07/2023 @ 2:00 pm .. Please contact pt @ [phone] documented in this encounter Plan of Treatment Upcoming Encounters Date Type Department Care Team (Late st Contact Info) Description 01/28/2025 2:30 PM EST Medication Management [facility] [address] [place] [address] Demi Menendez PharmD [address] [place] [address] documented as of this encounter Visit Diagnoses Not on filedocumented in this encounter Additional Health Concerns Assessment Noted Time PHQ-9 Depression Total Score: 2 05/18/19 23 9:10 AM EDT documented as of this encounter Care Teams Bartender Relationship Specialty Start Date End Date Ramon Marcos MD [address] [place] [address] PCP - General Internal Medicine 12/22/18 12/02/23 Steffany Augustin MD [address] [place] [address] PCP - General Internal Medicine 12/03/23 Demi Menendez PharmD [address] [place] [address] Pharmacist Internal Medicine 04/16/24 documented as of this encounter
--- OUTSIDE RECORDS SUMMARY | 2025-01-07 14:41 | XMS_ITS | Encounter Summary ---
Author Organization [facility] Address [address] [place] [address] Care Team Providers Care Operations Officer Name Role Phone Steffany Augustin MD Primary Care Provider [phone] Reason for Referral * Cardiac Stress Testing (Routine) - Pending Review Specialty Diagnoses / Procedures Referred By Bean bragg Referred To Contact Diagnoses Chest pain, unspecified type Procedures PET myocardial perfusion imaging [facility] MY[facility] PET PERFUSION STUDY SINGLE STUDY AT REST OR STRESS [facility] MY[facility] PET PERFUSION STUDY MULTI STUDIES AT REST AND STRESS Peyton Christianson NP 2 [facility] [address] [place] [phone] [facility] Referral ID Status Reason Start Date Expiration Date V isits Requested Visits Authorized [id number] Pending Review 12/28/2024 12/28/2025 3 3 Encounter Details Date Type Department Care Team (Late st Contact Info) Description 12/28/2024 Telephone [facility] [address] [place] [address] Peyton Christianson NP 2 [facility] [address] [place] [phone] Social History Tobacco Use Types Packs/Day Years [...] as of this encounter Progress Notes * Sarah Seay MA - 01/06/2025 9:28 AM EST I sent a secure chat to Stefani Nino with [facility] PET to confirm order was received. Also requested she (or someone with that team) let us know the date of the PET so we can schedule hospital follow up. * Alia Escobar - 01/04/2025 12:42 PM EST Echo completed on 01/01/25. * Emelia Aguillon - 12/30/2024 4:32 PM EST Spoke with the patient daughter and scheduled for 01/07/25 with Azam Enriquez. * Peyton Christianson NP - 12/28/2024 12:34 PM EST Pls arrange stress CT/PET dx CP Then, pls arrange HFU s/p [facility], CP, stress 4-6ish weeks. Pls r/s the echo she no-showed earlier this year. Azam ordered the echo. OK if echo scheduled afterfollow up Home today Pls call daughter. Thank you documented in this encounter Plan of Treatment Upcoming Encounters Date Type Department Care Team (Late st Contact Info) Description 03/09/2025 8:45 AM EST Office Visit [facility] [place] [address] [address] Jd Alegre DPM [address] [address] Scheduled Orders Name Type Priority Associated Diagnoses Orde r Schedule PET myocardial perfusion imaging Cardiac Nuclear Medicine Routine Chest pain, unspecified type 1 Occurrences starting 12/28/2024 until 12/28/2025 documented as of this encounter Visit Diagnoses Diagnosis Chest pain, unspecified type- Primary documented in this encounter Care Teams Operations Officer Relationship Specialty Start Date End Date Steffany Augustin MD [address] [place], [place] PCP - General Internal Medicine 06/02/24 documented as of this encounter
--- OUTSIDE RECORDS SUMMARY | 2025-01-07 14:41 | XMS_ITS | Encounter Summary ---
Author Organization [employer] Address [address] [facility] 7t [place] [address] Care Team Providers Care Wood Ski Maker Name Role Phone Ramon Marcos MD Primary Care Prov ider Steffany Augustin MD Primary Care Provider [phone] Demi Menendez PharmD Unavailable [phone] Reason for Visit * Reason Onset Date Comments Pa form 02/28/2022 Encounter Details Date Type Department Care Team (Late st Contact Info) Description 02/28/2022 Telephone [facility] [address] [place], [place] [phone] Ramon Marcos MD [address] [place], [place] [phone] Pa form Social History Tobacco Use Types [...] Description 01/28/2025 2:30 PM EST Medication Management [facility] [address] [place] [address] Demi Menendez PharmD [address] [place] [address] documented as of this encounter Visit Diagnoses Not on filedocumented in this encounter Care Teams Wood Ski Maker Relationship Specialty Start Date End Date Ramon Marcos MD [address] [place] [address] PCP - General Internal Medicine 12/22/18 12/02/23 Steffany Augustin MD [address] [place] [address] PCP - General Internal Medicine 12/03/23 Demi Menendez PharmD [address] [place] [address] Pharmacist Internal Medicine 04/16/24 documented as of this encounter
--- OUTSIDE RECORDS SUMMARY | 2025-01-07 14:41 | XMS_ITS | Encounter Summary ---
Author Organization [facility] Address [address] [facility] [address] [place] [address] Care Team Providers Care Postal Inspector Name Role Phone Ramon Marcos MD Primary Care Prov ider Steffany Augustin MD Primary Care Provider [phone] Demi Menendez PharmD Unavailable [phone] Encounter Details Date Type Department Care Team (Late st Contact Info) Description 02/28/2022 Orders Only [facility] [address] [place] [address] Yeimi Madrid LPN Social History Tobacco Use [...] Description 01/28/2025 2:30 PM EST Medication Management [facility] [address] [place] [address] Demi Menendez, PharmD [address] [place], [place] [phone] documented as of this encounter Visit Diagnoses Not on filedocumented in this encounter Care Teams Postal Inspector Relationship Specialty Start Date End Date Ramon Marcos MD [address] [place] [address] PCP - General Internal Medicine 12/22/18 12/02/23 Steffany Augustin MD [address] [place] [id number] PCP - General Internal Medicine 12/03/23 Demi Menendez PharmD [address] [place] [phone] Pharmacist Internal Medicine 04/16/24 documented as of this encounter
--- OUTSIDE RECORDS SUMMARY | 2025-01-07 14:41 | XMS_ITS | Encounter Summary ---
Author Organization [employer] Address [address] [facility] [address] [place] [address] Care Team Providers Care District Medical Examiner Name Role Phone Ramon Marcos MD Primary Care Prov ider Steffany Augustin MD Primary Care Provider [phone] Demi Menendez PharmD Unavailable [phone] Encounter Details Date Type Department Care Team (Late st Contact Info) Description 02/22/2022 Orders Only [facility] [address] [place] [address] Ramon Marcos MD [address] [place], [place] [phone] Chronic bilateral low back pain with bilateral [...] Description 01/28/2025 2:30 PM EST Medication Management [facility] [address] [place], [place] [phone] Demi Menendez, PharmD [address] [place] [address] documented as of this encounter Visit Diagnoses Diagnosis Chronic bilateral low back pain with bilateral sciatica- Primary documented in this encounter Care Teams District Medical Examiner Relationship Specialty Start Date End Date Ramon Marcos MD [address] [place] [address] PCP - General Internal Medicine 12/22/18 12/02/23 Steffany Augustin MD [address] [place] [address] PCP - General Internal Medicine 12/03/23 Demi Menendez PharmD [address] [place] [phone] Pharmacist Internal Medicine 04/16/24 documented as of this encounter
--- OUTSIDE RECORDS SUMMARY | 2025-01-07 14:41 | XMS_ITS | Encounter Summary ---
Author Organization [employer] Address [address] [facility] 7[address] [place] [address] Care Team Providers Care Commercial Loan Assistant Name Role Phone Ramon Marcos MD Primary Care Prov ider Steffany Augustin MD Primary Care Provider [phone] Demi Menendez PharmD Unavailable [phone] Reason for Visit * Reason Comments Med Refill Encounter Details Date Type Department Care Team (Late st Contact Info) Description 11/17/2022 Refill [facility] [address] [place], [place] [phone] Ramon Marcos MD [address] [place], [place] [phone] Social History Tobacco Use Types Packs/Day Years [...] Description 01/28/2025 2:30 PM EST Medication Management [facility] [address] [place], [place] [phone] Demi Menendez, PharmD [address] [place], [place] [phone] documented as of this encounter Visit Diagnoses Not on filedocumented in this encounter Additional Health Concerns Assessment Noted Time PHQ-9 Depression Total Score: 2 05/18/19 23 9:10 AM EDT documented as of this encounter Care Teams Commercial Loan Assistant Relationship Specialty Start Date End Date Ramon Marcos MD [address] [place] [address] PCP - General Internal Medicine 12/22/18 12/02/23 Steffany Augustin MD [address] [place] [address] PCP - General Internal Medicine 12/03/23 Demi Menendez PharmD [address] [place] [id number] Pharmacist Internal Medicine 04/16/24 documented as of this encounter
--- OUTSIDE RECORDS SUMMARY | 2025-01-07 14:41 | XMS_ITS | Clinical Summary ---
Author Organization [employer] Address [address] [facility] 7[address] [place] [address] Care Team Providers Care Globe Mounter Name Role Phone Steffany Augustin MD Primary Care Provider [phone] Demi Menendez PharmD Unavailable [phone] Allergies Active Allergy Reactions Criticality Noted Date Comments Ibuprofen GI intolerance 11/07/2014 Lisinopril Cough 07/20/2013 Medications * This document contains information received from the source organization and may not represent a complete record from that organization. TRUEplus Lancets 33G miscIndications:T ype 2 diabetes mellitus without complications (HCC) TEST BLOOD SUGAR THREE TIMES DAILY 100 each 11 05/15/19 24 Active TechLite Plus Pen [place] 32G X 4 MM misc USE ONE DAILY 100 each 3 01/02/20 24 Active anastrozole (Arimidex) 1 MG chemo tablet Take 1 mg by mouth Once per day. 11/19/19 24 Active Continuous Glucose Sensor (FreeStyle Ryne 3 Plus Sensor) miscIndications:T ype 2 diabetes mellitus with diabetic peripheral angiopathy without gangrene, with long-term current use of insulin ([facility]) 1 each every 15 days. 2 each 11 04/16/19 25 Active glucose blood (FreeStyle Precision Gareth Test) test stripIndications: Type 2 diabetes mellitus with diabetic peripheral angiopathy without gangrene, with long-term current use of insulin ([facility]) Test blood sugar up to 3 times daily as directed 100 each 11 5 2:44 PM EST 04/16/19 25 Active ferrous sulfate (Fe Tabs) 325 (65 Fe) MG EC tabletIndications :Iron deficiency anemia secondary to inadequate dietary iron intake Take 1 tablet (325 mg) by mouth every other day. Do not crush, chew, or split. 15 tablet 11 04/16/19 25 026 Active Aspirin Adult Low Strength 81 MG EC tabletIndications :Primary hypertension TAKE ONE TABLET EVERY MORNING 90 tablet 3 5 2:44 PM EST 04/24/19 25 Active spironolactone (Aldactone) 25 MG tablet Take 25 mg by mouth Once per day. 06/05/19 25 026 Active Calcium Carb-Cholecalcife rol 500-10 MG-MCG chewable tablet CHEW ONE TABLET IN THE MORNING AND EVENING 04/21/19 25 Active loratadine (Claritin) 10 MG tablet TAKE ONE TABLET DAILY AT NOON 90 tablet 3 08/10/19 25 Active donepezil (Aricept) 5 MG tablet take 1 tablet by mouth every day at bedtime for 90 days 08/06/19 25 Active dilTIAZem CD (Cardizem CD) 300 MG 24 hr capsuleIndication s:Primary hypertension,Long standing persistent atrial fibrillation (CMS/HCC) (HCC) TAKE ONE CAPSULE EVERY MORNING 90 capsule 1 09/07/19 25 Active atorvastatin (Lipitor) 80 MG tabletIndications :Mixed hyperlipidemia TAKE ONE TABLET EVERY MORNING 90 tablet 1 5 2:44 PM EST 10/08/19 25 Active dicyclomine (Bentyl) 20 MG tablet TAKE ONE TABLET in the morning, at noon, in the evening, and at bedtime BEFORE MEALS 120 tablet 1 10/12/19 25 Active gabapentin (Neurontin) 300 MG capsuleIndication s:Diabetic polyneuropathy associated with type 2 diabetes mellitus (HCC) TAKE ONE CAPSULE THREE TIMES DAILY IN THE MORNING, EVENING AND BEDTIME 90 capsule 5 2:44 PM EST 12/11/19 25 Active Xarelto 20 MG tablet TAKE ONE TABLET EVERY EVENING WITH FOOD 30 tablet 5 2:44 PM EST 12/11/19 25 Active insulin glargine (Toujeo SoloStar) 300 UNIT/ML injection Inject 30 units daily. Increase by 2 units every 3 days if fasting blood sugar is > 150mg/dl. Maximum 44 units daily 4.5 mL 1 5 2:44 PM EST 12/14/19 25 Active Diclofenac Sodium (GoodSense Arthritis Pain) 1 % gelIndications:Ac unga pain of left knee APPLY 2 GRAM'S TO AFFECTED AREA(s) THREE TIMES DAILY NEEDED 100 g 5 2:44 PM EST 12/15/19 25 Active Semaglutide,0.25 or 0.5MG/DOS, (Ozempic, 0.25 or 0.5 MG/DOSE,) 2 MG/3ML solution pen-injector Inject 0.5 mg under the skin 1 (one) time per week. 3 mL 5 2:44 PM EST 12/29/19 25 Active losartan (Cozaar) 100 MG tabletIndications :Primary hypertension Take 1 tablet (100 mg) by mouth in the morning. 90 tablet 3 12/31/19 25 Active mirtazapine (Remeron) 7.5 MG tabletIndications :Primary insomnia,Decrease d appetite Take 1 tablet (7.5 mg) by mouth at bedtime. 30 tablet 5 2:27 PM EST 01/08/20 25 025 Active Diclofenac Sodium 1 % gel To apply to the affected area 3 times a day 100 g 01/08/20 25 Active FREESTYLE LITE test stripIndications: Type 2 diabetes mellitus without complications (HCC) TEST BLOOD SUGAR THREE TIMES DAILY 100 strip 11 05/15/19 24 025 Discontinued(A lternate therapy) losartan (Cozaar) 100 MG tabletIndications :Primary hypertension Take 1 tablet (100 mg) by mouth in the morning. 90 tablet 3 12/10/19 24 025 Discontinued gabapentin (Neurontin) 300 MG capsuleIndication s:Diabetic polyneuropathy associated with type 2 diabetes mellitus (HCC) Take 1 capsule (300 mg) by mouth 3 times daily. 90 capsule 11 12/10/19 24 025 Discontinued Diclofenac Sodium (GoodSense Arthritis Pain) 1 % gelIndications:Ac unga pain of left knee APPLY 2 GRAM'S TO AFFECTED AREA(s) THREE TIMES DAILY NEEDED 100 g 05/15/19 25 025 Discontinued(R eorder (will not trigger notification to Pharmacy)) Semaglutide,0.25 or 0.5MG/DOS, (Ozempic, 0.25 or 0.5 MG/DOSE,) 2 MG/3ML solution pen-injector Inject 0.25 mg under the skin 1 (one) time per week. 3 mL 1 09/03/19 25 025 Discontinued insulin glargine (Toujeo SoloStar) 300 UNIT/ML injection Inject 30 units daily. Increase by 2 units every 3 days if fasting blood sugar is > 150mg/dl. Maximum 44 units daily 4.5 mL 1 09/03/19 25 025 Discontinued(R eorder (will not trigger notification to Pharmacy)) Xarelto 20 MG tablet TAKE ONE TABLET EVERY EVENING WITH FOOD 30 tablet 10/21/19 025 Discontinued Active Problems Problem Noted Date Diagnosed Date Malignant neoplasm of upper- outer quadrant of left breast in female, estrogen receptor positive (CMS/HCC) 03/31/2024 Chronic right shoulder pain 09/01/2023 Assessment & Plan (09/01/2023 8:07 AM EDT): No trauma, no dislocation, will order a chest xray to evaluate OA severity Iron deficiency anemia shraddha cedeno to inadequate dietary iron intake 09/01/2023 Assessment [...] procedure. Severe obesity (BMI 35.0-39.9) with comorbidity (CMS/HCC) 02/14/2023 02/14/2023 Upper dentures 02/14/2023 Diabetic polyneuropathy [...] & Plan (08/12/2022 10:06 AM EDT): Assessment: Patient with mild symptoms of anxiety which include feeling anxious, worrying about things and sometimes unable to stop worrying, becoming restless, and afraid something bad may happen. Patient also reports episodes of sadness/depressed mood which she is able to cope with the majority of the time. Patient declined referral for OP therapy at this time. She utilizes coping skills and has a strong support system. She was recommended to connect with her PCP, if a referral is needed in the future. At this time Demi Plata meets criteria for Visit Diagnoses: Problem List Items Addressed This Visit Other Anxiety Patient ready to address current needs Patient declined OP therapy referral at this time as symptoms manageable Strengths include utilization of coping skills PLAN: 1. Follow up with [facility]: Not recommended for follow-up 2. Patient goal [...] to 300mg, told to follow up with people manager, no reported episode of shortness of breath/chest [...] Will order script for shower chair and sisal picker stick, due to her back pain [...] myelopathy or radiculopathy 05/09/2015 02/14/2023 Atrial fibrillation (CMS/HCC) 03/17/2014 Overview (02/14/2023): Last Assessment & Plan: The [...] Date Diagnosed Date Resolved Date Longstanding persistent atri al fibrillation (CMS/HCC) 01/18/2022 02/14/2023 Encounters Date Type Department Care Team Description 01/07/2025 1:30 PM EST Office Visit [facility] [address] [place], [place] [phone] Steffany Augustin MD Orthostatic syncope (Primary Dx); Primary insomnia; Decreased appetite; Type 2 diabetes mellitus with diabetic peripheral angiopathy without gangrene, with long-term current use of insulin (HCC); Muscle strain of upper back; Memory change; Rectal bleed; Visit for suture removal 01/07/2025 Travel 12/29/2024 Refill [facility] [address], [place] [phone] Steffany Augustin MD Primary hypertension 12/24/2024 Refill [facility] [address], [place] [phone] Demi Menendez, Padma 12/14/2024 3:45 PM EDT Office Visit [facility] [address], [place] [phone] Steffany Augustin MD Gastroesophageal reflux disease without esophagitis (Primary Dx); Pain of right heel; Type 2 diabetes mellitus with diabetic peripheral angiopathy without gangrene, with long-term current use of insulin ([facility]); Primary hypertension; Mixed hyperlipidemia; Dietary counseling; Exercise counseling; Class 1 obesity due to excess calories with serious comorbidity and body mass index (BMI) of 34.0 to 34.9 in adult; Acute pain of left knee; Encounter for immunization 12/14/2024 Travel 12/13/2024 Telephone [facility] [address] [place] [address] Steffany Augustin MD Chart Prep 12/10/2024 Refill [facility] [address] [place] [address] Steffany Augustin MD 12/10/2024 Refill [facility] [address], [place] [phone] Steffany Augustin MD Diabetic polyneuropathy associated with type 2 diabetes mellitus (HCC) 12/03/2024 Telephone [facility] MED[facility] [address] [place] [address] [phone] Steffany Augustin MD 11/24/2024 Telephone [facility] [address] [place] [address] [phone] Steffany Augustin MD 11/19/2024 Patient Outreach [facility] [address] [place] [address] Steffany Augustin MD 11/04/2024 Orders Only [facility] [address] [place] [address] Darian Gan MD 10/19/2024 Refill [facility] [address] [place] [address] Taylor Triplett MD 10/13/2024 Telephone [facility] [address] [place] [address] Steffany Augustin MD 10/11/2024 Refill [facility] [address] [place] [address] Steffany Augustin MD 10/07/2024 Refill [facility] [address] [place] [address] Steffany Augustin MD Mixed hyperlipidemia from Last 3 Months Immunizations Immunization Administration Dates Next Due Influenza High-dose Quadriva lent Preservative Free 10/26/2021,01/31/2021,12/08/2019 Influenza injectable quadriv alent IIV4 with preservative 12/22/2018 Influenza injectable quadriv alent preservative free 02/14/2023 Influenza, High Dose Seasona l, Preservative Free 12/14/2024,12/10/2023 Influenza, IIV3, injectable 12/11/2015, 5,11/06/2012 Pneumococcal Conjugate [...] Mass Index 30.82 01/07/2025 1:18 PM EST Plan of Treatment Upcoming Encounters Date Type Department Care Team (Late st Contact Info) Description 01/28/2025 2:30 PM EST Medication Management [facility] [address] [place] [address] Demi Menendez, PharmD [address] [place] [address] Health Maintenance Due Date Last Done Comments Diabetes: Urine Protein Screening 04/23/2022 04/23/2021, 04/23/2021, 05/05/2020, Additional history exists DTaP/Tdap/Td Vaccines (2 - Td or Tdap) 03/31/2023 03/31/2013 RSV Patients and Patients Aged 60 years or older (1 - 1-dose 75+ series) 06/22/2023 COVID-19 Vaccine ( season) 2024 02/15/2021, 05/15/2020 Lipid Panel 02/16/2025 02/17/2024, 07/18, 04/23/2021, Additional history exists Mammogram 02/23/2025 02/24/2024, 07/18, 02/14/2023, Additional history exists Alcohol/Substance Use Screening 03/16/2025 03/16/2024 Depression Screening 03/16/2025 03/16/2024, 03/16/19 25 Diabetes: Hemoglobin A1C 03/16/202512/14/2 025, 09/02/2024, 06/09/2024, Additional history exists SDOH Screening 03/16/2025 03/16/2024 Eye Exam 10/29/2025 10/29/2024, 10/29/2023 Diabetes: Foot Exam 12/14/2025 12/14/2024, 07/22/2023, 07/22/2023, Additional history exists Tobacco Screening 01/07/2026 01/07/2025 Colonoscopy Discontinued 12/09/2017 Colorectal Cancer Screening Discontinued Pneumococcal Vaccine: 50+ Years Completed 07/16/2018, 12/11/2015 Zoster Vaccines Completed 04/15/2019, 01/28/2019 Hepatitis C Screening Completed 07/30/2022, 022 Influenza Vaccine Completed 12/14/2024, , 02/14/2023, Additional history exists CT Colonography Discontinued FIT DNA/Cologuard Discontinued FIT Discontinued FOBT Discontinued HIB Vaccines Aged Out No longer eligi [...] on patient's age to complete this topic Sigmoidoscopy Discontinued Goals Goal Patient Goal Type Associated Problems Recent Progress Patient-Stated? Author Help patients manage their type 2 diabetes Care Plan Help patients manage their type 2 diabetes No Javi Lyons PharmD Weekly blood pressure task Care Plan Weekly blood pressure task No Javi Lyons, PharmDarrin Help patients manage their type 2 diabetes Care Plan Help patients manage their type 2 diabetes No Javi Lyons, PharmD Patient has chronic kidney disease Care Plan Patient has chronic kidney disease No Javi Lyons, PharmD Help patients manage their type 2 diabetes Care Plan Help patients manage their type 2 diabetes No Javi Lyons, PharmD Patient has diabetic neuropathy Care Plan Patient has diabetic neuropathy No Javi Lyons, PharmDarrin Weekly blood pressure task Care Plan Weekly blood pressure task No Javi Lyons, PharmDarrin Weekly blood pressure task Care Plan Weekly blood pressure task No Javi Lyons, PharmD Patient has chronic kidney disease Care Plan Patient has chronic kidney disease No Javi Lyons, PharmD Patient has chronic kidney disease Care Plan Patient has chronic kidney disease No Javi Lyons, PharmD Patient has diabetic neuropathy Care Plan Patient has diabetic neuropathy No Javi Lyons, PharmD Patient has diabetic neuropathy Care Plan Patient has diabetic neuropathy No Javi Lyons, Padma Weekly blood pressure task Care Plan Weekly [...] Patient has chronic kidney disease No Steffany Augusitn MD Patient has diabetic neuropathy Care Plan [...] has diabetic neuropathy No Jen Almeida MA Procedures Procedure Name Priority Date/Time Associated Diagnosis Comments SUTURE REMOVAL Routine 01/07/2025 1:49 PM EST Visit for suture removal POCT GLUCOSE Routine 01/07/2025 1:39 PM EST Type 2 diabetes mellitus with diabetic peripheral angiopathy without gangrene, with long-term current use of insulin (HCC) XR KNEE 3 VIEWS LEFT Routine 12/31/2024 Acute pain of left knee POCT GLYCATED HEMOGLOBIN, TOTAL Routine 12/14/2024 4:10 PM EDT Type 2 diabetes mellitus with diabetic peripheral angiopathy without gangrene, with long-term current use of insulin (HCC) POCT GLUCOSE Routine 12/14/2024 4:09 PM EDT Type 2 diabetes mellitus with diabetic peripheral angiopathy without gangrene, with long-term current use of insulin (HCC) DIABETES EYE EXAM Routine 10/29/2024 12:08 PM EDT MAMMOGRAPHY Routine 02/24/2024 9:36 AM EST LIPID PANEL, STANDARD Routine 02/17/2024 9:50 AM EST Type 2 diabetes mellitus with diabetic peripheral angiopathy without gangrene, with long-term current use of insulin (CMS/HCC) HEPATITIS C AB W/REFL TO HCV RNA, QN, PCR Routine 07/30/2022 9:48 AM EDT Type 2 diabetes mellitus with diabetic peripheral angiopathy without gangrene, with long-term current use of insulin (CMS/HCC) ALBUMIN, RANDOM URINE W/CREATININE Routine 04/23/2021 8:43 AM EST COLONOSCOPY Routine 12/09/2017 from Last 3 Months or Most Recently Relevant to Health Maintenance Results * Suture Removal (01/07/2025 1:49 PM EST) Steffany Oliveira MD - 01/07/2025 1:49 PM EST Steffany Augustin MD 01/07/2025 1:51 PM Suture Removal Date/Time: 01/07/2025 1:49 PM Performed by: Steffany Augustin MD Authorized by: Steffany Augustin MD Consent: Consent obtained: Verbal and written Consent given by: Patient and healthcare agent Risks discussed: Pain and bleeding Alternatives discussed: Referral Bryan protocol: Procedure explained and questions answered to [...] * POCT Glucose (01/07/2025 1:39 PM EST) Only the most recent of2 resultswithin the time period is included. Glucose Blood, POC 123 60 - 200 mg/dL QC Media Lot # [id number] Lot# Expiration Date [id number] Comment:random Blood Capillary blood specimen / Unknown 01/07/2025 1:39 PM EST Steffany Augustin MD POINT OF CARE TEST ENTER/ED IT ORDERABLES Final Result * XR Knee 3 Views Left (12/31/2024) Anatomical Region Laterality Modality Lower Extremities, Knee Left Radiogra phic Imaging Steffany Augustin MD IMG XR PROCEDURES Final Res ult * (ABNORMAL) POCT Hgb A1c (12/14/2024 4:10 PM EDT) Hemoglobin A1C 8.7(A) 4.0 - 5.7 % QC Media Lot # [id number] Lot# Expiration Date [id number] Blood 12/14/2024 4:10 PM EDT Steffany Augustin MD POINT OF CARE TEST ENTER/ED IT ORDERABLES Edited Result - Final * Hm Diabetes Eye Exam (10/29/2024 12:08 PM EDT) Historical Provider HEALTH MAINTENANCE Final Result * Hm Mammography (02/24/2024 9:36 AM EST) Anatomical Region Laterality Modality Other Historical Provider HEALTH MAINTENANCE Final Result * (ABNORMAL) Lipid Panel, Standard (02/17/2024 9:50 AM EST) Triglycerides 87 <150 mg/dL [facility] Comment:Desirable Triglyceri de: less than 150 mg/dLBorderline High Triglyceride 150-199 mg/dLHigh Triglyceride: 200-499 mg/dLVery High Triglyceride: greater than or equal to 5OO mg/dL Cholesterol 138 <200 mg/dL [facility] Comment:Desirable Cholestero l: less than 200 mg/dLBorderline High Cholesterol: 200-239 mg/dLHigh Cholesterol: greater than 239 mg/dL LDL Cholesterol Calculated 84 <100 mg/dL [facility] Comment:Desirable LDL: less than 100 mg/dLNear Optimal/Above Optimal LDL: 110- 129 mg/dLBorderline High LDL: 130-159 mg/dLHigh LDL: 160-189 mg/dLVery High LDL: greater than or equal to 190 mg/dL HDL Cholesterol 37(L) >40 mg/dL [facility] Comment:Desirable HDL: great er than 40 mg/dL Note: This HDL assay may give artificially low results in patients with liver disease. Blood Venous blood specimen / Unknown 02/17/2024 9:50 AM EST 02/17/2024 2:57 PM EST Ramon Aguillon MD LAB BLOOD ORDERABL ES Final Result [facility] [address] [place] [phone] * Hepatitis C Antibody with Reflex to HCV, RNA, Quantitative, Real-Time PCR (07/30/2022 9:48 AM EDT) Hepatitis C Antibody NON-REACT TITI NON-REACT TITI [facility] [place] [facility] Index 0.17 <1.00 [employer] Comment: HCV antibody was non-reactive. There is no laboratory evidence of HCV infection. In most cases, no further action is required. However, if recent HCV exposure is suspected, a test for HCV RNA (test code 66923) is suggested. For additional information please refer to http://education.Nexeon/faq/KBV58m5 (This link is being provided for informational/ educational purposes only.) Blood Venous blood specimen / Unknown 07/30/2022 9:48 AM EDT 07/30/2022 9:48 AM EDT Narrative [facility] - 07/31/2022 5:32 AM EDT FASTING:YES FASTING: YES Ramon Aguillon MD LAB BLOOD ORDERABL ES Final Result [facility] [address] [place] [address], [place] [address] [facility] [facility] [address] [place] [address] * ALBUMIN, RANDOM URINE W/CREATININE (04/23/2021 8:43 AM EST) Microalbumin Urine 1.5 See Note: mg/dL [facility] Comment: Reference Range: Reference Range Not established Microalb/Creat Ratio 13 <30 mcg/mg creat [facility] Comment: The ADA defines abnormalities in albumin excretion as follows: Albuminuria Category Result (mcg/mg creatinine) Normal to Mildly increased <30 Moderately increased 30-299 Severely increased > OR = 300 The ADA recommends that at least two of three specimens collected within a 3-6 month period be abnormal before considering a patient to be within a diagnostic category. Creatinine, Urine 116 20 - 275 mg/dL [facility] 04/23/2021 8:43 AM EST Ramon Aguillon MD LAB URINE ORDERABL ES Final Result [facility] [address] [place] [address], * Colonoscopy (12/09/2017) Colonoscopy Normal Normal Narrative Niki Orozco - 12/09/2017 Repeat in 5 years Darian Provider HEALTH MAINTENANCE Final Result from Last 3 Months or Most Recently Relevant to Health Maintenance Additional Health Concerns Active Problems Noted Date [...] neuropathy 01/07/2025 Patient has diabetic neuropathy 01/07/2025 Insurance [facility] LONG-TERM OPTIONS (O D-SNP) [place] [id number] Care Teams Globe Mounter Relationship Specialty Start Date End Date Steffany Augustin MD [address] [place] [phone] PCP - General Internal Medicine 12/03/23 Demi Menendez, JesseD [address] [place] [phone] Pharmacist Internal Medicine 04/16/24
--- OUTSIDE RECORDS SUMMARY | 2025-01-07 14:41 | XMS_ITS | Encounter Summary ---
Author Organization [employer] Address [address] [facility] [address] [place] [address] Care Team Providers Care Credit Risk Review Officer Name Role Phone Ramon Marcos MD Primary Care Prov ider Steffany Augustin MD Primary Care Provider [phone] Demi Menendez PharmD Unavailable [phone] Reason for Visit * Reason Onset Date Comments pre-op 01/28/2023 Encounter Details Date Type Department Care Team ([facility] [place] [facility] st Contact Info) Description 01/28/2023 Telephone [facility] [address] [place], [place] [phone] Ramon Marcos MD [address] [place], [place] [phone] pre-op Social History Tobacco Use Types Packs/Day [...] Montoya Facility name: [facility], [address] [place] [address] [address], [place] Surgeon's office number: [phone] Surgeon's office fax number: [phone] Contact name (person you spoke with): geoff documented in this encounter Plan of Treatment Upcoming Encounters Date Type Department Care Team (Late st Contact Info) Description 01/28/2025 2:30 PM EST Medication Management [facility] [address] [place], [place] [phone] Demi Menendez, PharmD [address] [place], [place] [phone] documented as of this encounter Visit Diagnoses Not on filedocumented in this encounter Additional Health Concerns Assessment Noted Time PHQ-9 Depression Total Score: 2 05/18/19 23 9:10 AM EDT documented as of this encounter Care Teams Credit Risk Review Officer Relationship Specialty Start Date End Date Ramon Marcos MD [address] [place] [address] PCP - General Internal Medicine 12/22/18 12/02/23 Steffany Augustin MD [address] [place] [address] PCP - General Internal Medicine 12/03/23 Demi Menendez PharmD [address] [place] [phone] Pharmacist Internal Medicine 04/16/24 documented as of this encounter
--- OUTSIDE RECORDS SUMMARY | 2025-01-07 14:41 | XMS_ITS | Encounter Summary ---
Author Organization [employer] Address [address] [place] [address] Care Team Providers Care Brake Linings Coater Name Role Phone Steffany Augustin MD Primary Care Provider [phone] Demi Menendez PharmD Unavailable [phone] Encounter Details Date Type Department Care Team (Late st Contact Info) Description 01/08/2024 Orders Only [facility] [address] [place] [address] Provider, MD Darian Social History Tobacco Use [...] 01/28/2025 2:30 PM EST Medication Management [facility] [address] [place] [address] Demi Menendez PharmD [address] [place], [place] [phone] documented as of this encounter Procedures Procedure [...] documented as of this encounter Care Teams Brake Linings Coater Relationship Specialty Start Date End Date Steffany Augustin MD [address] [place], [place] [phone] PCP - General Internal Medicine 12/03/23 Demi Menendez PharmD [address] [place] [address] Pharmacist Internal Medicine 04/16/24 documented as of this encounter
--- OUTSIDE RECORDS SUMMARY | 2025-01-07 14:41 | XMS_ITS | Encounter Summary ---
Author Organization [employer] Address [address] [facility] [address] 7t [place] [address] Care Team Providers Care Training And Development Rep Name Role Phone Ramon Marcos MD Primary Care Prov ider Steffany Augustin MD Primary Care Provider [phone] Demi Menendez PharmD Unavailable [phone] Encounter Details Date Type Department Care Team (Late st Contact Info) Description 01/07/2023 Abstract [facility] MED[facility]INE [address] [place] [address] Niki Orozco Social History Tobacco Use Types [...] 2:30 PM EST Medication Management [facility] MED & PEDS [address] [place] [address] Demi Menendez PharmD 230 [place] [address] documented as of this encounter Procedures Procedure [...] documented as of this encounter Care Teams Training And Development Rep Relationship Specialty Start Date End Date LugoRamon Hawley MD 505 [place] [address] PCP - General Internal Medicine 12/22/18 12/02/23 Steffany Augustin MD 505 [place], [place] [phone] PCP - General Internal Medicine 12/03/23 Demi Menendez PharmD 230 [place] [address] Pharmacist Internal Medicine 2/28/25 documented as of this encounter
--- OUTSIDE RECORDS SUMMARY | 2025-01-07 14:41 | XMS_ITS | Encounter Summary ---
Author Organization [employer] Address [address] [facility] 7 [place] [address] Care Team Providers Care Club Former Name Role Phone Steffany Augustin MD Primary Care Provider [phone] Demi Menendez PharmD Unavailable [phone] Reason for Visit * Reason Comments Med Refill Encounter Details Date Type Department Care Team ([facility] st Contact Info) Description 08/13/2024 Refill [facility] MED & PEDS [address] [place], [place] [phone] Steffany Augustin MD 505 [place] [address] Social History Tobacco Use Types Packs/Day Years [...] Description 01/28/2025 2:30 PM EST Medication Management [facility] MED & PEDS [address] [place] [address] Demi Menendez PharmDarrin 230 [place] [address] documented as of this encounter Visit Diagnoses Not on filedocumented in this encounter Additional Health Concerns Assessment Noted Time PHQ-9 Depression Total Score: 0 03/16/19 25 3:27 PM EST documented as of this encounter Care Teams Club Former Relationship Specialty Start Date End Date Steffany Augustin MD [address] [place] [address] PCP - General Internal Medicine 12/03/23 Demi Menendez, PharmD 230 [place] [address] Pharmacist Internal Medicine 04/16/24 documented as of this encounter
--- OUTSIDE RECORDS SUMMARY | 2025-01-07 14:42 | XMS_ITS | Encounter Summary ---
Author Organization [employer] Address [address] [facility] 7t [place] [address] Care Team Providers Care Apiarist Name Role Phone Steffany Augustin MD Primary Care Provider [phone] Demi Menendez PharmD Unavailable [phone] Encounter Details Date Type Department Care Team (Late st Contact Info) Description 03/02/2024 Orders Only [facility] MEDICINE [address] [place] [address] ProviderDarian MD Social History Tobacco Use Types [...] 01/28/2025 2:30 PM EST Medication Management [facility] MED & PEDS [address] [place] [address] Demi Menendez PharmD 230 [place] [address] documented as of this encounter Procedures Procedure [...] documented as of this encounter Care Teams Apiarist Relationship Specialty Start Date End Date Steffany Augustin MD 505 [place] [address] PCP - General Internal Medicine 12/03/23 Demi Menendez PharmD 230 [place] [address] Pharmacist Internal Medicine 04/16/24 documented as of this encounter
--- OUTSIDE RECORDS SUMMARY | 2025-01-07 14:42 | XMS_ITS | Encounter Summary ---
Author Organization [employer] Address [address] [facility] [address], [place] [address] Care Team Providers Care Workers Compensation Attorney Name Role Phone Steffany Augustin MD Primary Care Provider [phone] Demi Menendez PharmD Unavailable [phone] Reason for Referral * Consultation (Routine) - Closed Specialty Diagnoses / Procedures Referred By Contac t Referred To Contact Rheumatology Diagnoses Chronic pain of multiple joints Steffany Augustin MD 505 [place] [address] Phone: tel: fax: [facility] [address] [place] [address] Phone: tel: fax: Referral ID Status Reason Start Date Expiration Date V isits Requested Visits Authorized [id number] Closed Specialty Services Required 04/30/2024 04/30/2025 1 1 Encounter Details Date Type Department Care Team (Late st Contact Info) Description 04/16/2024 Orders Only [facility] MEDICINE 230 [place] [address] Steffany Augustin MD [address] [place], [place] [phone] Iron deficiency anemia secondary to inadequate dietary [...] [facility] 505 [place] [address] Demi Menendez, PharmD 230 [place] [address] Scheduled Referrals Name Type Priority Associated Diagnoses [...] Time PHQ-9 Depression Total Score: 0 03/16/19 3:27 PM EST documented as of this encounter Care Teams Workers Compensation Attorney Relationship Specialty Start Date End Date Steffany Augustin MD 505 [place] [address] PCP - General Internal Medicine 12/03/23 Demi Menendez PharmD [address] [place] [address] Pharmacist Internal Medicine 04/16/24 documented as of this encounter
--- OUTSIDE RECORDS SUMMARY | 2025-01-07 14:42 | XMS_ITS | Encounter Summary ---
Author Organization [employer] Address 75 [facility] 7 [place] [address] Care Team Providers Care Account Representative Name Role Phone Steffany Augustin MD Primary Care Provider [phone] Demi Menendez PharmD Unavailable [phone] Reason for Visit * Reason Comments Med Refill Encounter Details Date Type Department Care Team ([facility] st Contact Info) Description 06/11/2024 Refill [facility] CH[facility] MED & PEDS 505 [place], [place] [phone] Steffany Augustin MD 505 [place] [address] Social History Tobacco Use Types Packs/Day Years [...] 01/28/2025 2:30 PM EST Medication Management [facility] MED & PEDS 505 [place] [address] Demi Menendez PharmDarrin 230 [place] [address] documented as of this encounter Visit Diagnoses Not on filedocumented in this encounter Additional Health Concerns Assessment Noted Time PHQ-9 Depression Total Score: 0 03/16/19 25 3:27 PM EST documented as of this encounter Care Teams Account Representative Relationship Specialty Start Date End Date Steffany Augustin MD 505 [place] [address] PCP - General Internal Medicine 12/03/23 Demi Menendez, PharmD 230 [place] [address] Pharmacist Internal Medicine 04/16/24 documented as of this encounter
--- OUTSIDE RECORDS SUMMARY | 2025-01-07 14:42 | XMS_ITS | Encounter Summary ---
Author Organization [employer] Address [address] [facility] [address] 7t [place] [address] Care Team Providers Care Commercial Lines Account Manager Name Role Phone Steffany Augustin MD Primary Care Provider [phone] Demi Menendez PharmD Unavailable [phone] Encounter Details Date Type Department Care Team (Latest Contact Info) Description 01/07/2025 Travel Social History Tobacco Use Types Packs/Day [...] Description 01/28/2025 2:30 PM EST Medication Management [facility] MED & PEDS [address] [place] [address] Demi Menendez PharmD 230 [place] [address] documented as of this encounter Goals Goal Patient Goal Type Associated Problems Recent Progress Patient-Stated? Author Help patients manage their type 2 diabetes Care Plan Help patients manage their type 2 diabetes No Javi Lyons PharmD Weekly blood pressure task Care Plan Weekly blood pressure task No Javi Lyons, PharmD Help patients manage their type 2 diabetes Care Plan Help patients manage their type 2 diabetes No Lu Lyonsvin, PharmD Patient has chronic kidney disease Care Plan Patient has chronic kidney disease No LyonsLuJavi, PharmD Help patients manage their type 2 diabetes Care Plan Help patients manage their type 2 diabetes No LyonsLuJavi, PharmD Patient has diabetic neuropathy Care Plan Patient has diabetic neuropathy No LyonsLuJavi, PharmD Weekly blood pressure task Care Plan Weekly blood pressure task No LyonsLuJavi, PharmD Weekly blood pressure task Care Plan Weekly blood pressure task No LyonsLuJavi, PharmD Patient has chronic kidney disease Care Plan Patient has chronic kidney disease No Lyons Javi, PharmD Patient has chronic kidney disease Care Plan Patient has chronic kidney disease No Lyons Javi, PharmD Patient has diabetic neuropathy Care Plan Patient has diabetic neuropathy No Lyons Javi, PharmD Patient has diabetic neuropathy Care Plan Patient has diabetic neuropathy No LyonsLuJavi, PharmD Weekly blood pressure task Care Plan [...] [place] documented as of this encounter Visit Diagnoses Not on filedocumented in this encounter Additional Health Concerns Active [...] as of this encounter Care Teams Commercial Lines Account Manager Relationship Specialty Start Date End Date Steffany Augustin MD [address] [place] [address] PCP - General Internal Medicine 12/03/23 Demi Menendez PharmD [address] [place] [address] Pharmacist Internal Medicine 04/16/24 documented as of this encounter
--- OUTSIDE RECORDS SUMMARY | 2025-01-07 14:42 | XMS_ITS | Encounter Summary ---
Author Organization [employer] Address [address] [facility] [address] 7[address] [place] [address] Care Team Providers Care Surgical Instrument Technician Name Role Phone Steffany Augustin MD Primary Care Provider [phone] Demi Menendez PharmD Unavailable [phone] Encounter Details Date Type Department Care Team (Late st Contact Info) Description 11/04/2024 Orders Only [facility] CHC MED & PEDS [address] [place] [address] Provider, MD Darian Social History Tobacco Use [...] 01/28/2025 2:30 PM EST Medication Management [facility] MED & PEDS 505 [place] [address] Demi Menendez PharmD 230 [place], [place] [phone] documented as of this encounter Procedures Procedure Name Priority Date/Time Associated Diagnosis Comments DIABETES EYE EXAM Routine 10/29/2024 12:08 PM EDT documented in this encounter Results * Diabetes Eye Exam (10/29/2024 12:08 PM EDT) us Historical Provider HEALTH MAINTENANCE Final Result documented in this encounter Visit Diagnoses Not on filedocumented in this encounter Additional Health Concerns Assessment Noted Time PHQ-9 Depression Total Score: 0 03/16/19 25 3:27 PM EST documented as of this encounter Care Teams Surgical Instrument Technician Relationship Specialty Start Date End Date Steffany Augustin MD 505 [place] [address] PCP - General Internal Medicine 12/03/23 Demi Menendez PharmD 230 [place], [place] [phone] Pharmacist Internal Medicine 04/16/24 documented as of this encounter
--- OUTSIDE RECORDS SUMMARY | 2025-01-07 14:42 | XMS_ITS | Clinical Summary ---
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 [...] causing neurologic al disease, not at goal ([facility] V24, [facility] V28) 12/21/2008 Depression 12/21/2008 Hyperlipidemia [...] Encounters Date Type Department Care Team Description 01/01/2025 8:00 AM EST Ancillary Procedure [facility] [address] [place] [address] Atrial fibrillation, unspecified type ([facility] V24, [facility] V28) 12/28/2024 Telephone [facility] [address] [facility] [address] [place] [address] Peyton Christianson NP from Last 3 Months Immunizations Immunization Administration Dates Next Due Influenza trivalent, with [...] TOTAL KNEE REPLACE COLONOSCOPY W/ BIOPSIES 12/09/17 [facility] PROCEDURE: NE COLONOSCOPY W/BIOPSY SINGLE/MULTIPLE; COMMENT: 4 small adenomas, hemorrhoids and tics; repeat in 3 years Medical History Medical History Date Comments Hypertension 12/21/2008 DX:Hypertension Hyperlipidemia 12/21/2008 DX:Hyperlipidemi a Glaucoma 12/21/2008 DX:Glaucoma; COM MENT: Dr. 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 Skinner on 09/11/2012 Atrial fibrillation ([facility] V24, [facility] V28) 03/17/2014 DX:Atrial fibrillation (HCC) Family history of cardiovasc ular disease DX:Family history of cardiov ascular disease Closed head injury Gout Hiatal hernia Lymphovenous edema Malignant neoplasm of upper- outer quadrant of left breast in female, estrogen receptor positive ([facility] V24, [facility] V28) Severe obesity (BMI 35.0-35. 9 with comorbidity) ([facility] V24, [facility] V28) Type 2 diabetes mellitus ( S/[facility] V24, [facility] V28) Family History Medical History Relation Name Comments [...] Sign Reading Time Taken Comments Blood Pressure 138/86 01/01/2025 8:30 AM EST Pulse 85 06/04/2024 8:47 AM EDT Temperature - - Respiratory Rate - - Oxygen Saturation 98% 06/04/2024 8:47 AM EDT Inhaled Oxygen Concentration - - Weight 79.4 kg (175 lb) 01/01/2025 8:30 AM EST Height 157.5 cm (5' 2 ) 01/01/2025 8:30 AM EST Body Mass Index 32.01 01/01/2025 8:30 AM EST Plan of Treatment Upcoming Encounters Date Type Department Care Team (Late st Contact Info) Description 03/09/2025 8:45 AM EST Office Visit [facility] [place] [address] [phone] Jd Alegre DPM [address] [address] Health Maintenance Due Date Last Done Comments Diabetes: Annual Foot Exam 1960 Diabetes: Annual Retina Eye Exam 1960 Falls Risk Assessment 01/26/2022 Osteoporosis Screening (Bone Density Screening) 01/26/2022 Social Influencers of Health Screening 01/26/2022 Diabetes: Annual Urine Albumin-Creatinine Ratio (uACR) 02/01/2022 07/16/2018 DTaP,Tdap,and Td Vaccines (2 - Td or Tdap) 03/31/2023 03/31/2013 RSV Immunization Adult Patients (1 - 1-dose 75+ series) 06/22/2023 Depression Screening 02/18/2024 COVID-19 Vaccine ( - season) 2024 02/15/2021, 05/15/2020 Diabetes: Blood Sugar Control Test (HGBA1C) 06/14/2025 12/14/2024, 06/09/2024, 03/16/2024, Additional history exists Diabetes: Annual GFR (Glomerular Filtration Rate) 06/16/2025 06/16/2024, 06/09/2024, 07/16/2018 Hypertension/CHF/CAD Annual BMP Blood Test 06/16/2025 06/16/2024, 06/09/2024, 07/16/2018 Cholesterol Screening (Lipid Panel) 02/16/2029 02/17/2024, 07/30/2022, 07/16/2018 Pneumococcal Vaccine: 50+ Years Completed 07/16/2018, 12/11/2015 Zoster Vaccines Completed 04/15/2019, 01/28/2019 Hepatitis C Screening Completed 07/30/2022, 014 Influenza Vaccine Completed 12/14/2024, , 02/14/2023, Additional history exists HIB Vaccines Aged Out [...] Blood Venous blood specimen / Unknown Result [facility] Provider LAB BLOOD ORDERABLES Viola l Result * Urine Albumin Creatinine Ratio (07/16/2018) Pathologist [facility] Urine Albumin Creatinine Ratio abstracted Result [facility] Provider HEALTH MAINTENANCE Final Result * Annual BMP Blood Test (07/16/2018) Pathologist [facility] Annual BMP Blood Test abstracted Result [facility] Provider HEALTH MAINTENANCE Final Result * (ABNORMAL) Lipid panel (07/16/2018) Pathologist [facility] LDL/HDL Ratio 4 0 - 4 Triglycerides 122 0 - 150 mg/dL Cholesterol 176 0 - 200 mg/dL HDL 44 >=40 mg/dL LDL Cholesterol 108(A) 0 - 100 mg/dL Blood Venous blood specimen / Unknown Result [facility] Provider LAB BLOOD ORDERABLES Viola l Result * Hepatitis C Screening (03/23/2013) Pathologist [facility] Hepatitis C Screening abstracted [facility] Provider HEALTH MAINTENANCE Final Result from Last 3 Months or Most Recently Relevant to Health Maintenance Insurance [facility] Member Subscriber Plan / Payer (Ef fective 2024-Present) Name:Red Platacia Relation to Subscriber:Self Name:Demi Plata Payer ID:[id number] Group ID:[id number] Type:Not on file Address: [place] [address] [id number] Advance Directives Documents on File Type Date Recorded Patient Furniture Servicer Expl anation Health Care Decision (hx) 02/15/2014 [...] (hx) 02/06/2014 AD REDDY DIRECTIVE Care Teams Sugar Boiler Relationship Specialty Start Date End Date Steffany Augustin MD [address] [place] [address] PCP - General Internal Medicine 06/02/24
[2025-01-07 18:33] LABS: MANUAL DIFF FLAG NO
[2025-01-07 18:36] LABS: Hematocrit 39.8 % (37.0-47.0); Hemoglobin 12.9 g/dl (12.0-16.0); Imm Gran Abs Auto 0.03 X10*3/uL (0.00-0.03); Imm Gran Pct Auto 0.4 % (0.0-0.4); Lymphocytes Absolute Auto 2.2 X10*3/uL (1.2-4.9); Mean Corpuscular HGB Conc 32.4 g/dl (31.0-35.0); Mean Corpuscular Hemoglobin 29.0 pg (27.0-33.0); Mean Corpuscular Volume 89.4 fL (80.0-98.0); NRBC Abs Auto 0.000 X10*3/uL (0.0-0.012); NRBC Pct Auto 0.0 /100WBC (0.0-0.2); Platelet Count 302 X10*3/uL (160-400); Red Blood Count 4.45 X10*6/uL (4.20-5.50); White Blood Count 8.3 X10*3/uL (4.8-10.8)
[2025-01-07 19:07] LABS: Anion Gap 13 (12-20); Blood Urea Nitrogen 20 mg/dL (9-16); Calcium 10.4 mg/dL (8.4-10.2); Carbon Dioxide 26 mmol/L (22-29); Chloride 105 mmol/L (96-108); Estimated Glomerular Filt Rate 52; Potassium 4.5 mmol/L (3.3-5.1); Sodium 139 mmol/L (135-145)
== END 2025-01-07 14:21 | disposition home or self-care (01) ==
LOC: HO.CHCLDS 14:20
PROVIDERS: Visit Provider Internal Medicine
DX: K62.5 Hemorrhage of anus and rectum (principal); R41.3 Other amnesia
CPT/HCPCS: 36415; 80048; 84443; 85025